=== PATIENT | male | born 1965 | race Caucasian/White ===

== ENCOUNTER 2023-04-16 23:35 | Inpatient (IN) | payer OTHER, SELFPAY ==
[2023-04-16 20:19] VITALS: BP 166/107; BMI 20.9
[2023-04-16 20:24] LABS: Glucose - Point of Care > 600 mg/dl (70-99)
[2023-04-16 20:40] LABS: % Basophils 1.1 % (0-2); % Immature Granulocytes 1.9 % (0-0.5); % Lymphocytes 15.2 % (20.5-51.1); % Monocytes 8.9 % (1.7-9.3); % Neutrophils 70.9 % (42.2-75.2); Absolute Basophils 0.1 10^3/uL (0-0.2); Absolute Eosinophils 0.2 10^3/uL (0-0.7); Absolute Immature Granulocytes 0.2 10^3/uL (0-0.05); Absolute Lymphocytes 1.2 10^3/uL (1.2-3.4); Absolute Monocytes 0.7 10^3/uL (0.1-0.6); Absolute Neutrophils 5.7 10^3/uL (1.4-6.5); Hematocrit 33.3 % (39.0-52.0); Hemoglobin 11.6 g/dL (13.0-18.0); Mean Corp Hgb Conc. 34.8 g/dL (33.0-37.0); Mean Corpuscular Hgb 29.7 pg (27.0-31.0); Mean Corpuscular Volume 85.4 fL (80.0-94.0); Mean Platelet Volume 9.7 fL (7.4-10.4); Nucleated Red Blood Cells % 0 % (-); Platelet Count 336 10^3/uL (130-400); Red Cell Dist. Width 13.6 % (11.5-14.5); White Blood Cell Count 8.1 10^3/uL (4.8-10.8)
[2023-04-16 21:01] LABS: Lactic Acid 3.8 mmol/L (0.7-2.0)
[2023-04-16 21:11] LABS: Carbon Dioxide 21 mmol/L (22-30)
[2023-04-16 21:23] LABS: Venous Blood Gas B.E. -4.7 mmol/L (-4 to +4); Venous Blood Gas HCO3 22.1 mmol/L (22-27); Venous Blood Gas O2 Sat % 72.8 %; Venous Blood Gas pCO2 47 mmHg (35-48); Venous Blood Gas pH 7.28 (7.32-7.43); Venous Blood Gas pO2 42 mmHg (30-50)
[2023-04-16 21:24] VITALS: BP 186/105
[2023-04-16] MEDS: NSS 2000 IV (21:30)
[2023-04-16 21:35] LABS: ALT (SGPT) 42 U/L (0-50); AST (SGOT) 26 U/L (17-59); Albumin 4.1 g/dl (3.5-5.0); Alkaline Phosphatase 181 U/L (38-126); Blood Urea Nitrogen 36 mg/dl (9-20); Calcium 8.9 mg/dl (8.4-10.2); Chloride 80 mmol/L (98-107); Estimated Creatinine Clearance 55 ml/min; Sodium 114 mmol/L (135-145); Total Bilirubin 0.7 mg/dl (0.2-1.3); Total Protein 6.9 g/dl (6.3-8.2); eGFR 53.96
[2023-04-16 21:42] VITALS: BP 179/110
--- NOTE | 2023-04-16 21:44 | PHANOTE ---
med rec note- patient having trouble with words and remembering. patient sentence are not making sense. patient has no ecw and only pharmacy records, no record in pharmacy fills for metformin.
[2023-04-16 22:00] VITALS: BP 200/179
[2023-04-16 22:07] LABS: Glucose 1105 mg/dl (70-99)
[2023-04-16 22:10] VITALS: BP 158/111
--- NOTE | 2023-04-16 22:22 | ED.GENMED ---
History of Present Illness
General
Chief Complaint: Blood Sugar Problem
Time Seen by Provider: 04/16/23 21:19
Travel History
Have you had any contact with someone who has COVID-19?: No
Do you have any symptoms of coronavirus? Fever > 100 degrees, chills, cough, shortness of breath, sore throat, loss of taste or smell, muscle aches, or headache?: No
History of Present Illness
History of Present Illness:
57-year-old male with history of insulin-dependent diabetes presents to the emergency department for evaluation of headache. States that he is having difficulty saying what he is thinking. He appears to be aphasic and becomes quite frustrated
easily when attempting to hold conversations. He does admit that he has not been using his insulin for quite some time. He states that he had a fall 2 weeks ago and the symptoms began then. I did also contact his roommate who states that after a
fall 2 weeks ago he became progressively more altered however the individual cannot provide any further information.
Past History
Past History
ED Past Medical History: None
Review of Systems
Review of Systems
Allergies reviewed?: Yes
All Other Systems: ROS reviewed and negative except as documented in HPI and ROS
Phy Exam
Physical Exam
Physical Exam:
GEN: Slightly disheveled but no immediate distress
Eyes: PERRLA, EOMs intact, no scleral icterus
HENT: NCAT, oral mucosa dry
Lungs: CTAB, no wheezes, rales, rhonchi, normal chest wall excursion
Cardiac: RRR, no M/R/G, no peripheral edema. Radial pulses 2+ bilat
Abdomen: S, NT, ND, NABS, no masses or hepatosplenomegaly
Neuro: Alert, display significant expressive aphasia is easily agitated. Bilateral upper and lower extremity strength is intact in all golden. Cranial nerves II through XII grossly intact
MSK: No gross deformity or ecchymosis. No edema. No digital clubbing
Skin: No rashes, petechiae. Normal color, no pallor or jaundice.
Psych: Agitates easily, progressively more aggressive throughout conversation
Course
Orders/Labs/Results
Orders:
Orders
04/16/23 20:25
Electrocardiogram (*1) Urgent
Reason for Study: Chest Pain
IV Insert/Care/Rem.- Treatment PRN
04/16/23 20:29
B-Hydroxybutyrate Urgent
Complete Blood Count/With Diff Urgent
Comprehensive Metabolic Panel Urgent
Lactic Acid Urgent
Serum Osmolality Urgent
Comment: ADD ON
04/16/23 20:45
0.9% Sodium Chloride 1000 ml [Nss] 1,000 ml IV 1,000 mls/hr
04/16/23 21:17
Venous Blood Gas Urgent
04/16/23 21:32
CT Head W/o Iv Contrast Urgent
Comment:
Reason For Exam: AMS
04/16/23 21:53
Diphenhydramine [Benadryl] 50 mg IV NOW STA
Haloperidol Lactate [Haldol] 5 mg IV NOW STA
Lorazepam [Ativan] 2 mg IV NOW STA
04/16/23 22:10
Bedside Glucose- Treatment Q1H
IV Insert/Care/Rem.- Treatment PRN
04/16/23 22:13
Add On- LAB Urgent
Tests Added?: serum osmolality
Urinalysis Reflex To Culture Urgent
Urine Sodium Urgent
04/16/23 22:23
Reg Insulin 100 Units/100 ml [Novolin R Insulin Infusion] 100 units in 100 ml IV NOW
04/16/23 22:41
0.9% Sodium Chloride 1000 ml [Nss] 2,000 ml IV BOLUS
04/16/23 22:53
Admit/Transfer Patient As Directed
Co-Sign Provider:
Level of Care: Inpatient admission
Assign to:: ICU
Physician / Group: eriberto
Diagnosis: hyperosmolar hyperglycemic state
Reason for Hospitalization: hyperosmolar hyperglycemic state
Expected length of stay greater than two midnights?: Yes
ELOS- Estimated Length of Stay in days: 2
I certify the patient meets the requirements for IP care: Yes
04/16/23 22:54
Code Status As Directed
Resuscitation Status: Full Code
04/16/23 23:00
Flush (0.9% Sodium Chloride) [Flush (Nss)] See Dose Instructions IV PER PROTOCOL
04/16/23 23:02
Urinalysis Reflex To Culture Urgent
04/16/23 23:03
CR Chest Portable - 1 View Urgent
Comment:
Reason For Exam: pna
Reason Study Needs to be Portable: Unable to Transport
04/16/23 23:15
Blood Culture Q30M
JAVIER Source: Blood/Venous
Specimen Description:
04/16/23 23:17
Vancomycin [Vancocin] 1,750 mg 0.9% Sodium Chloride 500 ml [Nss] 500 ml IV NOW
04/16/23 23:28
Reg Insulin 100 Units/100 ml [Novolin R Insulin Infusion] 100 units in 100 ml IV PER PROTOCOL
Initial dose in units/hr, then titrate:: 5
04/16/23 23:29
MRI Brain [MR Brain W/o & With Contrast] Routine
Comment:
Reason For Exam: temporal lesion
Recent pill cam endoscopy?: No
04/16/23 23:45
Blood Culture Q30M
JAVIER Source: Blood/Venous
Specimen Description:
Cefepime HCl [Maxipime] 2,000 mg IV Q12H
VANCOMYCIN Pharmacy to Dose [VANCOCIN Pharmacy to Dose] 1 each Pharmacy To Prepare [Call Pharmacy To Prepare] 0 ml IV PER PROTOCOL
04/17/23 00:00
Acyclovir [Zovirax Injection] 700 mg 0.9% Sodium Chloride 100 ml [Nss] 100 ml IV Q8H
MetroNIDAZOLE 500 MG/100 ML [Flagyl 500 mg] 100 ml IV Q8H
04/17/23 00:48
KCl 20 Meq/0.9%Sodchl 1000 ml [NSS with KCL 20 MEQ] 20 meq in 1,000 ml IV 200 mls/hr
04/17/23 00:48
Glycohemoglobin (HgbA1c) Routine
Activity As Directed
Activity Level: As Tolerated
Bedside Glucose Monitoring As Directed
Frequency: Q1H
Intake/ Output As Directed
Frequency: q12h
Notify MD As Directed
Notify physician if: Nurse to contact provider when glucose reaches 250 to obtain orders for D5 0.45 NaCl
Vital Signs As Directed
Frequency: Per unit guidelines
DX Deep Vein Thrombosis Video Routine
04/17/23 01:05
Basic Metabolic Panel Q2H
04/17/23 02:18
Basic Metabolic Panel Q2
04/17/23 02:30
Basic Metabolic Panel Q2H
04/17/23 04:00
Basic Metabolic Panel Q2
04/17/23 04:30
Basic Metabolic Panel Q2H
04/17/23 06:00
Basic Metabolic Panel Q2
Complete Blood Count/With Diff IN AM
04/17/23 08:00
Basic Metabolic Panel Q2
Heparin 5,000 units SC Q12
04/17/23 10:00
Basic Metabolic Panel Q2
04/17/23 12:00
Basic Metabolic Panel Q2
04/17/23 14:00
Basic Metabolic Panel Q2
04/17/23 Dinner
NPO
Allow oral meds: No
Allow clear liquids: No
04/17/23 16:00
Basic Metabolic Panel Q2
04/17/23 18:00
Basic Metabolic Panel Q2
04/17/23 20:00
Basic Metabolic Panel Q2
04/17/23 22:00
Basic Metabolic Panel Q2
04/18/23 00:00
Basic Metabolic Panel Q2
Abnormal Lab Results
04/16/23 04/16/23 04/16/23
20:23 20:29 21:17
RBC 3.90 L 10^6/uL
(4.70-6.10)
Hgb 11.6 L g/dL
(13.0-18.0)
Hct 33.3 L %
(39.0-52.0)
Abs Immat Gran (auto) 0.2 H 10^3/uL
(0-0.05)
Absolute Monos (auto) 0.7 H 10^3/uL
(0.1-0.6)
Immature Gran % 1.9 H %
(0-0.5)
Lymphocytes % 15.2 L %
(20.5-51.1)
VBG pH 7.28 L
(7.32-7.43)
Sodium 114 L* mmol/L
(135-145)
Chloride 80 L mmol/L
(98-107)
Carbon Dioxide 21 L mmol/L
(22-30)
BUN 36 H mg/dl
(9-20)
Creatinine 1.5 H mg/dL
(0.7-1.3)
Glucose 1105 H* mg/dl
(70-99)
Serum Osmolality 317 H mOsm/kg
(275-300)
Lactic Acid 3.8 H mmol/L
(0.7-2.0)
Alkaline Phosphatase 181 H U/L
(38-126)
POC Glucose > 600 H* mg/dl
(70-99)
04/16/23 20:29
04/16/23 22:15
Vital Signs
Initial and Last Documented VS:
Initial Vital Signs
Temp Pulse Resp BP Pulse Ox
98.2 F 88 16 166/107 99
04/16/23 20:19 04/16/23 20:19 04/16/23 20:19 04/16/23 20:19 04/16/23 20:19
Last Documented Vital Signs
Temp Pulse Resp BP Pulse Ox
98.5 F 88 20 166/107 95
04/17/23 01:08 04/16/23 20:19 04/17/23 00:59 04/16/23 20:19 04/17/23 00:59
MDM/Problems Addressed
MDM/Problems Addressed:
57-year-old male presenting with acute encephalopathy likely multifactorial in the setting of profound hyperglycemia. Also cannot discount the possibility of a closed head injury from 2 weeks ago leading to some of these cognitive changes. Head CT
interestingly shows a left temporal abnormality which could indicate the sequela of prior trauma versus neoplastic or infectious etiology. Patient was started promptly on IV fluid resuscitation and insulin drip due to hyperglycemic hyperosmolar
syndrome. Sodium corrects to 130 thus hypertonic saline was not considered. Patient is admitted to the hospitalist service to the ICU for further management
*Critical Care Note
Total Time (30-74mins, 75-104mins- exclusive of procedures): 45 minutes
comment:
Critical care time: 45 minutes
Critical care time was exclusive of: Separately billable procedures, treating other patients, and teaching time
Critical care was necessary to treat or prevent imminent or life-threatening deterioration of the following conditions: Diabetic emergency, metabolic encephalopathy
Critical care time spent personally by me on the following activities:
[x] Review of old charts
[x] Obtaining history from patient or surrogate
[x] Ordering and review of the laboratory studies
[x] Ordering and review of radiographic studies
[x] Ordering and performing treatments and interventions
[x] Patient patient's response to treatment
[x] Development of treatment plan with patient or surrogate
ED Attending Note
-
Portions of this chart may have been created with voice recognition software.� Occasional wrong word or��sound alike� substitutions may have occurred due to the inherent limitations of voice recognition software.
Discharge Plan
Departure
Patient Disposition: Admit
Date of Disposition: 04/16/23
Time of Disposition: 22:22
Admit to: ICU
Presentation/result/management discussed w/ accepting MD/DO: Hospitalist
Discharge Problem:
Type 2 diabetes mellitus with hyperosmolar hyperglycemic state (HHS), Acute metabolic encephalopathy, Pseudohyponatremia
Interventions
Interventions:
*Risk Screen - Suicide Last Done: 04/16/23 20:19
*General Assessment Last Done: 04/17/23 00:57
*Neglect/Abuse Screening Last Done: 04/16/23 20:19
ED- Fall Risk Assessment Last Done: 04/16/23 20:19
*ED COVID-19 Vaccine History Last Done: 04/16/23 20:19
*Nursing Disposition Last Done: 04/17/23 00:59
ED- Neurological Assessment Last Done: 04/17/23 00:56
Discharge Date and Time
Discharge Date/Time: 04/17/23 00:50
[2023-04-16] MEDS: NOVOLIN R INSULIN INFUSION 100 IV (22:31)
[2023-04-16 22:34] LABS: Osmolality Serum 317 mOsm/kg (275-300)
[2023-04-16] MEDS: ATIVAN 2 MG IV (22:35)
[2023-04-16] MEDS: HALDOL 5 MG IV (22:36)
[2023-04-16 23:00] VITALS: BP 132/104
--- NOTE | 2023-04-16 23:24 | HPS.HSE ---
Family Physician
-
Family Physician: Amadou Escobedo
Chief Complaint
-
altered mental status
History of Present Illness
57-year-old male past medical history of type 2 diabetes, hypothyroidism presenting with altered mental status. No history can be obtained. I attempted to call patient's friend who could not be reached.
Medical History
Past Medical History
Past Medical History: Reports Other (type 2 diabetes, hypothyroidism)
Past Surgical History: Reports None
Social History
Unable to obtain full social history at this time due to: Acuity
Family History
Family History: Not pertinent
Allergies / Home Medications
Allergies reflects when Allergies were last updated in [facility].
Home Medications with original date entered in [facility]
Allergy/Medication List:
Allergies
Allergy/AdvReac Type Severity Reaction Status Date / Time
No Known Allergies Allergy Verified 04/26/18 21:17
Home Medications
insulin detemir U-100 100 unit/mL (3 mL) subcutaneous pen (Levemir FlexPen) 0 unit SC AC 04/16/23
levothyroxine 112 mcg tablet (Synthroid) 112 mcg PO DAILY 04/16/23
sildenafil 100 mg tablet 100 mg PO DAILY PRN ed 04/16/23
Review of Systems
-
History Source: Patient
A 12 point ROS was completed and negative except as noted: Yes
Constitutional: Reports No Symptoms
EENT: Reports No Symptoms
Respiratory: Reports No Symptoms
Cardiac: Reports No Symptoms
Abdomen/GI: Reports No Symptoms
: Reports No Symptoms
Musculoskeletal: Reports No Symptoms
Skin: Reports No Symptoms
Neurological: Reports No Symptoms
Endocrine: Reports No Symptoms
Hematologic/Lymphatic: Reports No Symptoms
Psych: Reports No Symptoms
Physical Exam
Vital Signs
Vital Signs
Temp Pulse Resp BP Pulse Ox
98.2 F 88 16 166/107 99
04/16/23 20:19 04/16/23 20:19 04/16/23 20:19 04/16/23 20:19 04/16/23 20:19
Physical Exam
General: Well Developed, Well Nourished, No Apparent Distress and Other (arouses and briefly follows command to sternal rub )
HEENT: NormoCephalic, Moist mucous membranes and Atraumatic
Respiratory: Clear
Cardiac: S1/S2 and Regular Rhythm; No Murmur or Rub
GI: Soft, Non Tender, Non Distended and Normal Bowel Sounds; No Organomegaly
Rectal: Deferred by Provider
Musculoskeletal: No Clubbing, No Cyanosis and No Edema
Skin: No Rash
Neuro: Nonfocal/grossly intact
Laboratory Results
-
04/16/23 20:29
Laboratory Results
Lactic Acid 3.8 mmol/L (0.7-2.0) H 04/16/23 20:29
Total Bilirubin 0.7 mg/dl (0.2-1.3) 04/16/23 20:29
AST 26 U/L (17-59) 04/16/23 20:29
ALT 42 U/L (0-50) 04/16/23 20:29
Alkaline Phosphatase 181 U/L (38-126) H 04/16/23 20:29
Data Reviewed
-
Lab Data: Labs Reviewed by me
Old Records: Reviewed
Impression/Plan
-
IMPRESSION:
PLAN:
# Hyperosmolar hyperglycemic state
# History of type 2 diabetes
# Metabolic encephalopathy
-Patient opens eyes and barely following a command to sternal rub
-Blood sugar of 1100
-Beta hydroxybutyrate of 0.1
-VBG shows pH of 7.28, pCO2 47, bicarb 22
-No significant acidosis
-IV fluids with normal saline with 20 of potassium at 200 cc/h
-N.p.o.
-Insulin drip
-BMP every 2 hours, Accu-Chek every hour
-No obvious signs of infection but check urinalysis, chest x-ray
-Check blood cultures
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
-No family at bedside, attempted to call friend in chart but no response
# Hyponatremia secondary to hyperglycemia
-Corrected sodium of 130
-Monitor with normal saline with potassium
# Acute kidney injury
-IV fluids
# Mild asymmetric increased attenuation in the medial left temporal lobe possibly infectious/infiltrative neoplastic process
-As per CT head
-Blood cultures
-Empiric vancomycin/cefepime/Flagyl, Acyclovir to cover brain abscess/herpes encephalitis
-Check MRI brain with and without IV contrast to determine if LP needed and to de-escalate antibiotics
Hypothyroidism
-Resume levothyroxine when able
Full code
DVT prophylaxis�heparin
N.p.o.
[2023-04-16 23:52] LABS: Glucose - Point of Care > 600 mg/dl (70-99)
[2023-04-17] VITALS (25 sets, daily range): BP systolic 91–161; BP diastolic 47–87; BMI 20.5
[2023-04-17] MEDS: VANCOCIN 535 MG IV (00:26)
[2023-04-17 00:35] LABS: Glucose 606 mg/dl (70-99)
[2023-04-17 00:43] LABS: Lactic Acid 2.6 mmol/L (0.7-2.0)
--- NOTE | 2023-04-17 01:00 | PTCARENOTE ---
Patient arrived to floor from ED via stretcher accompanied by ED RN. Nursing assessment as documented, patient lethargic, arouses to tactile stimulation, able to follow simple commands but unable to answer orientation questions at this time. Patient
on RA with shallow respirations, saturations 98%. ST/SR on monitor, TR edema to BLLE, weak PP. Patient NPO with round and firm abdomen, inc of urine in brief. Wound to left lateral foot, cleansed and foam placed. Patient on insulin gtt per protocol,
see worklist for documentation. Labs drawn and sent, remains Q1hr accucheck, Q2hr BMP. VSS, call marrero in place, safe environment maintained, care ongoing.
[2023-04-17 01:11] LABS: Glucose - Point of Care 584 mg/dl (70-99)
[2023-04-17] MEDS: NSS with KCL 20 MEQ 1000 IV (01:24)
[2023-04-17 01:45] LABS: Blood Urea Nitrogen 24 mg/dl (9-20); Calcium 6.1 mg/dl (8.4-10.2); Carbon Dioxide 16 mmol/L (22-30); Chloride 106 mmol/L (98-107); Estimated Creatinine Clearance 90 ml/min; Glucose 335 mg/dl (70-99); Potassium 2.8 mmol/L (3.5-5.1); Sodium 131 mmol/L (135-145); eGFR > 60.00
[2023-04-17] MEDS: STERILE WATER FOR INJECTION 10 ML IV ×3 (01:52→23:17)
[2023-04-17] MEDS: MAXIPIME 2000 MG IV ×3 (01:52→23:17)
[2023-04-17] MEDS: FLAGYL 500 MG 100 IV ×4 (01:53→23:17)
[2023-04-17] MEDS: ZOVIRAX INJECTION 114 MG IV ×4 (02:09→23:51)
[2023-04-17 02:13] LABS: Glucose - Point of Care 382 mg/dl (70-99)
[2023-04-17] MEDS: CALCIUM GLUCONATE 290 MG IV (02:41)
[2023-04-17] MEDS: KCL 270 MEQ IV (02:41)
[2023-04-17 03:18] LABS: Glucose - Point of Care 230 mg/dl (70-99)
[2023-04-17 03:34] LABS: Blood Urea Nitrogen 34 mg/dl (9-20); Carbon Dioxide 21 mmol/L (22-30); Chloride 96 mmol/L (98-107); Estimated Creatinine Clearance 58 ml/min; Glucose 287 mg/dl (70-99); Potassium 3.7 mmol/L (3.5-5.1); Sodium 131 mmol/L (135-145); eGFR 58.62
[2023-04-17 04:14] LABS: Glucose - Point of Care 192 mg/dl (70-99)
[2023-04-17 04:22] LABS: % Eosinophils 2.5 % (0-6); % Immature Granulocytes 1.3 % (0-0.5); % Lymphocytes 21.6 % (20.5-51.1); % Monocytes 10.4 % (1.7-9.3); % Neutrophils 63.2 % (42.2-75.2); Absolute Basophils 0.1 10^3/uL (0-0.2); Absolute Eosinophils 0.2 10^3/uL (0-0.7); Absolute Immature Granulocytes 0.1 10^3/uL (0-0.05); Absolute Lymphocytes 2.1 10^3/uL (1.2-3.4); Absolute Neutrophils 6.1 10^3/uL (1.4-6.5); Hematocrit 27.4 % (39.0-52.0); Hemoglobin 9.9 g/dL (13.0-18.0); Mean Corp Hgb Conc. 36.1 g/dL (33.0-37.0); Mean Corpuscular Hgb 29.9 pg (27.0-31.0); Mean Corpuscular Volume 82.8 fL (80.0-94.0); Mean Platelet Volume 9.6 fL (7.4-10.4); Nucleated Red Blood Cells % 0 % (-); Platelet Count 311 10^3/uL (130-400); Red Blood Cell Count 3.31 10^6/uL (4.70-6.10); Red Cell Dist. Width 13.1 % (11.5-14.5); White Blood Cell Count 9.7 10^3/uL (4.8-10.8)
[2023-04-17] MEDS: D5/0.45%NSS with KCL 20 MEQ 1000 IV ×2 (04:31→10:30)
[2023-04-17 04:32] LABS: INR 1.05; PT 13.8 Sec (11.4-14.6)
[2023-04-17 04:33] LABS: APTT 28.2 Sec (23.4-35.0)
[2023-04-17 04:46] LABS: Blood Urea Nitrogen 31 mg/dl (9-20); Calcium 9.9 mg/dl (8.4-10.2); Carbon Dioxide 23 mmol/L (22-30); Chloride 101 mmol/L (98-107); Estimated Creatinine Clearance 54 ml/min; Glucose 141 mg/dl (70-99); Potassium 4.2 mmol/L (3.5-5.1); Sodium 130 mmol/L (135-145); eGFR 53.96
--- NOTE | 2023-04-17 05:00 | PTCARENOTE ---
Patient resting in bed, remains arousable to tactile stimuli and able to follow simple commands. Patient intermittently with periods of alertness but falls right back asleep. Remains on insulin gtt, titrating per protocol see worklist. Labs drawn
and sent. Bladder scanned and straight cath'd for 2300 of clear yellow urine, specimen sent. VSS, bed alarmed, safe environment maintained, care ongoing.
[2023-04-17 05:24] LABS: Glucose - Point of Care 162 mg/dl (70-99)
[2023-04-17 06:20] LABS: Urine Albumin Negative (Neg - Trace); Urine Bilirubin Negative (Negative); Urine Character Clear (Clear); Urine Color Straw; Urine Glucose 3+ (Negative); Urine Ketone Negative (Negative); Urine Leukocyte Negative (Negative); Urine Nitrite Negative (Negative); Urine Occult Blood Negative (Negative); Urine Specific Gravity 1.005 (<1.030); Urine Urobilinogen Negative (Neg - 1+)
[2023-04-17 06:20] LABS: Glucose - Point of Care 118 mg/dl (70-99)
[2023-04-17 06:32] LABS: Lactic Acid 1.8 mmol/L (0.7-2.0)
[2023-04-17 06:33] LABS: Blood Urea Nitrogen 32 mg/dl (9-20); Calcium 9.8 mg/dl (8.4-10.2); Carbon Dioxide 24 mmol/L (22-30); Chloride 99 mmol/L (98-107); Estimated Creatinine Clearance 58 ml/min; Glucose 114 mg/dl (70-99); Magnesium 1.7 mg/dl (1.6-2.3); Potassium 4.1 mmol/L (3.5-5.1); Sodium 132 mmol/L (135-145); eGFR 58.62
[2023-04-17 06:38] LABS: Urine Sodium 27 mmol/L (30-90)
[2023-04-17 07:16] LABS: Glucose - Point of Care 123 mg/dl (70-99)
--- NOTE | 2023-04-17 07:18 | CON.INTV ---
Consultation
Consultation Request
Date/Time Consultation Requested: 04-17-23
Date/Time Consultation Performed: 04-17-23
Requesting Provider: Hospitalist
Performing Provider: Dr Moses
Reason for Consultation: WILLIS
Medical History
-
Chief Complaint: WILLIS
History of Present Illness:
Mr Logan Godinez is a 57/M adm 04-16 with c/o WILLIS, presented c/o difficulty expressing his thoughts, reported h/o DM but was not using insulin for quite some time, fell 2 wks [employer], roommate contacted confirm h/o fall but could not provide more
details.
At ER, afebrile, hypertensive, no hypoxemia, G 1105, hyponatremia 114, Cr 1.5, serum osm 317, LA 3.8, head CT with L temporal abnormality (MRI brain pending).
Started on IVFs, insulin gtt, empiric atbs (vanco, cefepime, flagyl, acyclovir)
Seen at ICU, sleepy, poor historian, gets annoyed by interview but able to articulate full sentences. Denies dyspnea, cough, CP, n/v/d. Denies WILLIS at time of visit
Past Medical History
Past Medical History: Other (see A&P for PMH/PSH)
Social History
Tobacco: Other (limited historian, cannot obtain Soc H)
Family History
Family History: Unable to Obtain (limited historian)
Allergies / Home Medications
Allergies
Allergy/AdvReac Type Severity Reaction Status Date / Time
No Known Allergies Allergy Verified 04/26/18 21:17
Home Medications
Medication Instructions Recorded Confirmed Last Taken Type
insulin detemir U-100 100 unit/mL 0 unit SC AC 04/16/23 Unknown History
(3 mL) subcutaneous pen (Levemir
FlexPen)
levothyroxine 112 mcg tablet 112 mcg PO DAILY 04/16/23 Unknown History
(Synthroid)
sildenafil 100 mg tablet 100 mg PO DAILY PRN ed 04/16/23 Unknown History
Review of Systems
-
Unable to Obtain full review of systems at this time due to: Other (limited historian)
Vitals / Labs / Diagnostic Testing
Vital Signs
Temp Pulse Resp BP Pulse Ox
98.2 F 75 11 112/62 99
04/17/23 04:00 04/17/23 06:00 04/17/23 06:00 04/17/23 06:00 04/17/23 06:00
Lab Data
04/17/23 04:10
Laboratory Results
04/17/23
04:10
PT 13.8
INR 1.05
APTT 28.2
Diagnostic Testing:
Physical Exam
-
HEENT: Normocephalic and Moist Mucous Membranes
Cardiovascular: Regular Rhythm, Murmur (n) and Peripheral Edema (trace BRANDON edema)
Respiratory: Clear and Non-Labored Respirations
GI: Soft, Non Distended and Non Tender
Neurology: No Motor Deficits and Other (sleepy, arousable, limited historian)
Skin: Dry
General: Respiratory Distress (n)
Assessment
-
Assessment:
Mr Logan Godinez is a 57/M adm 04-16 with c/o WILLIS, presented c/o difficulty expressing his thoughts, reported h/o DM but was not using insulin for quite some time, fell 2 wks [employer], roommate contacted confirm h/o fall but could not provide more
details. At ER, afebrile, hypertensive, no hypoxemia, G 1105, hyponatremia 114, Cr 1.5, serum osm 317, LA 3.8, head CT with L temporal abnormality (MRI brain pending). Started on IVFs, insulin gtt, empiric atbs (vanco, cefepime, flagyl, acyclovir)
Impression:
Hyperosmolar hyperglycemic state
Moderate anemia
Improving hyponatremia
Normalized LA
CR: prerenal and postrenal
Prostatomegaly
Mild R and moderate L HN without an obstructing cause on US
Mild BRANDON edema
Small L foot ulcer with no cellulitis
Smoker
Conditions:
DM
Hypothyroidism
Plan:
Adm to icu for hyperosmolar hyperglycemic state
Hgb A1C >18.5% on adm
IDDM, reportedly not compliant to insulin regimen for an indeterminate period of time
Asp precs
No resp distress
On RA, POx 98%
Started and continued on insulin gtt since adm
AG closed
Transitioning to sc insulin: lantus and high corrective insulin q6
Head CT with mild asymmetric increased attenuation in the medial left temporal lobe parenchyma: uncertain etiology
Unknown baseline MS
No meningeal signs, intermittently able to speak in some brief conversation
No hypotension, tachycardia, leukocytosis to indicate active infectious process
On empiric atbs: vanco/cefepime/flagyl/acyclovir. Low threshold to d/c or narrow pending MRI brain and cx results
Blood cx pending
MRI brain pending (AXR screen negative)
ID and Neurology consultation depending on above
Urinary retention identified at ICU
US bladder and kidneys with prostatomegaly with bladder distension (in spite of straight cath of 400 mL earlier today), mild R and mod L HN (no obstructing cause on US)
UA not suspicious for infection
Reported h/o hypothyroidism on L-thyroxine
Check TSH and reflexive fT4
Resume TRT, for now IV dosing
UDS
DVT proph: sc hep
D/w MDT
Critical care time: 35 min
Diagnostic tests:
CXR 04-16-23: portable, no comparison films. No infiltrates
Head CT s/cc 04-16-23:
IMPRESSION:
Mild asymmetric increased attenuation in the medial left temporal lobe parenchyma, of uncertain etiology. Does not appear to represent blood products. Possible underlying infectious or infiltrative neoplastic process. A brain MRI without and with
intravenous contrast could be performed for further evaluation.
--- NOTE | 2023-04-17 07:45 | PTCARENOTE ---
Assumed care of patient. Pt rec'd lethargic...arouses to verbal/tactile stimuli. Moans at times. RUDOLPH's but weak. S1 S2 reg w/ NSR on monitor. Weak PP. Trace pedal edema. On R/A....sats 99%. Lungs diminished. Abdomen round and soft...+BS.
No void since straight cath....will bladder scan. Skin pale in color...sacrum intact...silicone foam on left lateral foot. IVF's and insulin gtt infusing...see interventions. VS documented. Safe environment confirmed. Will continue to monitor.
[2023-04-17] MEDS: HEPARIN 5000 UNITS SC (07:49)
[2023-04-17 08:14] LABS: Glucose - Point of Care 139 mg/dl (70-99)
--- NOTE | 2023-04-17 08:16 | PHA.VAN.IN ---
Assessment
- Assessment
Renal Function: Unknown baseline (SCR elevated compared to values in Apr 2018 - SCR 1.4 vs 0.6-0.9)
Concomitant Antimicrobials: Cefepime, Metronidazole, Acyclovir
Plan
- Plan
Initial / Loading Dose: 1750mg - 04/17 00:26
Maintenance Regimen: dosing by level - give additional 500mg x1 today at 1800 to maintain levels
Monitoring: random 04/18 06
Pharmacokinetics Vancomycin I
- -
Patient Age: 57
Patient Sex: Male
Vancomycin Day #: 1
Indication: Panelbeater Infection
Requesting Provider: Dr. Reyes
Pertinent Antimicrobial Allergies:
NKDA
Height / Weight:
Height 6 ft 1 in
Actual Weight 70.3 kg
Pertinent Past Medical History: DM 2
- Vital Signs / Lab Results
Temp Pulse Resp BP Pulse Ox
97.5 F 72 14 91/47 99
04/17/23 07:30 04/17/23 08:00 04/17/23 08:00 04/17/23 08:00 04/17/23 08:00
Lab Results - Hematology
04/16/23 04/17/23
20:29 04:10
WBC 8.1 9.7
Lab Results - Chemistry
04/16/23 04/16/23 04/17/23
20:29 22:15 01:05
BUN 36 H Cancelled 24 H
Creatinine 1.5 H Cancelled 0.9
Estimated Creat Clear 55 Cancelled 90
Albumin 4.1
04/17/23 04/17/23 04/17/23
02:18 02:30 04:10
BUN 34 H Cancelled 31 H
Creatinine 1.4 H Cancelled 1.5 H
Estimated Creat Clear 58 Cancelled 54
Albumin
04/17/23 04/17/23 04/17/23
04:30 06:07 08:00
BUN Cancelled 32 H Cancelled
Creatinine Cancelled 1.4 H Cancelled
Estimated Creat Clear Cancelled 58 Cancelled
Albumin
04/17/23 04/17/23 04/17/23
10:00 12:00 14:00
BUN Cancelled Cancelled Cancelled
Creatinine Cancelled Cancelled Cancelled
Estimated Creat Clear Cancelled Cancelled Cancelled
Albumin
04/17/23 04/17/23 04/17/23
16:00 18:00 20:00
BUN Cancelled Cancelled Cancelled
Creatinine Cancelled Cancelled Cancelled
Estimated Creat Clear Cancelled Cancelled Cancelled
Albumin
04/17/23
22:00
BUN Cancelled
Creatinine Cancelled
Estimated Creat Clear Cancelled
Albumin
04/16/23 04/17/23 04/17/23
20:29 00:24 06:07
Lactic Acid 3.8 H 2.6 H 1.8
Lab Results - Urine
04/17/23
05:42
Urine Nitrite (Reflex) Negative
Leukocyte Esterase Rfl Negative
[2023-04-17 08:51] LABS: Glycohemoglobin (HgbA1c) > 18.5 % (4.0-5.6)
[2023-04-17 09:13] LABS: Glucose - Point of Care 156 mg/dl (70-99)
--- NOTE | 2023-04-17 09:15 | PTCARENOTE ---
Attempted to straight cath patient after bladder scan resulted 1638mls in bladder. Clear yellow urine...approximately 400mls...pt agitated w/ straight cath...cursing and threatening to hit things. Bladder scan done while catheter inserted...810mls
resulted....no urine output via cath noted after initial 400mls. Will update MD.
--- NOTE | 2023-04-17 09:45 | PTCARENOTE ---
Bedside rounds done w/ . Abdominal xray ordered and done....for possible MRI this am. IVF's decreased to 100ml/hr. family living educator consulted and ronan texted.
--- NOTE | 2023-04-17 10:00 | PTCARENOTE ---
fully updated at bedside.
[2023-04-17 10:13] LABS: Glucose - Point of Care 129 mg/dl (70-99)
--- NOTE | 2023-04-17 10:19 | W.PN.HOSP.TC ---
Today's Communication/Plan
-
Continue with IV fluid
Continue insulin drip
MRI brain pending
Continuing broad-spectrum antibiotics/antiviral for now
Assessment / Plan
Assessment / Plan
# Hyperosmolar hyperglycemic state likely secondary noncompliance with insulin
# History of type 2 diabetes
# Toxic Metabolic encephalopathy
-Blood sugar of 1100 on admission
-Beta hydroxybutyrate of 0.1
-VBG shows pH of 7.28, pCO2 47, bicarb 22
-No significant acidosis
-IV fluids
-N.p.o.
-A1c greater than 18.5
-Insulin drip and transition to subcu once patient awake able to tolerate diet.
# Lactic acidosis secondary to dehydration
-Resolved with IV fluid
# Hyponatremia secondary to hyperglycemia
-Monitor with normal saline with potassium
-Monitor sodium with correction of glucose. Sodium started to stabilize.
# Acute kidney injury likely prerenal in the setting of severe hyperglycemia versus postrenal versus renal
# Urinary retention overnight required straight catheterization.
-IV fluids
-Renal bladder ultrasound.
-If persistently retaining urine may require Lock catheter
# Mild asymmetric increased attenuation in the medial left temporal lobe possibly infectious/infiltrative neoplastic process
-As per CT head
-Blood cultures
-Empiric vancomycin/cefepime/Flagyl, Acyclovir to cover brain abscess/herpes encephalitis
-Check MRI brain with and without IV contrast to determine if LP needed and to de-escalate antibiotics
-Check blood cultures in lab
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
-Based on MRI results may require ID and neurology evaluation
Hypothyroidism
-Resume levothyroxine when able
Hypocalcemia/hypokalemia
-Replete/ monitor
Full code
DVT prophylaxis�heparin
N.p.o.
Anticipated Discharge: > 48 hours
Subjective/Interval History
-
Date of Service: April 17, 2023
Patient resides and speaks few words and then fall back to sleep
Patient received Haldol and Ativan overnight
Patient remains on insulin drip
Glucose has improved
Remains afebrile
White count within normal limits
Blood pressure stable
Objective Data
-
Labs:
Laboratory Results
04/16/23 04/17/23 04/17/23
22:15 00:00 01:05
WBC
Hgb
Hct
Plt Count
PT
INR
APTT
Sodium Cancelled 131 L D
Potassium Cancelled 2.8 L D
Chloride Cancelled 106
Carbon Dioxide Cancelled 16 L
BUN Cancelled 24 H
Creatinine Cancelled 0.9
Glucose Cancelled 606 H* 335 H
Calcium Cancelled 6.1 L* D
04/17/23 04/17/23 04/17/23
02:18 02:30 04:10
WBC 9.7
Hgb 9.9 L
Hct 27.4 L
Plt Count 311
PT 13.8
INR 1.05
APTT 28.2
Sodium 131 L Cancelled 130 L
Potassium 3.7 D Cancelled 4.2
Chloride 96 L Cancelled 101
Carbon Dioxide 21 L Cancelled 23
BUN 34 H Cancelled 31 H
Creatinine 1.4 H Cancelled 1.5 H
Glucose 287 H Cancelled 141 H
Calcium 9.0 D Cancelled 9.9
04/17/23 04/17/23 04/17/23
04:30 06:07 08:00
WBC
Hgb
Hct
Plt Count
PT
INR
APTT
Sodium Cancelled 132 L Cancelled
Potassium Cancelled 4.1 Cancelled
Chloride Cancelled 99 Cancelled
Carbon Dioxide Cancelled 24 Cancelled
BUN Cancelled 32 H Cancelled
Creatinine Cancelled 1.4 H Cancelled
Glucose Cancelled 114 H Cancelled
Calcium Cancelled 9.8 Cancelled
04/17/23 04/17/23 04/17/23
10:00 12:00 14:00
WBC
Hgb
Hct
Plt Count
PT
INR
APTT
Sodium Cancelled Cancelled Cancelled
Potassium Cancelled Cancelled Cancelled
Chloride Cancelled Cancelled Cancelled
Carbon Dioxide Cancelled Cancelled Cancelled
BUN Cancelled Cancelled Cancelled
Creatinine Cancelled Cancelled Cancelled
Glucose Cancelled Cancelled Cancelled
Calcium Cancelled Cancelled Cancelled
04/17/23 04/17/23 04/17/23
16:00 18:00 20:00
WBC
Hgb
Hct
Plt Count
PT
INR
APTT
Sodium Cancelled Cancelled Cancelled
Potassium Cancelled Cancelled Cancelled
Chloride Cancelled Cancelled Cancelled
Carbon Dioxide Cancelled Cancelled Cancelled
BUN Cancelled Cancelled Cancelled
Creatinine Cancelled Cancelled Cancelled
Glucose Cancelled Cancelled Cancelled
Calcium Cancelled Cancelled Cancelled
04/17/23
22:00
WBC
Hgb
Hct
Plt Count
PT
INR
APTT
Sodium Cancelled
Potassium Cancelled
Chloride Cancelled
Carbon Dioxide Cancelled
BUN Cancelled
Creatinine Cancelled
Glucose Cancelled
Calcium Cancelled
Vital Signs:
Vital Signs
Temp Pulse Resp BP Pulse Ox
97.5 F 81 18 106/60 98
04/17/23 07:30 04/17/23 09:00 04/17/23 09:00 04/17/23 09:00 04/17/23 09:00
I&O
04/16/23 04/17/23 04/18/23
06:59 06:59 06:59
Intake Total 1924 755 / 755
Output Total 2300 / 2300 400 / 400
Balance -375 / -224 355 / 355
Physical Exam
-
General: Well Developed and No Apparent Distress
HEENT: Normocephalic, Atraumatic and Moist Mucous Membranes
Respiratory: Clear to Auscultation
Cardiac: Regular Rhythm and S1/S2; Negative Murmur, Rub or Gallop
GI: Soft, Nontender, Nondistended and Normal Bowel Sounds; Negative Organomegaly
Rectal: Deferred by Provider
Musculoskeletal: No Clubbing, No Cyanosis and No Edema
Skin: Negative Rash
Neuro: Awake (Intermittently- open eyes and speaks without any slurring of words. Moving all 4 extremities.) and Nonfocal/Grossly Intact
Data Reviewed
-
Total Time Spent with Patient (in minutes): 55
--- NOTE | 2023-04-17 10:48 | PN.DE.MGMTRT ---
Insulin Management
- -
04/17/2023 Diabetes Management Consult
Patient admitted 04/16 for change in mental status, hyperglycemia, glucose 1100. PMH type 2 diabetes, hypothyroid. A1C on admission > 18.5%, cr 1.4, egfr 58.62. Prior to admission chart reflects patient was taking levemir, dose unknown. Patient
is not interviewable at this time.
Patient is currently receiving insulin infusion, GAP has closed, will transition to subcutaneous insulin. Will give 12 units Lantus now, insulin infusion to stop 2 hours later. Patient is NPO will order high correction insulin Q 6 hours to start
at 6pm. Will follow for further needed adjustments which would be required due to 18.5% A1C.
Diabetes History
- -
Type of Diabetes: 2 requiring insulin
Pre-Admission Diabetes Regimen
04/16/23 04/16/23 04/17/23
20:29 22:15 01:05
Creatinine 1.5 H Cancelled 0.9
04/17/23 04/17/23 04/17/23
02:18 02:30 04:10
Creatinine 1.4 H Cancelled 1.5 H
04/17/23 04/17/23 04/17/23
04:30 06:07 08:00
Creatinine Cancelled 1.4 H Cancelled
04/17/23 04/17/23 04/17/23
10:00 12:00 14:00
Creatinine Cancelled Cancelled Cancelled
04/17/23 04/17/23 04/17/23
16:00 18:00 20:00
Creatinine Cancelled Cancelled Cancelled
04/17/23
22:00
Creatinine Cancelled
Lab Results
Hemoglobin A1c > 18.5 % (4.0-5.6) H 04/17/23 04:10
Insulin Pump Settings
IP Diabetes Regimen
04/16/23 04/16/23 04/16/23
20:23 20:29 22:15
Glucose 1105 H* Cancelled
POC Glucose > 600 H*
04/16/23 04/17/23 04/17/23
23:50 00:00 00:59
Glucose 606 H*
POC Glucose > 600 H* 584 H*
04/17/23 04/17/23 04/17/23
01:05 02:01 02:18
Glucose 335 H 287 H
POC Glucose 382 H
04/17/23 04/17/23 04/17/23
02:30 03:05 04:03
Glucose Cancelled
POC Glucose 230 H 192 H
04/17/23 04/17/23 04/17/23
04:10 04:30 05:13
Glucose 141 H Cancelled
POC Glucose 162 H
04/17/23 04/17/23 04/17/23
06:07 06:09 07:05
Glucose 114 H
POC Glucose 118 H 123 H
04/17/23 04/17/23 04/17/23
08:00 08:03 09:02
Glucose Cancelled
POC Glucose 139 H 156 H
04/17/23 04/17/23 04/17/23
10:00 10:01 12:00
Glucose Cancelled Cancelled
POC Glucose 129 H
04/17/23 04/17/23 04/17/23
14:00 16:00 18:00
Glucose Cancelled Cancelled Cancelled
POC Glucose
04/17/23 04/17/23
20:00 22:00
Glucose Cancelled Cancelled
POC Glucose
Patient Education
[2023-04-17 11:08] LABS: Glucose - Point of Care 156 mg/dl (70-99)
[2023-04-17] MEDS: LANTUS 0.119999999999999996 UNITS SC (11:09)
[2023-04-17] MEDS: D5/0.45%NSS with KCL 20 MEQ IV (11:18)
--- NOTE | 2023-04-17 12:15 | PTCARENOTE ---
Ultrasound at bedside to perform renal U/S. Ultrasound confirmed that 1400mls in bladder. aware. Lock placed per acute retention. Renal ultrasound done post insertion. Lock inserted w/o issue....draining yellow urine. No other
major changes in physical assessment. VS documented. Will continue to monitor closely.
[2023-04-17 12:29] LABS: Glucose - Point of Care 135 mg/dl (70-99)
--- NOTE | 2023-04-17 13:15 | PTCARENOTE ---
IVF's and insulin gtt stopped per para educator.
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
--- NOTE | 2023-04-17 15:45 | PTCARENOTE ---
Taken for MRI brain @ approximately 1500. Study completed w/o issue.
--- NOTE | 2023-04-17 16:00 | PTCARENOTE ---
No major changes in physical assessment. Pt remains lethargic but arousable. Follows simple commands. Annoyed w/ repositioning. VS documented. Will continue to monitor.
[2023-04-17 16:58] LABS: Amphetamines Positive (Negative); Barbiturates Negative (Negative); Benzodiazepines Negative (Negative); Buprenorphine Negative (Negative); Cocaine Positive (Negative)
[2023-04-17 16:59] LABS: Marijuana Negative (Negative); Methadone Negative (Negative); Methamphetamines Positive (Negative); Opiates Negative (Negative); Phencyclidine Negative (Negative); Tricyclic Antidepressants Negative (Negative)
--- NOTE | 2023-04-17 17:04 | W.PN.UPDATE ---
Update Note
Progress Note Update
Brain MRI results noted, still raise concern for acute L temporal encephalopathy
Poor MS, cannot obtain consent from patient
Two friends from [place] did not answered calls from RN earlier or myself now
D/w Dr Cohen (IRad): will proceed with LP under emergent consent as there is medical need to proceed
D/w ACCOUNTING RECRUITERBAYRON Yap
[2023-04-17 17:18] LABS: Fentanyl, Urine Negative (Negative)
--- NOTE | 2023-04-17 17:30 | PTCARENOTE ---
Taken to IR for LP.
[2023-04-17] MEDS: VANCOCIN HCL 500 MG 100 IV (18:06)
[2023-04-17] MEDS: LOVENOX 40 MG SC (18:06)
[2023-04-17 18:28] LABS: Glucose - Point of Care 189 mg/dl (70-99)
[2023-04-17 18:45] LABS: Spinal Fluid Glucose 124 mg/dl (40-70); Spinal Fluid Protein 215 mg/dl (12-60)
[2023-04-17] MEDS: NOVOLOG FLEXPEN-HIGH RESISTANCE 2 UNITS SC (18:47)
[2023-04-17 18:49] LABS: CSF Color Colorless; CSF Tube # 4; CSF Tube # Clarity Clear
[2023-04-17 18:50] LABS: Red Cell Count/CSF 0 mm^3; White Blood Cell Count/CSF 1 mm^3 (0-5)
[2023-04-17 18:51] LABS: CSF Clarity Clear; CSF Color Colorless; CSF Tube # 1; Red Cell Count/CSF 1 mm^3; White Cell Count/CSF 1 mm^3 (0-5)
--- NOTE | 2023-04-17 20:40 | PTCARENOTE ---
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 call marrero with patient.
--- NOTE | 2023-04-17 22:13 | W.PN.UPDATE ---
Addendum entered and electronically signed by Prema Marin DO 04/18/23 07:08:
cEEG unchanged through 7am.
Original Note:
Update Note
Progress Note Update
Continuous EEG Update Note
Read cEEG through 10:15pm, no clear epileptiform abnormalities captured thus far. Will c/t follow.
[2023-04-17] MEDS: LANTUS 0.149999999999999994 UNITS SC (23:16)
--- NOTE | 2023-04-17 23:50 | PTCARENOTE ---
pt resting with eyes closed, arousable, no changes in assessment.
[2023-04-17] MEDS: NOVOLOG FLEXPEN-HIGH RESISTANCE 4 UNITS SC (23:51)
[2023-04-17 23:55] LABS: Glucose - Point of Care 232 mg/dl (70-99)
[2023-04-18] VITALS (21 sets, daily range): BP systolic 88–138; BP diastolic 59–89; PULSE 110; BMI 19.6
[2023-04-18 00:20] LABS: Free T4 1.55 ng/dl (0.78-2.19)
--- NOTE | 2023-04-18 04:30 | PTCARENOTE ---
pt sleeping in between care, easily arousable/appropriate conversation. 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 no further changes.
[2023-04-18 04:53] LABS: Hemoglobin 11.4 g/dL (13.0-18.0); Mean Corp Hgb Conc. 35.6 g/dL (33.0-37.0); Mean Corpuscular Hgb 29.7 pg (27.0-31.0); Mean Corpuscular Volume 83.3 fL (80.0-94.0); Mean Platelet Volume 9.6 fL (7.4-10.4); Platelet Count 334 10^3/uL (130-400); Red Blood Cell Count 3.84 10^6/uL (4.70-6.10); Red Cell Dist. Width 13.4 % (11.5-14.5)
[2023-04-18 05:21] LABS: Vancomycin Random 13.1 ug/ml
[2023-04-18 05:24] LABS: Blood Urea Nitrogen 18 mg/dl (9-20); Calcium 9.4 mg/dl (8.4-10.2); Carbon Dioxide 24 mmol/L (22-30); Chloride 100 mmol/L (98-107); Estimated Creatinine Clearance 78 ml/min; Glucose 137 mg/dl (70-99); Magnesium 1.5 mg/dl (1.6-2.3); Potassium 4.4 mmol/L (3.5-5.1); Sodium 133 mmol/L (135-145); eGFR > 60.00
[2023-04-18 06:23] LABS: Glucose - Point of Care 144 mg/dl (70-99)
[2023-04-18] MEDS: NOVOLOG FLEXPEN-HIGH RESISTANCE 1 UNITS SC (06:26)
[2023-04-18] MEDS: MAGNESIUM SULFATE 50 IV (06:27)
--- NOTE | 2023-04-18 07:32 | PN.DE.MGMTRT ---
Insulin Management
- -
04/17/2023 Diabetes Management Consult
Patient admitted 04/16 for change in mental status, hyperglycemia, glucose 1100. PMH type 2 diabetes, hypothyroid. A1C on admission > 18.5%, cr 1.4, egfr 58.62. Prior to admission chart reflects patient was taking Levemir, dose unknown. Patient
is not interviewable at this time.
Patient is currently receiving insulin infusion, GAP has closed, will transition to subcutaneous insulin. Will give 12 units Lantus now, insulin infusion to stop 2 hours later. Patient is NPO will order high correction insulin Q 6 hours to start
at 6pm. Will follow for further needed adjustments which would be required due to 18.5% A1C.
04/18/2023: Diabetes Management F/U:
Pt awake, A/O x3, resting in bed, offers no complaints.
He has been NPO, plan to start diet this morning. FBG 137, Q 6 hr Accuchek 150-226, requiring 1-4 units of corrective insulin
Will start AC NovoLog 6 units. Cont current dose of Lantus 15 units @ HS. Change to moderate corrective insulin with meals
Will follow for further needed adjustments due to A1C of >18.5%
Pt states he had monitor at home but is not sure where it is at home.
New glucose monitor and supplies have been transmitted to his pharmacy.
Diabetes History
- -
Type of Diabetes: 2 requiring insulin
Pre-Admission Diabetes Regimen
04/18/23
04:30
Creatinine 1.0
Lab Results
Hemoglobin A1c > 18.5 % (4.0-5.6) H 04/17/23 04:10
Insulin Pump Settings
IP Diabetes Regimen
04/17/23 04/17/23 04/17/23
08:03 09:02 10:01
Glucose
POC Glucose 139 H 156 H 129 H
02/01/24 02/01/24 02/01/24
10:57 12:18 18:17
Glucose
POC Glucose 156 H 135 H 189 H
04/17/23 04/18/23 04/18/23
23:44 04:30 06:12
Glucose 137 H
POC Glucose 232 H 144 H
Patient Education
--- NOTE | 2023-04-18 07:48 | CON.NEURO4 ---
Addendum entered and electronically signed by David Jo MD 04/18/23 11:02:
The elevated protein in CSF is presumed due to the severe hyperglycemia, diabetes is known to produce elevated CSF protein and very high A1c in 18 range.
Original Note:
Consultation - Neurology 4
-
CONSULTING PHYSICIAN: Manuel Jo
REFERRING PHYSICIAN: Hospitalist
DICTATED BY: Manuel Jo
DATE/TIME OF REQUEST: 04/18/23
DATE/TIME OF CONSULTATION: 04/18/23
Reason for Consultation: Encephalopathy, abnormal brain imaging
History of Present Illness:
Patient is a 57 year old man with history of hypothyroidism, type II diabetes presenting to hospital with encephalopathy and severe hyperglycemia to [address] head demonstrated abnormality in left temporal lobe parenchyma of unclear etiology,
was started on broad spectrum antibiotics for possible [employer]ING infection. Lumbar puncture demonstrated glucose 125 protein 215, 0 RBC, 1 1 WBC with negative meningitis/encephalitis panel.
Patient awake and alert this morning, denies any recent illnesses. Denies headache and no history of seizure. Denies any tobacco, alcohol, or substance use. Reports no chronic medications.
Past Medical History: Diabetes type 2, hypothyroidism
Surgical History: None
Family History: Non-contributory, no family history of seizures
Social History: Lives with a friend, denies alcohol or tobacco and recreational drugs (UDS positive for amphetamines and cocaine)
Allergies: No known drug allergies
Review of Symptoms:
Patient denies any fever, headache, chest pain, shortness of breath, GI or symptoms.
Physical Exam:
Middle aged man no distress, no head trauma, EEG leads on, no tongue laceration, oropharnyx clear, neck no masses, heart rate regular, breathing unlabored, abdomen soft non tender, no lower extremity or rash seen
Neurologic Examination:
The patient is awake, alert and oriented fully. Fluent spontaneous speech majority of the time but has some occasional word finding difficulties demonstrating mild expressive aphasia, comprehension is intact. On cranial nerve assessment, pupils
are 3 mm bilateral, round and reactive to light and accommodation. Visual golden are full. Extraocular movements are intact. Facial sensations are intact and bilaterally symmetrical, there is no facial asymmetry. Hearing is intact bilaterally to
normal conversation volume. Tongue palate and uvula are midline. Sternocleidomastoid strengths are full bilaterally. Motor strengths are 5/5 bilateral upper and lower extremities on medical research Hartly scale. There is no drift or involuntary
movement noted. Deep tendon reflexes are 2+ bilateral upper and lower extremities and Babinski is absent bilaterally. Sensations of pain, touch, temperature and vibration are intact and bilaterally symmetrical. There was no extinction noted on
double simultaneous stimulation. Coordination is intact by finger to nose bilaterally.
Neuro Imaging: MRI brain and CT head reviewed, left temporal lobe small amount contrast enhancement, and left temporal lobe subtle asymmetry on the FLARE sequence, no DWI diffusion, no findings suggestive of infarct, encephalitis, or hemorrhage.
Impressions
1. Encephalopathy and abnormal brain MRI findings are very likely due to metabolic abnromalities associated with severe hyperglycemia. Post ictal phenomenon is a possibility given seizures can occur with such hyperglycemia. Low grade neoplasm
if felt unlikely but would warranted repeated MRI imaging in a few weeks to assess for resolution.
2. EEG not supportive of significant seizure risk
3. Likely amphetamine/cocaine use based on UDS
4.
Patient has the following risk factors for their symptoms: Hyperglycemia
Recommendations:
1. Recommend repeated MRI in outpatient setting with and without contrast in 4 weeks
2. Monitor blood glucose, will need diabetic education and insulin education and assistance for starting insulin
3. Okay to come off continuous EEG
4. Not recommending any anti seizure medications
5. Basic neurologic checks, NIH scales not necessary
6. Does not appear to need antimicrobial therapy based on CSF results negative for infection, ID following
7. Not recommending antiplatelet medication
Will follow
Discussed patient care with: Patient, hospitalist team
[2023-04-18] MEDS: ZOVIRAX INJECTION 114 MG IV (07:50)
--- NOTE | 2023-04-18 08:42 | W.PN.INTV ---
Today's Communication / Plan
Recommendations
Sc insulin
Diet
Off atbs
TRT
Reconsult prn
Assessment
-
Assessment:
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
details. At ER, afebrile, hypertensive, no hypoxemia, G 1105, hyponatremia 114, Cr 1.5, serum osm 317, LA 3.8, head CT with L temporal abnormality (MRI brain pending). Started on IVFs, insulin gtt, empiric atbs (vanco, cefepime, flagyl, acyclovir)
Impression:
Hyperosmolar hyperglycemic state
Moderate anemia
Improving hyponatremia
Normalized LA
CR: prerenal and postrenal
Prostatomegaly
Mild R and moderate L HN without an obstructing cause on US
Mild BRANDON edema
Small L foot ulcer with no cellulitis
Smoker
Conditions:
DM
Hypothyroidism
Plan:
Adm to icu for hyperosmolar hyperglycemic state
Hgb A1C >18.5% on adm
IDDM, reportedly not compliant to insulin regimen for an indeterminate period of time
Asp precs
No resp distress
On RA, POx 98%
Started and continued on insulin gtt since adm
AG closed
Transitioning to sc insulin 04-17: lantus and high corrective insulin q6
Oral diet
Head CT with mild asymmetric increased attenuation in the medial left temporal lobe parenchyma: uncertain etiology
Unknown baseline MS
No meningeal signs, intermittently able to speak in some brief conversation
No hypotension, tachycardia, leukocytosis to indicate active infectious process
Blood cx so far negative
MRI brain 04-17: mild asymmetric postcontrast signal abnormality in the anteromedial left temporal lobe cortex suggesting an ACUTE LEFT TEMPORAL ENCEPHALOPATHY (probably infectious or inflammatory in etiology)
LP 04-17: clear CSF, 12 mL, wbc 1, rbc zero, G 124, prot 215 (deemed secondary to hyperglycemia), G stain negative, PCR meningitis panel negative
Empiric atbs now d/c (vanco/cefepime/flagyl/acyclovir)
Neurology following, EEG with no evidence of sz
Urinary retention identified at ICU
US bladder and kidneys with prostatomegaly with bladder distension (in spite of straight cath of 400 mL earlier today), mild R and mod L HN (no obstructing cause on US)
UA not suspicious for infection
Reported h/o hypothyroidism on L-thyroxine
Checked TSH and reflexive fT4
Resumed TRT
UDS: positive for amphetamines and cocaine
DVT proph: sc hep
D/w MDT
Can transfer to telemetry
Reconsult as needed
Diagnostic tests:
CXR 04-16-23: portable, no comparison films. No infiltrates
Head CT s/cc 04-16-23:
IMPRESSION:
Mild asymmetric increased attenuation in the medial left temporal lobe parenchyma, of uncertain etiology. Does not appear to represent blood products. Possible underlying infectious or infiltrative neoplastic process. A brain MRI without and with
intravenous contrast could be performed for further evaluation.
Subjective Dataa
Subjective Data
Date of Service:
Date of Service: April 18, 2023
Chief Complaint: Pourer Metal Follow Up
Subjective:
Received LP yesterday by IR
No evidence of seizure activity on EEG
More awake and cooperative today
Hungry
Review of Systems
General: Fever (n), Sweats (n), Chills and Satisfactory Appetite
HEENT: Epistaxis (n) and Dysphagia (n)
Cardiopulmonary: Dyspnea (n), Cough (n) and Chest Pain (n)
GI: Abdominal Pain (n), Nausea and Vomiting (n)
Neuro: Weakness
Objective Data
Data Reviewed
Vital Signs / I&O / Oxygen:
Vital Signs
Temp Pulse Resp BP Pulse Ox
97.7 F 93 11 98/70 97
04/18/23 08:00 04/18/23 08:00 04/18/23 08:00 04/18/23 08:00 04/18/23 08:00
Intake and Output
04/17/23 04/18/23 04/19/23
06:59 06:59 06:59
Intake Total 5 / 6 1608 / 1608 25
Output Total 2300 / 2300 5800 / 5800 120 / 120
Balance -375 / -224 -4192 / -4192 -95 / -95
SaO2 97
Physical Exam
General: Comfortable
HEENT: Normocephalic and Moist Mucous Membranes
Cardiovascular: Regular Rhythm, Murmur (n), Peripheral Edema (trace pedal) and Calf Tenderness (n)
Respiratory: Clear (n), Rhonchi and Stridor
GI: Soft, Non Distended and Non Tender
Neurology: Awake, Oriented and No Motor Deficits
Skin: Dry
Labs/Micro/Reports
Lab Data
04/18/23 04:30
04/18/23 04:30
Microbiology
04/17/23 00:24 Blood/Venous Blood Culture - Preliminary
No Growth in 24 hours- Final report to follow
04/17/23 17:58 Csf Meningitis/Encephalitis Panel (PCR) - Final
04/17/23 17:58 Csf Gram Stain - Preliminary
04/17/23 17:58 Csf Fungal Culture - Preliminary
Culture in progress.
Positive cultures are reported as soon as detected.
Final report to follow in four to five weeks.
--- NOTE | 2023-04-18 08:57 | CON.ID ---
Consultation
-
Date/Time Consultation Requested: April 17, 2023 1652
Date/Time Consultation Performed: April 18, 2023 0900
Requesting Provider: Dr. Gm Moses
Performing Provider: Dr. Mandi Em
Reason for Consultation: Mental status change
Chief Complaint / Past History
Chief Complaint
Change in mental status
History of Present Illness
57-year-old male with diabetes mellitus type 2 who presented to the ED on April 16 with acute change in mental status. Serum glucose was over 1000. He was in severe hyper osmolar hyperglycemic state. He was started on empiric cefepime,
metronidazole, vancomycin, acyclovir for possible meningoencephalitis. MRI of the brain showed mild asymmetric abnormality in the left temporal lobe cortex. Yesterday he underwent lumbar puncture. Today patient is more awake and oriented. He
reports he has been noncompliant with his diabetes medicine. He denies recent headache, neck stiffness, fever or chills. Has been feeling weak for the past few days. No cough. No diarrhea. No ill contacts.
Past History
Additional Past Medical History:
DM2
Hypothyroidism
BPH
Allergy History:
No Known Allergies Allergy (Verified 04/26/18 21:17)
Medications Reviewed: Yes
Current Antibiotics:
Vancomycin
Cefepime
Acyclovir
Metronidazole
Social History
Tobacco: Smoker
Alcohol: None
Drug: None
Living: With Roomate
Family History
Family History: Not Pertinent
Review of Systems
Review of Systems
General: Change in Appetite; Negative Fever or Chills
HEENT: Negative Stiff Neck, Sinus Problems, Headache or Pharyngitis
Cardiovascular: Negative Chest Pain
Respiratory: Negative Dyspnea or Cough
Genital / Urological: Negative Dysuria or Flank Pain
Endocrine: Weakness and Fatigue
Skin / Hair / Nails: Negative Rash
Neurological: Negative Headache or Dizziness
All systems: All other systems were reviewed and were negative
Vital Signs
Temp Pulse Resp BP Pulse Ox
97.7 F 93 11 98/70 97
04/18/23 08:00 04/18/23 08:00 04/18/23 08:00 04/18/23 08:00 04/18/23 08:00
Physical Exam
Physical Exam
Constitutional: Comfortable and Cachetic
Head: Other (No frontal or maxillary sinus tendereness)
Eyes: No Conjunctival Hemorrhage and Sclera Anicteric
Cardiovascular: Regular Rate and S1/S2
Pulmonary: Clear
Gastrointestinal: Soft, Non Tender, Non Distended and Normal Bowel Sounds
Genito-Urinary: Negative CVA Tenderness
Extremities: Negative Edema
Neurological: Awake, Oriented (x3) and Other (Drowsy); Negative Meningeal Signs (neck supple, no photophobia)
Lab / Diagnostic Study Results
04/18/23 04:30
04/18/23 04:30
Abs Immat Gran (auto) 0.1 10^3/uL (0-0.05) H 04/17/23 04:10
Absolute Neuts (auto) 6.1 10^3/uL (1.4-6.5) 04/17/23 04:10
Absolute Lymphs (auto) 2.1 10^3/uL (1.2-3.4) 04/17/23 04:10
Absolute Monos (auto) 1.0 10^3/uL (0.1-0.6) H 04/17/23 04:10
Absolute Basos (auto) 0.1 10^3/uL (0-0.2) 04/17/23 04:10
Immature Gran % 1.3 % (0-0.5) H 04/17/23 04:10
Neutrophils % 63.2 % (42.2-75.2) 04/17/23 04:10
Lymphocytes % 21.6 % (20.5-51.1) 04/17/23 04:10
Monocytes % 10.4 % (1.7-9.3) H 04/17/23 04:10
Eosinophils % 2.5 % (0-6) 04/17/23 04:10
Basophils % 1.0 % (0-2) 04/17/23 04:10
PT 13.8 Sec (11.4-14.6) 04/17/23 04:10
INR 1.05 04/17/23 04:10
Lactic Acid 1.8 mmol/L (0.7-2.0) 04/17/23 06:07
Microbiology Results
Micro:
04/17/23 00:24 Blood Culture - Preliminary
Blood/Venous No Growth in 24 hours- Final report to follow
04/17/23 17:58 Meningitis/Encephalitis Panel (PCR) - Final
Csf
04/17/23 17:58 CSF Culture - Pending
Csf Gram Stain - Preliminary
04/17/23 17:58 Fungal Culture - Preliminary
Csf Culture in progress.
Positive cultures are reported as soon as detected.
Final report to follow in four to five weeks.
04/17/23 17:58 Acid Fast Bacilli Smear - Pending
Csf Acid Fast Bacilli Culture - Pending
04/17/23 04:10 MRSA Screen - Pending
Nose
04/17/23 MRI brain wo and w contrast: Mild asymmetric postcontrast signal abnormality in the anteromedial left temporal lobe cortex suggesting an ACUTE LEFT TEMPORAL ENCEPHALOPATHY (probably infectious or inflammatory in etiology). A low-grade primary
brain tumor is a less likely diagnostic possibility. No MRI evidence for acute infarct or intracranial hemorrhage. Mild diffuse cerebral and cerebellar volume loss.
04/17/23 Renal US: Mild right and moderate left-sided hydronephrosis without an obstructing cause identified sonographically. Prostatomegaly with urinary bladder distention.
Assessment / Plan
# Uncontrolled DM with hyperosmolar hyperglycemic state
# Encephalopathy due to above. Mental status improving.
- CSF fluid bland with only 1 wbc,, 0RBC, meningoencephalitis panel PCR negative
No evidence of infectious meningoencephalitis. Elevated CSF protein due to brain insult from hyperosmolar hyperglycemic state.
DC Vanco/cefepime/metronidazole/acyclovir.
-Control DM
[2023-04-18] MEDS: FLAGYL 500 MG IV (09:19)
[2023-04-18] MEDS: NOVOLOG FLEXPEN-HIGH RESISTANCE 2 UNITS SC (09:58)
[2023-04-18 10:07] LABS: Glucose - Point of Care 150 mg/dl (70-99)
--- NOTE | 2023-04-18 10:33 | CM ---
CM following re: discharge planning.
Discussed in Rounds, reviewed pt's chart, met with pt.
Pt presents lying in the bed, AAOx3 with independent decision making capacity. Pt reports he lives with friend David in his house, does not remember the address. 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
the parking lot.
Pt reports he mostly lives in [place], went to [place] for 2 years, returned back last year and now staying with his friend David. Pt reports he has 4 sons and he does not know where they are. Pt stated his youngest son name Arron. Pt stated his phone number
is: [phone].
D/C plan: home with anticipated no needs. Pt stated he will drive to his friend David house at discharge.
CM will follow with discharge plan updates as hospitalization progresses
--- NOTE | 2023-04-18 12:13 | W.PN.HOSP.TC ---
Today's Communication/Plan
-
Tx to [place]
Diabetic education
insulin adjustment
start flomax
urology eval
DC abx/antiviral
Assessment / Plan
Assessment / Plan
# Hyperosmolar hyperglycemic state likely secondary noncompliance with insulin
# History of type 2 diabetes
# Toxic Metabolic encephalopathy
-Blood sugar of 1100 on admission
-Beta hydroxybutyrate of 0.1
-VBG shows pH of 7.28, pCO2 47, bicarb 22
-No significant acidosis
-Started on diet
-A1c greater than 18.5
-Off insulin drip and started on basal Lantus 15 units. Monitor bolus and then can start standing. Continue with insulin sliding scale
# Lactic acidosis secondary to dehydration
-Resolved with IV fluid
# Hyponatremia secondary to hyperglycemia
-Monitor with normal saline with potassium
-Monitor sodium with correction of glucose. Sodium started to stabilize.
# Acute kidney injury likely prerenal in the setting of severe hyperglycemia versus postrenal
# Urinary retention overnight required straight catheterization.
-dc IV fluids.
-Renal bladder ultrasound with Mild right and moderate left-sided hydronephrosis without an obstructing cause identified sonographically. Prostatomegaly with urinary bladder distention.
-required pete catheter placement on 04/17.
-started on flomax.
-consult urology
-Cr stabilized to 1. Tolerating diet.
# Mild asymmetric increased attenuation in the medial left temporal lobe possibly 2/ HHNK
-MRI brain Mild asymmetric postcontrast signal abnormality in the anteromedial left temporal lobe cortex suggesting an ACUTE LEFT TEMPORAL ENCEPHALOPATHY (probably infectious or inflammatory in etiology). A low-grade primary brain tumor is a less
likely diagnostic possibility.
-s/p LP by IRAD on 04/17 with WBC 1. Elevated glucose and elevated protein (per neurology elevated protein due to hyperglycemia)
-Broad-spectrum antibiotics and antivirals discontinued
-Status post continuous EEG overnight found to be negative. EEG discontinued
-Discussed case with neurology recommending outpatient MRI upon discharge. Findings likely related to HHNK.
-Patient mentation back to baseline. PT and OT ordered.
Subclinical Hypothyroidism
-Resume levothyroxine and increase dose to 125mcg.
-repeat TFTs in 4 -6 weeks upon dc
Hypocalcemia/hypokalemia
-Replete/ monitor
Full code
DVT prophylaxis�heparin
PT/OT
Anticipated Discharge: > 48 hours
Subjective/Interval History
-
Date of Service: April 18, 2023
awake alert and oriented
eating breakfast in rapid speed
on room air
remembers coming to hospital
denies using inusulin at home
Objective Data
-
Labs:
Laboratory Results
04/18/23
04:30
WBC 10.0
Hgb 11.4 L
Hct 32.0 L
Plt Count 334
Sodium 133 L
Potassium 4.4
Chloride 100
Carbon Dioxide 24
BUN 18
Creatinine 1.0
Glucose 137 H
Calcium 9.4
Vital Signs:
Vital Signs
Temp Pulse Resp BP Pulse Ox
97.7 F 102 15 134/89 97
04/18/23 08:00 04/18/23 11:29 04/18/23 11:29 04/18/23 11:29 04/18/23 08:00
I&O
04/17/23 04/18/23 04/19/23
06:59 06:59 06:59
Intake Total 1924 / 2075 1608 / 1608 750 / 750
Output Total 2300 / 2300 5800 / 5800 370 / 370
Balance -375 / -224 -4192 / -4192 380 / 380
Physical Exam
-
General: Well Developed, No Apparent Distress, Appears Chronically Ill and Other (disshelved)
HEENT: Normocephalic, Atraumatic and Moist Mucous Membranes
Respiratory: Clear to Auscultation
Cardiac: Regular Rhythm and S1/S2; Negative Murmur, Rub or Gallop
GI: Soft, Nontender, Nondistended and Normal Bowel Sounds; Negative Organomegaly
Rectal: Deferred by Provider
Musculoskeletal: No Clubbing, No Cyanosis and No Edema
Skin: Negative Rash
Neuro: Awake, Alert, Oriented, AO x 3, No Motor Deficits and Nonfocal/Grossly Intact
Psych: Calm
Data Reviewed
-
Total Time Spent with Patient (in minutes): 54
[2023-04-18 12:54] LABS: Glucose - Point of Care 226 mg/dl (70-99)
[2023-04-18] MEDS: FLOMAX 0.400000000000000022 MG PO (13:28)
[2023-04-18] MEDS: NOVOLOG FLEXPEN 6 UNITS SC ×2 (13:28→18:47)
[2023-04-18] MEDS: NOVOLOG FLEXPEN-HIGH RESISTANCE 4 UNITS SC (14:12)
--- NOTE | 2023-04-18 15:21 | PTCARENOTE ---
Patient received in AM with assessment as noted. Continues mostly sleeping, easily awakens to voice and oriented when awake. Affect flat and grudgingly cooperative. OOB and ambulated in the torres with PT this morning. He also stood at the sink to
wash up and brush his teeth after he finished his walk. NSR on monitor. Afebrile. B/P's stable. Lungs slightly decreased in bases bilaterally otherwise CTA. Sao2 96% on room air. 1800 ADA diet started with breakfast and he ate 100% of both breakfast
and lunch. High dose SSI ongoing. No bowel movement today. Lock draining dark ramiro urine until it was d/c'd at 1500. Flomax 0.4 PO started at 1300. Family into visit and updated to patient condition. For transfer to [facility] when the bed is
available.
--- NOTE | 2023-04-18 17:03 | EEGC.RPT ---
Continuous EEG Report
Recording
Start Date of Data Reviewed: 04/17/23
Start Time of Data Reviewed: 18:50
End Date of Data Reviewed: 04/18/23
End Time of Data Reviewed: 09:34
Type of EEG: Continuous
Done with Video Recording: Yes
Study Sequence: Continuation of ongoing Study
Report
METHODS
A 21 channel digitized electroencephalogram was performed at [facility]. The 10/20 international system of electrode placement was used. In addition to EEG, the patient was monitored for EKG. The duration of the recording was 14 hour and 43
minutes.
BACKGROUND
During the awake state, with the eyes closed, the background consisted of a normal amplitude, 11 Hertz posterior reactive rhythm that attenuated appropriately with eye opening. Beta activity was distributed diffusely with an anterior predominance.
There was a normal anterior-posterior voltage gradient. With eye opening the background activity changed to a low voltage mixture of alpha, beta, and occasional theta range frequencies. There were no significant asymmetries of background activity
noted.
SLEEP
Stage II sleep was obtained and consisted of symmetrical sleep spindles and vertex sharp waves.
PHOTIC STIMULATION
Photic stimulation using a step-dickey increase in photic frequency varying from 1-31 Hertz resulted in no driving responses but no appearance of abnormal activity.
ABNORMAL EEG ACTIVITY
None
CLINICAL EVENTS
None
INTERPRETATION AND CLINICAL CORRELATION
This EEG is normal during the awake and sleep states as well as during the activation procedure of photic stimulation. No seizures were noted during the recording. A normal EEG, in itself, does not rule out a diagnosis of epilepsy. If clinical
suspicion for seizure persists, a sleep-deprived and/or prolonged recording may be warranted.
[2023-04-18 17:17] LABS: Glucose - Point of Care 278 mg/dl (70-99)
--- NOTE | 2023-04-18 17:27 | CONS.URO ---
Consultation
-
Date/Time Consultation Performed: 04/19/23 1015
Performing Provider: Jim
Reason for Consultation: Obstructive Uropathy
Medical History
History of Present Illness
57-year-old male with diabetes mellitus type 2 who presented to the ED on April 16 with acute change in mental status due to diabetic crisis.
Renal-Bladder U/S revealed > 1400 ml retained urine and enlarged prostate
'Before i came in, sometimes I could go all day without peeing.'
Lock was removed yesterday: 'I've gone 3 times since, normal-like,'
Past Medical History
Past Medical History: Other (Diabetes -- untreated)
Social History
Tobacco: Smoker
Allergies/Home Medications
Allergies
Allergy/AdvReac Type Severity Reaction Status Date / Time
No Known Allergies Allergy Verified 04/26/18 21:17
Home Medications
Medication Instructions Recorded Confirmed Type
insulin detemir U-100 100 unit/mL 0 unit SC DAILY Diabetes 04/16/23 History
(3 mL) subcutaneous pen (Levemir
FlexPen)
levothyroxine 112 mcg tablet 112 mcg PO DAILY Thyroid 04/16/23 History
(Synthroid)
sildenafil 100 mg tablet 100 mg PO DAILY PRN ed 04/16/23 History
blood sugar diagnostic (Contour #200 ea 04/18/23 Rx
Next Test Strips)
blood-glucose meter (Contour Next #1 ea 04/18/23 Rx
One Meter)
insulin glargine 100 unit/mL (3 15 unit (0.15 mL) SC HS Diabetes 04/18/23 Rx
mL) subcutaneous pen (Basaglar #5 ea
KwikPen U-100 Insulin)
lancets (Microlet Lancet) #150 ea 04/18/23 Rx
metformin 1,000 mg tablet 1,000 mg PO BID@0800,1700 #60 tabs 04/18/23 Rx
pen needle, diabetic 32 gauge x #200 ea 04/18/23 Rx
' (BD Ultra-Fine Zoie Pen
Needle)
Physical Exam
Vital Signs
Vital Signs
Temp Pulse Resp BP Pulse Ox
98.5 F 81 14 124/72 95
04/18/23 16:00 04/18/23 15:00 04/18/23 15:00 04/18/23 15:00 04/18/23 16:00
Lab / Testing Results
Laboratory Results
04/18/23 04:30
04/18/23 04:30
Physical Exam
adult male who appears older than age
General: No Apparent Distress
GI: Soft, Non Tender and Non Distended
Neuro: Awake and Alert
Psych: Calm
Assessment / Plan
-
Prostate Enlargement with severe urinary retention plus bilateral hydroureteronephrosis indicating an element of Obstructive Nephropathy
Bladder scan to determine if patient is voiding volitionally satisfactorily.
Data Reviewed
-
Ultrasound: Image personally visualized and interpreted (Enlarged prostate with severe Bladder Distension and bilateral Ureterectasis, L > R)
Lab Data: Labs Reviewed
Old Records: Reviewed
--- NOTE | 2023-04-18 18:17 | PTCARENOTE ---
Patient for transfer to [facility] and report called to [facility] on . Patient transferred via W/C with chart and belongings. All assessment data as previously noted.
[2023-04-18] MEDS: NOVOLOG FLEXPEN-HIGH RESISTANCE 7 UNITS SC (18:46)
[2023-04-18] MEDS: LOVENOX 40 MG SC (18:48)
[2023-04-18 22:16] LABS: Glucose - Point of Care 299 mg/dl (70-99)
[2023-04-18] MEDS: LANTUS 0.149999999999999994 UNITS SC (22:42)
[2023-04-19] MEDS: SYNTHROID 125 MCG PO (06:00)
[2023-04-19 07:02] LABS: % Eosinophils 2.7 % (0-6); % Immature Granulocytes 0.6 % (0-0.5); % Lymphocytes 22.8 % (20.5-51.1); % Monocytes 8.2 % (1.7-9.3); % Neutrophils 64.7 % (42.2-75.2); Absolute Basophils 0.1 10^3/uL (0-0.2); Absolute Eosinophils 0.2 10^3/uL (0-0.7); Absolute Lymphocytes 1.6 10^3/uL (1.2-3.4); Absolute Monocytes 0.6 10^3/uL (0.1-0.6); Absolute Neutrophils 4.6 10^3/uL (1.4-6.5); Hematocrit 30.3 % (39.0-52.0); Hemoglobin 10.8 g/dL (13.0-18.0); Mean Corp Hgb Conc. 35.6 g/dL (33.0-37.0); Mean Corpuscular Hgb 30.4 pg (27.0-31.0); Mean Corpuscular Volume 85.4 fL (80.0-94.0); Mean Platelet Volume 9.8 fL (7.4-10.4); Nucleated Red Blood Cells % 0 % (-); Platelet Count 293 10^3/uL (130-400); Red Blood Cell Count 3.55 10^6/uL (4.70-6.10); Red Cell Dist. Width 13.1 % (11.5-14.5); White Blood Cell Count 7.1 10^3/uL (4.8-10.8)
[2023-04-19 07:30] VITALS: BP 107/63
[2023-04-19 07:36] LABS: Blood Urea Nitrogen 23 mg/dl (9-20); Calcium 8.9 mg/dl (8.4-10.2); Carbon Dioxide 26 mmol/L (22-30); Chloride 94 mmol/L (98-107); Estimated Creatinine Clearance 65 ml/min; Glucose 282 mg/dl (70-99); Potassium 4.4 mmol/L (3.5-5.1); Sodium 128 mmol/L (135-145); eGFR > 60.00
[2023-04-19 07:51] LABS: Magnesium 1.8 mg/dl (1.6-2.3); Phosphorus 3.4 mg/dl (2.5-4.5)
[2023-04-19 08:38] LABS: Glucose - Point of Care 290 mg/dl (70-99)
[2023-04-19] MEDS: NOVOLOG FLEXPEN SC (10:19)
[2023-04-19 10:20] LABS: Glucose - Point of Care 376 mg/dl (70-99)
[2023-04-19] MEDS: NOVOLOG FLEXPEN-HIGH RESISTANCE 12 UNITS SC (10:20)
--- NOTE | 2023-04-19 11:25 | W.PN.HOSP.TC ---
Today's Communication/Plan
-
Monitor PVR
Trend poc
counseled on compliance
Assessment / Plan
Assessment / Plan
# Hyperosmolar hyperglycemic state likely secondary noncompliance with insulin
# History of type 2 diabetes
# Toxic Metabolic encephalopathy
-Blood sugar of 1100 on admission
-Beta hydroxybutyrate of 0.1
-VBG shows pH of 7.28, pCO2 47, bicarb 22
-No significant acidosis
-Started on diet
-A1c greater than 18.5
-Off insulin drip and started on basal Lantus 15 units. started on novolog 6u TID AC. Continue with insulin sliding scale
# Lactic acidosis secondary to dehydration
-Resolved with IV fluid
#Polysubstance abuse
-UDS positive for multiple agents
# Hyponatremia secondary to hyperglycemia
-Monitor sodium with correction of glucose. Corrected sodium wnl.
# Acute kidney injury likely prerenal in the setting of severe hyperglycemia and postrenal due to prostrate enlargement.
# Urinary retention s/p pete placement and removal.
-dc IV fluids.
-Renal bladder ultrasound with Mild right and moderate left-sided hydronephrosis without an obstructing cause identified sonographically. Prostatomegaly with urinary bladder distention.
-required pete catheter placement on 04/17 and pete removed. Monitor PVR.
-started on flomax and finasteride
-consult urology
-Cr stabilized to 1. Tolerating diet.
# Mild asymmetric increased attenuation in the medial left temporal lobe possibly / HHNK
-MRI brain Mild asymmetric postcontrast signal abnormality in the anteromedial left temporal lobe cortex suggesting an ACUTE LEFT TEMPORAL ENCEPHALOPATHY (probably infectious or inflammatory in etiology). A low-grade primary brain tumor is a less
likely diagnostic possibility.
-s/p LP by IRAD on 04/17 with WBC 1. Elevated glucose and elevated protein (per neurology elevated protein due to hyperglycemia)
-Broad-spectrum antibiotics and antivirals discontinued
-Status post continuous EEG overnight found to be negative. EEG discontinued
-Discussed case with neurology recommending outpatient MRI upon discharge. Findings likely related to HHNK.
-Patient mentation back to baseline. PT and OT ordered.
Subclinical Hypothyroidism
-Resume levothyroxine and increase dose to 125mcg.
-repeat TFTs in 4 -6 weeks upon dc
Hypocalcemia/hypokalemia
-Replete/ monitor
Full code
DVT prophylaxis�heparin
PT/OT -home when ready
Anticipated Discharge: Today
Subjective/Interval History
-
Date of Service: April 19, 2023
Pete was removed
pt states voiding without difficulty
not taking any meds at home
understand need to be compliant with medication and insulin
Objective Data
-
Labs:
Laboratory Results
04/19/23
06:47
WBC 7.1
Hgb 10.8 L
Hct 30.3 L
Plt Count 293
Sodium 128 L
Potassium 4.4
Chloride 94 L
Carbon Dioxide 26
BUN 23 H
Creatinine 1.2
Glucose 282 H
Calcium 8.9
Vital Signs:
Vital Signs
Temp Pulse Resp BP Pulse Ox
98.3 F 88 14 107/63 97
04/19/23 07:30 04/19/23 07:30 04/19/23 07:30 04/19/23 07:30 04/19/23 07:30
I&O
04/18/23 04/19/23 04/20/23
06:59 06:59 06:59
Intake Total 1608 / 1608 990 / 990
Output Total 5800 / 5800 1045 / 1045
Balance -4192 / -4192 -55 / -55
Physical Exam
-
General: Well Developed, No Apparent Distress, Appears Chronically Ill and Other (disshelved)
HEENT: Normocephalic, Atraumatic and Moist Mucous Membranes
Respiratory: Clear to Auscultation
Cardiac: Regular Rhythm and S1/S2; Negative Murmur, Rub or Gallop
GI: Soft, Nontender, Nondistended and Normal Bowel Sounds; Negative Organomegaly
Rectal: Deferred by Provider
Musculoskeletal: No Clubbing, No Cyanosis and No Edema
Skin: Negative Rash
Neuro: Awake, Alert, Oriented, AO x 3, No Motor Deficits and Nonfocal/Grossly Intact
Psych: Calm
Data Reviewed
-
Total Time Spent with Patient (in minutes): 54
[2023-04-19 12:31] LABS: Glucose - Point of Care 241 mg/dl (70-99)
[2023-04-19] MEDS: NOVOLOG FLEXPEN 6 UNITS SC (12:40)
[2023-04-19] MEDS: NOVOLOG FLEXPEN-HIGH RESISTANCE 4 UNITS SC (12:40)
[2023-04-19] MEDS: FLOMAX 0.400000000000000022 MG PO (12:41)
--- NOTE | 2023-04-19 12:50 | W.DCSUMMARY ---
Addendum entered and electronically signed by Jimbo Keen MD 04/21/23 10:10:
On April 21 microbiology called the on-call cross cover physician which is myself with results of a blood culture drawn on 17 April/growing gram-positive bacilli may be contaminant tried to reach patient by phone unreachable number
could not leave message no other numbers given also consulted with infectious disease who wants to wait for further speciation of culture results prior to any action.
Original Note:
Discharge Summary
Discharge Data
Date of Admission: 04/16/23
Date of Discharge: 04/19/23
-
Pending Results: No
Hospital Course
57-year-old male past medical history of insulin-dependent diabetes, hypothyroidism, BPH is presenting with altered mental status. Upon admission patient underwent CT of the head which was found to be abnormal with Mild asymmetric increased
attenuation in the medial left temporal lobe parenchyma, of uncertain etiology. Does not appear to represent blood products. Possible underlying infectious or infiltrative neoplastic process. A brain MRI without and with intravenous contrast could
be performed for further evaluation. Patient was also found to have blood glucose in 1100. Patient was started on insulin drip. Patient with HHNK on admission. Patient was also started on broad-spectrum antibiotics and antiviral medication.
Patient was also retaining urine and required Pete catheter placement. Patient with low TSH and was restarted on Synthroid and dose was increased. Patient remained confused and underwent MRI of the brain which showed MRI brain Mild asymmetric
postcontrast signal abnormality in the anteromedial left temporal lobe cortex suggesting an ACUTE LEFT TEMPORAL ENCEPHALOPATHY (probably infectious or inflammatory in etiology). A low-grade primary brain tumor is a less likely diagnostic
possibility. status LP by IRAD on 04/17 with WBC 1. Elevated glucose and elevated protein (per neurology elevated protein due to hyperglycemia) CSF studies Negative except for protein elevation which per neurology could be due to hyperglycemia.
Patient underwent renal bladder ultrasound with Mild right and moderate left-sided hydronephrosis without an obstructing cause identified sonographically. Prostatomegaly with urinary bladder distention. Urology was consulted. Patient was Flomax
and finasteride. Patient was not taking Flomax as outpatient. Patient was also not taking insulin as outpatient. Patient noncompliant. A1c was found to be greater than 18.5. Patient UDS was also positive for polysubstances. Patient mentation
improved. Patient was taken off EEG. Patient mentation back to baseline. Patient was started on subcu Lantus and Premeal insulin. Diabetic education was provided. Post Pete catheter removal patient was voiding without difficulty without severe
residual volume. 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
Discharge Plan
-
Patient Disposition: Home (Routine Discharge)
Discharge Diagnosis/Procedures: Hyperosmolar hyperglycemic non ketoacidosis
Toxic metabolic encephalopathy
Lactic acidosis
Polysubstance abuse
Hyponatremia secondary to hyperglycemia
Acute kidney injury likely prerenal in the setting of severe hyperglycemia and postrenal due to prostrate enlargement.
Urinary retention status post pete placement and removal.
Mild asymmetric increased attenuation in the medial left temporal lobe possibly 2/2 Hyperosmolar hyperglycemic non ketoacidosis
Subclinical Hypothyroidism
Hypocalcemia
hypokalemia
Condition: Fair
Diet: Diabetic, Carb Controlled
Activity: With assistance and As tolerated
Driving Restrictions: As prior to admission
Blood Work: Repeat thyroid function testing in 4 to 6 weeks.
Activity Restrictions/Additional Instructions:
Recommend repeat MRI of the brain in 1 month.
Instructions: Type 2 Diabetes (DC)
Referrals:
Candido Fernandez MD [Active] -
Jennifer Nash MD [Consulting Staff] - in one to two weeks (call to make appt)
Prema Marin DO [Active] - in two to three weeks
Amadou Escobedo DO [Family Provider] -
Prescriptions:
New
(DME) blood-glucose meter [Contour Next One Meter] Misc
Qty: 1 0RF
Rx Instructions:
Pt testing 4 times a day
(DME) Contour Next Test Strips Strip
Qty: 200 0RF
Rx Instructions:
Pt testing 4 times a day
metformin 1,000 mg Tablet
1,000 mg PO BID@0800,1700 Qty: 60 0RF
insulin glargine [Basaglar KwikPen U-100 Insulin] 100 unit/mL (3 mL) Insulin Pen
15 unit SC HS Qty: 5 0RF
Rx Instructions:
Please taking every night at bedtime
(DME) pen needle, diabetic [BD Ultra-Fine Zoie Pen Needle] 32 gauge x 5' Needle
Qty: 200 0RF
Rx Instructions:
Pt taking insulin 4 times a day
(DME) lancets [Microlet Lancet] Misc
Qty: 150 0RF
Rx Instructions:
Pt testing 4 times a day
finasteride [Proscar] 5 mg tablet
5 mg PO DAILY Qty: 90 3RF
tamsulosin 0.4 mg capsule
0.4 mg PO DAILY Qty: 90 3RF
insulin lispro [Humalog KwikPen Insulin] 100 unit/mL Insulin Pen
6 unit SC AC 30 Days Qty: 5 0RF
levothyroxine [Synthroid] 125 mcg tablet
125 mcg PO DAILY Qty: 30 0RF
Continued
sildenafil 100 mg Tablet
100 mg PO DAILY PRN (Reason: ed)
Discontinued
levothyroxine [Synthroid] 112 mcg Tablet
112 mcg PO DAILY
Levemir FlexPen 100 unit/mL (3 mL) Insulin Pen
0 unit SC DAILY
Discharge Orders:
Discharge Patient (As Directed); Ordered 04/19/23
Ordered By: Shravan Crabtree
Discharge Date and Time
Discharge Date/Time: 04/19/23 14:46
--- NOTE | 2023-04-19 14:07 | CM ---
Chart reviewed
Pt for d/c today
Reports he has his car here and will drive to his friends home
Plan - home no needs
--- NOTE | 2023-04-19 14:51 | PTCARENOTE ---
RN provided patient education of self administering insulin with pen. Pt was able to provide teach back education and also demonstrate self administration of insulin upon discharge.
[2023-04-20 00:35] LABS: C.neoformans Antigen Negative (Negative)
[2023-04-20 16:33] LABS: Paraneoplastic Ab IgG, CSF None Detected (None Detected)
[2023-04-21 00:55] LABS: CSF VDRL (T. pallidum) Non Reactive (Non Reactive)
== END 2023-04-19 14:46 | disposition home or self-care (01) | DRG 637 ==
LOC: 3 WEST ACU 23:35
PROVIDERS: Emergency Medicine; Nurse Practitioner Family; Nurse Practitioner Primary Care; Physician Assistant; Radiology Vascular & Interventional Radiology; ADMITTING PHYSICIAN Hospitalist; ATTENDING PHYSICIAN Hospitalist; CONSULT PHYSICIAN Specialist; EMERGENCY PHYSICIAN Emergency Medicine; FAMILY PHYSICIAN Internal Medicine; OTHER PHYSICIAN Internal Medicine Infectious Disease; OTHER PHYSICIAN Internal Medicine Pulmonary Disease; OTHER PHYSICIAN Student in an Organized Health Care Education/Training Program
PROC: 0T9B70Z Drainage of Bladder with Drainage Device, Via Natural or Artificial Opening (ICD-10-PCS; 2023-04-17)
PROC: 009U3ZX Drainage of Spinal Canal, Percutaneous Approach, Diagnostic (ICD-10-PCS; 2023-04-17)
PROC: B01B1ZZ Fluoroscopy of Spinal Cord using Low Osmolar Contrast (ICD-10-PCS; 2023-04-17)
DX: E11.00 Type 2 diabetes mellitus with hyperosmolarity without nonketotic hyperglycemic-hyperosmolar coma (NKHHC) (principal); G92.8 Other toxic encephalopathy; N17.9 Acute kidney failure, unspecified; E87.1 Hypo-osmolality and hyponatremia; N13.30 Unspecified hydronephrosis; E87.20 Acidosis, unspecified; R64 Cachexia; Z68.1 Body mass index [BMI] 19.9 or less, adult; R51.9 Headache, unspecified; W19.XXXA Unspecified fall, initial encounter; E03.8 Other specified hypothyroidism; D64.9 Anemia, unspecified; F17.200 Nicotine dependence, unspecified, uncomplicated; L97.529 Non-pressure chronic ulcer of other part of left foot with unspecified severity; E11.621 Type 2 diabetes mellitus with foot ulcer; E83.51 Hypocalcemia; E87.6 Hypokalemia; F19.10 Other psychoactive substance abuse, uncomplicated; N40.0 Benign prostatic hyperplasia without lower urinary tract symptoms; E86.0 Dehydration; N32.89 Other specified disorders of bladder; Z79.890 Hormone replacement therapy; Z79.84 Long term (current) use of oral hypoglycemic drugs; Z79.4 Long term (current) use of insulin; Z91.199 Patient's noncompliance with other medical treatment and regimen due to unspecified reason
CPT/HCPCS: 62328; 70450; 70553; 71045; 74018; 76770; 80048; 80053; 80202; 80306; 80307; 81003; 82010; 82805; 82945; 82947; 82962; 83036; 83605; 83735; 83930; 84100; 84157; 84300; 84439; 84443; 85025; 85027; 85610; 85730; 86255; 86592; 87015; 87040; 87070; 87077; 87102; 87116; 87205; 87327; 87483; 88108; 89051; 93005; 95714; 96365; 96375; 97163; 97165; 99291; A9575

== ENCOUNTER 2023-06-08 02:32 | Inpatient (IN) | payer OTHER, SELFPAY ==
[2023-06-07 23:30] VITALS: BP 184/106
[2023-06-07 23:53] VITALS: BMI 22.7
[2023-06-08] VITALS (16 sets, daily range): BP systolic 113–154; BP diastolic 69–109; BMI 21.7
--- NOTE | 2023-06-08 00:04 | ED.GENMED ---
History of Present Illness
General
Chief Complaint: Skin Problem
Source: patient
Exam Limitations: none
Time Seen by Provider: 06/07/23 23:56
Travel History
Have you had any contact with someone who has COVID-19?: No
Do you have any symptoms of coronavirus? Fever > 100 degrees, chills, cough, shortness of breath, sore throat, loss of taste or smell, muscle aches, or headache?: No
History of Present Illness
History of Present Illness:
See MDM
Past History
Past History
ED Past Medical History: IDDM
ED Past Surgical History: Orthopedic
Social History
Tobacco: Non-smoker
Alcohol: None
Phy Exam
Physical Exam
Physical Exam:
See MDM
Course
Orders/Labs/Results
Orders:
Orders
06/08/23 00:03
Piperacillin/Tazo 4.5 Gram [Zosyn] 4.5 gram in 100 ml IV NOW
Foot, Left 3 View [CR Foot - Left Min 3 Views] Urgent
Comment:
Reason For Exam: diabetic foot ulcers
06/08/23 00:11
Complete Blood Count/With Diff Urgent
Comprehensive Metabolic Panel Urgent
Lactic Acid Q4H
Comment: CANCEL 2nd LACTIC ACID IF 1st LACTIC ACID IS LESS THAN 2
Blood Culture Q30M
JAVIER Source: Blood/Venous
Specimen Description:
06/08/23 00:21
Blood Culture Q30M
JAVIER Source: Blood/Venous
Specimen Description:
06/08/23 00:36
Vancomycin [Vancocin] 1,500 mg 0.9% Sodium Chloride [Nss] 20 ml 0.9% Sodium Chloride 250 ml [Nss] 250 ml IV NOW
06/08/23 01:00
Flush (0.9% Sodium Chloride) [Flush (Nss)] See Dose Instructions IV PER PROTOCOL
06/08/23 01:03
Add On- LAB Urgent
Tests Added?: Serum osmolality
06/08/23 01:08
Insulin Aspart [NOVOLOG vial] 10 units SC NOW STA
06/08/23 04:15
Lactic Acid Q4H
Comment: CANCEL 2nd LACTIC ACID IF 1st LACTIC ACID IS LESS THAN 2
Abnormal Lab Results
06/08/23
00:11
RBC 4.34 L 10^6/uL
(4.70-6.10)
Hgb 12.6 L g/dL
(13.0-18.0)
Hct 35.6 L %
(39.0-52.0)
Abs Immat Gran (auto) 0.1 H 10^3/uL
(0-0.05)
Absolute Neuts (auto) 7.8 H 10^3/uL
(1.4-6.5)
Absolute Lymphs (auto) 1.1 L 10^3/uL
(1.2-3.4)
Absolute Monos (auto) 0.9 H 10^3/uL
(0.1-0.6)
Neutrophils % 76.1 H %
(42.2-75.2)
Lymphocytes % 11.0 L %
(20.5-51.1)
Sodium 124 L mmol/L
(135-145)
Chloride 85 L mmol/L
(98-107)
BUN 42 H mg/dl
(9-20)
Creatinine 1.6 H mg/dL
(0.7-1.3)
Glucose 741 H* mg/dl
(70-99)
Lactic Acid 2.2 H mmol/L
(0.7-2.0)
Alkaline Phosphatase 131 H U/L
(38-126)
06/08/23 00:11
06/08/23 00:11
Vital Signs
Initial and Last Documented VS:
Initial Vital Signs
Temp Pulse Resp BP Pulse Ox
97.6 F 120 24 184/106 96
06/07/23 23:30 06/07/23 23:30 06/07/23 23:30 06/07/23 23:30 06/07/23 23:30
Last Documented Vital Signs
Temp Pulse Resp BP Pulse Ox
97.6 F 112 19 141/106 97
06/08/23 00:36 06/08/23 01:00 06/08/23 01:00 06/08/23 01:00 06/08/23 01:00
MDM/Problems Addressed
Differential Diagnosis Includes:
HPI and MDM Narrative:
57-year-old male presenting with left foot swelling and pain. He noticed ulceration on the top of his left foot. He has been cleaning a chronic ulcer to the left part of his foot as well. Patient is now noticing that the area around left part of
his foot is becoming black.
Patient has 2 large diabetic foot ulcers. He does have evidence of diabetic neuropathy. He has decreased sensation to light touch in both feet. Cap refill around 2 seconds. Will start vancomycin and Zosyn and admit
Physical exam
General: Well appearing and non-toxic
HEENT: protecting airway
Neck: appears supple
CV: No evidence of cyanosis
Resp: No accessory muscle use
Abd: Non-distended
Extremities: Large ulceration to left lateral foot along fifth MTP. Ulceration noted to dorsum of foot as well. Both with surrounding cellulitis
Neuro: alert
Psych: Normal affect
Skin: Intact
Problems Addressed including Acute and Chronic Conditions affecting care:
1. Diabetic foot ulcer
Acuity: acute
Prognosis: unstable
Details: Will obtain x-ray looking for evidence of osteomyelitis. Will empirically start vancomycin and Zosyn and ultimately admit
2. Hyperglycemia
Acuity: acute
Prognosis: stable
Details: Will start insulin. IV fluids continued. Patient admits noncompliance. He has not taken insulin in over a week
Updates
Patient found to have hyperglycemia. Will start insulin. Anion gap 12. Will obtain serum osmolality
Differential Diagnosis (but not limited to): Osteomyelitis, cellulitis, diabetic foot ulcer
Testing considered: MRI but will obtain x-ray first and ultimately admit
Drug therapy (if applicable): OTC meds, please see d/c instruction regarding Rx drugs
Amount and/or Complexity of Data Reviewed
Clinical info obtained from: Patient
External data reviewed: N/A
Labs I independently reviewed (but not limited to): Hyperglycemia
Radiology: X-ray independently reviewed: Foot x-ray negative for osteomyelitis
Pulse Ox: not hypoxic
EKG independently reviewed: N/A
Pipe Coverer: N/A
Critical Care: N/A
Risk of Complication:
Social Determinants of health: Good social support
Discussed with other providers: Hospitalist
Escalation of Care includes Admit/Obs: Given the diabetic ulcers and uncontrolled blood sugar, will admit
Occasional wrong word or 'sound a like' substitutions may have occurred due to the inherent limitations of voice recognition software. Read the chart carefully and recognize, using context, where substitutions have occurred.
*Critical Care Note
Total Time (30-74mins, 75-104mins- exclusive of procedures): Not Applicable
ED Attending Note
-
Portions of this chart may have been created with voice recognition software.� Occasional wrong word or��sound alike� substitutions may have occurred due to the inherent limitations of voice recognition software.
Discharge Plan
Departure
Patient Disposition: Admit
Date of Disposition: 06/08/23
Time of Disposition: 01:17
Admit to: Med/Surg
Presentation/result/management discussed w/ accepting MD/DO: Hospitalist
Discharge Problem:
Diabetic foot ulcers, Acute hyperglycemia
Prescriptions:
No Action
(DME) blood-glucose meter [Contour Next One Meter] Misc
Qty: 1 0RF
Rx Instructions:
Pt testing 4 times a day
(DME) Contour Next Test Strips Strip
Qty: 200 0RF
Rx Instructions:
Pt testing 4 times a day
metformin 1,000 mg Tablet
1,000 mg PO BID@0800,1700 Qty: 60 0RF
insulin glargine [Basaglar KwikPen U-100 Insulin] 100 unit/mL (3 mL) Insulin Pen
15 unit SC HS Qty: 5 0RF
Patient Comments:
pt states he has not taken his insulin in over one week
Rx Instructions:
Please taking every night at bedtime
(DME) pen needle, diabetic [BD Ultra-Fine Zoie Pen Needle] 32 gauge x 5/32' Needle
Qty: 200 0RF
Rx Instructions:
Pt taking insulin 4 times a day
(DME) lancets [Microlet Lancet] Misc
Qty: 150 0RF
Rx Instructions:
Pt testing 4 times a day
insulin lispro [Humalog KwikPen Insulin] 100 unit/mL Insulin Pen
6 unit SC AC 30 Days Qty: 5 0RF
Patient Comments:
pt states he has not taken his insulin in over one week
Referrals:
UNKNOWN - PT DOES,NOT KNOW [Family Provider] -
Interventions
Interventions:
*Risk Screen - Suicide Last Done: 06/07/23 23:51
*General Assessment Last Done: 06/07/23 23:51
*Neglect/Abuse Screening Last Done: 06/07/23 23:51
*ED COVID-19 Vaccine History Last Done: 06/07/23 23:51
[2023-06-08 00:18] LABS: % Basophils 0.9 % (0-2); % Eosinophils 2.3 % (0-6); % Immature Granulocytes 0.5 % (0-0.5); % Monocytes 9.2 % (1.7-9.3); % Neutrophils 76.1 % (42.2-75.2); Absolute Basophils 0.1 10^3/uL (0-0.2); Absolute Eosinophils 0.2 10^3/uL (0-0.7); Absolute Immature Granulocytes 0.1 10^3/uL (0-0.05); Absolute Lymphocytes 1.1 10^3/uL (1.2-3.4); Absolute Monocytes 0.9 10^3/uL (0.1-0.6); Absolute Neutrophils 7.8 10^3/uL (1.4-6.5); Hematocrit 35.6 % (39.0-52.0); Hemoglobin 12.6 g/dL (13.0-18.0); Mean Corp Hgb Conc. 35.4 g/dL (33.0-37.0); Mean Platelet Volume 9.5 fL (7.4-10.4); Nucleated Red Blood Cells % 0 % (-); Platelet Count 372 10^3/uL (130-400); Red Blood Cell Count 4.34 10^6/uL (4.70-6.10); Red Cell Dist. Width 12.7 % (11.5-14.5); White Blood Cell Count 10.2 10^3/uL (4.8-10.8)
[2023-06-08] MEDS: ZOSYN 100 IV (00:38)
[2023-06-08 00:44] LABS: Lactic Acid 2.2 mmol/L (0.7-2.0)
[2023-06-08 00:57] LABS: ALT (SGPT) 16 U/L (0-50); AST (SGOT) 18 U/L (17-59); Albumin 4.4 g/dl (3.5-5.0); Alkaline Phosphatase 131 U/L (38-126); Blood Urea Nitrogen 42 mg/dl (9-20); Calcium 9.9 mg/dl (8.4-10.2); Carbon Dioxide 27 mmol/L (22-30); Chloride 85 mmol/L (98-107); Estimated Creatinine Clearance 53 ml/min; Potassium 4.9 mmol/L (3.5-5.1); Sodium 124 mmol/L (135-145); Total Bilirubin 0.6 mg/dl (0.2-1.3); Total Protein 7.7 g/dl (6.3-8.2); eGFR 49.94
[2023-06-08 01:04] LABS: Glucose 741 mg/dl (70-99)
[2023-06-08] MEDS: VANCOCIN 300 ML IV (01:20)
[2023-06-08] MEDS: NSS 1000 IV ×4 (01:20→17:27)
[2023-06-08] MEDS: VANCOCIN 300 MG IV (01:20)
[2023-06-08] MEDS: NOVOLOG vial 10 UNITS SC (01:35)
--- NOTE | 2023-06-08 01:53 | HPS.HSE ---
Family Physician
-
Family Physician: Amadou Escobedo
Chief Complaint
-
Left Foot Pain / Wounds
History of Present Illness
Patient is a 57y M with PMH significant for DM-II, hypothyroidism and prior admission for encephalopathy who presents to ED complaining of left foot pain, redness and active wounds. Patient states that these wounds have been present for months.
He notes that the foot has been more painful recently. Patient was hospitalized here at 04/16 - 04/19 secondary to encephalopathy and noted to have evidence of substance abuse, marked hyperglycemia and abnormal HELP DESK CONSULTANT imaging. HELP DESK CONSULTANT infection was ruled
out during that stay. Patient's symptoms improved with glycemic control and he was discharged to home.
Patient notes that he has not taken any of the medications he was prescribed at discharge.
In the ED this evening, patient is able to answer all direct questions and to follow commands. When he proceed with open-ended speech; however, he has marked expressive aphasia / 'word-salad'. Patient seems to be aware that he is not making sense
during these periods.
He denies any tobacco, alcohol or drug use to me - though it is noted that his UDS on his prior admission was positive for amphetamine and cocaine use.
Medical History
Past Medical History
Past Medical History: Reports Other
Additional Past Medical History:
DM-II
Hypothyroidism
Substance Abuse
Past Surgical History: Reports None and Other
Social History
Unable to obtain full social history at this time due to: Other (Patient denies all substance use to me - despite evidence to the contrary.)
Family History
Family History: Not pertinent
Allergies / Home Medications
Allergies reflects when Allergies were last updated in [facility].
Home Medications with original date entered in [facility]
Allergy/Medication List:
Patient is currently taking no medications.
NKDA
Review of Systems
-
History Source: Patient
A 12 point ROS was completed and negative except as noted: Yes
Constitutional: Denies Fever or Chills
Respiratory: Denies Cough or Trouble Breathing
Cardiac: Denies Chest Pain or Palpitations
Abdomen/GI: Denies Abdominal Pain, Nausea, Vomiting or Diarrhea
: Denies Dysuria or Flank Pain
Musculoskeletal: Reports Joint Pain, Joint Swelling and Edema
Skin: Reports Other (Foot wound)
Neurological: Denies Dizzy or Headache
Psych: Denies Depression or Anxiety
Physical Exam
Vital Signs
Vital Signs
Temp Pulse Resp BP Pulse Ox
97.6 F 104 17 141/106 98
06/08/23 00:36 06/08/23 01:45 06/08/23 01:30 06/08/23 01:00 06/08/23 01:45
Physical Exam
General: Other (Disheveled 57y M who appears older than his stated age. Not in acute distress.)
HEENT: Other (Dry MM. Poor dentition. Neck supple without JVD.)
Respiratory: Clear; No Wheezes, Rales or Rhonchi
Cardiac: S1/S2 and Regular Rhythm; No Murmur
GI: Soft, Non Tender, Non Distended and Normal Bowel Sounds
Musculoskeletal: No Clubbing, No Cyanosis and No Edema
Skin: Other (Left Foot Wounds: dorsum of foot 2x2 cm superficial ulceration with surrounding erythema / tenderness. Lateral foot / base of 5th MT - 3x5 cm wound with overlying eschar. No bleeding / discharge. Pulses are intact /symmetric.)
Neuro: Awake, Alert and Other (Expressive aphasia with open ended speech - seems intermittent.)
Psych: Anxious; No Agitated or Depressed
Laboratory Results
-
06/08/23 00:11
06/08/23 00:11
Laboratory Results
Lactic Acid 2.2 mmol/L (0.7-2.0) H 06/08/23 00:11
Total Bilirubin 0.6 mg/dl (0.2-1.3) 06/08/23 00:11
AST 18 U/L (17-59) 06/08/23 00:11
ALT 16 U/L (0-50) 06/08/23 00:11
Alkaline Phosphatase 131 U/L (38-126) H 06/08/23 00:11
Impression/Plan
-
A/P: Patient is a 57y M with PMH significant for DM-II, hypothyroidism and poor compliance who presents to ED for evaluation of L foot wounds.
Diabetic Left Foot Wounds
- Admit for further evaluation and treatment.
- L lateral foot wound was noted on prior admission.
- Dorsal wound appears new and was not previously mentioned.
- Podiatry evaluation. Check MRI for evidence of osteo.
- Pulses are excellent on exam.
- Continue IV abx with Vanco / Zosyn for now and adjust based on any culture data.
- Local care per Podiatry direction.
- Follow for clinical improvement.
- Glycemic control as noted below.
HHNK
Uncontrolled DM-II
Pseudohyponatremia secondary to the above
- Glucose > 700 on this admission (> 1000 last admission).
- Patient admittedly not compliant with insulin regimen.
- Restart basal : bolus insulin.
- No anion gap elevation to suggest DKA.
- Aggressive IVF resuscitation.
- Follow for improvement in hyperglycemia (and encephalopathy).
- CM evaluation. Patient very high risk for readmission with combination of health issues / noncompliance.
Acute / Chronic Metabolic Encephalopathy
- Suspect this is secondary to marked hyperglycemia.
- Severe hyperglycemia may be associated with abnormal HELP DESK CONSULTANT imaging seen previously as well - which correlates anatomically with his apparent aphasia.
- As noted, prior evaluation revealed no evidence of HELP DESK CONSULTANT infection.
- Check CT head now for completeness. Follow for neurologic changes.
- Monitor for clinical improvement coincident with glycemic control.
- Would forego further imaging, repeat detailed evaluation, etc if symptoms improve with glucose lowering.
CR
- SCr = 1.6 compared to baseline of 1.0.
- Likely secondary to volume contraction / hyperglycemia.
- IVFs as noted above and follow for improvement.
Prior Bacteremia
- During his previous hospital stay, patient had blood cultures done (04/17) which were noted to be positive after his discharge.
- That culture was positive for Propionibacterium acnes. Unfortunately, only a single culture was done at that time.
- A second culture done 04/18 (36 hours later) has remained negative.
- Patient is currently afebrile despite his DM wounds.
- ID evaluation for abx recommendations and review of culture data.
- Repeat blood cultures x 2 sets have been obtained.
Hypothyroidism
- TSH was elevated during recent admission (12.5).
- Patient was started on / increased dose of T4 supplementation - however, he has continued to take nothing.
- Will begin T4 supplementation at 125mcg / day.
- Encourage compliance.
- Repeat TFTs in 4-6 weeks.
BPH
Urinary Retention
- Patient also noted to have urinary retention during his prior stay.
- Restart tamsulosin.
- Bladder scan protocol and straight cath / Lock if needed.
DVT Prophylaxis: Lovenox
Code Status: Full
[2023-06-08 02:24] LABS: Glucose - Point of Care > 600 mg/dl (70-99)
--- NOTE | 2023-06-08 02:25 | EDRN ---
this SUCTION PLATE ROLLER HAND checked this pts capillary blood glucose after 1L NSS infusion and approx 1 hour after pt was given Novolog 10 units SubQ. The pts capillary blood glucose result: HI. the admitting hospitalist Dr Carver was notified of above. Per Dr Carver
verbal order to this SUCTION PLATE ROLLER HAND, do NOT draw serum blood glucose and give ordered Novolin R 7 units IV and Lantus 10 units SubQ at this time then recheck capillary blood glucose in one hour.
the pt is waiting to be assigned a clean inpatient IMU room.
[2023-06-08] MEDS: NOVOLIN R 7 UNITS IV (02:44)
[2023-06-08] MEDS: LANTUS 0.100000000000000006 UNITS SC (02:50)
--- NOTE | 2023-06-08 03:03 | EDRN ---
verbal report given to IMU RN Selena via telephone at this time due to this pt being assigned Clean inpatient IMU room 2338
[2023-06-08 03:09] LABS: Osmolality Serum 312 mOsm/kg (275-300)
[2023-06-08 04:05] LABS: Urine Albumin Negative (Neg - Trace); Urine Bilirubin Negative (Negative); Urine Character Clear (Clear); Urine Color Straw; Urine Glucose 3+ (Negative); Urine Ketone Negative (Negative); Urine Leukocyte Negative (Negative); Urine Nitrite Negative (Negative); Urine Occult Blood Negative (Negative); Urine Specific Gravity 1.005 (<1.030); Urine Urobilinogen Negative (Neg - 1+)
[2023-06-08 04:11] LABS: Glucose - Point of Care 431 mg/dl (70-99)
[2023-06-08 04:21] LABS: Amphetamines Positive (Negative); Methamphetamines Positive (Negative)
[2023-06-08 04:22] LABS: Barbiturates Negative (Negative); Benzodiazepines Negative (Negative); Buprenorphine Negative (Negative); Cocaine Negative (Negative); Marijuana Negative (Negative); Methadone Negative (Negative); Opiates Negative (Negative); Phencyclidine Negative (Negative); Tricyclic Antidepressants Negative (Negative)
[2023-06-08 04:30] LABS: Hematocrit 30.8 % (39.0-52.0); Mean Corp Hgb Conc. 35.7 g/dL (33.0-37.0); Mean Corpuscular Hgb 29.3 pg (27.0-31.0); Mean Corpuscular Volume 82.1 fL (80.0-94.0); Mean Platelet Volume 9.3 fL (7.4-10.4); Platelet Count 341 10^3/uL (130-400); Red Blood Cell Count 3.75 10^6/uL (4.70-6.10); Red Cell Dist. Width 12.7 % (11.5-14.5); White Blood Cell Count 8.1 10^3/uL (4.8-10.8)
[2023-06-08 04:38] LABS: Fentanyl, Urine Negative (Negative)
[2023-06-08 05:04] LABS: Blood Urea Nitrogen 41 mg/dl (9-20); Calcium 9.8 mg/dl (8.4-10.2); Carbon Dioxide 30 mmol/L (22-30); Chloride 94 mmol/L (98-107); Estimated Creatinine Clearance 58 ml/min; Glucose 192 mg/dl (70-99); Potassium 4.6 mmol/L (3.5-5.1); Sodium 133 mmol/L (135-145); eGFR 58.62
[2023-06-08 05:07] LABS: Lactic Acid 2.4 mmol/L (0.7-2.0)
[2023-06-08 05:31] LABS: TSH Reflex To Free T4 5.61 uIU/ml (0.47-4.68)
[2023-06-08] MEDS: ZOSYN 50 IV ×2 (05:57→12:05)
[2023-06-08] MEDS: SYNTHROID 125 MCG PO (05:58)
[2023-06-08 06:00] LABS: Free T4 1.82 ng/dl (0.78-2.19)
[2023-06-08 06:06] LABS: Glucose - Point of Care 136 mg/dl (70-99)
--- NOTE | 2023-06-08 06:30 | PTCARENOTE ---
Rec'd pt from ED RN. Pt agreeable, but exhibits expressive aphasia/word salad which makes extended conversation difficult. Some admission questions difficult to verify. Pt incontinent of urine upon arrival to this unit, but when prompted to void in
the urinal, pt voided 1300mL of dilute, yellow urine. pt denies complaints at this time, but does say that the pain in his L leg ranges from 3-10 depending on factors including weight bearing. Pt ordered NPO with sips and meds. Small cup of water
provided per pt request with instructions to take small sips. BG resulted 136 at most recent examination. Call marrero within reach.
--- NOTE | 2023-06-08 07:29 | W.PN.HOSP.TC ---
Today's Communication/Plan
-
see A/P
Assessment / Plan
Assessment / Plan
57y M with PMH significant for DM-II, hypothyroidism and prior admission for encephalopathy who presented to ED complaining of left foot pain, redness and active wounds.�
Patient states that these wounds have been present for months but with increase in more pain more recently.� Patient was hospitalized here at 04/16 - 04/19 secondary to encephalopathy and noted to have evidence of substance abuse, marked
hyperglycemia and abnormal ART DISPLAY MAKER imaging.�ART DISPLAY MAKER infection was ruled out during that stay.� Patient's symptoms improved with glycemic control and he was discharged to home.
Patient admits that he has not taken any of the medications he was prescribed at discharge.
In the ED, patient was able to answer all direct questions and follow commands. When he proceed with open-ended speech; however, he has marked expressive aphasia / 'word-salad'.� Patient seems to be aware that he is not making sense during these
periods.
He denies any tobacco, alcohol or drug use - though it is noted that his UDS on his prior admission was positive for amphetamine and cocaine use.
A/P:
# Diabetic Left Foot Wounds
L lateral foot wound was noted on prior admission.
Dorsal wound appears new and was not previously mentioned.
Pulses are excellent on exam.
Check MRI for osteo.
Continue IV abx with Vanco / Zosyn for now and adjust based on any culture data.
Glycemic control as noted below.
Wound care CS
Podiatry evaluation.�
# Hyperglycemia, No anion gap elevation to suggest DKA.
# Uncontrolled DM-II
# Pseudohyponatremia secondary to the above, improved
Glucose improved after insulin SQ
Patient admittedly not compliant with insulin regimen.
Cont basal : bolus insulin with ISS
Cont IVF resuscitation.
MS/encephalopathy improved with correction of BG
CM evaluation.� Patient very high risk for readmission with combination of health issues / noncompliance.
Consider Diabetes PUBLIC INTERVIEWER CS
# Acute / Chronic Metabolic Encephalopathy, suspect secondary to marked hyperglycemia with drug abuse
MS/encephalopathy improved with correction of BG
Follow up CT head report from admission
UDS again positive for amphetamine/methamphetamine this admission. Consider [facility] CS
Recent MRI brain noted mild asymmetric postcontrast signal abnormality in the left temporal lobe cortex, this was felt to be metabolic abnormalities associated with severe hyperglycemia per Neuro at that time.
ART DISPLAY MAKER infection was ruled out at that time.
Pt was recommended to obtain repeated MRI with and without contrast in 4 weeks- will order here
# CR, improving
secondary to volume contraction / hyperglycemia.
SCr 1.6 on admission, today at 1.4; baseline at 1.0.
Cont IVFs
# Prior Bacteremia
During his previous hospital stay, patient had blood cultures done (04/17) which were noted to be positive after his discharge. That culture was positive for Propionibacterium acnes.�
Unfortunately, only a single culture was done at that time.
A second culture done 04/18 (36 hours later) has remained negative.
Patient is currently afebrile despite his DM wounds.
ID evaluation for abx recommendations and review of culture data.
Repeat blood cultures x 2 sets have been obtained. Follow up
# Hypothyroidism
TSH was elevated during recent admission (12.5), which has improved to 5.61 this admission
Patient was started on / increased dose of T4 supplementation, but he has not been compliant.
Cont Synthroid at 125mcg / day.
Encourage compliance.
Repeat TFTs in 4-6 weeks.
# BPH
# Urinary Retention
Patient also noted to have urinary retention during his prior stay.
Restart tamsulosin.
Bladder scan protocol and straight cath / Lock if needed.
DVT Prophylaxis:� Lovenox SQ
Code Status:� Full
DW RN
Total time spent 51 min
Anticipated Discharge: > 48 hours
Subjective/Interval History
-
Date of Service: June 08, 2023
Objective Data
-
Labs:
Laboratory Results
06/08/23 06/08/23 06/08/23
00:11 04:21 04:21
WBC 10.2 8.1
Hgb 12.6 L 11.0 L
Hct 35.6 L 30.8 L
Plt Count 372 341
Sodium 124 L Cancelled 133 L D
Potassium 4.9 Cancelled
Chloride 85 L
Carbon Dioxide 27
BUN 42 H
Creatinine 1.6 H
Glucose 741 H*
Calcium 9.9
Total Bilirubin 0.6
AST 18
ALT 16
Alkaline Phosphatase 131 H
06/08/23 06/08/23 06/08/23
04:21 04:21 04:21
WBC
Hgb
Hct
Plt Count
Sodium
Potassium 4.6
Chloride Cancelled 94 L
Carbon Dioxide Cancelled 30
BUN Cancelled
Creatinine
Glucose
Calcium
Total Bilirubin
AST
ALT
Alkaline Phosphatase
06/08/23 06/08/23 06/08/23
04:21 04:21 04:21
WBC
Hgb
Hct
Plt Count
Sodium
Potassium
Chloride
Carbon Dioxide
BUN 41 H
Creatinine Cancelled 1.4 H
Glucose Cancelled 192 H
Calcium Cancelled
Total Bilirubin
AST
ALT
Alkaline Phosphatase
06/08/23
04:21
WBC
Hgb
Hct
Plt Count
Sodium
Potassium
Chloride
Carbon Dioxide
BUN
Creatinine
Glucose
Calcium 9.8
Total Bilirubin
AST
ALT
Alkaline Phosphatase
Vital Signs:
Vital Signs
Temp Pulse Resp BP Pulse Ox
36.6 C 100 15 113/74 97
06/08/23 03:28 06/08/23 04:00 06/08/23 04:00 06/08/23 04:00 06/08/23 04:38
I&O
06/07/23 06/08/23 06/09/23
06:59 06:59 06:59
Intake Total 240 / 240
Output Total 1300 / 1300
Balance -1060 / -1060
Review of Systems
-
All other systems: Reviewed and negative
Physical Exam
-
General: Well Developed, No Apparent Distress, Comfortable and Conversant
HEENT: Normocephalic, Atraumatic and Moist Mucous Membranes
Respiratory: Clear to Auscultation and Non Labored Respirations; Negative Accessory Resp Muscle Use
Cardiac: Regular Rhythm and S1/S2; Negative Murmur, Rub or Gallop
GI: Soft, Nontender, Nondistended and Normal Bowel Sounds; Negative Organomegaly
Rectal: Deferred by Provider
Musculoskeletal: No Clubbing, No Cyanosis and No Edema
Skin: Other (L foot wound); Negative Rash
Neuro: Awake, Alert, Oriented and Nonfocal/Grossly Intact
Psych: Calm and Intact Judgement/Insight
Data Reviewed
-
Labs: Labs Reviewed by me
Old Records: Reviewed
[2023-06-08 07:57] LABS: Glucose - Point of Care 160 mg/dl (70-99)
[2023-06-08] MEDS: NOVOLOG FLEXPEN-MODERATE RESISTANCE SC (08:06)
[2023-06-08] MEDS: FLOMAX 0.400000000000000022 MG PO (08:13)
--- NOTE | 2023-06-08 09:46 | PHA.VAN.IN ---
Assessment
- Assessment
Renal Function: Appears elevated from baseline
Concomitant Antimicrobials: zosyn
Plan
- Plan
Initial / Loading Dose: 1500mg
Maintenance Regimen: prn by level
Monitoring: random 06/08 in am
Pharmacokinetics Vancomycin I
- -
Patient Age: 57
Patient Sex: Male
Vancomycin Day #: 1
Indication: Diabetic Foot
Requesting Provider: Mehul
Pertinent Antimicrobial Allergies:
nkda
Height / Weight:
Height 5 ft 11 in
Actual Weight 70.562 kg
IBW in k.3
- Vital Signs / Lab Results
Temp Pulse Resp BP Pulse Ox
97.6 F 100 15 113/74 97
06/08/23 07:20 06/08/23 04:00 06/08/23 04:00 06/08/23 04:00 06/08/23 04:38
Lab Results - Hematology
06/08/23 06/08/23
00:11 04:21
WBC 10.2 8.1
Lab Results - Chemistry
06/08/23 06/08/23 06/08/23
00:11 04:21 04:21
BUN 42 H Cancelled 41 H
Creatinine 1.6 H Cancelled
Estimated Creat Clear 53
Albumin 4.4
06/08/23 06/08/23
04:21 04:21
BUN
Creatinine 1.4 H
Estimated Creat Clear Cancelled 58
Albumin
06/08/23 06/08/23
00:11 04:21
Lactic Acid 2.2 H 2.4 H
Lab Results - Urine
06/08/23
03:32
Urine Nitrite (Reflex) Negative
Leukocyte Esterase Rfl Negative
[2023-06-08 11:56] LABS: Glucose - Point of Care 248 mg/dl (70-99)
[2023-06-08] MEDS: NOVOLOG FLEXPEN 5 UNITS SC ×2 (11:59→17:19)
[2023-06-08] MEDS: NOVOLOG FLEXPEN-MODERATE RESISTANCE 3 UNITS SC (12:00)
--- NOTE | 2023-06-08 12:25 | CON.ID ---
Consultation
-
Date/Time Consultation Requested: 06/08/23 3:18
Date/Time Consultation Performed: 06/08/23 12:26
Requesting Provider: Dr Carver
Performing Provider: Dr Pickett
Reason for Consultation: diabetic foot infection
Chief Complaint / Past History
Chief Complaint
Left Foot Pain / Wounds
History of Present Illness
Mr Godinez is a 57 year old male with uncontrolled DM2, active drug use by UDS (which he denies, denies IVDU), medication noncompliance who presented here last night for a several month history of left foot pain with a nonhealing wound with some
surrounding redness. On arrival he had expressive aphasia which has now resolved. He reports no fevers of chills.
Since arrival here he has been afebrile, bp stable, without leukocytosis wbc 8.1, hgb 11.0, plt 341, L shift was present on arrival, eos were present on arrival, cr baseline is 1.0 on arrival 1.6 now 1.4, glucose on arrival 741, this am 192, lactic
acid 2.4, t bili 0.6, ast 18, alt 16, alk [id number], a1c 2 months ago >18.5, ua negative, CT head this am: no acute process, a foot xray has been done - read pending: I do not appreciate evidence of osteomyelitis on my exam, blood cultures no growth
to date. Patient currently on vancomycin and zosyn. ID is consulted for assistance with management.
Past History
Additional Past Medical History:
DM-II
Hypothyroidism
Substance Abuse
Past Surgical History: None
Allergy History:
No Known Allergies Allergy (Verified 06/07/23 23:51)
Medications Reviewed: Yes
Social History
Tobacco: Non-Smoker
Alcohol: None
Drug: None (denies however recent UDSs + cocaine, methamphetamines, oxycodone)
Family History
Family History: Not Pertinent
Review of Systems
Review of Systems
General: Negative Fever or Chills
All systems: All other systems were reviewed and were negative
Vital Signs
Temp Pulse Resp BP Pulse Ox
97.6 F 100 15 113/74 97
06/08/23 11:05 06/08/23 04:00 06/08/23 04:00 06/08/23 04:00 06/08/23 04:38
Physical Exam
Physical Exam
Constitutional: No Acute Distress and Chronically Ill
Cardiovascular: Regular Rate and S1/S2; Negative Murmur or Rub
Pulmonary: Clear and Symmetric; Negative Wheezes, Rales or Rhonchi
Gastrointestinal: Soft, Non Tender, Non Distended and Normal Bowel Sounds
Extremities: Other (L foot with wound overlying the lateral MTP, no probe to bone, necrotic tissue noted, no surrounding erythema, mild serous drainge; dorsal foot also with superficial abrasion)
Skin: Warm and Dry; Negative Rash or Jaundice
Lab / Diagnostic Study Results
06/08/23 04:21
06/08/23 04:21
Abs Immat Gran (auto) 0.1 10^3/uL (0-0.05) H 06/08/23 00:11
Absolute Neuts (auto) 7.8 10^3/uL (1.4-6.5) H 06/08/23 00:11
Absolute Lymphs (auto) 1.1 10^3/uL (1.2-3.4) L 06/08/23 00:11
Absolute Monos (auto) 0.9 10^3/uL (0.1-0.6) H 06/08/23 00:11
Absolute Basos (auto) 0.1 10^3/uL (0-0.2) 06/08/23 00:11
Immature Gran % 0.5 % (0-0.5) 06/08/23 00:11
Neutrophils % 76.1 % (42.2-75.2) H 06/08/23 00:11
Lymphocytes % 11.0 % (20.5-51.1) L 06/08/23 00:11
Monocytes % 9.2 % (1.7-9.3) 06/08/23 00:11
Eosinophils % 2.3 % (0-6) 06/08/23 00:11
Basophils % 0.9 % (0-2) 06/08/23 00:11
Lactic Acid 2.4 mmol/L (0.7-2.0) H 06/08/23 04:21
Microbiology Results
Micro:
06/08/23 00:21 Blood Culture - Pending
Blood/Venous
06/08/23 00:11 Blood Culture - Pending
Blood/Venous
Assessment / Plan
Diabetic Foot Infection
Dm2 uncontrolled
Noncompliance
- blood cultures x2 in progress
- MRSA screen
- xray read pending; I do not appreciate evidence of osteomyelitis on xray and no probe to bone on my exam, will follow up radiology read
- continue vancomycin, start unasyn - stop zosyn
- MRI pending
- DARIUS
- podiatry pending
- needs long term acute care registered nurse diabetic control to prevent progression of infections, relapse, progression of diabetic foot wounds - discussed with patient at length
--- NOTE | 2023-06-08 12:41 | PTCARENOTE ---
Rec'd pt this AM. he is AAO x3. speech is WNL, no futher aphasia noted. Tolerated his diet. IVF remain, IV ABX started. Pt voided 1300ml at 0430 this AM. RN encouraged pt to try to void as it has been 8 hours since last void. Pt insists he has no
urge to void. RN educated pt on bladder scan, straight cath procedure and risks of not emptying bladder appropriately. Pt refuses to allow bladder scan or cath but does agree to try to void in the next few hours.
--- NOTE | 2023-06-08 14:38 | PTCARENOTE ---
Pt responded to encouragement to void and voided 400ml. Resting comfortably.
--- NOTE | 2023-06-08 15:36 | CHAP ---
Mr. Godinez was gracious - he spoke quietly. I asked if he was cold, and he said he was, so I offered a prayer blanket, which he very much appreciated. We prayed together, and I assured him we are here for him.
[2023-06-08 16:23] LABS: Glucose - Point of Care 266 mg/dl (70-99)
--- NOTE | 2023-06-08 16:29 | W.PN.POD ---
Today's Communication
- Today's Communication
podiatry consult for diabetic foot wounds
Assessment / Plan
- -
2 Diabetic foot wounds left foot
cellulitis dorsum and lateral aspect left foot
necrotic ulcer lateral aspect very tender
unable to debride ulcer necrotic tissue at bedside
due to lack of patient cooperation
area very tender per patient
waiting for MRI results
if osteo surgical consult
order: consult wound care team for local wound care
applied saline solution adaptic and dry sterile gauze dressing to wounds
Subjective/Objective
- Subjective
57 y/o male presents with left foot swelling and pain
noticed ulceration top of left foot recently, was a blister that broke
wound side of left foot for months
hospital stay early apr. noticed wound side of foot now black
evidence of neuropathy
abx started vanco and zosyn
patient IDDM uncontrolled
x-ray left foot negative for osteo
- Objective
Temp Pulse Resp BP Pulse Ox
97.6 F 84 12 117/72 97
06/08/23 15:05 06/08/23 12:00 06/08/23 12:00 06/08/23 12:00 06/08/23 04:38
06/08/23 04:21
06/08/23 04:21
Vital Signs and Lab results were reviewed.
2 diabetic foot wounds
dorsum wound superficial, 2 x 2 cm.
from abrasion or blood blister
with surrounding erythema, swelling, significant cellulitis
very tender on palpation, mild drainage
large ulcer lateral plantar aspect 5th MPJ
size approx. 3 x 5 cm., irregular shape.
large area of blacken necrotic tissue
portion of wound distal plantar with tunnelling
surrounding inflammation significant
proximal to wound erythematous, swollen
mild bloody serous drainage
very tender on palpation
[2023-06-08] MEDS: NOVOLOG FLEXPEN-MODERATE RESISTANCE 5 UNITS SC (17:18)
[2023-06-08] MEDS: UNASYN IV (17:27)
[2023-06-08] MEDS: LOVENOX 40 MG SC (17:27)
--- NOTE | 2023-06-08 19:45 | PTCARENOTE ---
report received from selena. aaox3 w/ flat affect. nsr. vss. nss @ 120ml/hr. pt updated on plan of care. Will monitor.
[2023-06-08 21:43] LABS: Glucose - Point of Care 360 mg/dl (70-99)
[2023-06-08] MEDS: LANTUS 0.149999999999999994 UNITS SC (21:48)
[2023-06-09] VITALS (14 sets, daily range): BP systolic 134–188; BP diastolic 74–136; BMI 22.1
[2023-06-09] MEDS: UNASYN IV ×5 (00:31→23:08)
[2023-06-09] MEDS: NSS 1000 IV (02:32)
[2023-06-09 04:57] LABS: Lactic Acid 0.8 mmol/L (0.7-2.0)
[2023-06-09 04:59] LABS: % Basophils 0.8 % (0-2); % Eosinophils 4.4 % (0-6); % Immature Granulocytes 0.8 % (0-0.5); % Lymphocytes 11.8 % (20.5-51.1); % Monocytes 7.3 % (1.7-9.3); % Neutrophils 74.9 % (42.2-75.2); Absolute Basophils 0.1 10^3/uL (0-0.2); Absolute Eosinophils 0.3 10^3/uL (0-0.7); Absolute Immature Granulocytes 0.1 10^3/uL (0-0.05); Absolute Lymphocytes 0.8 10^3/uL (1.2-3.4); Absolute Monocytes 0.5 10^3/uL (0.1-0.6); Hematocrit 29.7 % (39.0-52.0); Hemoglobin 10.1 g/dL (13.0-18.0); Mean Corpuscular Hgb 28.6 pg (27.0-31.0); Mean Corpuscular Volume 84.1 fL (80.0-94.0); Mean Platelet Volume 9.6 fL (7.4-10.4); Nucleated Red Blood Cells % 0 % (-); Platelet Count 325 10^3/uL (130-400); Red Blood Cell Count 3.53 10^6/uL (4.70-6.10); White Blood Cell Count 6.6 10^3/uL (4.8-10.8)
[2023-06-09 05:32] LABS: Blood Urea Nitrogen 26 mg/dl (9-20); Calcium 8.9 mg/dl (8.4-10.2); Carbon Dioxide 26 mmol/L (22-30); Chloride 100 mmol/L (98-107); Estimated Creatinine Clearance 83 ml/min; Glucose 265 mg/dl (70-99); Magnesium 1.6 mg/dl (1.6-2.3); Potassium 4.5 mmol/L (3.5-5.1); Sodium 132 mmol/L (135-145); eGFR > 60.00
[2023-06-09 05:35] LABS: Vancomycin Random 7.7 ug/ml
[2023-06-09] MEDS: SYNTHROID 125 MCG PO (07:01)
[2023-06-09 07:36] LABS: Glucose - Point of Care 215 mg/dl (70-99)
[2023-06-09] MEDS: FLOMAX 0.400000000000000022 MG PO (08:40)
--- NOTE | 2023-06-09 09:19 | WOUNDNOTE ---
L FOOT (LATERAL)(with photo flash)
--- NOTE | 2023-06-09 09:21 | WOUNDNOTE ---
[facility] RN note: Patient admitted with diabetic foot wounds, cellulitis, metabolic encephalopathy. +Urine drug screen.
See H&P for complete history.
PMH: IDDM, DM foot wounds, DH hospital stay for encephalopathy secondary to substance abuse, medical non compliance, L index finger I+D, skin graft.
Wound Location and type/assessment: Patient admitted with: full thickness black necrotic L lateral/plantar foot diabetic ulcer. L dorsal foot landry/brown necrotic diabetic ulcer which started as a blister as per patient. L pedal pulse heard via
portable Doppler. Arterial Doppler and MRI on order.
Appetite: currently NPO.
Pressure redistribution devices in place: Centrella Max air bed. He ambulates L heel weight bear only.
Plan: dressing changed L foot. Await arterial Doppler and MRI results. Non surgical podiatry following; suspect he will need surgical podiatry consult. Will update Dr. Neri.
Will confirm orders and discussed with BAYRON Miranda.
Care plan to be updated and will follow as needed.
--- NOTE | 2023-06-09 09:31 | PTCARENOTE ---
Per Dr. Hwang, Pt ok to be off monitor for MRI
[2023-06-09 10:10] LABS: Glycohemoglobin (HgbA1c) 14.6 % (4.0-5.6)
--- NOTE | 2023-06-09 10:29 | PHA.VAN.FU ---
Vancomycin Assessment / Plan
- Assessment
Renal Function: SCR Decreasing
WBC's are: WNL
In the past 24 hrs, patient has been: Afebrile
Concomitant Antimicrobials: ampicillin/sulbactam
- Assessment - Therapeutic Drug Monitoring
Random Level: 7.7 - drawn ~27H after initial dose of 1500mg
Specimen not protected from light and may have some degradation
- Dosing Plan
Adjust Regimen to: Vanc 1000mg Q12H - first dose now then 1800
New Regimen Predicts: AUC (561), Peak (33.9), Trough (15.1)
Dosing Comments: anticipate further improvement in SCR
- Monitoring Plan
No level(s) ordered at this time: consider levels in next few days
- Follow Up
Pharmacy will continue to follow.
Vancomycin Follow UP
- -
Patient Age: 57
Patient Sex: Male
Vancomycin Day #: 2
Indication: Diabetic Foot
Requesting Provider: Mehul
Pertinent Antimicrobial Allergies:
NKDA
Height / Weight:
Height 5 ft 11 in
Actual Weight 71.9 kg
IBW in k.3
Pertinent Past Medical History: DM2
- Vital Signs / Lab Results
Temp Pulse Resp BP Pulse Ox
97.9 F 81 19 137/74 97
06/09/23 07:30 06/09/23 06:00 06/09/23 06:00 06/09/23 06:00 06/08/23 04:38
Lab Results - Hematology
06/08/23 06/08/23 06/09/23
00:11 04:21 04:37
WBC 10.2 8.1 6.6
Lab Results - Chemistry
06/08/23 06/08/23 06/08/23
00:11 04:21 04:21
BUN 42 H Cancelled 41 H
Creatinine 1.6 H Cancelled
Estimated Creat Clear 53
Albumin 4.4
06/08/23 06/08/23 06/09/23
04:21 04:21 04:37
BUN 26 H
Creatinine 1.4 H 1.0
Estimated Creat Clear Cancelled 58 83
Albumin
06/08/23 06/08/23 06/09/23
00:11 04:21 04:37
Lactic Acid 2.2 H 2.4 H 0.8
Microbiology Results
06/08/23 00:21 Blood Culture - Preliminary
Blood/Venous No Growth in 24 hours- Final report to follow
06/08/23 00:11 Blood Culture - Preliminary
Blood/Venous No Growth in 24 hours- Final report to follow
Therapeutic Drug Monitoring
Random Vancomycin 7.7 ug/ml 06/09/23 04:37
[2023-06-09] MEDS: NOVOLOG FLEXPEN SC (10:58)
[2023-06-09] MEDS: NOVOLOG FLEXPEN-MODERATE RESISTANCE SC (10:58)
--- NOTE | 2023-06-09 11:00 | PTCARENOTE ---
Pt awoke this AM, upset, stating he wants to leave AMA. RN encouraged pt to cooperate and have his foot and brain MRI completed so that he can have a plan for his care. Pt reluctantly cooperated and was transported for testing.
--- NOTE | 2023-06-09 11:22 | W.PN.ID1 ---
Date of Service
Date of Service: June 09, 2023
Today's Communication
- continue vancomycin, unasyn
Assessment / Plan
Diabetic Foot Infection
Dm2 uncontrolled
Noncompliance
- blood cultures x2 in progress
- MRSA screen
- MRI suggestive of osteomyelitis of the 5th metatarsal
- continue vancomycin, unasyn
- DARIUS pending - pending this result may consult vascular surgery
- surgical podiatry consult pending
- needs buttermaker continuous churn diabetic control to prevent progression of infections, relapse, progression of diabetic foot wounds - discussed with patient at length during initial consultation
Chief Complaint
-: Other (diabetic foot infection)
Subjective / Review of Systems
afebrile
bp stable
without leukocytosis or L shift
cr further improved
k normal
MRI consistent with osteo
Vital Signs / Physical Exam
Vital Signs
Vital Signs
Temp Pulse Resp BP Pulse Ox
97.9 F 81 19 137/74 97
06/09/23 07:30 06/09/23 06:00 06/09/23 06:00 06/09/23 06:00 06/08/23 04:38
Physical Exam
Constitutional: No Acute Distress and Chronically Ill
Cardiovascular: Regular Rate
Pulmonary: Symmetric and Non Labored
Gastrointestinal: Non Distended
Skin: Warm and Dry; Negative Rash or Jaundice
Neurological: Negative Awake
Objective Data
Lab Data
Lab Results
06/09/23 04:37
06/09/23 04:37
Estimated Creat Clear 83 ml/min 06/09/23 04:37
Lactic Acid 0.8 mmol/L (0.7-2.0) 06/09/23 04:37
Total Bilirubin 0.6 mg/dl (0.2-1.3) 06/08/23 00:11
AST 18 U/L (17-59) 06/08/23 00:11
ALT 16 U/L (0-50) 06/08/23 00:11
Alkaline Phosphatase 131 U/L (38-126) H 06/08/23 00:11
Most recent labs reviewed.
Micro Results:
06/08/23 00:21 Blood Culture - Preliminary
Blood/Venous No Growth in 24 hours- Final report to follow
06/08/23 00:11 Blood Culture - Preliminary
Blood/Venous No Growth in 24 hours- Final report to follow
06/08/23 16:10 MRSA Screen - Pending
Nose
Care Review
Plan reviewed with: Physician (Dr Hwang - podiatry consult)
[2023-06-09] MEDS: NSS IV (11:29)
[2023-06-09 12:26] LABS: Glucose - Point of Care 244 mg/dl (70-99)
[2023-06-09] MEDS: NOVOLOG FLEXPEN-MODERATE RESISTANCE 5 UNITS SC (12:56)
[2023-06-09] MEDS: NOVOLOG FLEXPEN 5 UNITS SC (12:56)
--- NOTE | 2023-06-09 13:10 | WOUNDNOTE ---
[facility] RN note: [place] texted Dr. Neri, Dr. Hwang and Dr. Pickett this am re: L foot ulcers are necrotic especially L lateral ulcer. Suspect PAD (arterial Doppler on order). Suspect he will need surgical podiatry consult and probably vascular.
Asked Dr. Neri for order re: L heel weight bear only. Dr. Neri responded 'yes' to L heel weight bear only. Dr. Pickett responded MRI consistent with osteo. Dr. Hwang to order surgical podiatry consult. Care plan updated. Will follow
peripherally as needed.
--- NOTE | 2023-06-09 13:12 | W.PN.HOSP.TC ---
Addendum entered and electronically signed by Jimbo Hwang MD 06/09/23 18:05:
Will lower insulin dose for tonight since n.p.o. past midnight for possible OR by podiatry tomorrow. Awaiting ultrasound lower extremity, if abnormal then will need vascular evaluation prior to OR by podiatry.
Original Note:
Today's Communication/Plan
-
Monitor vitals
see plan
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
Continue with insulin
Surgical podiatry consult
Continue with antibiotics
Ultrasound pending to evaluate PAD
Assessment / Plan
Assessment / Plan
57y M with PMH significant for DM-II, hypothyroidism and prior admission for encephalopathy who presented to ED complaining of left foot pain, redness and active wounds.�
Patient states that these wounds have been present for months but with increase in more pain more recently.� Patient was hospitalized here at 04/16 - 04/19 secondary to encephalopathy and noted to have evidence of substance abuse, marked
hyperglycemia and abnormal INSPECTOR TIMERS imaging.�INSPECTOR TIMERS infection was ruled out during that stay.� Patient's symptoms improved with glycemic control and he was discharged to home.
Patient admits that he has not taken any of the medications he was prescribed at discharge.
In the ED, patient was able to answer all direct questions and follow commands. When he proceed with open-ended speech; however, he has marked expressive aphasia / 'word-salad'.� Patient seems to be aware that he is not making sense during these
periods.
He denies any tobacco, alcohol or drug use - though it is noted that his UDS on his prior admission was positive for amphetamine and cocaine use.
A/P:
# Diabetic Left Foot Wounds
L lateral foot wound was noted on prior admission.
Dorsal wound appears new and was not previously mentioned.
MRI consistent with fifth toe osteo, surgical podiatry consult
cw abx per ID
Glycemic control as noted below.
Wound care following
US pending to evaluate PAD
# Hyperglycemia, No anion gap elevation to suggest DKA.
# Uncontrolled DM-II
# Pseudohyponatremia secondary to the above, improved
Patient admittedly not compliant with insulin regimen.
Cont basal : bolus insulin with ISS
MS/encephalopathy improved with correction of BG
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
# Acute / Chronic Metabolic Encephalopathy, suspect secondary to marked hyperglycemia with drug abuse
MS/encephalopathy improved with correction of BG
Follow up CT head report from admission
UDS again positive for amphetamine/methamphetamine this admission.
Recent MRI brain noted mild asymmetric postcontrast signal abnormality in the left temporal lobe cortex, this was felt to be metabolic abnormalities associated with severe hyperglycemia per Neuro at that time.
INSPECTOR TIMERS infection was ruled out at that time.
MRI brain noted; rec repeat MRI with and without contrast in 4 to 6 months. Neurology follow-up outpatient
Anemia, suspect anemia of chronic disease
Monitor
# CR, improving
secondary to volume contraction / hyperglycemia.
resolved
# Prior Bacteremia
During his previous hospital stay, patient had blood cultures done (04/17) which were noted to be positive after his discharge. That culture was positive for Propionibacterium acnes.�
Unfortunately, only a single culture was done at that time.
A second culture done 04/18 (36 hours later) has remained negative.
Patient is currently afebrile despite his DM wounds.
ID following; blood cx NGTD
# Hypothyroidism
TSH was elevated during recent admission (12.5), which has improved to 5.61 this admission
Patient was started on / increased dose of T4 supplementation, but he has not been compliant.
Cont Synthroid at 125mcg / day.
Encourage compliance.
Repeat TFTs in 4-6 weeks.
# BPH
# Urinary Retention
Patient also noted to have urinary retention during his prior stay.
Restarted tamsulosin.
Bladder scan protocol and straight cath / Lock if needed.
DVT Prophylaxis:� Lovenox SQ
Code Status:� Full
General: Well Developed, No Apparent Distress
HEENT: Normocephalic, Atraumatic and Moist Mucous Membranes
Respiratory: Clear to Auscultation and Non Labored Respirations
Cardiac: Regular Rhythm and S1/S2; Negative Murmur, Rub or Gallop
GI: Soft, Nontender, Nondistended and Normal Bowel Sounds
Rectal: Deferred by Provider
Musculoskeletal: No Edema
Skin: Other (L foot wound)
Neuro: Awake, Alert, Oriented and Nonfocal/Grossly Intact
Psych: Calm
I spent a total of 53 minutes with the patient or on the floor. More than 50% of this time involved counseling and coordination of care.
Anticipated Discharge: > 48 hours
Subjective/Interval History
-
Date of Service: June 09, 2023
has some pain
Objective Data
-
Labs:
Laboratory Results
06/09/23
04:37
WBC 6.6
Hgb 10.1 L
Hct 29.7 L
Plt Count 325
Sodium 132 L
Potassium 4.5
Chloride 100
Carbon Dioxide 26
BUN 26 H
Creatinine 1.0
Glucose 265 H
Calcium 8.9
Vital Signs:
Vital Signs
Temp Pulse Resp BP Pulse Ox
97.7 F 78 19 146/91 97
06/09/23 11:25 06/09/23 12:18 06/09/23 12:18 06/09/23 12:18 06/08/23 04:38
I&O
06/08/23 06/09/23 06/10/23
06:59 06:59 06:59
Intake Total 240 / 240 4590 / 4590
Output Total 1300 / 1300 400 / 400
Balance -1060 / -1060 4190 / 4190
[2023-06-09] MEDS: VANCOCIN 300 MG IV (13:34)
[2023-06-09] MEDS: VANCOCIN 300 ML IV (13:34)
--- NOTE | 2023-06-09 15:17 | PN.CDI ---
CDI
- -
CDI:
Physician Documentation Request
Admit Date: 06/08/23 02:32
Dear Doctor Jaiden,
Please review the following and provide your response in the progress notes.
Clinical Indicators:
Pt admitted with Diabetic foot infection /Cellulitis left foot/Metabolic encephalopathy
Documented per H&P,'HHNK...Uncontrolled DM-II....- Glucose > 700 on this admission (> 1000 last admission).... Patient admittedly not compliant with insulin regimen....Aggressive IVF resuscitation....'
Please update the status of HHNK documented in the H&P:
HHNK -resolved
HHNK -still being monitored/treated
HHNK -ruled out
Other
Use of terms such as suspected, likely, concern for, or probable (associated with a specific diagnosis that is being evaluated, monitored, or treated as if it exists) are acceptable and can be coded in the inpatient setting, when documented at the
time of discharge.
Thank you,
Diana Walters RN
CDI Specialist
[place] [facility]
Please use your independent medical judgment in providing your response.
--- NOTE | 2023-06-09 15:28 | PN.DE.MGMTRT ---
Insulin Management
- -
06/09/2023 Diabetes Management Consult
57 year old male who appears older than his stated age, well know to diabetes service from previous hospitalizations, admitted with left Diabetic Foot infection concerning for Osteomyelitis. PMH includes: HTN, Hypothyroid, T2DM. A1C 14.6% on
admission, was > 18.5% in 04/2023. Cr 1.6--> 1.4-->1.0, >60
Prior to admission chart reflects patient was taking Basaglar 15 units @HS, Humalog 6 units AC and Metformin 1000mg BID.
Per chart review, pt is nonadherent to diabetes medications. Glucose on admission was 741. He is an active drug use by UDS (which he denies, denies IVDU)
Pt awake, appears disheveled, A/O x3, sitting in bed, not in acute distress and offers no complaints.
Glucose remains elevated, trended up to 360 @ HS, FBG 265, premeal range 215 to 266, requiring 3-5 units of corrective insulin
Will increase AC NovoLog to 8 units and Lantus to 18 units @ HS. Change to moderate corrective insulin with meals
Pt states he never picked up New glucose monitor and supplies that were prescribed and sent to pharmacy at discharge from last hospitalization.
Diabetes History
- -
Type of Diabetes: 2 requiring insulin
Pre-Admission Diabetes Regimen
06/09/23
04:37
Creatinine 1.0
Lab Results
Hemoglobin A1c 14.6 % (4.0-5.6) H 06/09/23 04:37
Insulin Pump Settings
IP Diabetes Regimen
06/08/23 06/08/23 06/09/23
16:12 21:32 04:37
Glucose 265 H
POC Glucose 266 H 360 H
06/09/23 06/09/23
07:24 12:13
Glucose
POC Glucose 215 H 244 H
Meal type: Dinner
Amount consumed: 100%
Patient Education
--- NOTE | 2023-06-09 15:44 | PTCARENOTE ---
RN escorted pt into bathroom. Pt voided in toilet. Post void residual showed over 600ml in bladder. Pt refused straight cath, or any type of catheter. RN educated pt on the risks of refusing cathetization. Pt states he understands and does not care
because catheters are too painful. He had one last admission and does not want it. RN notifed Dr. Hwang via TT.
--- NOTE | 2023-06-09 15:46 | CM ---
Patient with Dx Diabetic Left Foot Wounds, Hyperglycemia, Acute / Chronic Metabolic Encephalopathy. UDS positive for amphetamine/methamphetamine. Receiving IV Unasyn, IV Vanco. Seen by wound care nurse. PT & OT Evals pending.
Met with patient who resides with a friend Mike in his one story house with no ADA.
The patient has been staying with Mike for less than one year and pays him some money as rent when he can.
The friend is David Gutierrez, [address], [place] [address] - [phone].
The address on the chart is a [address] in [place].
The patient does not want his address updated to the friend's address as he is unsure if he will be able to return there.
He says his friend Mike is currently a patient here at .
He states he has no address or PO Box in [place] where he gets his mail.
The patient declines to provide any other local contacts.
The patient has been independent in ADLs and ambulation without using an assistance device.
The patient has no DME or prior VN.
PCP - Amadou Escobedo
Pharmacy - [address], [place]
Patient states that if he is unable to return to [facility], he will try to find someone else to stay with, or he may stay in his car.
Offered patient housing resources and patient declined.
Plan follow patient's wound care needs.
Plan follow up after PT/OT Evals.
[2023-06-09 17:22] LABS: Glucose - Point of Care 207 mg/dl (70-99)
[2023-06-09] MEDS: LOVENOX 40 MG SC (17:36)
[2023-06-09] MEDS: NOVOLOG FLEXPEN 8 UNITS SC (17:36)
[2023-06-09] MEDS: NOVOLOG FLEXPEN-MODERATE RESISTANCE 3 UNITS SC (17:36)
--- NOTE | 2023-06-09 18:24 | W.PN.UPDATE ---
Update Note
Progress Note Update
pt seen
Full consult dictated
rec vasc consult
will need mult sx to slavage foot.
Will keep npo, consented for sx for tomorrow possibly.
Awaiting vasc test results, vasc input
will plan to debride ulcer, 5th met resection and prox phal debridement
d/w dr arriaga, consent signed
If vasc needs to futher eval, may postpone sx
--- NOTE | 2023-06-09 20:00 | PTCARENOTE ---
Resumed care of pt laying in bed sleeping. Pt easily arousable to voice. Pt AAOx3. Pt not wanting to be bothered at this time. Pt refusing all hygiene offered. HR in the 70's in NSR on the monitor. POX 94% on RA> lungs clear. + bowel, round abd. Pt
denies need to urinate at this time. Reports bowel are WNL. Left foot dressing in place, weak pedal pulse noted. +1 Edema LLE, red, warm. + right pedal. Left forarm int capped at this time. NO issues to report. Will continue to monitor.
[2023-06-09] MEDS: LANTUS 0.140000000000000013 UNITS SC (22:02)
[2023-06-09 22:12] LABS: Glucose - Point of Care 217 mg/dl (70-99)
[2023-06-09 23:12] LABS: Glucose - Point of Care 306 mg/dl (70-99)
[2023-06-10] VITALS (23 sets, daily range): BP systolic 118–177; BP diastolic 76–103; BMI 21.6
[2023-06-10] MEDS: UNASYN IV ×4 (05:12→23:26)
[2023-06-10] MEDS: VANCOCIN 200 IV (05:12)
[2023-06-10] MEDS: SYNTHROID 125 MCG PO (05:12)
[2023-06-10 06:24] LABS: % Basophils 0.6 % (0-2); % Eosinophils 4.4 % (0-6); % Immature Granulocytes 0.3 % (0-0.5); % Lymphocytes 18.5 % (20.5-51.1); % Neutrophils 66.2 % (42.2-75.2); Absolute Eosinophils 0.3 10^3/uL (0-0.7); Absolute Lymphocytes 1.2 10^3/uL (1.2-3.4); Absolute Monocytes 0.7 10^3/uL (0.1-0.6); Absolute Neutrophils 4.4 10^3/uL (1.4-6.5); Hematocrit 31.3 % (39.0-52.0); Hemoglobin 10.6 g/dL (13.0-18.0); Mean Corp Hgb Conc. 33.9 g/dL (33.0-37.0); Mean Corpuscular Hgb 28.8 pg (27.0-31.0); Mean Corpuscular Volume 85.1 fL (80.0-94.0); Mean Platelet Volume 9.6 fL (7.4-10.4); Nucleated Red Blood Cells % 0 % (-); Platelet Count 348 10^3/uL (130-400); Red Blood Cell Count 3.68 10^6/uL (4.70-6.10); White Blood Cell Count 6.6 10^3/uL (4.8-10.8)
[2023-06-10 06:49] LABS: ALT (SGPT) 13 U/L (0-50); AST (SGOT) 18 U/L (17-59); Albumin 3.1 g/dl (3.5-5.0); Alkaline Phosphatase 106 U/L (38-126); Blood Urea Nitrogen 22 mg/dl (9-20); Calcium 9.4 mg/dl (8.4-10.2); Carbon Dioxide 27 mmol/L (22-30); Chloride 99 mmol/L (98-107); Estimated Creatinine Clearance 90 ml/min; Glucose 146 mg/dl (70-99); Sodium 135 mmol/L (135-145); Total Bilirubin 0.4 mg/dl (0.2-1.3); Total Protein 5.9 g/dl (6.3-8.2); eGFR > 60.00
--- NOTE | 2023-06-10 07:47 | W.PN.POD ---
Today's Communication
Today's Communication
necrotic wound/osteo left foot---plan for OR today, will d/w medicine and vasc, plan for debridement and bone resection, possible amp 5th toe
explained to pt in detail, consent addendum for possible amp toe
npo, sx later in afternoon, approx 4
no gaurantees as to outcome given
may need mult surgeries
Assessment / Plan
-
2 Diabetic foot wounds left foot
cellulitis dorsum and lateral aspect left foot
necrotic ulcer lateral aspect very tender
unable to debride ulcer necrotic tissue at bedside
due to lack of patient cooperation
area very tender per patient
waiting for MRI results
if osteo surgical consult
order: consult wound care team for local wound care
applied saline solution adaptic and dry sterile gauze dressing to wounds
Subjective
Chief Complaint
pt seen for fu for wound /osteo left foot
foot is painful
vasc tests with multiphasic d/p pt, elevated julio and toe pressures wnl
Subjective
vasc dopplers read, will d/w with vasc
derm necrotic wound lateral 5th mpj, probes close to bone, + osteo mri localized cellulitis
Objective
Temp Pulse Resp BP Pulse Ox
98.0 F 85 16 156/82 97
06/10/23 03:35 06/10/23 06:00 06/10/23 06:00 06/10/23 06:00 06/10/23 04:00
06/10/23 05:10
06/10/23 05:10
Vital Signs and Lab results were reviewed.
[2023-06-10] MEDS: NOVOLOG FLEXPEN SC ×2 (07:54→12:25)
[2023-06-10] MEDS: NOVOLOG FLEXPEN-MODERATE RESISTANCE SC (07:54)
[2023-06-10] MEDS: FLOMAX 0.400000000000000022 MG PO (08:22)
--- NOTE | 2023-06-10 08:56 | CM ---
Patient with Dx Diabetic Left Foot Wounds, Hyperglycemia, Acute / Chronic Metabolic Encephalopathy. UDS positive for amphetamine/methamphetamine. Plan OR today for necrotic wound/osteo left foot. Room air. Receiving IV Unasyn, IV Vanco. Seen by
wound care nurse. PT & OT Evals pending.
As per prior CM notes, patient unsure he is able to return to the house he was staying at with a friend.
Plan follow patient's wound care needs.
Plan follow up after PT/OT Evals.
--- NOTE | 2023-06-10 09:52 | PHA.VAN.FU ---
Vancomycin Assessment / Plan
- Assessment
Renal Function: SCR Decreasing
WBC's are: WNL
In the past 24 hrs, patient has been: Afebrile
Concomitant Antimicrobials: ampicillin/sulbactam
- Dosing Plan
Continue: Vanc 1000mg Q12H
Since patient was off floor yesterday, yesterday's dosing was adjusted to single dose of 1500mg with 1000mg Q12H starting this morning
- Monitoring Plan
No level(s) ordered at this time: consider levels in next few days
- Follow Up
Pharmacy will continue to follow.
Vancomycin Follow UP
- -
Patient Age: 57
Patient Sex: Male
Vancomycin Day #: 3
Indication: Diabetic Foot
Requesting Provider: Mehul
Pertinent Antimicrobial Allergies:
NKDA
Height / Weight:
Height 5 ft 11 in
Actual Weight 70.3 kg
IBW in k.3
Pertinent Past Medical History: DM2
- Vital Signs / Lab Results
Temp Pulse Resp BP Pulse Ox
98.4 F 84 18 148/91 95
06/10/23 07:10 06/10/23 08:00 06/10/23 08:00 06/10/23 08:00 06/10/23 08:36
Lab Results - Hematology
06/08/23 06/08/23 06/09/23
00:11 04:21 04:37
WBC 10.2 8.1 6.6
06/10/23
05:10
WBC 6.6
Lab Results - Chemistry
06/08/23 06/08/23 06/08/23
00:11 04:21 04:21
BUN 42 H Cancelled 41 H
Creatinine 1.6 H Cancelled
Estimated Creat Clear 53
Albumin 4.4
06/08/23 06/08/23 06/09/23
04:21 04:21 04:37
BUN 26 H
Creatinine 1.4 H 1.0
Estimated Creat Clear Cancelled 58 83
Albumin
06/10/23
05:10
BUN 22 H
Creatinine 0.9
Estimated Creat Clear 90
Albumin 3.1 L
06/08/23 06/08/23 06/09/23
00:11 04:21 04:37
Lactic Acid 2.2 H 2.4 H 0.8
Microbiology Results
06/08/23 16:10 MRSA Screen - Final
Nose No Methicillin Resistant Staphylococcus aureus isolated.
06/08/23 00:21 Blood Culture - Preliminary
Blood/Venous No Growth in 48 hours- Final report to follow
06/08/23 00:11 Blood Culture - Preliminary
Blood/Venous No Growth in 48 hours- Final report to follow
Therapeutic Drug Monitoring
Random Vancomycin 7.7 ug/ml 06/09/23 04:37
--- NOTE | 2023-06-10 10:21 | W.PN.ID1 ---
Date of Service
Date of Service: June 10, 2023
Today's Communication
continue vancomycin, unasyn for present, will follow up cultures/pathology from the OR
Assessment / Plan
Diabetic Foot Infection
Dm2 uncontrolled
Noncompliance
- blood cultures x2 in progress no growth to date
- MRSA screen - negative
- MRI suggestive of osteomyelitis of the 5th metatarsal
- continue vancomycin, unasyn for present, will follow up cultures/pathology from the OR
- DARIUS not suggestive of a focal lesion; vascular consulted
- appreciate podiatry
- needs senior living diabetic control to prevent progression of infections, relapse, progression of diabetic foot wounds
Chief Complaint
-: Other (diabetic foot infection)
Subjective / Review of Systems
evaluated by podiatry and for debridement today
DARIUS no focal lesions suggested
tolerating current antibiotics
no complaints
without leukocytosis
cr stable
blood cultures no growth to date
Vital Signs / Physical Exam
Vital Signs
Vital Signs
Temp Pulse Resp BP Pulse Ox
98.4 F 84 18 148/91 95
06/10/23 07:10 06/10/23 08:00 06/10/23 08:00 06/10/23 08:00 06/10/23 08:36
Physical Exam
Constitutional: No Acute Distress
Cardiovascular: Regular Rate and S1/S2; Negative Murmur or Rub
Pulmonary: Clear and Symmetric; Negative Wheezes or Rales
Gastrointestinal: Soft, Non Tender, Non Distended and Normal Bowel Sounds
Skin: Warm and Dry; Negative Rash or Jaundice
Objective Data
Lab Data
Lab Results
06/10/23 05:10
06/10/23 05:10
Estimated Creat Clear 90 ml/min 06/10/23 05:10
Lactic Acid 0.8 mmol/L (0.7-2.0) 06/09/23 04:37
Total Bilirubin 0.4 mg/dl (0.2-1.3) 06/10/23 05:10
AST 18 U/L (17-59) 06/10/23 05:10
ALT 13 U/L (0-50) 06/10/23 05:10
Alkaline Phosphatase 106 U/L (38-126) 06/10/23 05:10
Most recent labs reviewed.
Micro Results:
06/08/23 16:10 MRSA Screen - Final
Nose No Methicillin Resistant Staphylococcus aureus isolated.
06/08/23 00:21 Blood Culture - Preliminary
Blood/Venous No Growth in 48 hours- Final report to follow
06/08/23 00:11 Blood Culture - Preliminary
Blood/Venous No Growth in 48 hours- Final report to follow
--- NOTE | 2023-06-10 10:43 | CON.VAS ---
Addendum entered and electronically signed by Eloy Lock III, MD 06/10/23 14:27:
This patient was seen and examined with MARICARMEN Deleon. I agree with the history and physical exam as well as the assessment and plan. I have the following additions:
Left foot wounds as described
Easily palpable DP and PT pulse in the left foot
Lower extremity arterial studies reviewed-normal ABIs/TBIs with no focal velocity elevations to suggest significant stenosis
Based on physical exam and vascular lab arterial studies patient appears to have adequate perfusion for wound healing. Okay to proceed with podiatric surgical intervention.
Signed: Eloy Lock III, MD
[facility]
[phone] (vcis)
Original Note:
Consultation
Consultation Request
Performing Provider: Ashvin
Reason for Consultation: Nonhealing left foot wound
Medical History
-
Chief Complaint: Left Foot Pain / Wounds
History of Present Illness:
57-year-old male with past medical history significant for uncontrolled diabetes, hypothyroidism, probable substance abuse, recent admission for encephalopathy here today for nonhealing left foot wound. Patient reports wounds have been there for
'months? I do not really know.' Patient notes he does not take any medications he has been prescribed. He was here about 2 months ago for hyperglycemia and has since been prescribed insulin.
Vascular consult for PAD evaluation. Patient seen at bedside this a.m. with Dr. Lock. Patient has bounding PT and DP pulses bilaterally. Arterial ultrasound was read by Dr. Lock. Velocities, ABIs and TBI's all within normal limits. Patient
uninterested in answering questioning during exam. Turns head away when questioned on chronology of foot wound. Only interested in when he can have breakfast.
Podiatry following for debridement.
Past Medical History
Past Medical History: Hypothyroidism, IDDM and Other (Subtance abuse)
Past Surgical History: None
Social History
Drug: Other (Denies but tox screen positive last two admissions)
Family History
Family History: Reviewed & Not Pertinent
Allergies / Home Medications
Allergy/AdvReac Type Severity Reaction Status Date / Time
No Known Allergies Allergy Verified 06/07/23 23:51
Medication Instructions Recorded Confirmed Type
blood sugar diagnostic (Contour #200 ea 04/18/23 Rx
Next Test Strips)
blood-glucose meter (Contour Next #1 ea 04/18/23 Rx
One Meter)
insulin glargine 100 unit/mL (3 15 unit (0.15 mL) SC HS Diabetes 04/18/23 Rx
mL) subcutaneous pen (Basaglar #5 ea
KwikPen U-100 Insulin)
lancets (Microlet Lancet) #150 ea 04/18/23 Rx
metformin 1,000 mg tablet 1,000 mg PO BID@0800,1700 #60 tabs 04/18/23 06/08/23 Rx
pen needle, diabetic 32 gauge x #200 ea 04/18/23 Rx
32' (BD Ultra-Fine Zoie Pen
Needle)
insulin lispro 100 unit/mL 6 unit (0.06 mL) SC AC 30 days #5 04/19/23 Rx
subcutaneous pen (Humalog KwikPen ea
(U-100) Insulin)
Review of Systems
-
History Source: Patient
All other systems: Negative unless noted
Constitutional: Reports No Symptoms
EENT: Reports No Symptoms
Respiratory: Reports No Symptoms
Cardiac: Reports No Symptoms
Vascular: Denies Leg Pain / Claudication
Abdomen/GI: Reports No Symptoms
: Reports No Symptoms
Musculoskeletal: Reports Muscle Pain
Skin: Reports Other (Left foot wound)
Neurological: Reports No Symptoms
Endocrine: Reports No Symptoms
Physical Exam
Vital Signs
Temp Pulse Resp BP Pulse Ox
98.4 F 84 18 148/91 95
06/10/23 07:10 06/10/23 08:00 06/10/23 08:00 06/10/23 08:00 06/10/23 08:36
Lab Results
06/10/23 05:10
06/10/23 05:10
Physical Exam
General: No Apparent Distress
HEENT: Normocephalic and Atraumatic
Respiratory: Non Labored Respirations
Cardiac: Negative JVD
GI: Soft
Musculoskeletal: No Clubbing, No Cyanosis and Edema (Scant)
Skin: Other (left foot dorsal and lateral necrotic, dry scabbing)
Neuro: Awake, Alert and Oriented
Psych: Calm
Pulses: Bilateral Dorsalis Pedis: +2 and Bilateral Posterior Tibial: +2
Assessment / Plan
-
57-year-old male with nonhealing left foot dry necrotic wounds
Plan:
-Patient does not appear to have PAD, should have adequate perfusion to heal debridement by podiatry
-Please call with questions
Data Reviewed
-
Ultrasound: Discussed with Physician and Discussed with Patient
--- NOTE | 2023-06-10 11:33 | PN.DE.MGMTRT ---
Insulin Management
- -
06/10/2023 Diabetes Management Follow up
Patient admitted with left Diabetic Foot infection concerning for Osteomyelitis. PMH includes: HTN, Hypothyroid, T2DM, substance abuse. A1C 14.6% on admission, was > 18.5% in 04/2023. Cr 1.6--> 1.4-->1.0, >60. He is well know to diabetes service
from previous hospitalizations,
Prior to admission chart reflects patient was taking Basaglar 15 units @HS, Humalog 6 units AC and Metformin 1000mg BID.
Per chart review, pt is nonadherent to diabetes medications. Glucose on admission was 741.
Pt asleep, for OR today, did not wake him. Per nurse he is very agitated this AM and last evening.
Novolog increased from 5 units to 8 units, first dose with dinner, hs glucose 306. Will increase AC novolog to 10 units s/p OR.
Received Lantus to 14 units @ HS fasting glucose this AM 146. Will continue 14 units lantus @ hs and assess tomorrow for needed increase.
Will follow up with patient regarding glucose monitor (he never picked up RX @ pharmacy after last discharge.
Diabetes History
- -
Type of Diabetes: 2 requiring insulin
Pre-Admission Diabetes Regimen
06/10/23
05:10
Creatinine 0.9
Lab Results
Hemoglobin A1c 14.6 % (4.0-5.6) H 06/09/23 04:37
Insulin Pump Settings
IP Diabetes Regimen
06/09/23 06/09/23 06/09/23
12:13 17:10 22:01
Glucose
POC Glucose 244 H 207 H 217 H
06/09/23 06/10/23
23:00 05:10
Glucose 146 H
POC Glucose 306 H
Patient Education
[2023-06-10 12:00] LABS: Glucose - Point of Care 181 mg/dl (70-99)
--- NOTE | 2023-06-10 12:25 | W.PN.HOSP.TC ---
Addendum entered and electronically signed by Jimbo Hwang MD 06/10/23 16:25:
Correction: HHNK ruled out
Addendum entered and electronically signed by Jimbo Hwang MD 06/10/23 16:24:
HHNK resolved
Original Note:
Today's Communication/Plan
-
Monitor vital signs and see plan
Continue antibiotics
Plan for OR today by podiatry
Continue to monitor blood sugar
Assessment / Plan
Assessment / Plan
57y M with PMH significant for DM-II, hypothyroidism and prior admission for encephalopathy who presented to ED complaining of left foot pain, redness and active wounds.�
Patient states that these wounds have been present for months but with increase in more pain more recently.� Patient was hospitalized here at 04/16 - 04/19 secondary to encephalopathy and noted to have evidence of substance abuse, marked
hyperglycemia and abnormal FIXED INCOME ANALYST imaging.�FIXED INCOME ANALYST infection was ruled out during that stay.� Patient's symptoms improved with glycemic control and he was discharged to home.
Patient admits that he has not taken any of the medications he was prescribed at discharge.
In the ED, patient was able to answer all direct questions and follow commands. When he proceed with open-ended speech; however, he has marked expressive aphasia / 'word-salad'.� Patient seems to be aware that he is not making sense during these
periods.
He denies any tobacco, alcohol or drug use - though it is noted that his UDS on his prior admission was positive for amphetamine and cocaine use.
A/P:
# Diabetic Left Foot Wounds
L lateral foot wound was noted on prior admission.
Dorsal wound appears new and was not previously mentioned.
MRI consistent with fifth toe osteo, surgical podiatry following; plan for OR 06/09
cw abx per ID
Glycemic control as noted below.
Wound care following
US LE without PAD; consulted vascular given request from podiatry. no vascular intervention needed at this time
# Hyperglycemia, No anion gap elevation to suggest DKA.
# Uncontrolled DM-II
# Pseudohyponatremia secondary to the above, improved
Patient admittedly not compliant with insulin regimen.
Cont basal : bolus insulin with ISS
MS/encephalopathy improved with correction of BG
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
# Acute / Chronic Metabolic Encephalopathy, suspect secondary to marked hyperglycemia with drug abuse
MS/encephalopathy improved with correction of BG
Follow up CT head report from admission
UDS again positive for amphetamine/methamphetamine this admission.
Recent MRI brain noted mild asymmetric postcontrast signal abnormality in the left temporal lobe cortex, this was felt to be metabolic abnormalities associated with severe hyperglycemia per Neuro at that time.
FIXED INCOME ANALYST infection was ruled out at that time.
MRI brain noted; rec repeat MRI with and without contrast in 4 to 6 months. Neurology follow-up outpatient
Anemia, suspect anemia of chronic disease
Monitor
# CR, improving
secondary to volume contraction / hyperglycemia.
resolved
# Prior Bacteremia
During his previous hospital stay, patient had blood cultures done (04/17) which were noted to be positive after his discharge. That culture was positive for Propionibacterium acnes.�
Unfortunately, only a single culture was done at that time.
A second culture done 04/18 (36 hours later) has remained negative.
Patient is currently afebrile despite his DM wounds.
ID following; blood cx NGTD
# Hypothyroidism
TSH was elevated during recent admission (12.5), which has improved to 5.61 this admission
Patient was started on / increased dose of T4 supplementation, but he has not been compliant.
Cont Synthroid at 125mcg / day.
Encourage compliance.
Repeat TFTs in 4-6 weeks.
# BPH
# Urinary Retention
Patient also noted to have urinary retention during his prior stay.
Restarted tamsulosin.
Bladder scan protocol and straight cath / Lock if needed.
DVT Prophylaxis:� Lovenox SQ
Code Status:� Full
General: Well Developed, No Apparent Distress
HEENT: Normocephalic, Atraumatic and Moist Mucous Membranes
Respiratory: Clear to Auscultation and Non Labored Respirations
Cardiac: Regular Rhythm and S1/S2; Negative Murmur, Rub or Gallop
GI: Soft, Nontender, Nondistended and Normal Bowel Sounds
Rectal: Deferred by Provider
Musculoskeletal: No Edema
Skin: Other (L foot wound)
Neuro: Awake, Alert, Oriented and Nonfocal/Grossly Intact
Psych: Calm
I spent a total of 52 minutes with the patient or on the floor. More than 50% of this time involved counseling and coordination of care.
Anticipated Discharge: > 48 hours
Subjective/Interval History
-
Date of Service: June 10, 2023
denies nausea
Objective Data
-
Labs:
Laboratory Results
06/10/23
05:10
WBC 6.6
Hgb 10.6 L
Hct 31.3 L
Plt Count 348
Sodium 135
Potassium 4.0
Chloride 99
Carbon Dioxide 27
BUN 22 H
Creatinine 0.9
Glucose 146 H
Calcium 9.4
Total Bilirubin 0.4
AST 18
ALT 13
Alkaline Phosphatase 106
Vital Signs:
Vital Signs
Temp Pulse Resp BP Pulse Ox
98.4 F 89 19 162/95 95
06/10/23 07:10 06/10/23 12:00 06/10/23 12:00 06/10/23 12:00 06/10/23 08:36
I&O
06/09/23 06/10/23 06/11/23
06:59 06:59 06:59
Intake Total 4590 / 4590 920 / 920
Output Total 400 / 400 900 / 900
Balance 4190 / 4190
[2023-06-10] MEDS: NOVOLOG FLEXPEN-MODERATE RESISTANCE 1 UNITS SC ×2 (12:38→18:35)
--- NOTE | 2023-06-10 15:54 | PTCARENOTE ---
Pt for OR. VSS. Report to receiving RN. CHG bath, linen change, and betadine nasal swabs done per protocol. To OR via bed.
[2023-06-10 17:28] LABS: Glucose - Point of Care 166 mg/dl (70-99)
--- NOTE | 2023-06-10 17:49 | W.PN.UPDATE ---
Update Note
Progress Note Update
pt seen in RR
dressing cdi
cft intact to all toes
a/ps/p excisional debridement ulcer/5th met resection, prox phal resection left---stable
bone sent to path, wound packed
will advance tomorrow, will need further sx to close wound
cont abx'
nwb left foot
[2023-06-10] MEDS: VANCOCIN IV (18:01)
[2023-06-10] MEDS: LOVENOX 40 MG SC (18:37)
--- NOTE | 2023-06-10 20:00 | PTCARENOTE ---
Resumed care of pt laying in bed sleeping. Easily arousable to voice. Pt asking for food. Debra HERNADEZ notified, order obtained to advance diet. Pt given box lunch per request. HR in the 90's in NSR on the monitor. POX 95% on RA. Lungs clear. +
bowel. Pt using bathroom with assistance when needed. Left foot dressing intact palpable weak pulses present. Foot elevated on pillow. Pt denies any complaints of pain at this time. B/L forarm int capped. Will continue to monitor.
--- NOTE | 2023-06-10 21:06 | PTCARENOTE ---
Pt to and from Xray without complication. Pt voided in bathroom, unmeasured. Teethe brushed. pt assisted to bed per comfort. Pt denies any complaints of pain at this time. Left foot elevated on pillow. Left foot dressing intact. Will continue to
monitor.
[2023-06-10 21:51] LABS: Glucose - Point of Care 284 mg/dl (70-99)
[2023-06-10] MEDS: LANTUS 0.140000000000000013 UNITS SC (22:00)
[2023-06-10] MEDS: NOVOLOG FLEXPEN 10 UNITS SC (22:00)
[2023-06-11] VITALS (24 sets, daily range): BP systolic 95–154; BP diastolic 60–95; PULSE 90; O2SAT 96; BMI 21.8
--- NOTE | 2023-06-11 03:30 | PTCARENOTE ---
Pt awoke with throbbing, stabbing left foot pain. PRN pain medication administered as ordered. Pt reports relief post pain medication. No other changes in assessment noted at this time. Vital signs remain stable. Will continue to monitor.
--- NOTE | 2023-06-11 03:38 | DOWNTIME ---
There was a [employer] Downtime on 06/11/2023 from 0100 to 06/11/2023 at 0322. Downtime documentation of patient's care, including medication administrations, has been reconciled in the electronic record per guidelines. Refer to the
patient's paper chart under the miscellaneous tab to see printed paper medication records and downtime forms.
[2023-06-11] MEDS: SYNTHROID 125 MCG PO (05:13)
[2023-06-11] MEDS: VANCOCIN 200 IV ×2 (05:13→18:44)
[2023-06-11] MEDS: UNASYN IV ×3 (05:13→18:15)
[2023-06-11 05:46] LABS: % Basophils 0.9 % (0-2); % Eosinophils 2.6 % (0-6); % Immature Granulocytes 0.5 % (0-0.5); % Lymphocytes 15.8 % (20.5-51.1); % Neutrophils 71.2 % (42.2-75.2); Absolute Basophils 0.1 10^3/uL (0-0.2); Absolute Eosinophils 0.2 10^3/uL (0-0.7); Absolute Lymphocytes 1.2 10^3/uL (1.2-3.4); Absolute Monocytes 0.7 10^3/uL (0.1-0.6); Absolute Neutrophils 5.5 10^3/uL (1.4-6.5); Hematocrit 31.1 % (39.0-52.0); Hemoglobin 10.7 g/dL (13.0-18.0); Mean Corp Hgb Conc. 34.4 g/dL (33.0-37.0); Mean Corpuscular Hgb 28.7 pg (27.0-31.0); Mean Corpuscular Volume 83.4 fL (80.0-94.0); Mean Platelet Volume 9.1 fL (7.4-10.4); Nucleated Red Blood Cells % 0 % (-); Platelet Count 361 10^3/uL (130-400); Red Blood Cell Count 3.73 10^6/uL (4.70-6.10); Red Cell Dist. Width 12.8 % (11.5-14.5); White Blood Cell Count 7.7 10^3/uL (4.8-10.8)
[2023-06-11 06:00] LABS: ALT (SGPT) 12 U/L (0-50); AST (SGOT) 17 U/L (17-59); Albumin 3.1 g/dl (3.5-5.0); Alkaline Phosphatase 101 U/L (38-126); Blood Urea Nitrogen 19 mg/dl (9-20); Calcium 9.4 mg/dl (8.4-10.2); Carbon Dioxide 29 mmol/L (22-30); Chloride 99 mmol/L (98-107); Estimated Creatinine Clearance 82 ml/min; Glucose 100 mg/dl (70-99); Potassium 3.8 mmol/L (3.5-5.1); Sodium 135 mmol/L (135-145); Total Bilirubin 0.4 mg/dl (0.2-1.3); eGFR > 60.00
[2023-06-11 08:13] LABS: Glucose - Point of Care 147 mg/dl (70-99)
[2023-06-11] MEDS: NOVOLOG FLEXPEN 10 UNITS SC ×3 (09:35→18:16)
[2023-06-11] MEDS: NOVOLOG FLEXPEN-MODERATE RESISTANCE SC ×2 (09:35→17:15)
[2023-06-11] MEDS: FLOMAX 0.400000000000000022 MG PO (09:36)
--- NOTE | 2023-06-11 10:26 | PHA.VAN.FU ---
Vancomycin Assessment / Plan
- Assessment
Renal Function: Stable
WBC's are: WNL
In the past 24 hrs, patient has been: Afebrile
Concomitant Antimicrobials: ampicillin/sulbactam
- Dosing Plan
Continue: Vanc 1000mg Q12H
- Monitoring Plan
No level(s) ordered at this time: consider levels in next few days
- Follow Up
Pharmacy will continue to follow.
Vancomycin Follow UP
- -
Patient Age: 57
Patient Sex: Male
Vancomycin Day #: 4
Indication: Diabetic Foot
Requesting Provider: Mehul
Pertinent Antimicrobial Allergies:
NKDA
Height / Weight:
Height 5 ft 11 in
Actual Weight 71 kg
IBW in k.3
Pertinent Past Medical History: DM2
- Vital Signs / Lab Results
Temp Pulse Resp BP Pulse Ox
98.5 F 103 15 152/94 94
06/11/23 08:00 06/11/23 10:00 06/11/23 02:00 06/11/23 10:00 06/11/23 10:00
Lab Results - Hematology
06/09/23 06/10/23 06/11/23
04:37 05:10 05:11
WBC 6.6 6.6 7.7
Lab Results - Chemistry
06/09/23 06/10/23 06/11/23
04:37 05:10 05:11
BUN 26 H 22 H 19
Creatinine 1.0 0.9 1.0
Estimated Creat Clear 83 90 82
Albumin 3.1 L 3.1 L
06/09/23
04:37
Lactic Acid 0.8
Microbiology Results
06/08/23 00:21 Blood Culture - Preliminary
Blood/Venous No Growth in 72 hours- Final report to follow
06/08/23 00:11 Blood Culture - Preliminary
Blood/Venous No Growth in 72 hours- Final report to follow
06/10/23 17:15 Gram Stain - Preliminary
Foot - Left
06/10/23 17:00 Gram Stain - Preliminary
Foot - Left
06/10/23 17:15 Gram Stain - Preliminary
Foot - Left
06/08/23 16:10 MRSA Screen - Final
Nose No Methicillin Resistant Staphylococcus aureus isolated.
Therapeutic Drug Monitoring
Random Vancomycin 7.7 ug/ml 06/09/23 04:37
--- NOTE | 2023-06-11 10:42 | PN.DE.MGMTRT ---
Insulin Management
- -
06/11/2023 Diabetes Management Follow up
Patient admitted with left Diabetic Foot infection concerning for Osteomyelitis. PMH includes: HTN, Hypothyroid, T2DM, substance abuse. A1C 14.6% on admission, was > 18.5% in 04/2023. Cr 1.6--> 1.4-->1.0, >60. He is well know to diabetes service
from previous hospitalizations,
Prior to admission chart reflects patient was taking Basaglar 15 units @HS, Humalog 6 units AC and Metformin 1000mg BID.
Per chart review, pt is nonadherent to diabetes medications. Glucose on admission was 741.
Pt asleep, awakened briefly to discuss diabetes regimen at home.
s/p OR POD 1 for excisional debridement L 5th toe.
Novolog increased to 10 units AC, first dose with dinner.Received hs lantus 14 units, fasting glucose 100.
Will make no change to regimen today.
Will follow up with patient regarding glucose monitor (he never picked up RX @ pharmacy after last discharge.
Diabetes History
- -
Type of Diabetes: 2 requiring insulin
Pre-Admission Diabetes Regimen
06/11/23
05:11
Creatinine 1.0
Lab Results
Hemoglobin A1c 14.6 % (4.0-5.6) H 06/09/23 04:37
Insulin Pump Settings
IP Diabetes Regimen
06/10/23 06/10/23 06/10/23
11:48 17:27 21:40
Glucose
POC Glucose 181 H 166 H 284 H
06/11/23 06/11/23
05:11 08:02
Glucose 100 H
POC Glucose 147 H
Meal type: Lunch
Patient Education
[2023-06-11] MEDS: DILAUDID 0.5 MG IV ×2 (11:35→22:12)
[2023-06-11 12:03] LABS: Glucose - Point of Care 361 mg/dl (70-99)
--- NOTE | 2023-06-11 12:13 | W.PN.HOSP.TC ---
Today's Communication/Plan
-
Monitor vital signs
See plan
Continue antibiotics
Nonweightbearing left lower extremity per podiatry
Patient will need another OR session per podiatry
cw insulin
Assessment / Plan
Assessment / Plan
57y M with PMH significant for DM-II, hypothyroidism and prior admission for encephalopathy who presented to ED complaining of left foot pain, redness and active wounds.�
Patient states that these wounds have been present for months but with increase in more pain more recently.� Patient was hospitalized here at 04/16 - 04/19 secondary to encephalopathy and noted to have evidence of substance abuse, marked
hyperglycemia and abnormal ENDOSCOPY RN imaging.�ENDOSCOPY RN infection was ruled out during that stay.� Patient's symptoms improved with glycemic control and he was discharged to home.
Patient admits that he has not taken any of the medications he was prescribed at discharge.
In the ED, patient was able to answer all direct questions and follow commands. When he proceed with open-ended speech; however, he has marked expressive aphasia / 'word-salad'.� Patient seems to be aware that he is not making sense during these
periods.
He denies any tobacco, alcohol or drug use - though it is noted that his UDS on his prior admission was positive for amphetamine and cocaine use.
A/P:
# Diabetic Left Foot Wounds
L lateral foot wound was noted on prior admission.
Dorsal wound appears new and was not previously mentioned.
MRI consistent with fifth toe osteo, surgical podiatry following; s/p OR 06/09 with excisional debridement ulcer/fifth metatarsal resection, proximal phalanx resection left; NWB left foot per podiatry
cw abx per ID
Glycemic control as noted below.
Wound care following
US LE without PAD; consulted vascular given request from podiatry. no vascular intervention needed at this time
# Hyperglycemia, No anion gap elevation to suggest DKA. HHNK ruled out, there was no acidosis
# Uncontrolled DM-II
# Pseudohyponatremia secondary to the above, improved
Patient admittedly not compliant with insulin regimen.
Cont basal : bolus insulin with ISS
MS/encephalopathy improved with correction of BG
Diabetes PHLEBOTOMIST SUPERVISOR/INSTRUCTOR following
# Acute / Chronic Metabolic Encephalopathy, suspect secondary to marked hyperglycemia with drug abuse
MS/encephalopathy improved with correction of BG
Follow up CT head report from admission
UDS again positive for amphetamine/methamphetamine this admission.
Recent MRI brain noted mild asymmetric postcontrast signal abnormality in the left temporal lobe cortex, this was felt to be metabolic abnormalities associated with severe hyperglycemia per Neuro at that time.
ENDOSCOPY RN infection was ruled out at that time.
MRI brain noted; rec repeat MRI with and without contrast in 4 to 6 months. Neurology follow-up outpatient
Anemia, suspect anemia of chronic disease
Monitor
# CR
secondary to volume contraction / hyperglycemia.
resolved
# Prior Bacteremia
During his previous hospital stay, patient had blood cultures done (04/17) which were noted to be positive after his discharge. That culture was positive for Propionibacterium acnes.�
Unfortunately, only a single culture was done at that time.
A second culture done 04/18 (36 hours later) has remained negative.
Patient is currently afebrile despite his DM wounds.
ID following; blood cx NGTD
# Hypothyroidism
TSH was elevated during recent admission (12.5), which has improved to 5.61 this admission
Patient was started on / increased dose of T4 supplementation, but he has not been compliant.
Cont Synthroid at 125mcg / day.
Encourage compliance.
Repeat TFTs in 4-6 weeks.
# BPH
# Urinary Retention
Patient also noted to have urinary retention during his prior stay.
Restarted tamsulosin.
Bladder scan protocol and straight cath / Lock if needed.
DVT Prophylaxis:� Lovenox SQ
Code Status:� Full
General: Well Developed, No Apparent Distress
HEENT: Normocephalic, Atraumatic and Moist Mucous Membranes
Respiratory: Clear to Auscultation and Non Labored Respirations
Cardiac: Regular Rhythm and S1/S2; Negative Murmur, Rub or Gallop
GI: Soft, Nontender, Nondistended and Normal Bowel Sounds
Rectal: Deferred by Provider
Musculoskeletal: No Edema
Skin: Other (L foot wound bandaged)
Neuro: Awake, Alert, Oriented and Nonfocal/Grossly Intact
Psych: Calm
I spent a total of 53 minutes with the patient or on the floor. More than 50% of this time involved counseling and coordination of care.
Anticipated Discharge: > 48 hours
Subjective/Interval History
-
Date of Service: June 11, 2023
has some pain
Objective Data
-
Labs:
Laboratory Results
06/11/23
05:11
WBC 7.7
Hgb 10.7 L
Hct 31.1 L
Plt Count 361
Sodium 135
Potassium 3.8
Chloride 99
Carbon Dioxide 29
BUN 19
Creatinine 1.0
Glucose 100 H
Calcium 9.4
Total Bilirubin 0.4
AST 17
ALT 12
Alkaline Phosphatase 101
Vital Signs:
Vital Signs
Temp Pulse Resp BP Pulse Ox
98.5 F 103 15 152/94 94
06/11/23 08:00 06/11/23 10:00 06/11/23 02:00 06/11/23 10:00 06/11/23 10:00
I&O
06/10/23 06/11/23 06/12/23
06:59 06:59 06:59
Intake Total 920 / 920 1450 / 1450
Output Total 900 / 900
Balance 1450 / 1450
--- NOTE | 2023-06-11 12:19 | W.PN.POD ---
Today's Communication
Today's Communication
s.p debridement st and bone left foot---stable
resolving infection, nwb, wound bandages changes
will plan for OR friday to close and may need 5th toe amp
cont abx
monitor cx
Assessment / Plan
-
2 Diabetic foot wounds left foot
cellulitis dorsum and lateral aspect left foot
necrotic ulcer lateral aspect very tender
unable to debride ulcer necrotic tissue at bedside
due to lack of patient cooperation
area very tender per patient
waiting for MRI results
if osteo surgical consult
order: consult wound care team for local wound care
applied saline solution adaptic and dry sterile gauze dressing to wounds
Subjective
Chief Complaint
pt seen at bedside
no pain
no f.food service sales representatives
dressing cdi
s.p mpj resection and debridement
Subjective
vacs unchanged, foot warm, 5th toe stable for now, warm, mild discoloration, questionable viability
derm wound clean, no odor, decreased cellulitis, good bleeding,
Objective
Temp Pulse Resp BP Pulse Ox
98.2 F 103 15 152/94 94
06/11/23 11:45 06/11/23 10:00 06/11/23 02:00 06/11/23 10:00 06/11/23 10:00
06/11/23 05:11
06/11/23 05:11
Vital Signs and Lab results were reviewed.
[2023-06-11] MEDS: NOVOLOG FLEXPEN-MODERATE RESISTANCE 9 UNITS SC (12:25)
--- NOTE | 2023-06-11 13:58 | PTCARENOTE ---
Pt presents as assessed. Aox3, flat. NSR on tele monitor. Medications administered as ordered. Sleeping throughout the day. Dressing changed by podiatry. Able to make needs known, call marrero within reach.
--- NOTE | 2023-06-11 15:52 | WOUNDNOTE ---
WOC RN note: Confirmed with Dr. Enrique he will change patient's L foot dressings tomorrow and confirmed he is to be NWB L foot. Care plan updated. Dr. Enrique plans to take patient back to the OR on Friday.
--- NOTE | 2023-06-11 16:15 | CM ---
Patient with Dx Diabetic Left Foot Wounds, Hyperglycemia, Acute / Chronic Metabolic Encephalopathy. Room air. Receiving IV Unasyn, IV vanco. NWB L foot. PT recommends SNF vs Home PT. OT recommends skilled rehab. Seen by wound care nurse. Per
Podiatry plan OR Monday 06/12.
Spoke with patient; discussed his current finctional status as per PT/OT; patient would like to talk with the friend he is living with to see what he prefers, SNF vs HH.
Plan follow patient's wound care and mobility needs.
Plan follow up after surgery for SNF vs VN.
--- NOTE | 2023-06-11 16:26 | W.PN.ID1 ---
Date of Service
Date of Service: June 11, 2023
Today's Communication
continue vancomycin/unasyn for present
Assessment / Plan
Diabetic Foot Infection
Dm2 uncontrolled
Noncompliance
- blood cultures x2 in progress no growth to date
- MRSA screen - negative
- MRI suggestive of osteomyelitis of the 5th metatarsal
- continue vancomycin, unasyn for present, will follow up cultures/pathology from the OR
- DARIUS not suggestive of a focal lesion; vascular consulted
- appreciate podiatry
- needs long-term diabetic control to prevent progression of infections, relapse, progression of diabetic foot wounds
Chief Complaint
-: Other (diabetic foot infection)
Subjective / Review of Systems
afebrile
bp stable
without leukocytosis, cr stable
or cultures s aureus
no complaints
Vital Signs / Physical Exam
Vital Signs
Vital Signs
Temp Pulse Resp BP Pulse Ox
98.2 F 84 15 104/63 96
06/11/23 11:45 06/11/23 16:00 06/11/23 02:00 06/11/23 16:00 06/11/23 16:00
Physical Exam
Constitutional: No Acute Distress and Chronically Ill
Cardiovascular: Regular Rate and S1/S2; Negative Murmur or Rub
Pulmonary: Clear and Symmetric; Negative Wheezes or Rales
Gastrointestinal: Soft, Non Tender, Non Distended and Normal Bowel Sounds
Skin: Warm and Dry; Negative Rash or Jaundice
Objective Data
Lab Data
Lab Results
06/11/23 05:11
06/11/23 05:11
Estimated Creat Clear 82 ml/min 06/11/23 05:11
Lactic Acid 0.8 mmol/L (0.7-2.0) 06/09/23 04:37
Total Bilirubin 0.4 mg/dl (0.2-1.3) 06/11/23 05:11
AST 17 U/L (17-59) 06/11/23 05:11
ALT 12 U/L (0-50) 06/11/23 05:11
Alkaline Phosphatase 101 U/L (38-126) 06/11/23 05:11
Most recent labs reviewed.
Micro Results:
06/10/23 17:00 Anaerobic Culture - Preliminary
Foot - Left Culture pending. Anaerobic cultures are examined after 3
days incubation. Additional information to follow.
06/10/23 17:00 Wound Culture - Preliminary
Foot - Left Staphylococcus aureus
Gram Stain - Preliminary
06/10/23 17:15 Tissue Culture - Preliminary
Foot - Left Staphylococcus aureus
Gram Stain - Preliminary
06/10/23 17:15 Tissue Culture - Preliminary
Foot - Left Staphylococcus aureus
Gram Stain - Preliminary
06/08/23 00:21 Blood Culture - Preliminary
Blood/Venous No Growth in 72 hours- Final report to follow
06/08/23 00:11 Blood Culture - Preliminary
Blood/Venous No Growth in 72 hours- Final report to follow
06/08/23 16:10 MRSA Screen - Final
Nose No Methicillin Resistant Staphylococcus aureus isolated.
[2023-06-11 16:34] LABS: Glucose - Point of Care 80 mg/dl (70-99)
[2023-06-11] MEDS: LOVENOX 40 MG SC (18:16)
--- NOTE | 2023-06-11 18:34 | PTCARENOTE ---
Pt's dinner time accucheck result 80. Ordered 10U Standing of Novolog. D/w MARICARMEN Toro, advised to administer dose if pt has dinner. 100% of dinner eaten and insulin given- see MAY.
[2023-06-11] MEDS: LANTUS 0.140000000000000013 UNITS SC (21:59)
[2023-06-12] VITALS (13 sets, daily range): BP systolic 102–159; BP diastolic 57–95; PULSE 85; O2SAT 99; BMI 22.0
[2023-06-12] MEDS: UNASYN IV ×5 (00:18→23:32)
--- NOTE | 2023-06-12 01:13 | PTCARENOTE ---
Assumed care of Pt from day RN, Pt AAOX3. Q4 neuro continued, pt had good equal strength. Pt able to ambulate (hop) to bathroom with rolling walker, NWB on left foot. Assessment care and vitals as charted.
[2023-06-12 04:57] LABS: % Basophils 0.9 % (0-2); % Eosinophils 3.3 % (0-6); % Immature Granulocytes 0.3 % (0-0.5); % Lymphocytes 19.2 % (20.5-51.1); % Monocytes 10.6 % (1.7-9.3); % Neutrophils 65.7 % (42.2-75.2); Absolute Basophils 0.1 10^3/uL (0-0.2); Absolute Eosinophils 0.2 10^3/uL (0-0.7); Absolute Lymphocytes 1.2 10^3/uL (1.2-3.4); Absolute Monocytes 0.7 10^3/uL (0.1-0.6); Absolute Neutrophils 4.2 10^3/uL (1.4-6.5); Hematocrit 30.4 % (39.0-52.0); Hemoglobin 10.6 g/dL (13.0-18.0); Mean Corp Hgb Conc. 34.9 g/dL (33.0-37.0); Mean Corpuscular Hgb 29.3 pg (27.0-31.0); Mean Platelet Volume 8.8 fL (7.4-10.4); Nucleated Red Blood Cells % 0 % (-); Platelet Count 307 10^3/uL (130-400); Red Blood Cell Count 3.62 10^6/uL (4.70-6.10); Red Cell Dist. Width 12.8 % (11.5-14.5); White Blood Cell Count 6.4 10^3/uL (4.8-10.8)
[2023-06-12] MEDS: DILAUDID 0.5 MG IV ×4 (05:03→20:32)
[2023-06-12] MEDS: SYNTHROID 125 MCG PO (05:04)
[2023-06-12 05:27] LABS: ALT (SGPT) 13 U/L (0-50); AST (SGOT) 20 U/L (17-59); Albumin 2.9 g/dl (3.5-5.0); Alkaline Phosphatase 112 U/L (38-126); Blood Urea Nitrogen 17 mg/dl (9-20); Calcium 9.1 mg/dl (8.4-10.2); Carbon Dioxide 28 mmol/L (22-30); Chloride 97 mmol/L (98-107); Estimated Creatinine Clearance 82 ml/min; Glucose 175 mg/dl (70-99); Potassium 3.9 mmol/L (3.5-5.1); Sodium 136 mmol/L (135-145); Total Bilirubin 0.3 mg/dl (0.2-1.3); Total Protein 5.8 g/dl (6.3-8.2); eGFR > 60.00
[2023-06-12] MEDS: VANCOCIN 200 IV (06:16)
--- NOTE | 2023-06-12 08:10 | W.PN.POD ---
Today's Communication
Today's Communication
s.p debridement left foot/5th met resection left---stable
npo after midnight, will debride/possible amp and closure the best it can be
cont abx
consent signed
no guarantees given
Assessment / Plan
-
2 Diabetic foot wounds left foot
cellulitis dorsum and lateral aspect left foot
necrotic ulcer lateral aspect very tender
unable to debride ulcer necrotic tissue at bedside
due to lack of patient cooperation
area very tender per patient
waiting for MRI results
if osteo surgical consult
order: consult wound care team for local wound care
applied saline solution adaptic and dry sterile gauze dressing to wounds
Subjective
Chief Complaint
pt seen at bedside for fu sx
tender
no f.manager privacy
dressing cdi
Subjective
vasc unchanged, cft intact, 5th toe still questionable
derm wound clean, no edema and resolving cellulitis, mild firbosis
no pus
no odor
Objective
Temp Pulse Resp BP Pulse Ox
98.1 F 86 14 159/95 97
06/12/23 07:25 06/12/23 06:00 06/12/23 06:00 06/12/23 06:00 06/12/23 06:00
06/12/23 04:43
06/12/23 04:43
Vital Signs and Lab results were reviewed.
[2023-06-12 08:12] LABS: Glucose - Point of Care 209 mg/dl (70-99)
[2023-06-12 08:12] LABS: Glucose - Point of Care 242 mg/dl (70-99)
[2023-06-12] MEDS: FLOMAX 0.400000000000000022 MG PO (09:23)
[2023-06-12] MEDS: NOVOLOG FLEXPEN-MODERATE RESISTANCE 3 UNITS SC (09:23)
--- NOTE | 2023-06-12 09:33 | PHA.VAN.FU ---
Vancomycin Assessment / Plan
- Assessment
Renal Function: Stable
WBC's are: WNL
In the past 24 hrs, patient has been: Afebrile
Concomitant Antimicrobials: ampicillin/sulbactam
- Dosing Plan
Continue: Vanc 1000mg Q12H
- Monitoring Plan
Peak Level: 06/11 20:30
Trough Level: 06/12 05:30
Monitoring Comments: levels to be drawn after 6th maintenance dose
- Follow Up
Pharmacy will continue to follow.
Vancomycin Follow UP
- -
Patient Age: 57
Patient Sex: Male
Vancomycin Day #: 5
Indication: Diabetic Foot
Requesting Provider: Mehul
Pertinent Antimicrobial Allergies:
NKDA
Height / Weight:
Height 5 ft 11 in
Actual Weight 71.5 kg
IBW in k.3
Pertinent Past Medical History: DM2
- Vital Signs / Lab Results
Temp Pulse Resp BP Pulse Ox
98.1 F 86 14 159/95 97
06/12/23 07:25 06/12/23 06:00 06/12/23 06:00 06/12/23 06:00 06/12/23 06:00
Lab Results - Hematology
06/10/23 06/11/23 06/12/23
05:10 05:11 04:43
WBC 6.6 7.7 6.4
Lab Results - Chemistry
06/10/23 06/11/23 06/12/23
05:10 05:11 04:43
BUN 22 H 19 17
Creatinine 0.9 1.0 1.0
Estimated Creat Clear 90 82 82
Albumin 3.1 L 3.1 L 2.9 L
Microbiology Results
06/10/23 17:00 Wound Culture - Preliminary
Foot - Left S aureus-Methicillin Sensitive
Coagulase neg. staphylococcus
Gram Stain - Preliminary
06/10/23 17:15 Tissue Culture - Preliminary
Foot - Left S aureus-Methicillin Sensitive
Coagulase neg. staphylococcus
Gram Stain - Preliminary
06/10/23 17:15 Tissue Culture - Preliminary
Foot - Left S aureus-Methicillin Sensitive
Coagulase neg. staphylococcus
Gram Stain - Preliminary
06/08/23 00:21 Blood Culture - Preliminary
Blood/Venous No Growth in 4 days- Final report to follow
06/08/23 00:11 Blood Culture - Preliminary
Blood/Venous No Growth in 4 days- Final report to follow
06/10/23 17:00 Anaerobic Culture - Preliminary
Foot - Left Culture pending. Anaerobic cultures are examined after 3
days incubation. Additional information to follow.
06/08/23 16:10 MRSA Screen - Final
Nose No Methicillin Resistant Staphylococcus aureus isolated.
Therapeutic Drug Monitoring
Random Vancomycin 7.7 ug/ml 06/09/23 04:37
[2023-06-12] MEDS: NOVOLOG FLEXPEN SC ×2 (09:50→17:28)
[2023-06-12] MEDS: NOVOLOG FLEXPEN 12 UNITS SC ×2 (09:50→12:57)
--- NOTE | 2023-06-12 10:00 | PN.DE.MGMTRT ---
Insulin Management
- -
[facility]
[address]
[place] [address]
Insulin Management
Patient Name: CARLENE RAMEY
Date of : 1965 Patient Status: Inpatient
Attending Provider: Jimbo Hwang
Date: 06/12/23 09:44 Initialization Date: 06/12/23 09:44
Insulin Management
- -
06/12/2023 Diabetes Management Follow up
Patient admitted with left Diabetic Foot infection concerning for Osteomyelitis. PMH includes: HTN, Hypothyroid, T2DM, substance abuse. A1C 14.6% on admission, was > 18.5% in 04/2023. Cr 1.6--> 1.4-->1.0, >60. He is well know to diabetes service
from previous hospitalizations,
Prior to admission chart reflects patient was taking Basaglar 15 units @HS, Humalog 6 units AC and Metformin 1000mg BID.
Per chart review, pt is nonadherent to diabetes medications. Glucose on admission was 741.
Pt awake alert and oriented, able to discuss home diabetes regimen.
s/p OR POD 2 for excisional debridement L 5th toe.
Yesterday glucose 361 pre lunch, received standing dose of 10 units with 9 units corrective insulin, pre dinner glucose 80. Novolog increased to 12 units AC, first dose with breakfast today. Will decrease corrective insulin from moderate to low.
Received hs lantus 14 units, fasting glucose 175.
Patient states he has not seen a doctor in a 'LONG TIME'. States his primary doctor is in [place], patient staying with friend in [facility]. Discussed with patient how important glucose control is to prevent further infections/amputations
and other manager long term care complications of uncontrolled diabetes. He will discuss with CM finding a primary doctor closer to >
Diabetes History
- -
Type of Diabetes: 2 requiring insulin
Pre-Admission Diabetes Regimen
06/12/23
04:43
Creatinine 1.0
Lab Results
Hemoglobin A1c 14.6 % (4.0-5.6) H 06/09/23 04:37
Insulin Pump Settings
IP Diabetes Regimen
06/11/23 06/11/23 06/11/23
11:51 16:23 21:57
Glucose
POC Glucose 361 H 80 242 H
06/12/23 06/12/23
04:43 07:05
Glucose 175 H
POC Glucose 209 H
Meal type: Dinner
Meal type: Lunch
Amount consumed: 100%
Amount consumed: 100%
Patient Education
--- NOTE | 2023-06-12 11:09 | W.PN.ID1 ---
Date of Service
Date of Service: June 12, 2023
Today's Communication
Continue antibiotics. Narrow to Unasyn alone.
Assessment / Plan
Diabetic Foot Infection (left foot)
Dm2; uncontrolled
Noncompliance
- blood cultures x2 in progress no growth to date
- MRSA screen - negative
- MRI suggestive of osteomyelitis of the 5th metatarsal
- Cultures with MSSA. Discontinue further vancomycin; continue with Unasyn
- Will need half-way diabetic control to prevent progression of infections, relapse, progression of diabetic foot wounds
����������������������������������������������������������
Chief Complaint
-: Other (diabetic foot infection)
Subjective / Review of Systems
Review of Systems: No Fever and No Chills
Vital Signs / Physical Exam
Vital Signs
Vital Signs
Temp Pulse Resp BP Pulse Ox
98.1 F 72 16 145/90 94
06/12/23 07:25 06/12/23 10:00 06/12/23 10:00 06/12/23 10:00 06/12/23 08:15
Physical Exam
Constitutional: No Acute Distress, Comfortable and Non-toxic
Cardiovascular: S1/S2; Negative S3/S4 or Murmur
Pulmonary: Non Labored; Negative Wheezes
Gastrointestinal: Soft and Non Tender
Wound: Other (Left foot dressed in Demario wrap. No erythema extending up the leg.)
Neurological: Awake and Alert
Psychological: Calm
Objective Data
Lab Data
Lab Results
06/12/23 04:43
06/12/23 04:43
Estimated Creat Clear 82 ml/min 06/12/23 04:43
Lactic Acid 0.8 mmol/L (0.7-2.0) 06/09/23 04:37
Total Bilirubin 0.3 mg/dl (0.2-1.3) 06/12/23 04:43
AST 20 U/L (17-59) 06/12/23 04:43
ALT 13 U/L (0-50) 06/12/23 04:43
Alkaline Phosphatase 112 U/L (38-126) 06/12/23 04:43
Most recent labs reviewed.
Micro Results:
06/10/23 17:00 Wound Culture - Preliminary
Foot - Left S aureus-Methicillin Sensitive
Coagulase neg. staphylococcus
Gram Stain - Preliminary
06/10/23 17:15 Tissue Culture - Preliminary
Foot - Left S aureus-Methicillin Sensitive
Coagulase neg. staphylococcus
Gram Stain - Preliminary
06/10/23 17:15 Tissue Culture - Preliminary
Foot - Left S aureus-Methicillin Sensitive
Coagulase neg. staphylococcus
Gram Stain - Preliminary
06/08/23 00:21 Blood Culture - Preliminary
Blood/Venous No Growth in 4 days- Final report to follow
06/08/23 00:11 Blood Culture - Preliminary
Blood/Venous No Growth in 4 days- Final report to follow
06/10/23 17:00 Anaerobic Culture - Preliminary
Foot - Left Culture pending. Anaerobic cultures are examined after 3
days incubation. Additional information to follow.
06/08/23 16:10 MRSA Screen - Final
Nose No Methicillin Resistant Staphylococcus aureus isolated.
[2023-06-12 11:44] LABS: Glucose - Point of Care 211 mg/dl (70-99)
--- NOTE | 2023-06-12 12:07 | W.PN.HOSP.TC ---
Today's Communication/Plan
-
Monitor vital signs and see plan
Continue with insulin
N.p.o. past midnight for OR tomorrow
Continue with antibiotics
pt/ot
Assessment / Plan
Assessment / Plan
57y M with PMH significant for DM-II, hypothyroidism and prior admission for encephalopathy who presented to ED complaining of left foot pain, redness and active wounds.�
Patient states that these wounds have been present for months but with increase in more pain more recently.� Patient was hospitalized here at 04/16 - 04/19 secondary to encephalopathy and noted to have evidence of substance abuse, marked
hyperglycemia and abnormal CERAMIC ENGINEERING PROFESSOR imaging.�CERAMIC ENGINEERING PROFESSOR infection was ruled out during that stay.� Patient's symptoms improved with glycemic control and he was discharged to home.
Patient admits that he has not taken any of the medications he was prescribed at discharge.
In the ED, patient was able to answer all direct questions and follow commands. When he proceed with open-ended speech; however, he has marked expressive aphasia / 'word-salad'.� Patient seems to be aware that he is not making sense during these
periods.
He denies any tobacco, alcohol or drug use - though it is noted that his UDS on his prior admission was positive for amphetamine and cocaine use.
A/P:
# Diabetic Left Foot Wounds
L lateral foot wound was noted on prior admission.
Dorsal wound appears new and was not previously mentioned.
MRI consistent with fifth toe osteo, surgical podiatry following; s/p OR 06/09 with excisional debridement ulcer/fifth metatarsal resection, proximal phalanx resection left; NWB left foot per podiatry. Plan for OR again 06/12. N.p.o. past midnight
cw abx per ID; now on unasyn
Glycemic control as noted below.
Wound care following
US LE without PAD; consulted vascular given request from podiatry. no vascular intervention needed at this time
# Hyperglycemia, No anion gap elevation to suggest DKA. HHNK ruled out, there was no acidosis
# Uncontrolled DM-II
# Pseudohyponatremia secondary to the above, improved
Patient admittedly not compliant with insulin regimen.
Cont basal : bolus insulin with ISS
MS/encephalopathy likely secondary to hypoglycemia improved with correction of BG
Diabetes COMMUNITY PRODUCT SPECIALIST following
# Acute / Chronic Metabolic Encephalopathy, suspect secondary to marked hyperglycemia with drug abuse
MS/encephalopathy improved with correction of BG
Follow up CT head report from admission
UDS again positive for amphetamine/methamphetamine this admission.
Recent MRI brain noted mild asymmetric postcontrast signal abnormality in the left temporal lobe cortex, this was felt to be metabolic abnormalities associated with severe hyperglycemia per Neuro at that time.
CERAMIC ENGINEERING PROFESSOR infection was ruled out at that time.
MRI brain noted; rec repeat MRI with and without contrast in 4 to 6 months. Neurology follow-up outpatient
Anemia, suspect anemia of chronic disease
Monitor
# CR
secondary to volume contraction / hyperglycemia.
resolved
# Prior Bacteremia
During his previous hospital stay, patient had blood cultures done (04/17) which were noted to be positive after his discharge. That culture was positive for Propionibacterium acnes.�
Unfortunately, only a single culture was done at that time.
A second culture done 04/18 (36 hours later) has remained negative.
Patient is currently afebrile despite his DM wounds.
ID following; blood cx NGTD
# Hypothyroidism
TSH was elevated during recent admission (12.5), which has improved to 5.61 this admission
Patient was started on / increased dose of T4 supplementation, but he has not been compliant.
Cont Synthroid at 125mcg / day.
Encourage compliance.
Repeat TFTs in 4-6 weeks.
# BPH
# Urinary Retention
Patient also noted to have urinary retention during his prior stay.
Restarted tamsulosin.
Bladder scan protocol and straight cath / Lock if needed.
DVT Prophylaxis:� Lovenox SQ
Code Status:� Full
General: Well Developed, No Apparent Distress
HEENT: Normocephalic, Atraumatic and Moist Mucous Membranes
Respiratory: Clear to Auscultation and Non Labored Respirations
Cardiac: Regular Rhythm and S1/S2; Negative Murmur, Rub or Gallop
GI: Soft, Nontender, Nondistended and Normal Bowel Sounds
Rectal: Deferred by Provider
Musculoskeletal: No Edema
Skin: Other (L foot wound bandaged)
Neuro: Awake, Alert, Oriented and Nonfocal/Grossly Intact
Psych: Calm
Anticipated Discharge: > 48 hours
Subjective/Interval History
-
Date of Service: June 12, 2023
has pain
Objective Data
-
Labs:
Laboratory Results
06/12/23
04:43
WBC 6.4
Hgb 10.6 L
Hct 30.4 L
Plt Count 307
Sodium 136
Potassium 3.9
Chloride 97 L
Carbon Dioxide 28
BUN 17
Creatinine 1.0
Glucose 175 H
Calcium 9.1
Total Bilirubin 0.3
AST 20
ALT 13
Alkaline Phosphatase 112
Vital Signs:
Vital Signs
Temp Pulse Resp BP Pulse Ox
98.3 F 72 16 145/90 94
06/12/23 11:34 06/12/23 10:00 06/12/23 10:00 06/12/23 10:00 06/12/23 08:15
I&O
06/11/23 06/12/23 06/13/23
06:59 06:59 06:59
Intake Total 1450 / 1450 1030 / 1030
Output Total 1999
Balance 1450 / 1450 -970 / -970
[2023-06-12] MEDS: NOVOLOG FLEXPEN-LOW RESISTANCE 2 UNITS SC (12:57)
[2023-06-12 16:35] LABS: Glucose - Point of Care 57 mg/dl (70-99)
[2023-06-12 16:54] LABS: Glucose - Point of Care 93 mg/dl (70-99)
--- NOTE | 2023-06-12 17:05 | CM ---
Patient with Dx Diabetic Left Foot Wounds, Hyperglycemia, Acute / Chronic Metabolic Encephalopathy. Room air. Receiving IV Unasyn. Plan OR tomorrow for debridement/possible amputation.
Messages with Nurse Meade and Alethea Toro with concerns about patient's need for ongoing diabetic education.
Most VNs cannot see the patient if he hasn't seen his PCP in the past year. If he has skilled rehab needs post op we can refer patient for SNF for rehab and he will have some DM follow up that way, otherwise we can ask him to make a PCP appointment
aleisha and then PCP can monitor and order VN.
Per Megan at [facility] V[facility]; they only see patients without PCPs through the [facility] program if patient has Medicare, which he does not.
Spoke with [facility]; they may be able to see him. They have a physician who can follow for 60 days, for patients without a PCP.
Attempted to speak with patient who was unavailable.
Plan follow patient's wound care and mobility needs.
Plan follow up after surgery for SNF vs VN.
[2023-06-12] MEDS: NOVOLOG FLEXPEN-LOW RESISTANCE SC (17:27)
--- NOTE | 2023-06-12 17:29 | PTCARENOTE ---
Initial pre-dinner accu check 57; patient asymptomatic. He did eat 100% of lunch and mealtime insulin for lunch was given after patient ate meal. Repeat accu check 93. Alethea Toro made aware; order given for 9 units novolog with dinner tonight
only and she will reevaluate tomorrow. Patient updated.
[2023-06-12] MEDS: NOVOLOG FLEXPEN 9 UNITS SC (17:42)
[2023-06-12] MEDS: LOVENOX 40 MG SC (17:45)
[2023-06-12 18:53] LABS: Glucose - Point of Care 177 mg/dl (70-99)
[2023-06-12 21:17] LABS: Glucose - Point of Care 212 mg/dl (70-99)
[2023-06-12] MEDS: LANTUS 0.140000000000000013 UNITS SC (21:43)
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
[2023-06-13] VITALS (20 sets, daily range): BP systolic 101–158; BP diastolic 56–109; O2SAT 98; BMI 22.3
[2023-06-13 03:30] LABS: Glucose - Point of Care 254 mg/dl (70-99)
[2023-06-13] MEDS: UNASYN IV ×4 (05:01→23:26)
[2023-06-13] MEDS: SYNTHROID 125 MCG PO (05:11)
[2023-06-13 05:17] LABS: % Eosinophils 3.5 % (0-6); % Immature Granulocytes 0.5 % (0-0.5); % Lymphocytes 25.1 % (20.5-51.1); % Monocytes 8.8 % (1.7-9.3); % Neutrophils 61.1 % (42.2-75.2); Absolute Basophils 0.1 10^3/uL (0-0.2); Absolute Eosinophils 0.2 10^3/uL (0-0.7); Absolute Lymphocytes 1.6 10^3/uL (1.2-3.4); Absolute Monocytes 0.6 10^3/uL (0.1-0.6); Absolute Neutrophils 3.8 10^3/uL (1.4-6.5); Hematocrit 31.1 % (39.0-52.0); Hemoglobin 10.4 g/dL (13.0-18.0); Mean Corp Hgb Conc. 33.4 g/dL (33.0-37.0); Mean Corpuscular Hgb 28.6 pg (27.0-31.0); Mean Corpuscular Volume 85.4 fL (80.0-94.0); Nucleated Red Blood Cells % 0 % (-); Platelet Count 334 10^3/uL (130-400); Red Blood Cell Count 3.64 10^6/uL (4.70-6.10); White Blood Cell Count 6.3 10^3/uL (4.8-10.8)
[2023-06-13 05:36] LABS: ALT (SGPT) 14 U/L (0-50); AST (SGOT) 21 U/L (17-59); Albumin 2.9 g/dl (3.5-5.0); Alkaline Phosphatase 113 U/L (38-126); Blood Urea Nitrogen 18 mg/dl (9-20); Calcium 9.1 mg/dl (8.4-10.2); Carbon Dioxide 29 mmol/L (22-30); Chloride 97 mmol/L (98-107); Estimated Creatinine Clearance 84 ml/min; Glucose 238 mg/dl (70-99); Sodium 133 mmol/L (135-145); Total Bilirubin 0.4 mg/dl (0.2-1.3); Total Protein 5.9 g/dl (6.3-8.2); eGFR > 60.00
[2023-06-13] MEDS: DILAUDID 0.5 MG IV ×3 (06:08→21:57)
[2023-06-13 06:28] LABS: Glucose - Point of Care 279 mg/dl (70-99)
[2023-06-13] MEDS: NOVOLOG FLEXPEN-LOW RESISTANCE 3 UNITS SC (06:55)
--- NOTE | 2023-06-13 10:27 | PN.DE.MGMTRT ---
Insulin Management
- -
06/13/2023 Diabetes Management Follow up
Patient admitted with left Diabetic Foot infection concerning for Osteomyelitis. PMH includes: HTN, Hypothyroid, T2DM, substance abuse. A1C 14.6% on admission, was > 18.5% in 04/2023. Cr 1.6--> 1.4-->1.0, >60. He is well know to diabetes service
from previous hospitalizations,
Prior to admission chart reflects patient was taking Basaglar 15 units @HS, Humalog 6 units AC and Metformin 1000mg BID.
Per chart review, pt is nonadherent to diabetes medications. Glucose on admission was 741.
Pt awakens easily, alert and oriented, able to discuss diabetes regimen. Glucose did trend down pre dinner last evening, dinner dose reduced. Patient states he did eat less at lunch. Will decrease Lunch novolog dose to 10 units and continue 12
units with breakfast and dinner
For OR today for further debridement/revision of L 5th toe.
Discussed with patient how important glucose control is to prevent further infections/amputations and other mcfp complications of uncontrolled diabetes. He will discuss with CM finding a primary doctor closer to [place].
Diabetes History
- -
Type of Diabetes: 2 requiring insulin
Pre-Admission Diabetes Regimen
06/13/23
04:47
Creatinine 1.0
Lab Results
Hemoglobin A1c 14.6 % (4.0-5.6) H 06/09/23 04:37
Insulin Pump Settings
IP Diabetes Regimen
06/12/23 06/12/23 06/12/23
11:32 16:24 16:42
Glucose
POC Glucose 211 H 57 L 93
06/12/23 06/12/23 06/13/23
18:41 21:06 03:17
Glucose
POC Glucose 177 H 212 H 254 H
06/13/23 06/13/23
04:47 06:16
Glucose 238 H
POC Glucose 279 H
Meal type: Dinner
Meal type: Lunch
Amount consumed: 100%
Amount consumed: 100%
Patient Education
[2023-06-13] MEDS: NOVOLOG FLEXPEN-LOW RESISTANCE 2 UNITS SC (11:33)
[2023-06-13] MEDS: NOVOLOG FLEXPEN SC (11:35)
[2023-06-13 11:42] LABS: Glucose - Point of Care 215 mg/dl (70-99)
--- NOTE | 2023-06-13 12:52 | W.PN.HOSP.TC ---
Today's Communication/Plan
-
Monitor vital signs and see plan
OR again today per podiatry
Continue with antibiotics
Monitor blood sugars
PT/OT
Assessment / Plan
Assessment / Plan
57y M with PMH significant for DM-II, hypothyroidism and prior admission for encephalopathy who presented to ED complaining of left foot pain, redness and active wounds.�
Patient states that these wounds have been present for months but with increase in more pain more recently.� Patient was hospitalized here at 04/16 - 04/19 secondary to encephalopathy and noted to have evidence of substance abuse, marked
hyperglycemia and abnormal CLAIMS SORTER imaging.�CLAIMS SORTER infection was ruled out during that stay.� Patient's symptoms improved with glycemic control and he was discharged to home.
Patient admits that he has not taken any of the medications he was prescribed at discharge.
In the ED, patient was able to answer all direct questions and follow commands. When he proceed with open-ended speech; however, he has marked expressive aphasia / 'word-salad'.� Patient seems to be aware that he is not making sense during these
periods.
He denies any tobacco, alcohol or drug use - though it is noted that his UDS on his prior admission was positive for amphetamine and cocaine use.
A/P:
# Diabetic Left Foot Wounds
L lateral foot wound was noted on prior admission.
Dorsal wound appears new and was not previously mentioned.
MRI consistent with fifth toe osteo, surgical podiatry following; s/p OR 06/09 with excisional debridement ulcer/fifth metatarsal resection, proximal phalanx resection left; NWB left foot per podiatry. Plan for OR again 06/12. N.p.o.
cw abx per ID; now on unasyn
Glycemic control as noted below.
Wound care following
US LE without PAD; consulted vascular given request from podiatry. no vascular intervention needed at this time
# Hyperglycemia, No anion gap elevation to suggest DKA. HHNK ruled out, there was no acidosis
# Uncontrolled DM-II
# Pseudohyponatremia secondary to the above, improved
Patient admittedly not compliant with insulin regimen.
Cont basal : bolus insulin with ISS
MS/encephalopathy likely secondary to hypoglycemia improved with correction of BG
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
# Acute / Chronic Metabolic Encephalopathy, suspect secondary to marked hyperglycemia with drug abuse
MS/encephalopathy improved with correction of BG
Follow up CT head report from admission
UDS again positive for amphetamine/methamphetamine this admission.
Recent MRI brain noted mild asymmetric postcontrast signal abnormality in the left temporal lobe cortex, this was felt to be metabolic abnormalities associated with severe hyperglycemia per Neuro at that time.
CLAIMS SORTER infection was ruled out at that time.
MRI brain noted; rec repeat MRI with and without contrast in 4 to 6 months. Neurology follow-up outpatient
Anemia, suspect anemia of chronic disease
Monitor
# CR
secondary to volume contraction / hyperglycemia.
resolved
# Prior Bacteremia
During his previous hospital stay, patient had blood cultures done (04/17) which were noted to be positive after his discharge. That culture was positive for Propionibacterium acnes.�
Unfortunately, only a single culture was done at that time.
A second culture done 04/18 (36 hours later) has remained negative.
Patient is currently afebrile despite his DM wounds.
ID following; blood cx NGTD
# Hypothyroidism
TSH was elevated during recent admission (12.5), which has improved to 5.61 this admission
Patient was started on / increased dose of T4 supplementation, but he has not been compliant.
Cont Synthroid at 125mcg / day.
Encourage compliance.
Repeat TFTs in 4-6 weeks.
# BPH
# Urinary Retention
Patient also noted to have urinary retention during his prior stay.
Restarted tamsulosin.
Bladder scan protocol and straight cath / Lock if needed.
DVT Prophylaxis:� Lovenox SQ
Code Status:� Full
General: Well Developed, No Apparent Distress
HEENT: Normocephalic, Atraumatic and Moist Mucous Membranes
Respiratory: Clear to Auscultation and Non Labored Respirations
Cardiac: Regular Rhythm and S1/S2; Negative Murmur, Rub or Gallop
GI: Soft, Nontender, Nondistended and Normal Bowel Sounds
Rectal: Deferred by Provider
Musculoskeletal: No Edema
Skin: Other (L foot wound bandaged)
Neuro: Awake, Alert, Oriented and Nonfocal/Grossly Intact
Psych: Calm
Anticipated Discharge: 24 - 48 hours
Subjective/Interval History
-
Date of Service: June 13, 2023
Does have some pain
Objective Data
-
Labs:
Laboratory Results
06/13/23
04:47
WBC 6.3
Hgb 10.4 L
Hct 31.1 L
Plt Count 334
Sodium 133 L
Potassium 4.0
Chloride 97 L
Carbon Dioxide 29
BUN 18
Creatinine 1.0
Glucose 238 H
Calcium 9.1
Total Bilirubin 0.4
AST 21
ALT 14
Alkaline Phosphatase 113
Vital Signs:
Vital Signs
Temp Pulse Resp BP Pulse Ox
97.7 F 76 12 134/89 95
06/13/23 11:13 06/13/23 10:00 06/13/23 10:00 06/13/23 10:00 06/13/23 11:49
I&O
06/12/23 06/13/23 06/14/23
06:59 06:59 06:59
Intake Total 1030 / 1030 840 / 840
Output Total 1999
Balance -970 / -970 840 / 840
--- NOTE | 2023-06-13 13:12 | W.PN.UPDATE ---
Update Note
Progress Note Update
pt seen in RR
dressing cdi
cft to toes wnl
a/p s/p excisional debridement left foot/5th toe amp/and closure---stable
wound mostly closed, packing in place, prox bone sent to path to see if clean margin
will pull packing tomorrow, will need wound care as outpt, would benefit from snif
anticipate dc once SW CM done
[2023-06-13 13:21] LABS: Glucose - Point of Care 209 mg/dl (70-99)
[2023-06-13] MEDS: NOVOLOG vial 2 UNITS SC (13:47)
--- NOTE | 2023-06-13 14:18 | PTCARENOTE ---
Patient arrived to the unit postop stating that he wanted to 'walk out of the hospital', he is going to 'have someone pick him up'. Patient educated about plan of care, safety concerns regarding him getting out of bed/ leaving the hospital/ postop
anesthesia. Patient is awake, alert and oriented to person, place and time however he is not understanding safety issues. Dr. Hwang notified immediately. Patient calmed down after therapeutic communication provided, safety issues and plan of care
discussion. Patient has gladis wrap intact on left lower extremity, no bleeding observed on dressing. Patient is denying pain when asked. Sitting up in bed at this time with bed alarm on.
[2023-06-13] MEDS: FLOMAX 0.400000000000000022 MG PO (14:35)
[2023-06-13 15:52] LABS: Glucose - Point of Care 163 mg/dl (70-99)
--- NOTE | 2023-06-13 15:56 | CM ---
Patient with Dx Diabetic Left Foot Wounds, Hyperglycemia, Acute / Chronic Metabolic Encephalopathy. OR today - s/p excisional debridement left foot/5th toe amp/and closure. Per Podiatry Note; will need wound care as outpatient, would benefit from
SNF.
PT 06/12 pre-op recommends SNF vs Home PT. OT 06/12 pre-op recommends skilled rehab.
Met with patient post op; he did not want to discuss SNF or home with VN. Patient repeatedly saying he wants to leave AMA today. Patient states he needs to leave so he can help his sons- no further details provided. CM provided reasons patient
should consider staying including continued treatment to prevent infection in his left foot, wound care and the need for rehab. Patient has not yet contacted his friend David that he lives with to see if he can return there. Patient states he drove
himself to the hospital- his car is here at .
Nurse aware patient may wish to leave AMA and Dr Hwang aware and at bedside.
Referral to [facility] VN - CM will need to see if they accept patient without PCP (per Horace, they have a physician who can follow for 60 days, for patients without a PCP).
[facility] plan would be SNF for wound care and rehab.
Plan probable home with [facility] if patient agrees and VN accepts.
[2023-06-13] MEDS: NOVOLOG FLEXPEN 12 UNITS SC (16:02)
[2023-06-13] MEDS: NOVOLOG FLEXPEN-LOW RESISTANCE 1 UNITS SC (16:02)
[2023-06-13] MEDS: LOVENOX 40 MG SC (16:06)
[2023-06-13] MEDS: NOVOLOG FLEXPEN-LOW RESISTANCE SC (16:12)
--- NOTE | 2023-06-13 16:36 | PTCARENOTE ---
Patient is now calm, in bed watching TV, eating dinner. Severe pain on left foot treated with Dilaudid IV as per doctors orders. No further discussion of leaving AMA. No attempts to get out of bed. Compliant with plan of care. Blood sugar monitored
and insulin administered.
--- NOTE | 2023-06-13 20:00 | PTCARENOTE ---
Pt received resting comfortably in bed. AAOx3. C/o 09/23 pain declining pain medication at this time. SR on the monitor. Lungs clear on RA. Using urinal. Educated pt on NWB status to Left foot. Dressing to left foot CDI elevated on pillow. LFA IV
accidentally partially pulled out and bleeding - removed.
[2023-06-13] MEDS: LANTUS 0.140000000000000013 UNITS SC (21:57)
[2023-06-13 22:15] LABS: Glucose - Point of Care 165 mg/dl (70-99)
[2023-06-14] VITALS (14 sets, daily range): BP systolic 114–156; BP diastolic 66–99; PULSE 91; O2SAT 96; BMI 23.1
[2023-06-14] MEDS: DILAUDID 0.5 MG IV ×3 (02:30→17:56)
[2023-06-14] MEDS: UNASYN IV ×4 (05:43→23:09)
[2023-06-14] MEDS: SYNTHROID 125 MCG PO (05:50)
[2023-06-14 06:12] LABS: % Eosinophils 3.3 % (0-6); % Immature Granulocytes 0.6 % (0-0.5); % Lymphocytes 21.6 % (20.5-51.1); % Monocytes 8.8 % (1.7-9.3); % Neutrophils 64.7 % (42.2-75.2); Absolute Basophils 0.1 10^3/uL (0-0.2); Absolute Eosinophils 0.2 10^3/uL (0-0.7); Absolute Lymphocytes 1.6 10^3/uL (1.2-3.4); Absolute Monocytes 0.6 10^3/uL (0.1-0.6); Absolute Neutrophils 4.7 10^3/uL (1.4-6.5); Hematocrit 29.1 % (39.0-52.0); Hemoglobin 9.8 g/dL (13.0-18.0); Mean Corp Hgb Conc. 33.7 g/dL (33.0-37.0); Mean Corpuscular Hgb 28.7 pg (27.0-31.0); Mean Corpuscular Volume 85.1 fL (80.0-94.0); Nucleated Red Blood Cells % 0 % (-); Platelet Count 348 10^3/uL (130-400); Red Blood Cell Count 3.42 10^6/uL (4.70-6.10); Red Cell Dist. Width 13.2 % (11.5-14.5); White Blood Cell Count 7.3 10^3/uL (4.8-10.8)
[2023-06-14 06:27] LABS: ALT (SGPT) 17 U/L (0-50); AST (SGOT) 25 U/L (17-59); Albumin 3.1 g/dl (3.5-5.0); Alkaline Phosphatase 108 U/L (38-126); Blood Urea Nitrogen 20 mg/dl (9-20); Carbon Dioxide 27 mmol/L (22-30); Chloride 101 mmol/L (98-107); Estimated Creatinine Clearance 72 ml/min; Glucose 198 mg/dl (70-99); Potassium 4.2 mmol/L (3.5-5.1); Sodium 133 mmol/L (135-145); Total Bilirubin 0.5 mg/dl (0.2-1.3); eGFR > 60.00
[2023-06-14] MEDS: NOVOLOG FLEXPEN 12 UNITS SC ×2 (07:49→17:52)
[2023-06-14] MEDS: FLOMAX 0.400000000000000022 MG PO (07:49)
[2023-06-14] MEDS: NOVOLOG FLEXPEN-LOW RESISTANCE 1 UNITS SC ×2 (07:50→17:52)
--- NOTE | 2023-06-14 08:04 | W.PN.ID1 ---
Date of Service
Date of Service: June 14, 2023
Today's Communication
Continue antibiotics
Assessment / Plan
Diabetic Foot Infection (left foot)
- s/p partial (L) 5th met resection / debridement (06/13/2023)
Dm2; uncontrolled
Noncompliance
- blood cultures x2 in progress no growth to date
- MRSA screen - negative
- MRI suggestive of osteomyelitis of the 5th metatarsal (d#7)
- Cultures with MSSA.
- Continue with Unasyn (
- Will need nursing home diabetic control to prevent progression of infections, relapse, progression of diabetic foot wounds
����������������������������������������������������������
Chief Complaint
-: Other (diabetic foot infection)
Subjective / Review of Systems
Review of Systems: No Fever and No Chills
Vital Signs / Physical Exam
Vital Signs
Vital Signs
Temp Pulse Resp BP Pulse Ox
98.2 F 89 14 123/76 94
06/14/23 03:22 06/14/23 06:00 06/14/23 06:00 06/14/23 06:00 06/14/23 06:00
Physical Exam
Constitutional: Comfortable and Non-toxic
Eyes: Sclera Anicteric
Pulmonary: Non Labored
Gastrointestinal: Non Distended
Extremities: Other (Left foot dressed in Demario wrap. Mild edema of the leg.)
Neurological: Awake and Alert
Psychological: Calm
Objective Data
Lab Data
Lab Results
06/14/23 05:42
06/14/23 05:42
Estimated Creat Clear 72 ml/min 06/14/23 05:42
Lactic Acid 0.8 mmol/L (0.7-2.0) 06/09/23 04:37
Total Bilirubin 0.5 mg/dl (0.2-1.3) 06/14/23 05:42
AST 25 U/L (17-59) 06/14/23 05:42
ALT 17 U/L (0-50) 06/14/23 05:42
Alkaline Phosphatase 108 U/L (38-126) 06/14/23 05:42
Most recent labs reviewed.
Micro Results:
06/10/23 17:00 Anaerobic Culture - Preliminary
Foot - Left Culture pending. Anaerobic cultures are examined after 3
days incubation. Additional information to follow.
06/10/23 17:15 Tissue Culture - Final
Foot - Left S aureus-Methicillin Sensitive
Staphylococcus epidermidis
Gram Stain - Final
06/10/23 17:15 Tissue Culture - Final
Foot - Left S aureus-Methicillin Sensitive
Staphylococcus epidermidis
Gram Stain - Final
06/10/23 17:00 Wound Culture - Preliminary
Foot - Left S aureus-Methicillin Sensitive
Staphylococcus epidermidis
Gram Stain - Preliminary
06/08/23 00:21 Blood Culture - Final
Blood/Venous No Growth - Final Report
06/08/23 00:11 Blood Culture - Final
Blood/Venous No Growth - Final Report
06/08/23 16:10 MRSA Screen - Final
Nose No Methicillin Resistant Staphylococcus aureus isolated.
--- NOTE | 2023-06-14 08:45 | PTCARENOTE ---
pt aaox3. states no pain or sob. room air. breath sounds clear. voiding clear yellow. left foot dressing c/d/i. left toe with <2 sec cap refill. no swelling noted.
--- NOTE | 2023-06-14 09:33 | W.PN.POD ---
Today's Communication
Today's Communication
s/p 5th toe amp/closureleft foot---stable
for dc. rec snif
pt will need wound care left foot, small amount bactroban on open wound ( not sutures)... loosely packed with 1/4inch plain packing dailt, then betadine adaptic, 4x4 katharina gladis
stable for dc tomorrow per podiatry
PT for nwb left foot crutches/walker
Assessment / Plan
-
2 Diabetic foot wounds left foot
cellulitis dorsum and lateral aspect left foot
necrotic ulcer lateral aspect very tender
unable to debride ulcer necrotic tissue at bedside
due to lack of patient cooperation
area very tender per patient
waiting for MRI results
if osteo surgical consult
order: consult wound care team for local wound care
applied saline solution adaptic and dry sterile gauze dressing to wounds
Subjective
Chief Complaint
s/p 5th toe amp/closure left foot
Proximal bone sent to path for r/o osteo
no pain
Subjective
vacs unchanged, cft intact
derm mild edema
no cellulitis, no pus
no odor
no SOI, small opening packing pulled and re packed
Objective
Temp Pulse Resp BP Pulse Ox
98.3 F 82 17 129/79 94
06/14/23 07:35 06/14/23 08:00 06/14/23 08:00 06/14/23 08:00 06/14/23 08:00
06/14/23 05:42
06/14/23 05:42
Vital Signs and Lab results were reviewed.
[2023-06-14] MEDS: NOVOLOG FLEXPEN 10 UNITS SC (12:08)
[2023-06-14] MEDS: NOVOLOG FLEXPEN-LOW RESISTANCE 3 UNITS SC (12:08)
[2023-06-14 12:09] LABS: Glucose - Point of Care 265 mg/dl (70-99)
[2023-06-14] MEDS: MIRALAX 17 GRAMS PO (12:36)
[2023-06-14] MEDS: COLACE 100 MG PO (12:36)
--- NOTE | 2023-06-14 12:41 | PTCARENOTE ---
pt oob in chair with pt/ot. pt called to go to bathroom. pt states having difficulty going and digitally self disimpacted. Md notified and stool softener ordered.
--- NOTE | 2023-06-14 13:22 | W.PN.HOSP.TC ---
Today's Communication/Plan
-
Monitor vital signs see plan
PT/OT
Continue with antibiotics
Continue with insulin
Laxatives
Assessment / Plan
Assessment / Plan
57y M with PMH significant for DM-II, hypothyroidism and prior admission for encephalopathy who presented to ED complaining of left foot pain, redness and active wounds.�
Patient states that these wounds have been present for months but with increase in more pain more recently.� Patient was hospitalized here at 04/16 - 04/19 secondary to encephalopathy and noted to have evidence of substance abuse, marked
hyperglycemia and abnormal TOOL WORKER imaging.�TOOL WORKER infection was ruled out during that stay.� Patient's symptoms improved with glycemic control and he was discharged to home.
Patient admits that he has not taken any of the medications he was prescribed at discharge.
In the ED, patient was able to answer all direct questions and follow commands. When he proceed with open-ended speech; however, he has marked expressive aphasia / 'word-salad'.� Patient seems to be aware that he is not making sense during these
periods.
He denies any tobacco, alcohol or drug use - though it is noted that his UDS on his prior admission was positive for amphetamine and cocaine use.
A/P:
# Diabetic Left Foot Wounds
L lateral foot wound was noted on prior admission.
Dorsal wound appears new and was not previously mentioned.
MRI consistent with fifth toe osteo, surgical podiatry following; s/p OR 06/09 with excisional debridement ulcer/fifth metatarsal resection, proximal phalanx resection left; NWB left foot per podiatry. s/p OR again 06/12 5th toe amp/closure left foot
cw abx per ID; now on unasyn
Glycemic control as noted below.
Wound care following
US LE without PAD; consulted vascular given request from podiatry. no vascular intervention needed at this time
PT/OT. Nonweightbearing left foot per podiatry. Crutches/walker
# Hyperglycemia, No anion gap elevation to suggest DKA. HHNK ruled out, there was no acidosis
# Uncontrolled DM-II
# Pseudohyponatremia secondary to the above, improved
Patient admittedly not compliant with insulin regimen.
Cont basal : bolus insulin with ISS
MS/encephalopathy likely secondary to hypoglycemia improved with correction of BG
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
# Acute / Chronic Metabolic Encephalopathy, suspect secondary to marked hyperglycemia with drug abuse
MS/encephalopathy improved with correction of BG
Follow up CT head report from admission
UDS again positive for amphetamine/methamphetamine this admission.
Recent MRI brain noted mild asymmetric postcontrast signal abnormality in the left temporal lobe cortex, this was felt to be metabolic abnormalities associated with severe hyperglycemia per Neuro at that time.
TOOL WORKER infection was ruled out at that time.
MRI brain noted; rec repeat MRI with and without contrast in 4 to 6 months. Neurology follow-up outpatient
Anemia, suspect anemia of chronic disease
Monitor
# CR
secondary to volume contraction / hyperglycemia.
resolved
# Prior Bacteremia
During his previous hospital stay, patient had blood cultures done (04/17) which were noted to be positive after his discharge. That culture was positive for Propionibacterium acnes.�
Unfortunately, only a single culture was done at that time.
A second culture done 04/18 (36 hours later) has remained negative.
Patient is currently afebrile despite his DM wounds.
ID following; blood cx NGTD
# Hypothyroidism
TSH was elevated during recent admission (12.5), which has improved to 5.61 this admission
Patient was started on / increased dose of T4 supplementation, but he has not been compliant.
Cont Synthroid at 125mcg / day.
Encourage compliance.
Repeat TFTs in 4-6 weeks.
# BPH
# Urinary Retention
Patient also noted to have urinary retention during his prior stay.
Restarted tamsulosin.
Bladder scan protocol and straight cath / Lock if needed.
DVT Prophylaxis:� Lovenox SQ
Code Status:� Full
General: Well Developed, No Apparent Distress
HEENT: Normocephalic, Atraumatic and Moist Mucous Membranes
Respiratory: Clear to Auscultation and Non Labored Respirations
Cardiac: Regular Rhythm and S1/S2; Negative Murmur, Rub or Gallop
GI: Soft, Nontender, Nondistended and Normal Bowel Sounds
Rectal: Deferred by Provider
Musculoskeletal: No Edema
Skin: Other (L foot wound bandaged)
Neuro: Awake, Alert, Oriented and Nonfocal/Grossly Intact
Psych: Calm
Anticipated Discharge: 24 - 48 hours
Subjective/Interval History
-
Date of Service: June 14, 2023
denies pain
Objective Data
-
Labs:
Laboratory Results
06/14/23
05:42
WBC 7.3
Hgb 9.8 L
Hct 29.1 L
Plt Count 348
Sodium 133 L
Potassium 4.2
Chloride 101
Carbon Dioxide 27
BUN 20
Creatinine 1.2
Glucose 198 H
Calcium 9.0
Total Bilirubin 0.5
AST 25
ALT 17
Alkaline Phosphatase 108
Vital Signs:
Vital Signs
Temp Pulse Resp BP Pulse Ox
98.9 F 84 11 114/73 96
06/14/23 11:36 06/14/23 12:00 06/14/23 12:00 06/14/23 12:00 06/14/23 12:00
I&O
06/13/23 06/14/23 06/15/23
06:59 06:59 06:59
Intake Total 840 / 840 1140 / 1140
Output Total 1450 / 1450 1450 / 1450
Balance 840 / 840 -310 / -310 -1450 / -1450
[2023-06-14 17:35] LABS: Glucose - Point of Care 194 mg/dl (70-99)
[2023-06-14] MEDS: LOVENOX 40 MG SC (17:52)
[2023-06-14] MEDS: COLACE PO (19:49)
[2023-06-14] MEDS: LANTUS 0.140000000000000013 UNITS SC (22:16)
[2023-06-14 22:30] LABS: Glucose - Point of Care 216 mg/dl (70-99)
[2023-06-14] MEDS: ROXICODONE 5 MG PO (23:24)
[2023-06-14 23:30] LABS: Glucose - Point of Care 318 mg/dl (70-99)
[2023-06-15] VITALS (7 sets, daily range): BP systolic 131–159; BP diastolic 74–101; BMI 23.0
[2023-06-15 04:42] LABS: % Basophils 1.3 % (0-2); % Immature Granulocytes 0.7 % (0-0.5); % Lymphocytes 22.4 % (20.5-51.1); % Monocytes 7.7 % (1.7-9.3); % Neutrophils 63.9 % (42.2-75.2); Absolute Basophils 0.1 10^3/uL (0-0.2); Absolute Eosinophils 0.3 10^3/uL (0-0.7); Absolute Immature Granulocytes 0.1 10^3/uL (0-0.05); Absolute Lymphocytes 1.6 10^3/uL (1.2-3.4); Absolute Monocytes 0.5 10^3/uL (0.1-0.6); Absolute Neutrophils 4.5 10^3/uL (1.4-6.5); Hematocrit 29.3 % (39.0-52.0); Hemoglobin 9.9 g/dL (13.0-18.0); Mean Corp Hgb Conc. 33.8 g/dL (33.0-37.0); Mean Corpuscular Hgb 28.7 pg (27.0-31.0); Mean Corpuscular Volume 84.9 fL (80.0-94.0); Mean Platelet Volume 9.2 fL (7.4-10.4); Nucleated Red Blood Cells % 0 % (-); Platelet Count 363 10^3/uL (130-400); Red Blood Cell Count 3.45 10^6/uL (4.70-6.10); Red Cell Dist. Width 13.3 % (11.5-14.5)
[2023-06-15 05:29] LABS: ALT (SGPT) 17 U/L (0-50); AST (SGOT) 24 U/L (17-59); Albumin 3.1 g/dl (3.5-5.0); Alkaline Phosphatase 109 U/L (38-126); Blood Urea Nitrogen 20 mg/dl (9-20); Calcium 9.2 mg/dl (8.4-10.2); Carbon Dioxide 26 mmol/L (22-30); Chloride 98 mmol/L (98-107); Estimated Creatinine Clearance 79 ml/min; Glucose 206 mg/dl (70-99); Potassium 4.5 mmol/L (3.5-5.1); Sodium 133 mmol/L (135-145); Total Bilirubin 0.4 mg/dl (0.2-1.3); Total Protein 5.9 g/dl (6.3-8.2); eGFR > 60.00
[2023-06-15] MEDS: UNASYN IV ×4 (06:07→17:39)
[2023-06-15] MEDS: SYNTHROID 125 MCG PO (06:07)
[2023-06-15] MEDS: NOVOLOG FLEXPEN 12 UNITS SC ×2 (08:15→17:35)
[2023-06-15] MEDS: COLACE 100 MG PO (08:16)
[2023-06-15] MEDS: FLOMAX 0.400000000000000022 MG PO (08:16)
[2023-06-15] MEDS: NOVOLOG FLEXPEN-LOW RESISTANCE 1 UNITS SC (08:16)
[2023-06-15] MEDS: MIRALAX 17 GRAMS PO (08:16)
[2023-06-15 08:17] LABS: Glucose - Point of Care 189 mg/dl (70-99)
[2023-06-15] MEDS: ROXICODONE 5 MG PO (08:22)
--- NOTE | 2023-06-15 08:33 | PTCARENOTE ---
pt aaox3. states 10/10 pain in left foot. pain med given as ordered. left foot dressing c/d/i. cap refill <2. no edema noted. room air breath sounds clear.
--- NOTE | 2023-06-15 09:35 | W.PN.UPDATE ---
Update Note
Progress Note Update
pt seen s/p 5th ray resection
no pain
no f/supervisor coil winding
dressing cdi
vasc intact
derm no edema or erythema, no cellulitis, small wound, sutures intact
prox bone path--clean, no SOI
a/p s/p 5th ray resection, stable for dc
nwb left foot with crutches
will order wound care for daily changhes
podiatry to sign off
fu 1 week after dc
[phone]
--- NOTE | 2023-06-15 13:13 | W.PN.HOSP.TC ---
Addendum entered and electronically signed by Jimbo Hwang MD 06/16/23 15:13:
Time of discharge 36-minutes
Original Note:
Today's Communication/Plan
-
Monitor vital signs see plan
Pain control
Patient will follow-up with podiatry outpatient
Deciding home versus SNF
Continue antibiotics
Continue insulin
Assessment / Plan
Assessment / Plan
57y M with PMH significant for DM-II, hypothyroidism and prior admission for encephalopathy who presented to ED complaining of left foot pain, redness and active wounds.�
Patient states that these wounds have been present for months but with increase in more pain more recently.� Patient was hospitalized here at 04/16 - 04/19 secondary to encephalopathy and noted to have evidence of substance abuse, marked
hyperglycemia and abnormal PHARMACY SCHEDULER imaging.�PHARMACY SCHEDULER infection was ruled out during that stay.� Patient's symptoms improved with glycemic control and he was discharged to home.
Patient admits that he has not taken any of the medications he was prescribed at discharge.
In the ED, patient was able to answer all direct questions and follow commands. When he proceed with open-ended speech; however, he has marked expressive aphasia / 'word-salad'.� Patient seems to be aware that he is not making sense during these
periods.
He denies any tobacco, alcohol or drug use - though it is noted that his UDS on his prior admission was positive for amphetamine and cocaine use.
A/P:
# Diabetic Left Foot Wounds
L lateral foot wound was noted on prior admission.
Dorsal wound appears new and was not previously mentioned.
MRI consistent with fifth toe osteo, surgical podiatry following; s/p OR 06/09 with excisional debridement ulcer/fifth metatarsal resection, proximal phalanx resection left; NWB left foot per podiatry. s/p OR again 06/12 5th toe amp/closure left foot
cw abx per ID; now on unasyn. Awaiting path
Glycemic control as noted below.
Wound care following
US LE without PAD; consulted vascular given request from podiatry. no vascular intervention needed at this time
PT/OT. Nonweightbearing left foot per podiatry. Crutches/walker. Patient to decide home versus SNF
# Hyperglycemia, No anion gap elevation to suggest DKA. HHNK ruled out, there was no acidosis
# Uncontrolled DM-II
# Pseudohyponatremia secondary to the above, improved
Patient admittedly not compliant with insulin regimen.
Cont basal : bolus insulin with ISS
MS/encephalopathy likely secondary to hypoglycemia improved with correction of BG
Diabetes CLAIMS ACCOUNT MANAGER following
# Acute / Chronic Metabolic Encephalopathy, suspect secondary to marked hyperglycemia with drug abuse
MS/encephalopathy improved with correction of BG
Follow up CT head report from admission
UDS again positive for amphetamine/methamphetamine this admission.
Recent MRI brain noted mild asymmetric postcontrast signal abnormality in the left temporal lobe cortex, this was felt to be metabolic abnormalities associated with severe hyperglycemia per Neuro at that time.
PHARMACY SCHEDULER infection was ruled out at that time.
MRI brain noted; rec repeat MRI with and without contrast in 4 to 6 months. Neurology follow-up outpatient
Anemia, suspect anemia of chronic disease
Monitor
# CR
secondary to volume contraction / hyperglycemia.
resolved
# Prior Bacteremia
During his previous hospital stay, patient had blood cultures done (04/17) which were noted to be positive after his discharge. That culture was positive for Propionibacterium acnes.�
Unfortunately, only a single culture was done at that time.
A second culture done 04/18 (36 hours later) has remained negative.
Patient is currently afebrile despite his DM wounds.
ID following; blood cx NGTD
# Hypothyroidism
TSH was elevated during recent admission (12.5), which has improved to 5.61 this admission
Patient was started on / increased dose of T4 supplementation, but he has not been compliant.
Cont Synthroid at 125mcg / day.
Encourage compliance.
Repeat TFTs in 4-6 weeks.
# BPH
# Urinary Retention
Patient also noted to have urinary retention during his prior stay.
Restarted tamsulosin.
Bladder scan protocol and straight cath / Lock if needed.
DVT Prophylaxis:� Lovenox SQ
Code Status:� Full
General: Well Developed, No Apparent Distress
HEENT: Normocephalic, Atraumatic and Moist Mucous Membranes
Respiratory: Clear to Auscultation and Non Labored Respirations
Cardiac: Regular Rhythm and S1/S2; Negative Murmur, Rub or Gallop
GI: Soft, Nontender, Nondistended and Normal Bowel Sounds
Rectal: Deferred by Provider
Musculoskeletal: No Edema
Skin: Other (L foot wound bandaged)
Neuro: Awake, Alert, Oriented and Nonfocal/Grossly Intact
Psych: Calm
Anticipated Discharge: Within 24 hours
Subjective/Interval History
-
Date of Service: June 15, 2023
Does have some pain
Objective Data
-
Labs:
Laboratory Results
06/15/23
03:57
WBC 7.0
Hgb 9.9 L
Hct 29.3 L
Plt Count 363
Sodium 133 L
Potassium 4.5
Chloride 98
Carbon Dioxide 26
BUN 20
Creatinine 1.1
Glucose 206 H
Calcium 9.2
Total Bilirubin 0.4
AST 24
ALT 17
Alkaline Phosphatase 109
Vital Signs:
Vital Signs
Temp Pulse Resp BP Pulse Ox
98.4 F 78 14 134/76 90
06/15/23 11:42 06/15/23 12:00 06/15/23 12:00 06/15/23 12:00 06/15/23 04:00
I&O
06/14/23 06/15/23 06/16/23
06:59 06:59 06:59
Intake Total 1140 / 1140 1480 / 1480
Output Total 1450 / 1450 1900 / 1900 850 / 850
Balance -310 / -310 -420 / -420 -850 / -850
[2023-06-15] MEDS: NOVOLOG FLEXPEN 10 UNITS SC (13:26)
[2023-06-15] MEDS: NOVOLOG FLEXPEN-LOW RESISTANCE 2 UNITS SC ×2 (13:27→17:35)
[2023-06-15 13:35] LABS: Glucose - Point of Care 214 mg/dl (70-99)
[2023-06-15 16:41] LABS: Glucose - Point of Care 216 mg/dl (70-99)
[2023-06-15] MEDS: LOVENOX SC ×2 (17:34→17:39)
--- NOTE | 2023-06-15 18:08 | W.PN.UPDATE ---
Update Note
Progress Note Update
Called by Dr. Hwang and RN Calderon that patient wants to leave AMA. Explained risk of losing leg (amputation), bloodstream infection (sepsis), or if this is not treated appropriately as he has osteomyelitis.
He understands and signed the AMA paperwork. Keflex 1000mg BID #60 tabs and levothroxine 125 mg #30 tabs sent to his pharmacy of choice. Continued all other home meds.
--- NOTE | 2023-06-15 18:22 | PTCARENOTE ---
pt has left ama. Dr Hwang spoke to pt multiple times today about the importance of staying in the hospital for iv antibiotics and wound care. this nurse also spoke to pt about risk of infection without antibiotics and proper wound care. pt still
insisted he wanted to go home. Dr Wood up to see pt and review complications of leaving [facility] wound infections and sepsis. pt was wheeled out by RN. this rn reviewed signs of infections in foot and sepsis. and to return to hospital if any
arise. attempted to teach how to change his dressing. pt stated he understood.
--- NOTE | 2023-06-16 12:04 | W.DCSUMMARY ---
Discharge Summary
Discharge Data
Date of Admission: 06/08/23
Date of Discharge: 06/15/23
-
Pending Results: Yes
Hospital Course
Discharge diagnosis:
1. Diabetic left foot wounds with fifth toe osteomyelitis status post excisional debridement of fifth metatarsal resection and proximal phalanx of left resection
2. Uncontrolled diabetes mellitus
3. Anemia
4. Acute kidney injury
5. Hypothyroidism
Hospital Course:
57-year male with past medical history of uncontrolled diabetes, hypothyroidism came to the hospital with confusion and left foot pain and redness with active wounds. Patient was seen by podiatry throughout hospitalization. Patient was taken to
the OR for excisional debridement of the ulcer and fifth metatarsal resection. Patient was also seen by infectious disease throughout hospitalization and was on IV antibiotics. His hospital course was complicated with persistent hyperglycemia for
which she was seen by diabetes nurse practitioner. His insulin was titrated throughout hospitalization. He also had metabolic encephalopathy which over time improved as his hyperglycemia was improving. On 06/15/2023 patient decided to leave
AGAINST MEDICAL ADVICE. Risks were discussed with the patient including possible worsening lower extremity infection resulting in amputation, worsening sepsis or . Patient still decided to leave AGAINST MEDICAL ADVICE. Patient was given
prescription for Keflex and levothyroxine on discharge.
Discharge Plan
-
Patient Disposition: Against Medical Advice
Condition: Fair
Diet: Diabetic, Carb Controlled
Activity: As tolerated
Driving Restrictions: No driving
Bathing Restrictions: None
Activity Restrictions/Additional Instructions:
Wound Care Instructions
L dorsal foot-as per fork repairer's instructions.
L lateral foot-as per fork repairer's instructions.
L foot weight bear restrictions as per fork repairer's instructions.
Follow up with fork repairer.
wound care left foot, small amount bactroban on open wound ( not sutures)... loosely packed with 1/4inch plain packing dailt, then betadine adaptic, 4x4 katharina gladis
Referrals:
Amadou Escobedo, DO [Family Provider] - in less than 1 week
Prescriptions:
New
levothyroxine 125 mcg Tablet
125 mcg PO DAILY AT 0700 Qty: 30 0RF
cephalexin 500 mg capsule
1,000 mg PO BID Qty: 60 0RF
Continued
(DME) blood-glucose meter [Contour Next One Meter] Misc
Qty: 1 0RF
Rx Instructions:
Pt testing 4 times a day
(DME) Contour Next Test Strips Strip
Qty: 200 0RF
Rx Instructions:
Pt testing 4 times a day
metformin 1,000 mg Tablet
1,000 mg PO BID@0800,1700 Qty: 60 0RF
insulin glargine [Basaglar KwikPen U-100 Insulin] 100 unit/mL (3 mL) Insulin Pen
15 unit SC HS Qty: 5 0RF
Patient Comments:
pt states he has not taken his insulin in over one week
Rx Instructions:
Please taking every night at bedtime
(DME) pen needle, diabetic [BD Ultra-Fine Zoie Pen Needle] 32 gauge x 5/32' Needle
Qty: 200 0RF
Rx Instructions:
Pt taking insulin 4 times a day
(DME) lancets [Microlet Lancet] Misc
Qty: 150 0RF
Rx Instructions:
Pt testing 4 times a day
insulin lispro [Humalog KwikPen Insulin] 100 unit/mL Insulin Pen
6 unit SC AC 30 Days Qty: 5 0RF
Patient Comments:
pt states he has not taken his insulin in over one week
Discharge Orders:
Discharge Patient (As Directed); Ordered 06/15/23
Ordered By: Ketty Castro
Discharge Date and Time
Discharge Date/Time: 06/15/23 18:14
Print Language: BULGARIAN
== END 2023-06-15 18:14 | disposition left against medical advice (07) | DRG 616 ==
LOC: IMU 02:32
PROVIDERS: Internal Medicine; ADMITTING PHYSICIAN Hospitalist; ATTENDING PHYSICIAN Internal Medicine; CONSULT PHYSICIAN Podiatrist Foot Surgery; CONSULT PHYSICIAN Student in an Organized Health Care Education/Training Program; CONSULT PHYSICIAN Surgery Vascular Surgery; EMERGENCY PHYSICIAN Student in an Organized Health Care Education/Training Program; FAMILY PHYSICIAN Internal Medicine
PROC: 0QBR0ZZ Excision of Left Toe Phalanx, Open Approach (ICD-10-PCS; 2023-06-09)
PROC: 0QBP0ZZ Excision of Left Metatarsal, Open Approach (ICD-10-PCS; 2023-06-09)
PROC: 0Y6Y0Z0 Detachment at Left 5th Toe, Complete, Open Approach (ICD-10-PCS; 2023-06-13)
DX: E11.69 Type 2 diabetes mellitus with other specified complication (principal); G93.41 Metabolic encephalopathy; M86.172 Other acute osteomyelitis, left ankle and foot; L97.528 Non-pressure chronic ulcer of other part of left foot with other specified severity; R47.01 Aphasia; L03.116 Cellulitis of left lower limb; I96 Gangrene, not elsewhere classified; E11.621 Type 2 diabetes mellitus with foot ulcer; B95.7 Other staphylococcus as the cause of diseases classified elsewhere; E11.65 Type 2 diabetes mellitus with hyperglycemia; D64.9 Anemia, unspecified; N17.9 Acute kidney failure, unspecified; E03.9 Hypothyroidism, unspecified; E11.00 Type 2 diabetes mellitus with hyperosmolarity without nonketotic hyperglycemic-hyperosmolar coma (NKHHC); N40.1 Benign prostatic hyperplasia with lower urinary tract symptoms; R33.8 Other retention of urine; E11.628 Type 2 diabetes mellitus with other skin complications; Z79.4 Long term (current) use of insulin; Z91.148 Patient's other noncompliance with medication regimen for other reason; Z53.29 Procedure and treatment not carried out because of patient's decision for other reasons
CPT/HCPCS: 88304; 88305; 88311; 70450; 70551; 73630; 73718; 80048; 80053; 80202; 80306; 80307; 81003; 82962; 83036; 83605; 83735; 83930; 84439; 84443; 85025; 85027; 87040; 87070; 87075; 87147; 87176; 87186; 87205; 93005; 93922; 93925; 96361; 96365; 96372; 96375; 97116; 97163; 97164; 97166; 97167; 99285; 99406

== ENCOUNTER 2024-03-16 17:54 | Inpatient (IN) | payer OTHER, SELFPAY ==
[2024-03-16] VITALS (30 sets, daily range): BP systolic 78–122; BP diastolic 43–88; BMI 15.7
--- NOTE | 2024-03-16 15:26 | ED.GENMED ---
History of Present Illness
<Yi Campbell PA-C - Last Filed: 03/16/24 20:04>
General
Chief Complaint: Weakness
Source: patient
Exam Limitations: none
Time Seen by Provider: 03/16/24 15:25
Nursing documentation reviewed up to this point in time: agreed with
History of Present Illness
History of Present Illness:
58-year-old male with past medical history of diabetes presents emergency department today with concerns of generalized weakness. He comes from home. He lives with a friend. When asked why he is here, patient says 'I do not know' and when asked
more questions he states 'I am unable to talk.' Apparently according to EMS, patient called his son because he felt weak and when his son found him in the house, he was covered in his own feces and was lying on a couch and was reportedly laying on
the couch for around 4 to 5 days. He is noncompliant with his diabetic medications and his home medications. I did attempt to call number on file for patient's contact, they did not pickling grader the call. I did ask patient his son's phone number,
patient was unsure of the phone number. 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 Patient denies abdominal pain, chest pain. Patient denies any shortness of
breath.
Past History
<Yi Campbell PA-C - Last Filed: 03/16/24 20:04>
Past History
ED Past Medical History: IDDM
ED Past Surgical History: Orthopedic
Social History
Tobacco: Non-smoker
Alcohol: None
Review of Systems
<Yi Campbell PA-C - Last Filed: 03/16/24 20:04>
Review of Systems
All Other Systems: ROS reviewed and negative except as documented in HPI and ROS
Phy Exam
<Yi Campbell PA-C - Last Filed: 03/16/24 20:04>
Physical Exam
Physical Exam:
General: Patient is ill-appearing, pale, cachectic
Skin: Warm and dry, small non-draining sacral wound noted, scattered abrasions noted to bilateral arms and legs in different stages of heeling.
Head: Normocephalic, atraumatic
Eyes: Sclera non-icteric. EOMs intact.
Cardiac: Regular rate and rhythm, no murmurs
Peripheral Vascular: No lower extremity swelling or edema
Pulm: Normal respiratory effort
Abdomen: No abdominal tenderness to palpation
Neuro: CN II-XII intact, no focal neurologic deficits.
Psychiatric: Patient oriented to person and place, states that the year is 2024.
Sepsis
<Yi Campbell PA-C - Last Filed: 03/16/24 20:04>
Sepsis Screening
Sepsis Assessment: Sepsis
Sepsis Screen
Sepsis Screen: Sepsis
Date: 03/16/24
Time: 20:04
Course
<Yi Campbell PA-C - Last Filed: 03/16/24 20:04>
Orders/Labs/Results
Orders:
Orders
03/16/24 15:22
Electrocardiogram (*1) Urgent
Reason for Study: Chest Pain
Cardiac Monitoring- Treatment ONCE
IV Insert/Care/Rem.- Treatment PRN
03/16/24 15:23
EKG- Treatment ONCE
03/16/24 15:34
B-Hydroxybutyrate Urgent
Basic Metabolic Panel Urgent
Complete Blood Count/With Diff Urgent
Creatine Phosphokinase Urgent
Lactic Acid Urgent
Manual Differential Urgent
03/16/24 15:35
Blood Culture Urgent
JAVIER Source: Blood/Venous
Specimen Description:
0.9% Sodium Chloride 1000 ml [Nss] 1,500 ml IV NOW STA
03/16/24 15:38
Cortisol, Random Urgent
Piperacillin/Tazo 4.5 Gram [Zosyn] 4.5 gram in 100 ml IV NOW
03/16/24 15:40
CR Chest Portable - 1 View Urgent
Reason For Exam: hypothermia, cough
03/16/24 15:42
Electrocardiogram (*1) Urgent
Reason for Study: QTc Monitoring
CT Head W/o Iv Contrast Urgent
Comment:
Reason For Exam: altered mental status, hx of herpes encephalitis
EKG- Treatment ONCE
03/16/24 15:45
COVID-19 Antigen Urgent
Source: Nasal Swab
Venous Blood Gas Urgent
%Oxygen/Room Air: 98
Blood Culture Urgent
JAVIER Source: Blood/Venous
Specimen Description:
Influenza A+B Rapid Molecular Urgent
JAVIER Source: Nasal Swab
Specimen Description:
03/16/24 16:21
Add On- LAB Urgent
Tests Added?: random cortisol.
03/16/24 16:32
CR Chest Portable - 1 View Urgent
Comment:
Reason For Exam: hypothermia, cough
Reason Study Needs to be Portable: Patient Unstable
03/16/24 16:42
Comprehensive Metabolic Panel Urgent
Cortisol, Random Urgent
03/16/24 16:45
Urinalysis Reflex To Culture Urgent
Date Specimen was Collected: 03/16/24
Time Specimen was Collected: 16:35
Urine Microscopic Reflex Cult Urgent
C DIFF [C difficile Antigen & Toxins] Urgent
JAVIER Source: Feces/Stool
Specimen Description:
Date Specimen was Collected: 03/16/24
Time Specimen was Collected: 16:43
Stool Culture Urgent
JAVIER Source: Feces/Stool
Specimen Description:
Date Specimen was Collected: 03/16/24
Time Specimen was Collected: 16:43
Urine Culture Urgent
JAVIER Source: U
Specimen Description:
Date Specimen was Collected: 03/16/24
Time Specimen was Collected: 16:35
03/16/24 16:54
Vancomycin [Vancocin] 1,500 mg 0.9% Sodium Chloride 500 ml [Nss] 500 ml IV NOW
03/16/24 17:00
Abdomen/Pelvis wo Contrast CT [CT Abd/pelvis Wo Iv Cont] Urgent
Comment:
Reason For Exam: sepsis arff
03/16/24 17:13
ABG [Arterial Blood Gas] Urgent
%Oxygen/Room Air: oxy
03/16/24 17:14
0.9% Sodium Chloride 1000 ml [Nss] 1,000 ml IV BOLUS
03/16/24 17:44
Admit/Transfer Patient As Directed
Co-Sign Provider:
Level of Care: Inpatient admission
Assign to:: ICU
Physician / Group: eriberto
Diagnosis: dka, tono
Reason for Hospitalization: dka, tono
Expected length of stay greater than two midnights?: Yes
ELOS- Estimated Length of Stay in days: 2
I certify the patient meets the requirements for IP care: Yes
PRN Pain Medication Management As Directed
May give lesser potent ordered pain med per pt: Yes
preference::
Protocol:: Medication orders for pain may be administered in a
manner that supports deferring to patient preference
when the pt is:
- Requesting an ordered lesser potent pain medication.
Least to most potent pain medications are defined
as: acetaminophen < NSAID < tramadol < opioids
(morphine, oxycodone, hydromorphone).
- Requesting a lesser dose of the same medication IF
ORDERED.
- Requesting a less intrusive route of administration
if both routes are prescribed by the provider (PO <
IV).
03/16/24 17:45
Code Status As Directed
Resuscitation Status: Full Code
03/16/24 17:50
WOUND/OSTOMY CONSULT Routine
Reason for Consult: leg wounds, back wounds
Reg Insulin 100 Units/100 ml [Novolin R Insulin Infusion] 100 units in 100 ml IV NOW
03/16/24 19:26
Urine Drug Abuse Screen Urgent
Date Specimen was Collected: 03/16/24
Time Specimen was Collected: 19:21
Abnormal Lab Results
03/16/24 03/16/24 03/16/24
15:30 15:34 15:45
WBC 17.3 H 10^3/uL
(4.8-10.8)
RBC 4.43 L 10^6/uL
(4.70-6.10)
Hgb 12.1 L g/dL
(13.0-18.0)
Hct 35.8 L %
(39.0-52.0)
RDW 18.5 H %
(11.5-14.5)
Plt Count 401 H 10^3/uL
(130-400)
MPV 11.1 H fL
(7.4-10.4)
Abs Neuts (Manual) 15.0 H 10^3/uL
(1.4-6.5)
Segmented Neutrophils 87 H %
(42-75)
Lymphocytes (Manual) 9 L %
(20-51)
pH
pCO2
pO2
HCO3
ABG O2 Sat (Measured)
VBG pH 7.21 L
(7.32-7.43)
VBG HCO3 17.2 L mmol/L
(22-27)
Sodium 123 L mmol/L
(135-145)
Potassium
Chloride 88 L mmol/L
(98-107)
Carbon Dioxide 14 L* mmol/L
(22-30)
BUN 171 H* mg/dl
(9-20)
Creatinine 4.9 H* mg/dL
(0.7-1.3)
Glucose 287 H mg/dl
(70-99)
Calcium
AST
Creatine Kinase 42 L U/L
(55-170)
Total Protein
Albumin
Ur Occult Blood Reflex
Leukocyte Esterase Rfl
Urine RBC
Urine WBC (Reflex)
Urine Bacteria (Reflex)
Urine Albumin (Reflex)
B-Hydroxybutyrate 0.91 H mmol/L
(0.02-0.27)
POC Glucose 270 H mg/dl
(70-99)
03/16/24 03/16/24 03/16/24
16:42 16:45 17:13
WBC
RBC
Hgb
Hct
RDW
Plt Count
MPV
Abs Neuts (Manual)
Segmented Neutrophils
Lymphocytes (Manual)
pH 7.30 L
(7.35-7.45)
pCO2 30 L mmHg
(35-48)
pO2 117 H mmHg
(83-108)
HCO3 14.8 L* mmol/L
(21-28)
ABG O2 Sat (Measured) 99.8 H %
(94-98)
VBG pH
VBG HCO3
Sodium 124 L mmol/L
(135-145)
Potassium 6.6 H* mmol/L
(3.5-5.1)
Chloride 93 L mmol/L
(98-107)
Carbon Dioxide 14 L* mmol/L
(22-30)
BUN 160 H* mg/dl
(9-20)
Creatinine 4.7 H* mg/dL
(0.7-1.3)
Glucose 239 H mg/dl
(70-99)
Calcium 8.1 L mg/dl
(8.4-10.2)
AST 16 L U/L
(17-59)
Creatine Kinase
Total Protein 6.2 L g/dl
(6.3-8.2)
Albumin 3.0 L g/dl
(3.5-5.0)
Ur Occult Blood Reflex 4+ A
(Negative)
Leukocyte Esterase Rfl 2+ A
(Negative)
Urine RBC 26-30 A /HPF
(0-2)
Urine WBC (Reflex) >100 A /HPF
(0-5)
Urine Bacteria (Reflex) Few A
(Negative)
Urine Albumin (Reflex) 2+ A
(Neg - Trace)
B-Hydroxybutyrate
POC Glucose
03/16/24 15:34
03/16/24 16:42
Vital Signs
Initial and Last Documented VS:
Initial Vital Signs
Pulse Resp BP Pulse Ox
89 18 86/69 98
03/16/24 15:12 03/16/24 15:12 03/16/24 15:12 03/16/24 15:12
Last Documented Vital Signs
Temp Pulse Resp BP Pulse Ox
95.7 F L 86 17 79/55 98
03/16/24 18:20 03/16/24 19:15 03/16/24 19:15 03/16/24 19:15 03/16/24 19:15
<Giancarlo Gale, DO - Last Filed: 03/16/24 17:48>
Orders/Labs/Results
Orders:
Orders
03/16/24 15:22
Electrocardiogram (*1) Urgent
Reason for Study: Chest Pain
Cardiac Monitoring- Treatment ONCE
IV Insert/Care/Rem.- Treatment PRN
03/16/24 15:23
EKG- Treatment ONCE
03/16/24 15:34
B-Hydroxybutyrate Urgent
Basic Metabolic Panel Urgent
Complete Blood Count/With Diff Urgent
Creatine Phosphokinase Urgent
Lactic Acid Urgent
Manual Differential Urgent
03/16/24 15:35
Blood Culture Urgent
JAVIER Source: Blood/Venous
Specimen Description:
0.9% Sodium Chloride 1000 ml [Nss] 1,500 ml IV NOW STA
03/16/24 15:38
Cortisol, Random Urgent
Piperacillin/Tazo 4.5 Gram [Zosyn] 4.5 gram in 100 ml IV NOW
03/16/24 15:40
CR Chest Portable - 1 View Urgent
Reason For Exam: hypothermia, cough
03/16/24 15:42
Electrocardiogram (*1) Urgent
Reason for Study: QTc Monitoring
CT Head W/o Iv Contrast Urgent
Comment:
Reason For Exam: altered mental status, hx of herpes encephalitis
EKG- Treatment ONCE
03/16/24 15:45
COVID-19 Antigen Urgent
Source: Nasal Swab
Venous Blood Gas Urgent
%Oxygen/Room Air: 98
Blood Culture Urgent
JAVIER Source: Blood/Venous
Specimen Description:
Influenza A+B Rapid Molecular Urgent
JAVIER Source: Nasal Swab
Specimen Description:
03/16/24 16:21
Add On- LAB Urgent
Tests Added?: random cortisol.
03/16/24 16:32
CR Chest Portable - 1 View Urgent
Comment:
Reason For Exam: hypothermia, cough
Reason Study Needs to be Portable: Patient Unstable
03/16/24 16:42
Comprehensive Metabolic Panel Urgent
Cortisol, Random Urgent
03/16/24 16:45
Urinalysis Reflex To Culture Urgent
Date Specimen was Collected: 03/16/24
Time Specimen was Collected: 16:35
Urine Microscopic Reflex Cult Urgent
C DIFF [C difficile Antigen & Toxins] Urgent
JAVIER Source: Feces/Stool
Specimen Description:
Date Specimen was Collected: 03/16/24
Time Specimen was Collected: 16:43
Stool Culture Urgent
JAVIER Source: Feces/Stool
Specimen Description:
Date Specimen was Collected: 03/16/24
Time Specimen was Collected: 16:43
Urine Culture Urgent
JAVIER Source: U
Specimen Description:
Date Specimen was Collected: 03/16/24
Time Specimen was Collected: 16:35
03/16/24 16:54
Vancomycin [Vancocin] 1,500 mg 0.9% Sodium Chloride 500 ml [Nss] 500 ml IV NOW
03/16/24 17:00
Abdomen/Pelvis wo Contrast CT [CT Abd/pelvis Wo Iv Cont] Urgent
Comment:
Reason For Exam: sepsis arff
03/16/24 17:13
ABG [Arterial Blood Gas] Urgent
%Oxygen/Room Air: oxy
03/16/24 17:14
0.9% Sodium Chloride 1000 ml [Nss] 1,000 ml IV BOLUS
03/16/24 17:44
Admit/Transfer Patient As Directed
Co-Sign Provider:
Level of Care: Inpatient admission
Assign to:: ICU
Physician / Group: eriberto
Diagnosis: dka, tono
Reason for Hospitalization: dka, tono
Expected length of stay greater than two midnights?: Yes
ELOS- Estimated Length of Stay in days: 2
I certify the patient meets the requirements for IP care: Yes
PRN Pain Medication Management As Directed
May give lesser potent ordered pain med per pt: Yes
preference::
Protocol:: Medication orders for pain may be administered in a
manner that supports deferring to patient preference
when the pt is:
- Requesting an ordered lesser potent pain medication.
Least to most potent pain medications are defined
as: acetaminophen < NSAID < tramadol < opioids
(morphine, oxycodone, hydromorphone).
- Requesting a lesser dose of the same medication IF
ORDERED.
- Requesting a less intrusive route of administration
if both routes are prescribed by the provider (PO <
IV).
03/16/24 17:45
Code Status As Directed
Resuscitation Status: Full Code
03/16/24 17:50
WOUND/OSTOMY CONSULT Routine
Reason for Consult: leg wounds, back wounds
Reg Insulin 100 Units/100 ml [Novolin R Insulin Infusion] 100 units in 100 ml IV NOW
03/16/24 19:26
Urine Drug Abuse Screen Urgent
Date Specimen was Collected: 03/16/24
Time Specimen was Collected: 19:21
Abnormal Lab Results
03/16/24 03/16/24 03/16/24
15:30 15:34 15:45
WBC 17.3 H 10^3/uL
(4.8-10.8)
RBC 4.43 L 10^6/uL
(4.70-6.10)
Hgb 12.1 L g/dL
(13.0-18.0)
Hct 35.8 L %
(39.0-52.0)
RDW 18.5 H %
(11.5-14.5)
Plt Count 401 H 10^3/uL
(130-400)
MPV 11.1 H fL
(7.4-10.4)
Abs Neuts (Manual) 15.0 H 10^3/uL
(1.4-6.5)
Segmented Neutrophils 87 H %
(42-75)
Lymphocytes (Manual) 9 L %
(20-51)
pH
pCO2
pO2
HCO3
ABG O2 Sat (Measured)
VBG pH 7.21 L
(7.32-7.43)
VBG HCO3 17.2 L mmol/L
(22-27)
Sodium 123 L mmol/L
(135-145)
Potassium
Chloride 88 L mmol/L
(98-107)
Carbon Dioxide 14 L* mmol/L
(22-30)
BUN 171 H* mg/dl
(9-20)
Creatinine 4.9 H* mg/dL
(0.7-1.3)
Glucose 287 H mg/dl
(70-99)
Calcium
AST
Creatine Kinase 42 L U/L
(55-170)
Total Protein
Albumin
Ur Occult Blood Reflex
Leukocyte Esterase Rfl
Urine RBC
Urine WBC (Reflex)
Urine Bacteria (Reflex)
Urine Albumin (Reflex)
B-Hydroxybutyrate 0.91 H mmol/L
(0.02-0.27)
POC Glucose 270 H mg/dl
(70-99)
03/16/24 03/16/24 03/16/24
16:42 16:45 17:13
WBC
RBC
Hgb
Hct
RDW
Plt Count
MPV
Abs Neuts (Manual)
Segmented Neutrophils
Lymphocytes (Manual)
pH 7.30 L
(7.35-7.45)
pCO2 30 L mmHg
(35-48)
pO2 117 H mmHg
(83-108)
HCO3 14.8 L* mmol/L
(21-28)
ABG O2 Sat (Measured) 99.8 H %
(94-98)
VBG pH
VBG HCO3
Sodium 124 L mmol/L
(135-145)
Potassium 6.6 H* mmol/L
(3.5-5.1)
Chloride 93 L mmol/L
(98-107)
Carbon Dioxide 14 L* mmol/L
(22-30)
BUN 160 H* mg/dl
(9-20)
Creatinine 4.7 H* mg/dL
(0.7-1.3)
Glucose 239 H mg/dl
(70-99)
Calcium 8.1 L mg/dl
(8.4-10.2)
AST 16 L U/L
(17-59)
Creatine Kinase
Total Protein 6.2 L g/dl
(6.3-8.2)
Albumin 3.0 L g/dl
(3.5-5.0)
Ur Occult Blood Reflex 4+ A
(Negative)
Leukocyte Esterase Rfl 2+ A
(Negative)
Urine RBC 26-30 A /HPF
(0-2)
Urine WBC (Reflex) >100 A /HPF
(0-5)
Urine Bacteria (Reflex) Few A
(Negative)
Urine Albumin (Reflex) 2+ A
(Neg - Trace)
B-Hydroxybutyrate
POC Glucose
03/16/24 15:34
03/16/24 16:42
Vital Signs
Initial and Last Documented VS:
Initial Vital Signs
Pulse Resp BP Pulse Ox
89 18 86/69 98
03/16/24 15:12 03/16/24 15:12 03/16/24 15:12 03/16/24 15:12
Last Documented Vital Signs
Temp Pulse Resp BP Pulse Ox
95.7 F L 86 17 79/55 98
03/16/24 18:20 03/16/24 19:15 03/16/24 19:15 03/16/24 19:15 03/16/24 19:15
Иринаlt;Yi Campbell PA-C - Last Filed: 03/16/24 20:04>
MDM/Problems Addressed
Differential Diagnosis Includes:
see below
MDM/Problems Addressed:
NUMBER AND COMPLEXITY OF PROBLEMS ADDRESSED AT THE ENCOUNTER
� Chronic conditions affecting care: Diabetes, sleep apnea, COPD
� Acute Exacerbation and/or Progression of Chronic Illness: Diabetes
� Differential Diagnosis includes: Diabetic ketoacidosis, sepsis, bacteremia, rhabdomyolysis
AMOUNT AND/OR COMPLEXITY OF DATA TO BE REVIEWED AND ANALYZED
� I performed an independent evaluation of and my interpretation is:
EKG: Normal sinus rhythm with rate of 88, artifact from shivering, no peaked T waves
X-rays: No infiltrate
Laboratory Studies: Leukocytosis of 17,000 noted, did note anion gap metabolic acidosis, considering elevated glucose and patient's diabetic status, will start insulin, will start empiric antibiotics for sepsis
Other:
� Review of other/old records: Reviewed previous discharge summary from 06/16/2023, patient seen for hypoglycemia, patient initially seen for confusion and active foot wounds, patient did decide to leave AGAINST MEDICAL ADVICE
� Clinical information was obtained by an independent historian: N/A
� Prescriptions/Medications Considered but not given: N/A
� Further testing considered but not performed: N/A
RISK OF COMPLICATIONS AND/OR MORBIDITY OR MORTALITY OF PATIENT MANAGEMENT
� Social determinants of health affecting care: Poor outpatient follow-up
� Discussion with other providers: ER attending, hospitalist
� Escalation of care including admission/observation vs risk of discharge considered:
58-year-old male presents emergency department today with concerns of altered mental status. He was found on a couch in his own feces. He arrives to the emergency department hypotensive and hypothermic. Fluid sepsis bolus was initiated, patient
was started on empiric antibiotics. Of note, patient's urine is thick and purulent, suspect potential urosepsis. Patient will be sent for chest x-ray to rule out pneumonia and CAT scan rule out acute intra-abdominal pathology. Will send for CAT
scan of the head considering mental status change. Hospitalist made aware, patient referred for ICU admission.
<Giancarlo Gale DO - Last Filed: 03/16/24 17:48>
*Radiology
Radiology exam reviewed: radiology read reviewed
*Pulse Oximetry
Patient hypoxic: yes
*Critical Care Note
Total Time (30-74mins, 75-104mins- exclusive of procedures): 76
ED Attending Note
<Yi Campbell PA-C - Last Filed: 03/16/24 20:04>
-
Portions of this chart may have been created with voice recognition software.� Occasional wrong word or��sound alike� substitutions may have occurred due to the inherent limitations of voice recognition software.
<Giancarlo Gale DO - Last Filed: 03/16/24 17:48>
ED Attending Note
Patient seen and examined by attending physician: Yes
I performed the substantive portion of visit, reviewed & personally made and approve the management plan that is documented in note by myself or JOHN.: Yes
ED Attending Note:
Seen with MUSTAPHA examined independently 58-year-old male apparently diabetic presents with confusion wounds on his body hypotensive hypothermic here he is acidotic apparently acute kidney injury, lethargic but does follow simple commands
Discharge Plan
Departure
Patient Disposition: Admit
Date of Disposition: 03/16/24
Time of Disposition: 17:15
Admit to: ICU
Presentation/result/management discussed w/ accepting MD/DO: Hospitalist
Patient with high blood pressure during this ER visit?: No
Condition: Critical
Discharge Problem:
Sepsis, Diabetic ketoacidosis
Interventions
Interventions:
*Risk Screen - Suicide Last Done: 03/16/24 15:56
*General Assessment Last Done: 03/16/24 15:56
*Neglect/Abuse Screening Last Done: 03/16/24 15:56
ED- Fall Risk Assessment Last Done: 03/16/24 15:56
*ED COVID-19 Vaccine History Last Done: 03/16/24 15:56
*Nursing Disposition Last Done: 03/16/24 19:33
ED- Cardiac Assessment Last Done: 03/16/24 16:01
ED- Neurological Assessment Last Done: 03/16/24 16:01
ED- Pulmonary Assessment Last Done: 03/16/24 16:01
Discharge Date and Time
Discharge Date/Time: 03/16/24 19:33
[2024-03-16 15:31] LABS: Glucose - Point of Care 270 mg/dl (70-99)
--- NOTE | 2024-03-16 15:40 | EDRN ---
Spenser Velásquez on medium placed on pt at 15:40
[2024-03-16] MEDS: NSS 1500 ML IV (15:41)
[2024-03-16 15:58] LABS: Venous Blood Gas B.E. -10.3 mmol/L (-4 to +4); Venous Blood Gas HCO3 17.2 mmol/L (22-27); Venous Blood Gas O2 Sat % 65.9 %; Venous Blood Gas pCO2 43 mmHg (35-48); Venous Blood Gas pH 7.21 (7.32-7.43); Venous Blood Gas pO2 42 mmHg (30-50)
--- NOTE | 2024-03-16 15:58 | PHANOTE ---
med rec tech(03/16/24)- Patient noncompliant with medications, per [facility] has not filled any medications for this month. Per patient he has not taken any of his medications recently, including his insulin.
[2024-03-16 16:03] LABS: Hematocrit 35.8 % (39.0-52.0); Hemoglobin 12.1 g/dL (13.0-18.0); Lactic Acid 1.5 mmol/L (0.7-2.0); Mean Corp Hgb Conc. 33.8 g/dL (33.0-37.0); Mean Corpuscular Hgb 27.3 pg (27.0-31.0); Mean Corpuscular Volume 80.8 fL (80.0-94.0); Mean Platelet Volume 11.1 fL (7.4-10.4); Platelet Count 401 10^3/uL (130-400); Red Blood Cell Count 4.43 10^6/uL (4.70-6.10); Red Cell Dist. Width 18.5 % (11.5-14.5); White Blood Cell Count 17.3 10^3/uL (4.8-10.8)
[2024-03-16 16:13] LABS: Calcium 9.3 mg/dl (8.4-10.2); Carbon Dioxide 14 mmol/L (22-30); Chloride 88 mmol/L (98-107); Creatine Phosphokinase 42 U/L (55-170); Glucose 287 mg/dl (70-99); Sodium 123 mmol/L (135-145)
[2024-03-16 16:15] LABS: B-Hydroxybutyrate 0.91 mmol/L (0.02-0.27)
[2024-03-16 16:22] LABS: COVID-19 Antigen Negative (Negative)
--- NOTE | 2024-03-16 16:30 | EDRN ---
Thermistor pete placed at this time as temp is low and accurate output needed.
[2024-03-16 16:31] LABS: Blood Urea Nitrogen 171 mg/dl (9-20)
--- NOTE | 2024-03-16 16:31 | EDRN ---
75 mL drained from pete catheter at this time of thick cloudy white yellow urine.
--- NOTE | 2024-03-16 16:50 | EDRN ---
Pharmacy called for vancocin.
[2024-03-16] MEDS: ZOSYN 100 IV (16:55)
[2024-03-16 17:01] LABS: Band Neutrophils 0 % (0-3); Eosinophils 2 % (0-6); Lymphocytes 9 % (20-51); Monocytes 2 % (2-9); Normal RBC Morphology Yes; Platelets Checked Yes; Segmented Neutrophils 87 % (42-75); Total Cells Counted 100
[2024-03-16] MEDS: VANCOCIN 530 MG IV (17:04)
[2024-03-16 17:07] LABS: Estimated Creatinine Clearance 12 ml/min; eGFR 12.96
[2024-03-16 17:09] LABS: ALT (SGPT) 11 U/L (0-50); AST (SGOT) 16 U/L (17-59); Alkaline Phosphatase 114 U/L (38-126); Calcium 8.1 mg/dl (8.4-10.2); Carbon Dioxide 14 mmol/L (22-30); Chloride 93 mmol/L (98-107); Glucose 239 mg/dl (70-99); Potassium 6.6 mmol/L (3.5-5.1); Sodium 124 mmol/L (135-145); Total Bilirubin 0.4 mg/dl (0.2-1.3); Total Protein 6.2 g/dl (6.3-8.2)
[2024-03-16] MEDS: NSS 1000 IV (17:15)
[2024-03-16 17:21] LABS: B.E. -10.5 mmol/L; O2 Saturation % 99.8 % (94-98); PCO2 30 mmHg (35-48); PO2 117 mmHg (83-108)
[2024-03-16 17:21] LABS: Blood Urea Nitrogen 160 mg/dl (9-20)
[2024-03-16 17:22] LABS: HCO3 14.8 mmol/L (21-28)
[2024-03-16 17:23] LABS: Urine Albumin 2+ (Neg - Trace); Urine Bilirubin Negative (Negative); Urine Character Very Cloudy (Clear); Urine Color Yellow; Urine Glucose Negative (Negative); Urine Ketone Negative (Negative); Urine Leukocyte 2+ (Negative); Urine Nitrite Negative (Negative); Urine Occult Blood 4+ (Negative); Urine Specific Gravity 1.015 (<1.030); Urine Urobilinogen Negative (Neg - 1+)
--- NOTE | 2024-03-16 17:29 | EDRN ---
Dr. Schofield in room w/ pt at this time. Portable CXR done at this time.
[2024-03-16 17:45] LABS: Urine Bacteria Few (Negative); Urine Red Blood Cell 26-30 /HPF (0-2); Urine Squamous Cell None seen /LPF (Few); Urine White Cell >100 /HPF (0-5)
[2024-03-16 17:45] LABS: Estimated Creatinine Clearance 12 ml/min; eGFR 13.62
--- NOTE | 2024-03-16 17:52 | HPS.HSE ---
Addendum entered and electronically signed by Maria R Reyes MD 03/16/24 23:04:
CT head shows large acute to subacute transcortical ischemic infarct in the left insular cortex and left external capsule cytotoxic edema. Acute encephalitis much less likely. Will start aspirin and Plavix. Neurology consulted.
CT abdomen pelvis shows severe diffuse urinary bladder wall thickening Lock catheter in place, moderate bilateral hydroureteronephrosis. Secondary to urinary bladder infection/bilateral vesicoureteral reflux. Mild pneumonia in the lingula of the
left lower lobe.
Patient was also noted to become hypoglycemic down to blood sugar 40s. Insulin drip to be turned off. D5 bicarb drip to be started. Patient does not have DKA but rather more likely starvation ketosis/sepsis to explain metabolic acidosis.
Original Note:
Family Physician
-
Family Physician: NO INTERVIEW UNKNOWN
Chief Complaint
-
weakness
History of Present Illness
58-year-old male past medical history of type 2 diabetes, hypothyroidism, BPH, urinary retention, HSV encephalitis presenting with generalized weakness and inability to walk for day and no food for a day. Patient too tired and not answering any
questions at this time but he is alert and can answer yes or no questions.
Reportedly he lives with a friend and was found covered in his stool with stool in his hands. He has not been taking care of himself. He states he is supposed to take medications but has not been taking anything.
He denies denies abdominal pain or nausea or vomiting or diarrhea.
He denies any drug use.
Records from [facility] are incoming.
Medical History
Past Medical History
Past Medical History: Reports Other ( type 2 diabetes, hypothyroidism, BPH, urinary retention, HSV encephalitis)
Past Surgical History: Reports None
Social History
Tobacco: Non-smoker
Alcohol: None
Drug: None
Family History
Family History: Not pertinent
Allergies / Home Medications
Allergies reflects when Allergies were last updated in [facility].
Home Medications with original date entered in [facility]
Allergy/Medication List:
Allergies
Allergy/AdvReac Type Severity Reaction Status Date / Time
No Known Allergies Allergy Verified 06/07/23 23:51
Home Medications
No Meds [No Current Medications] 03/16/24
Review of Systems
-
History Source: Patient
A 12 point ROS was completed and negative except as noted: Yes
Constitutional: Reports No Symptoms
EENT: Reports No Symptoms
Respiratory: Reports No Symptoms
Cardiac: Reports No Symptoms
Abdomen/GI: Reports No Symptoms
: Reports No Symptoms
Musculoskeletal: Reports No Symptoms
Skin: Reports No Symptoms
Neurological: Reports No Symptoms
Endocrine: Reports No Symptoms
Hematologic/Lymphatic: Reports No Symptoms
Psych: Reports No Symptoms
Physical Exam
Vital Signs
Vital Signs
Temp Pulse Resp BP Pulse Ox
93.6 F L 86 13 102/65 100
03/16/24 15:19 03/16/24 17:45 03/16/24 17:45 03/16/24 17:45 03/16/24 17:30
Physical Exam
General: Well Developed, Well Nourished and No Apparent Distress
HEENT: NormoCephalic, Moist mucous membranes and Atraumatic
Respiratory: Clear
Cardiac: S1/S2 and Regular Rhythm; No Murmur or Rub
GI: Soft, Non Tender, Non Distended and Normal Bowel Sounds; No Organomegaly
Rectal: Deferred by Provider
Musculoskeletal: No Clubbing, No Cyanosis and No Edema
Skin: Other (lower extremity excoriations ); No Rash
Neuro: Nonfocal/grossly intact
Laboratory Results
-
03/16/24 15:34
03/16/24 16:42
Laboratory Results
pH 7.30 (7.35-7.45) L 03/16/24 17:13
pCO2 30 mmHg (35-48) L 03/16/24 17:13
pO2 117 mmHg (83-108) H 03/16/24 17:13
HCO3 14.8 mmol/L (21-28) L* 03/16/24 17:13
Lactic Acid 1.5 mmol/L (0.7-2.0) 03/16/24 15:34
Total Bilirubin 0.4 mg/dl (0.2-1.3) 03/16/24 16:42
AST 16 U/L (17-59) L 03/16/24 16:42
ALT 11 U/L (0-50) 03/16/24 16:42
Alkaline Phosphatase 114 U/L (38-126) 03/16/24 16:42
Data Reviewed
-
Lab Data: Labs Reviewed by me
Old Records: Reviewed
Impression/Plan
-
IMPRESSION:
PLAN:
# Sepsis (hypothermia, leukocytosis, hypotension) secondary to UTI/lower extremity wounds, intra-abdominal infection/gastroenteritis versus less likely HSV encephalitis
-He was found with watery stool all over him, and when Lock catheter was placed there is solid yellow white material coming out of the catheter this is likely the primary source
-Patient mentally alert so doubt HSV encephalitis
-On Jose Alberto hugger
-COVID and flu negative
-IV fluids
-Stool studies pending
-Check blood cultures
-UA pending but appears infected
-Chest x-ray, CT abdomen pelvis pending
-CT head pending
-Vancomycin/Zosyn
-Wound care consulted
# Anion gap metabolic acidosis secondary to DKA versus sepsis
# History of type 2 diabetes
-ABG shows pH of 7.3
-Lactic of 1.5
-Peak blood sugar of 287
-Check UDS
-N.p.o.
-IV fluids with isotonic bicarb drip without potassium
-Insulin drip
-Accu-Cheks every hour
-BMP every 4 hours
# Severe CR secondary to sepsis/urinary retention
# Severe hyperkalemia
# Hyponatremia secondary to volume losses
-Creatinine of 4.9
-CT abdomen pelvis pending
-IV fluids with isotonic bicarb drip
-Insulin dextrose
History of HSV encephalitis
Hypothyroidism
BPH/urinary retention
History of positive UDS for amphetamines
Full code
DVT prophylaxis�heparin
N.p.o.
[2024-03-16 17:56] LABS: Cortisol, Random 44.7 ug/dl
[2024-03-16] MEDS: NOVOLIN R INSULIN INFUSION 100 IV (18:21)
--- NOTE | 2024-03-16 18:21 | EDRN ---
Dr. Gale said to keep pt on bare hugger until rectal temp 96.
--- NOTE | 2024-03-16 18:40 | EDRN ---
Attempted to call report to ICU at this time for not ready bed [id number].
--- NOTE | 2024-03-16 18:55 | EDRN ---
Melissa VERMA in ICU who will care for pt when room 3368 is ready called this RN for report and received report at this time.
[2024-03-16 19:55] LABS: Amphetamines Negative (Negative); Barbiturates Negative (Negative); Benzodiazepines Negative (Negative); Buprenorphine Negative (Negative); Cocaine Negative (Negative); Marijuana Negative (Negative); Methadone Negative (Negative); Methamphetamines Negative (Negative); Opiates Negative (Negative); Phencyclidine Negative (Negative); Tricyclic Antidepressants Negative (Negative)
--- NOTE | 2024-03-16 20:00 | PTCARENOTE ---
Received pt via stretcher from the ED. Pt drowsy but arousable to voice. Pt able to answer questions appropriately, slightly forgetful to time. Pt with dried stool t/o body, caked on fingers, ect. Complete bed bath provided, scrubbed with soap and
water. HR in the 80's in NSR on the monitor. POX 985 on RA. Lungs dec/ shallow. Occasional dry cough. + bowel. Pt inc of small amount of loose brown stool. Pretty care provided. Stage 2 pressure ulcer noted on sacrum foam dressing applied. temp
sensing Lock cath in place draining thick, milky, cloudy, urine with sediment. Despite numerous b/l le abrasions, pt denies any complaints of pain. See wound care documentation. Weak pedal pulses present. Right wrist int infusing IVF as ordered.
Left AC now capped, Insulin gtt stopped, pt hypoglycemic, 1/2 amp D50 given per protocol. Plan of care discussed with Barbara HERNADEZ. Pt positioned per comfort. Will continue to monitor.
[2024-03-16 20:14] LABS: Fentanyl, Urine Negative (Negative)
[2024-03-16 20:23] LABS: Glucose - Point of Care 68 mg/dl (70-99)
[2024-03-16] MEDS: DEXTROSE 50% SYRINGE 12.5 GRAMS IV (20:47)
[2024-03-16 20:59] LABS: INR 1.72; PT 20.6 Sec (11.4-14.6)
[2024-03-16 21:00] LABS: APTT 48.1 Sec (23.4-35.0)
[2024-03-16 21:09] LABS: Calcium 7.5 mg/dl (8.4-10.2); Carbon Dioxide 13 mmol/L (22-30); Chloride 101 mmol/L (98-107); Glucose 41 mg/dl (70-99); Phosphorus 6.1 mg/dl (2.5-4.5); Sodium 129 mmol/L (135-145)
[2024-03-16 21:14] LABS: Glucose - Point of Care 113 mg/dl (70-99)
[2024-03-16] MEDS: SODIUM BICARBONATE 1150 MEQ IV (21:14)
[2024-03-16] MEDS: HEPARIN 5000 UNITS SC (21:16)
[2024-03-16 21:18] LABS: Blood Urea Nitrogen 141 mg/dl (9-20); Estimated Creatinine Clearance 15 ml/min; eGFR 17.58
--- NOTE | 2024-03-16 21:51 | PHA.VAN.IN ---
Assessment
- Assessment
Renal Function: Appears elevated from baseline (06/15/23 BASELINE SCR: 1.1)
Concomitant Antimicrobials: ZOSYN
- Previous Dosing Experience
Previous Regimen: 1GM IV Q12H
Date of Regimen: 06/10/23
Provided Trough of: UNKNOWN
Provided AUC of: UNKNOWN
Patient's SCR is: Elevated compared to previous dosing experience (06/10/23 SCR = 1.0)
Patient's weight is: Decreased compared to previous dosing experience (06/10/23 WT = 70.3 KG)
Plan
- Plan
Initial / Loading Dose: 1500MG
Maintenance Regimen: DOSING BY RANDOM LEVEL
Monitoring: RANDOM VANCOMYCIN LEVEL 03/17/24
Pharmacokinetics Vancomycin I
- -
Patient Age: 58
Patient Sex: Male
Vancomycin Day #: 1
Indication: Bacteremia
Requesting Provider: JEFF
Height / Weight:
Height 5 ft 11 in
Actual Weight 51.1 kg
Pertinent Past Medical History: DM
- Vital Signs / Lab Results
Temp Pulse Resp BP Pulse Ox
96.9 F L 88 20 94/68 98
03/16/24 20:50 03/16/24 20:45 03/16/24 20:45 03/16/24 20:45 03/16/24 20:45
Lab Results - Hematology
03/16/24
15:34
WBC 17.3 H
Band Neutrophils 0
Lab Results - Chemistry
03/16/24 03/16/24 03/16/24
15:34 16:42 20:41
BUN 171 H* 160 H* 141 H*
Creatinine 4.9 H* 4.7 H* 3.8 H
Estimated Creat Clear 02 25 15
Albumin Cancelled 3.0 L
03/16/24
15:34
Lactic Acid 1.5
Lab Results - Urine
03/16/24 03/16/24
15:38 16:45
Urine Nitrite (Reflex) Cancelled Negative
Leukocyte Esterase Rfl Cancelled 2+ A
Urine WBC (Reflex) >100 A
Ur Squamous Epith Cells None seen
Urine Bacteria (Reflex) Few A
Microbiology Results
03/16/24 16:45 C. difficile GDH Antigen & Toxins - Final
Feces/Stool Negative for toxigenic C.difficile
03/16/24 15:45 Influenza Types A & B (FREDY) - Final
Nasal Swab Negative for Influenza A & B, NAAT
Negative results must be combined with clinical observations
and patient history.
Nucleic Acid Amplification test (NAAT)performed on the
[employer] platform.
--- NOTE | 2024-03-16 21:56 | W.PN.SEPSIS ---
Sepsis
Vital Signs
Temp Pulse Resp BP Pulse Ox
96.9 F L 88 20 94/68 98
03/16/24 20:50 03/16/24 20:45 03/16/24 20:45 03/16/24 20:45 03/16/24 20:45
Physical Exam
Physical Exam:
A focused exam was performed after fluid resuscitation.
Capillary Refill
Bilateral Upper Extremity:
Ana Time: Less than 3 sec
Bilateral Lower Extremity:
Ana Time: Less than 3 sec
Pulse Evaluation
Bilateral Radial:
Pulse Evaluation: Present
Bilateral Dorsalis Pedis:
Pulse Evaluation: Present
[2024-03-16 22:16] LABS: Glucose - Point of Care 108 mg/dl (70-99)
[2024-03-16] MEDS: ASPIRIN 325 MG PO (23:36)
[2024-03-16] MEDS: ZOSYN 50 IV (23:36)
[2024-03-16] MEDS: PLAVIX 300 MG PO (23:36)
[2024-03-17] VITALS (18 sets, daily range): BP systolic 82–111; BP diastolic 56–77; BMI 15.6
--- NOTE | 2024-03-17 | PTCARENOTE ---
Plan of care discussed with Barbara HERNADEZ regarding CT report. Q4 neuro checks, neuro consulted. NIH performed at bedside per protocol. No neurological deficits noted at this time. Serial lab work continued. IVF infusing as ordered. No other changes
in assessment noted at this time. Will continue to monitor.
[2024-03-17 00:30] LABS: Glucose - Point of Care 214 mg/dl (70-99)
[2024-03-17 01:02] LABS: Blood Urea Nitrogen 140 mg/dl (9-20); Calcium 7.5 mg/dl (8.4-10.2); Carbon Dioxide 14 mmol/L (22-30); Chloride 99 mmol/L (98-107); Estimated Creatinine Clearance 16 ml/min; Glucose 177 mg/dl (70-99); Sodium 128 mmol/L (135-145); eGFR 18.15
[2024-03-17 02:21] LABS: Glucose - Point of Care 210 mg/dl (70-99)
[2024-03-17] MEDS: SODIUM BICARBONATE 1150 MEQ IV ×2 (02:50→10:27)
--- NOTE | 2024-03-17 04:00 | PTCARENOTE ---
Pt resting comfortably. NO issues to report at this time. Vital signs stable. Will continue to monitor.
[2024-03-17 04:41] LABS: Venous Blood Gas B.E. -6.4 mmol/L (-4 to +4); Venous Blood Gas HCO3 19.1 mmol/L (22-27); Venous Blood Gas O2 Sat % 98.1 %; Venous Blood Gas pCO2 37 mmHg (35-48); Venous Blood Gas pH 7.32 (7.32-7.43); Venous Blood Gas pO2 76 mmHg (30-50)
[2024-03-17 04:43] LABS: Venous Blood Gas O2 Therapy NC
[2024-03-17 04:43] LABS: Glucose - Point of Care 211 mg/dl (70-99)
[2024-03-17 04:51] LABS: % Basophils 0.2 % (0-2); % Eosinophils 0.7 % (0-6); % Immature Granulocytes 0.5 % (0-0.5); % Lymphocytes 8.8 % (20.5-51.1); % Monocytes 5.5 % (1.7-9.3); % Neutrophils 84.3 % (42.2-75.2); Absolute Eosinophils 0.1 10^3/uL (0-0.7); Absolute Immature Granulocytes 0.1 10^3/uL (0-0.05); Absolute Monocytes 0.6 10^3/uL (0.1-0.6); Absolute Neutrophils 9.7 10^3/uL (1.4-6.5); Hematocrit 18.1 % (39.0-52.0); Hemoglobin 6.1 g/dL (13.0-18.0); Mean Corp Hgb Conc. 33.7 g/dL (33.0-37.0); Mean Corpuscular Hgb 27.5 pg (27.0-31.0); Mean Corpuscular Volume 81.5 fL (80.0-94.0); Mean Platelet Volume 10.4 fL (7.4-10.4); Nucleated Red Blood Cells % 0 % (-); Platelet Count 284 10^3/uL (130-400); Red Blood Cell Count 2.22 10^6/uL (4.70-6.10); Red Cell Dist. Width 18.6 % (11.5-14.5); White Blood Cell Count 11.5 10^3/uL (4.8-10.8)
[2024-03-17 05:04] LABS: Magnesium 1.9 mg/dl (1.6-2.3); Phosphorus 5.2 mg/dl (2.5-4.5)
[2024-03-17 05:14] LABS: Calcium 7.3 mg/dl (8.4-10.2); Carbon Dioxide 18 mmol/L (22-30); Chloride 98 mmol/L (98-107); Glucose 182 mg/dl (70-99); Potassium 4.6 mmol/L (3.5-5.1); Sodium 129 mmol/L (135-145)
[2024-03-17 05:27] LABS: Blood Urea Nitrogen 128 mg/dl (9-20); Estimated Creatinine Clearance 17 ml/min
[2024-03-17 05:51] LABS: Hematocrit 25.6 % (39.0-52.0); Hemoglobin 8.6 g/dL (13.0-18.0); Mean Corp Hgb Conc. 33.6 g/dL (33.0-37.0); Mean Corpuscular Hgb 27.2 pg (27.0-31.0); Mean Platelet Volume 10.7 fL (7.4-10.4); Platelet Count 280 10^3/uL (130-400); Red Blood Cell Count 3.16 10^6/uL (4.70-6.10); Red Cell Dist. Width 18.6 % (11.5-14.5); White Blood Cell Count 11.9 10^3/uL (4.8-10.8)
[2024-03-17 06:02] LABS: Calcium 7.7 mg/dl (8.4-10.2); Carbon Dioxide 19 mmol/L (22-30); Chloride 95 mmol/L (98-107); Glucose 167 mg/dl (70-99); Potassium 4.6 mmol/L (3.5-5.1); Sodium 129 mmol/L (135-145)
[2024-03-17 06:07] LABS: Blood Urea Nitrogen 128 mg/dl (9-20); Estimated Creatinine Clearance 15 ml/min; eGFR 17.58
[2024-03-17 06:13] LABS: Glucose - Point of Care 163 mg/dl (70-99)
--- NOTE | 2024-03-17 07:25 | W.PN.HOSP.TC ---
Today's Communication/Plan
-
Please see below
Assessment / Plan
Assessment / Plan
Physical Exam
General: Not in acute distress
HEENT: Normocephalic, Moist mucous membranes
Respiratory: Clear to Auscultation Bilaterally
Cardiac: S1/S2 and Regular Rhythm
GI: Soft, Non Tender, Non Distended and Normal Bowel Sounds
Musculoskeletal: No Cyanosis and No Edema
Skin: Other (lower extremity excoriations )
Neuro: Nonfocal/grossly intact
Assessment/Plan
#Concern for Severe Sepsis (hypothermia, leukocytosis, hypotension) secondary to UTI/obstructive uropathy/aspiration pneumonia, intra-abdominal infection/gastroenteritis
#Presented after being found home covered in feces, change in mental status, apparently not taking his medications.
#Pneumonia in Lingula and Left Lower Lobe
#Diarrhea
-He was found with watery stool all over him, and when Lock catheter was placed there is solid yellow white material coming out of the catheter this is likely the primary source
-Stool studies pending
-Blood cultures with no growth to date
-Urine culture with no growth
-Vancomycin/Zosyn
-Wound care consulted
# Anion gap metabolic acidosis - IMPROVING - secondary to DKA vs. acute kidney injury vs. sepsis
# History of type 2 diabetes
-ABG shows pH of 7.3
-Lactic of 1.5
-Peak blood sugar of 287
-UDS positive for Oxycodone
-IV fluids with isotonic bicarb drip without potassium followed by now normal saline
# Severe CR - IMPROVING - secondary to sepsis/urinary retention
# Moderate Bilateral Hydroureteronephrosis and Severe Diffuse Urinary Bladder Wall Thickening
# Severe hyperkalemia
# Hyponatremia secondary to volume losses
-Maintain Lock Catheter
-Creatinine of 4.9, improving
-CT abdomen pelvis noted
-IV fluids with isotonic bicarb drip
-Insulin dextrose
#Toxic metabolic encephalopathy and acute CVA
-Continue DAPT and Lipitor
-CT Head with hypointensity L insular cortex, L external capsule, per report most likely stroke with cytotoxic edema --> but no neuro deficits on exam
-MRI Brain, Head and Neck
#History of HSV encephalitis
#Hypothyroidism
#BPH/urinary retention
#History of positive UDS for amphetamines
#Cachectic and Malnourished
Full code
DVT prophylaxis�heparin
N.p.o
Patient is underinsured, unable to afford medications or food. Given cachexia, poor social situation, affordability issues, lack of medical insurance and multiple comorbidities his prognosis is very poor at this point.
Anticipated Discharge: > 48 hours
Subjective/Interval History
-
Date of Service: March 17, 2024
Patient was seen and examined. He denied any symptoms or complaints.
Objective Data
-
Labs:
Laboratory Results
03/16/24 03/17/24 03/17/24
20:41 00:19 04:22
WBC 11.5 H
Hgb 6.1 L* D
Hct 18.1 L*
Plt Count 284 D
PT 20.6 H
INR 1.72
APTT 48.1 H
Sodium 129 L 128 L 129 L
Potassium 5.0 5.0 4.6
Chloride 101 99 98
Carbon Dioxide 13 L* 14 L* 18 L
BUN 141 H* 140 H* 128 H*
Creatinine 3.8 H 3.7 H 3.5 H
Glucose 41 L* 177 H 182 H
Calcium 7.5 L 7.5 L 7.3 L
03/17/24 03/17/24 03/17/24
05:16 08:00 12:00
WBC 11.9 H
Hgb 8.6 L D
Hct 25.6 L
Plt Count 280
PT
INR
APTT
Sodium 129 L Pending Pending
Potassium 4.6 Pending Pending
Chloride 95 L Pending Pending
Carbon Dioxide 19 L Pending Pending
BUN 128 H* Pending Pending
Creatinine 3.8 H Pending Pending
Glucose 167 H Pending Pending
Calcium 7.7 L Pending Pending
03/17/24 03/17/24
16:00 20:00
WBC
Hgb
Hct
Plt Count
PT
INR
APTT
Sodium Pending Pending
Potassium Pending Pending
Chloride Pending Pending
Carbon Dioxide Pending Pending
BUN Pending Pending
Creatinine Pending Pending
Glucose Pending Pending
Calcium Pending Pending
Vital Signs:
Vital Signs
Temp Pulse Resp BP Pulse Ox
97.7 F 77 18 94/63 97
03/17/24 03:00 03/17/24 07:00 03/17/24 07:00 03/17/24 07:00 03/17/24 07:00
I&O
03/16/24 03/17/24 03/18/24
06:59 06:59 06:59
Intake Total 1250 / 1250
Output Total 1045 / 1045
Balance 205 / 205
[2024-03-17] MEDS: HEPARIN 5000 UNITS SC ×2 (07:57→19:39)
[2024-03-17] MEDS: NOVOLOG FLEXPEN-MODERATE RESISTANCE SC ×2 (07:57→11:50)
[2024-03-17] MEDS: LOW STRENGTH ASPIRIN 81 MG PO (07:58)
[2024-03-17] MEDS: PLAVIX 75 MG PO (07:58)
[2024-03-17] MEDS: ZOSYN 50 IV ×3 (07:58→23:41)
[2024-03-17 08:02] LABS: Glucose - Point of Care 143 mg/dl (70-99)
--- NOTE | 2024-03-17 08:18 | PHA.VAN.FU ---
Vancomycin Assessment / Plan
- Assessment
Renal Function: SCR Increasing (3.7->3.5->3.8)
In the past 24 hrs, patient has been: Hypothermic
Concomitant Antimicrobials: piperacillin/tazo
- Assessment - Therapeutic Drug Monitoring
Random Level: 19.0 approx 11 hours post 1500 mg dose
- Dosing Plan
Continue: dose by random level
Dosing by Level: Hold off on dosing today
- Monitoring Plan
Random Level: repeat random level AM 03/18
- Follow Up
Pharmacy will continue to follow.
Vancomycin Follow UP
- -
Patient Age: 58
Patient Sex: Male
Vancomycin Day #: 2
Indication: Bacteremia
Requesting Provider: JEFF
Height / Weight:
Height 5 ft 11 in
Actual Weight 50.8 kg
Pertinent Past Medical History: DM; hx HSV encephalitis
- Vital Signs / Lab Results
Temp Pulse Resp BP Pulse Ox
97.0 F 77 18 94/63 97
03/17/24 07:00 03/17/24 07:00 03/17/24 07:00 03/17/24 07:00 03/17/24 07:00
Lab Results - Hematology
03/16/24 03/17/24 03/17/24
15:34 04:22 05:16
WBC 17.3 H 11.5 H 11.9 H
Band Neutrophils 0
Lab Results - Chemistry
03/16/24 03/16/24 03/16/24
15:34 16:42 20:41
BUN 171 H* 160 H* 141 H*
Creatinine 4.9 H* 4.7 H* 3.8 H
Estimated Creat Clear 12 02 28
Albumin Cancelled 3.0 L
03/17/24 03/17/24 03/17/24
00:19 04:22 05:16
BUN 140 H* 128 H* 128 H*
Creatinine 3.7 H 3.5 H 3.8 H
Estimated Creat Clear 16 17 15
Albumin
03/16/24
15:34
Lactic Acid 1.5
Lab Results - Urine
03/16/24 03/16/24
15:38 16:45
Urine Nitrite (Reflex) Cancelled Negative
Leukocyte Esterase Rfl Cancelled 2+ A
Ur Squamous Epith Cells None seen
Microbiology Results
03/16/24 16:45 C. difficile GDH Antigen & Toxins - Final
Feces/Stool Negative for toxigenic C.difficile
03/16/24 15:45 Influenza Types A & B (FREDY) - Final
Nasal Swab Negative for Influenza A & B, NAAT
Negative results must be combined with clinical observations
and patient history.
Nucleic Acid Amplification test (NAAT)performed on the
[employer] platform.
Therapeutic Drug Monitoring
Random Vancomycin 19.0 ug/ml 03/17/24 04:22
[2024-03-17 08:27] LABS: Calcium 7.4 mg/dl (8.4-10.2); Carbon Dioxide 21 mmol/L (22-30); Chloride 95 mmol/L (98-107); Glucose 132 mg/dl (70-99); Potassium 4.1 mmol/L (3.5-5.1); Sodium 129 mmol/L (135-145)
[2024-03-17 08:41] LABS: Blood Urea Nitrogen 127 mg/dl (9-20); Estimated Creatinine Clearance 18 ml/min; eGFR 20.82
[2024-03-17 08:54] LABS: Glycohemoglobin (HgbA1c) 8.6 % (4.0-5.6)
--- NOTE | 2024-03-17 11:45 | PTOTSP ---
Speech Language Pathology
Pt seen for cognitive-linguistic evaluation. Pt with mild-mod cognitive deficits. Pt believes he is at baseline. Flat affect noted, but pt was cooperative.
Pt also seen for clinical bedside swallow evaluation. P.O. trials of puree, regular solids, and thin liquids provided. Adequate mastication, bolus formation, and A-P transit noted with no oral residue. No overt signs of aspiration.
Recommend:
(1) Regular solids/thin liquids
(2) General aspiration precautions
(3) Meds as tolerated
(4) Further dysphagia services not indicated. Will follow for cognitive-linguistic tx if infarct confirmed
[2024-03-17 12:00] LABS: Glucose - Point of Care 128 mg/dl (70-99)
--- NOTE | 2024-03-17 12:02 | PTCARENOTE ---
speech therapy in with pt
--- NOTE | 2024-03-17 12:43 | CON.INTV ---
Consultation
Consultation Request
Date/Time Consultation Requested: 03/17/2024
Date/Time Consultation Performed: 03/17/2024
Requesting Provider: Dr. Reyes
Performing Provider: Dr. Dylan Hamilton
Reason for Consultation: Diabetes ketoacidosis/change in mental status
Medical History
-
History of Present Illness:
58-year-old man with past medical history significant for type 2 diabetes, hypothyroidism, BPH, urinary retention, prior HSV encephalitis who presented with generalized weakness, inability to walk for more than a day, not able to eat. Unable to
provide history. Only able to answer yes and no questions.
Reportedly his friend found him covered with stools and urine. Patient is not taking care of himself, not taking medications.
Patient in the emergency room found to be hypothermic, with leukocytosis and suspicion for sepsis. Sosa catheter with thick yellow material suggestive of infection. Reportedly there was some diarrhea as well.
Patient found to have anion gap metabolic acidosis with suspicious for DKA. Severe acute kidney injury with BUN greater than 100.
CT of the head from the emergency room with acute CVA.
Past Medical History
Past Medical History: Other (See assessment and plan)
Social History
Tobacco: Non-smoker
Family History
Family History: Unable to Obtain
Allergies / Home Medications
Allergies
Allergy/AdvReac Type Severity Reaction Status Date / Time
No Known Allergies Allergy Verified 06/07/23 23:51
Home Medications
�Medication �Instructions �Recorded �Confirmed �Last Taken �Type
No Meds [No Current Medications] 03/16/24 03/16/24 Unknown History
Review of Systems
-
Unable to Obtain full review of systems at this time due to: Acuity
Vitals / Labs / Diagnostic Testing
Vital Signs
Temp Pulse Resp BP Pulse Ox
96.8 F L 77 12 111/76 98
03/17/24 11:00 03/17/24 11:00 03/17/24 11:00 03/17/24 11:00 03/17/24 11:00
Lab Data
03/17/24 05:16
03/17/24 20:00
Laboratory Results
03/16/24 03/16/24
17:13 20:41
PT 20.6 H
INR 1.72
APTT 48.1 H
pH 7.30 L
pCO2 30 L
pO2 117 H
HCO3 14.8 L*
O2 Delivery Level
Microbiology
03/16/24 16:45 Feces/Stool Salmonella/Shigella Culture - Preliminary
Culture in Progress
03/16/24 16:45 Feces/Stool Campylobacter Culture - Preliminary
Culture in Progress
03/16/24 16:45 Urine Urine Culture - Final
NO GROWTH
03/16/24 16:45 Feces/Stool C. difficile GDH Antigen & Toxins - Final
Negative for toxigenic C.difficile
03/16/24 15:45 Nasal Swab Influenza Types A & B (FREDY) - Final
Negative for Influenza A & B, NAAT
Negative results must be combined with clinical observations
and patient history.
Nucleic Acid Amplification test (NAAT)performed on the
[employer] ID NOW platform.
Diagnostic Testing:
Physical Exam
-
HEENT: Normocephalic and Other (Dry mucous membranes)
Cardiovascular: S1/S2
Respiratory: Non-Labored Respirations
GI: Soft and Non Distended
Neurology: Awake and Alert
Skin: Warm
General: Other (Cachectic)
Assessment
-
58-year-old man with multiple comorbidities. Found home covered in feces, change in mental status, apparently not taking his medications. Upon arrival to the emergency room patient is cachectic, in profound metabolic acidosis, acute kidney injury,
found to have abnormal UA with hydronephrosis, acute CVA. Transferred to the critical care unit for insulin drip.
Severe sepsis
UTI/obstructive uropathy/aspiration pneumonia
Possible gastroenteritis-benign abdominal exam
Metabolic acidosis either from DKA versus sepsis as well as acute kidney injury.
Severe acute kidney injury-possibly volume depletion
Toxic metabolic encephalopathy and acute CVA
Conditions present previous admission:
History of HSV encephalitis
Hypothyroidism
BPH with history of urinary retention
History of positive UDS with amphetamines
Assessment and plan:
Critically ill, with change in mental status, profound metabolic acidosis, acute kidney injury, possible DKA.
Patient not taking his medications. Found covered in feces by friend.
-
Hyperglycemic crisis: Anion gap possible metabolic acidosis from multiple factors including DKA
Insulin drip has been discontinued due to hypoglycemia.
Insulin sliding scale
Unclear what medications this patient is taking
Will need to obtain records
Patient is underinsured, unable to afford medications or food.
-
Metabolic acidosis improving after IV fluid resuscitation
Lactic acid has cleared
Creatinine improving
Continue IV fluid resuscitation for now-currently on bicarbonate drip
Repeat BMP later, will adjust IV fluids to normal saline if metabolic acidosis continues to improve
Monitor electrolytes
-
Suspect acute kidney injury from volume depletion-hydronephrosis NOTED ON CAT SCAN.
SOSA IN PLACE-Sosa urinary output and creatinine.
Continue to monitor closely
No clear indication for dialysis at this point
Hyperkalemia resolved.
Currently on bicarbonate drip, last BMP at 8 AM carbon dioxide was 21.
Repeat BMP now, if acidosis improved then we will adjust IV fluids
-
Possible UTI: Agree with antibiotic-vancomycin/Zosyn adjusted for renal function.
Follow cultures
-
? Diarrhea-cannot rule out gastroenteritis. Benign abdominal
Follow-up bowel movements
-
Chest x-ray: No acute infiltrates
CT abdomen pelvis: Shows severe diffuse urinary bladder wall thickness possible cystitis, chronic urinary bladder outlet obstruction. Moderate bilateral hydroureteronephrosis, moderate gallbladder distention. Moderate abdominal distention.
Mild infiltrate in the lingula and left lower lobe possibly aspiration.
Antibiotics as above
Currently not on oxygen
Lung exam relatively clear
-
Change in mental status: Toxic metabolic encephalopathy-acute/subacute CVA. Currently improved, following commands-no significant motor deficit.
Significantly cachectic
CT head 03/16/2024: Large acute/subacute transcortical ischemic infarct on the left insular cortex and left external capsule containing cytotoxic edema. Mild diffuse cerebellar and cerebral volume loss.
Neurology will be consulted-MRI has been ordered.
obtain echocardiogram
Further evaluation will be deferred to neurology.
Unclear if this patient will be candidate for any other interventions given his critical illness, unknown time of change in mental status and multiple other confounding factors
-
Speech evaluated patient: Cleared for diet.
Will advance
Will need nutritional support as the patient is cachectic and malnourished
Physical therapy/Occupational Therapy
Antiplatelets
-
Heparin subcu DVT prophylaxis
-
Given cachexia, poor social situation, affordability issues, lack of medical insurance and multiple comorbidities his prognosis is very poor at this point. drywall worker has been consulted
-
Critical care statement: A total of 55 minutes of critical care time was provided for this patient today. This includes management of unstable vital signs, evaluation of the patient at bedside, reviewing the patient's pertinent medical records
including ventilator settings, arterial blood gases, radiographs, microbiology, laboratory evaluations and discussion with primary team, critical care nursing, and respiratory therapy.
-
If BMP improved and patient remains hemodynamically stable will transfer to telemetry. If transferred to telemetry critical care team will sign off. Please call pulmonary if any respiratory issues arise.
--- NOTE | 2024-03-17 13:10 | PTCARENOTE ---
pt only c/o being cold. systems otherwise unchanged. extremely weak but able to turn in bed/lift limbs to assist with wound change.
[2024-03-17 14:03] LABS: Blood Urea Nitrogen 114 mg/dl (9-20); Calcium 7.4 mg/dl (8.4-10.2); Carbon Dioxide 25 mmol/L (22-30); Chloride 91 mmol/L (98-107); Glucose 125 mg/dl (70-99); Magnesium 1.8 mg/dl (1.6-2.3); Phosphorus 4.2 mg/dl (2.5-4.5); Potassium 3.4 mmol/L (3.5-5.1); Sodium 128 mmol/L (135-145)
[2024-03-17 14:08] LABS: Estimated Creatinine Clearance 20 ml/min; eGFR 24.31
--- NOTE | 2024-03-17 15:33 | CON.NEURO ---
Neuro Assessment/Plan
Assessment
Brain MRI 05/2023 images reviewed, Left temporal lobe decreased FLAIR/ADC signal consistent with sequela of prior HSV encephalitis
Head CT: hypointensity L insular cortex, L external capsule, per report most likely stroke with cytotoxic edema
Patient admitted with sepsis, numerous metabolic derangements.
Neuro exam without focal deficits
If this were acute stroke on head CT, with this size and location I would expect to see some deficits. therefore, I would obtain brain mri and MRA head/neck to further evaluate.
Continue ASA 81 Plavix 75 for now
start Lipitor 40
Plan
MRI brain, MRA Head/neck
Consultation
Order
Date of Consultation: 03/17/24
Requesting Provider: Amy VALDEZ,Fabiolaaysonia
Reason for Consult: Stroke
Subjective/Objective
Subjective Data
Date of Service: March 17, 2024
58-year-old male past medical history of type 2 diabetes, hypothyroidism, BPH, urinary retention, HSV encephalitis presenting with generalized weakness and inability to walk for day and no food for a day. Patient too tired and not answering any
questions at this time but he is alert and can answer yes or no questions.
Reportedly he lives with a friend and was found covered in his stool with stool in his hands. He has not been taking care of himself. He states he is supposed to take medications but has not been taking anything.
He was admitted for sepsis, UTI, lower ext wounds, severe CR
Head CT showing stroke left insular cortex, external capsule
patient denies history of stroke
Objective Data
Vital Signs
Temp Pulse Resp BP Pulse Ox
36.0 C L 85 13 82/58 97
03/17/24 11:00 03/17/24 14:00 03/17/24 14:00 03/17/24 14:00 03/17/24 12:00
Lab Results
03/17/24 05:16
03/17/24 20:00
PT 20.6 Sec (11.4-14.6) H 03/16/24 20:41
INR 1.72 03/16/24 20:41
APTT 48.1 Sec (23.4-35.0) H 03/16/24 20:41
Sodium Cancelled 03/17/24 20:00
Potassium Cancelled 03/17/24 20:00
BUN Cancelled 03/17/24 20:00
Glucose Cancelled 03/17/24 20:00
Calcium Cancelled 03/17/24 20:00
Phosphorus 4.2 mg/dl (2.5-4.5) 03/17/24 13:26
Ur Buprenorphine Negative (Negative) 03/16/24 19:26
Patient Allergies
No Known Allergies Allergy (Verified 06/07/23 23:51)
Physical Exam
-
AAO x date, place but not age, speech clear, language intact
VFF, EOMI, face symmetric, facial sensation intact
full strength b/l UE/LE,
sensation intact touch/pin
DTR normal
Medications
-
Active Medications
Generic Name Dose Route Start Last Admin
Trade Name Freq PRN Reason Stop Dose Admin
Aspirin 81 mg 03/17/24 08:00 03/17/24 07:58
Aspirin 81 Mg Chewable Tablet PO 04/14/24 07:59 81 mg
DAILY NGOZI Administration
Clopidogrel Bisulfate 75 mg 03/17/24 08:00 03/17/24 07:58
Clopidogrel 75 Mg Tablet PO 04/14/24 07:59 75 mg
DAILY NGOZI Administration
Dextrose 12.5 grams 03/16/24 20:28 03/16/24 20:47
Dextrose 50% (0.5 Grams/Ml) 50 Ml Syringe IV 04/13/24 20:27 12.5 grams
[id number] PRN Administration
hypoglycemia
Protocol
Glucagon 1 mg 03/16/24 20:28
Glucagon 1 Mg Vial IM 04/13/24 20:27
PRN PRN
hypoglycemia
Protocol
Heparin Sodium 5,000 units 03/16/24 20:24 03/17/24 07:57
Heparin 5,000 Units/Ml 1 Ml Vial SC 04/13/24 20:23 5,000 units
Q12 NGOZI Administration
Norepinephrine Bitartrate 4 mg in 250 mls @ 0 mls/hr 03/16/24 21:00
Levophed IV
PER PROTOCOL NGOZI
Protocol
Per Protocol
Piperacillin Sod/Tazobactam Sod 2.25 grams in 50 mls @ 100 mls/hr 03/17/24 00:00 03/17/24 07:58
Zosyn IV 50 mls
Q8H NGOZI Administration
Vancomycin HCl 1 each/ Device 0 mls @ 0 mls/hr 03/16/24 22:00
IV
PER PROTOCOL NGOZI
Protocol
As Directed
Sodium Bicarbonate 150 meq/ 1,150 mls @ 150 mls/hr 03/17/24 02:15 03/17/24 10:27
Sterile Water IV 03/18/24 02:14 1,150 mls
.[id number] NGOZI Administration
Insulin Aspart 0 units 03/17/24 07:00 03/17/24 11:50
Insulin Aspart Moderate Resistance 300 Units/3 Ml Pen.Injctr SC 04/14/24 06:59 Not Given
Q6H NGOZI
Protocol
Sodium Chloride 0 flush 03/16/24 21:00
Sodium Chloride 0.9% (Flush) Syringe IV 04/13/24 20:59
PER PROTOCOL NGOZI
Home Medications
�Medication �Instructions �Recorded
No Meds [No Current Medications] 03/16/24
--- NOTE | 2024-03-17 15:50 | W.PN.UPDATE ---
Update Note
Progress Note Update
Advance diet
Laboratories show potassium 3.4, acidosis improved
Discontinue bicarbonate drip
Start normal saline 100 cc an hour.
From my perspective okay to transfer to telemetry.
Patient on room air
Critical care team will sign off.
Call pulmonary if any respiratory issues arise.
[2024-03-17] MEDS: NSS 1000 IV ×2 (16:21→23:40)
[2024-03-17 17:34] LABS: Glucose - Point of Care 226 mg/dl (70-99)
[2024-03-17] MEDS: LIPITOR 40 MG PO (17:43)
[2024-03-17] MEDS: NOVOLOG FLEXPEN-MODERATE RESISTANCE 3 UNITS SC (17:43)
--- NOTE | 2024-03-17 21:32 | PTCARENOTE ---
Report received from prior shift RN [id number]. Pt in bed, sleeping when undisturbed, wakens easily to verbal stimuli. Pt is AAO3, flat affect/withdrawn, slow speech and generalized weakness noted. NIH performed, NIHSS 0. Pt denies pain. Denies SOB, oc
dry nonproductive cough noted, lung sounds clear and decreased in b/l base, pox 98% on room air. Telemetry rhythm reveals SR, HR 80-90's, no edema, palpable peripheral pulses present. +BS, abdomen nontender, pt denies nausea/abdominal pain, reports
poor appetite No bm. Thermistor Lock catheter in place draining cloudy yellow urine. Skin as documented, all dressings intact. L AC int flushed and patent, capped. R FA int with IVF per order. Call marrero within reach, safe environment maintained. Pt
with telemetry transfer orders, to be transferred to room [facility] shortly. Will monitor closely.
[2024-03-17 21:38] LABS: Glucose - Point of Care > 600 mg/dl (70-99)
--- NOTE | 2024-03-17 21:48 | PTCARENOTE ---
HS accucheck performed by PCT. RRHI result. This RN requested PCT perform repeat test and result 204.
Report called to Kandy, receiving unit RN. Pt aware of pending transfer. All belongings and chart to be sent w pt to rm 332.
[2024-03-18] VITALS (8 sets, daily range): BP systolic 71–141; BP diastolic 43–75; PULSE 83; O2SAT 99; BMI 16.8
--- NOTE | 2024-03-18 03:12 | PTCARENOTE ---
Pt admitted to 3W from ICU. Pt aaox3. Denied pain. Lock catheter in place, IVF restarted. Pt continues on atc zosyn. Call marrero within reach and be alarm in place.
[2024-03-18 07:43] LABS: % Basophils 0.3 % (0-2); % Eosinophils 1.4 % (0-6); % Immature Granulocytes 0.8 % (0-0.5); % Lymphocytes 9.5 % (20.5-51.1); % Monocytes 8.1 % (1.7-9.3); % Neutrophils 79.9 % (42.2-75.2); Absolute Eosinophils 0.1 10^3/uL (0-0.7); Absolute Immature Granulocytes 0.1 10^3/uL (0-0.05); Absolute Lymphocytes 0.6 10^3/uL (1.2-3.4); Absolute Monocytes 0.5 10^3/uL (0.1-0.6); Absolute Neutrophils 5.2 10^3/uL (1.4-6.5); Hematocrit 24.2 % (39.0-52.0); Mean Corp Hgb Conc. 33.1 g/dL (33.0-37.0); Mean Corpuscular Hgb 26.8 pg (27.0-31.0); Mean Corpuscular Volume 80.9 fL (80.0-94.0); Mean Platelet Volume 11.2 fL (7.4-10.4); Nucleated Red Blood Cells % 0 % (-); Platelet Count 235 10^3/uL (130-400); Red Blood Cell Count 2.99 10^6/uL (4.70-6.10); Red Cell Dist. Width 18.6 % (11.5-14.5); White Blood Cell Count 6.4 10^3/uL (4.8-10.8)
[2024-03-18 07:46] LABS: Vancomycin Random 14.7 ug/ml
[2024-03-18 07:59] LABS: Blood Urea Nitrogen 81 mg/dl (9-20); Calcium 7.3 mg/dl (8.4-10.2); Carbon Dioxide 29 mmol/L (22-30); Chloride 94 mmol/L (98-107); Estimated Creatinine Clearance 28 ml/min; Glucose 131 mg/dl (70-99); Magnesium 1.7 mg/dl (1.6-2.3); Phosphorus 3.9 mg/dl (2.5-4.5); Potassium 3.1 mmol/L (3.5-5.1); Sodium 130 mmol/L (135-145); eGFR 33.87
[2024-03-18] MEDS: PLAVIX 75 MG PO (08:16)
[2024-03-18] MEDS: ZOSYN 50 IV ×3 (08:16→18:25)
[2024-03-18] MEDS: HEPARIN 5000 UNITS SC ×2 (08:16→20:15)
[2024-03-18] MEDS: LOW STRENGTH ASPIRIN 81 MG PO (08:16)
[2024-03-18 08:24] LABS: Glucose - Point of Care 204 mg/dl (70-99)
--- NOTE | 2024-03-18 09:02 | PHA.VAN.FU ---
Vancomycin Assessment / Plan
- Assessment
Renal Function: SCR Decreasing
WBC's are: WNL
Concomitant Antimicrobials: piperacillin/tazobactam
- Assessment - Therapeutic Drug Monitoring
Random Level: 14.7 - drawn ~26.5H after previous level of 19
Calculated ke: 0.0097
Calculated half life (H): 71.6
- Dosing Plan
Dosing by Level: Re-dose today (Vanc 500mg)
Patient may maintain level > 10 for next 24H but with improving UOP and decreasing SCR, will re-dose today with ~10mg/kg actual body weight
- Monitoring Plan
Random Level: 03/19 0600
- Follow Up
Pharmacy will continue to follow.
Vancomycin Follow UP
- -
Patient Age: 58
Patient Sex: Male
Vancomycin Day #: 3
Indication: Bacteremia
Requesting Provider: Leandra Jimenez
Pertinent Antimicrobial Allergies:
NKDA
Height / Weight:
Height 5 ft 11 in
Actual Weight 54.6 kg
IBW in k.3
Pertinent Past Medical History: BMI ~16.8, DM 2
- Vital Signs / Lab Results
Temp Pulse Resp BP Pulse Ox
98.0 F 79 17 114/58 99
03/18/24 07:10 03/18/24 07:10 03/18/24 07:10 03/18/24 07:10 03/18/24 07:10
Lab Results - Hematology
03/16/24 03/17/24 03/17/24
15:34 04:22 05:16
WBC 17.3 H 11.5 H 11.9 H
Band Neutrophils 0
03/18/24
06:52
WBC 6.4
Band Neutrophils
Lab Results - Chemistry
03/16/24 03/16/24 03/16/24
15:34 16:42 20:41
BUN 171 H* 160 H* 141 H*
Creatinine 4.9 H* 4.7 H* 3.8 H
Estimated Creat Clear 12 12 15
Albumin Cancelled 3.0 L
03/17/24 03/17/24 03/17/24
00:19 04:22 05:16
BUN 140 H* 128 H* 128 H*
Creatinine 3.7 H 3.5 H 3.8 H
Estimated Creat Clear 16 17 15
Albumin
03/17/24 03/17/24 03/17/24
07:53 12:00 13:26
BUN 127 H* Cancelled 114 H*
Creatinine 3.3 H Cancelled 2.9 H
Estimated Creat Clear 18 Cancelled 20
Albumin
03/17/24 03/17/24 03/18/24
16:00 20:00 06:52
BUN Cancelled Cancelled 81 H
Creatinine Cancelled Cancelled 2.2 H
Estimated Creat Clear Cancelled Cancelled 28
Albumin
03/16/24
15:34
Lactic Acid 1.5
Microbiology Results
03/16/24 22:55 MRSA Screen - Preliminary
Nose
03/16/24 15:45 Blood Culture - Preliminary
Blood/Venous No Growth in 24 hours- Final report to follow
03/16/24 15:35 Blood Culture - Preliminary
Blood/Venous No Growth in 24 hours- Final report to follow
03/16/24 16:45 Salmonella/Shigella Culture - Preliminary
Feces/Stool Culture in Progress
Campylobacter Culture - Preliminary
Culture in Progress
03/16/24 16:45 Urine Culture - Final
Urine NO GROWTH
03/16/24 16:45 C. difficile GDH Antigen & Toxins - Final
Feces/Stool Negative for toxigenic C.difficile
03/16/24 15:45 Influenza Types A & B (FREDY) - Final
Nasal Swab Negative for Influenza A & B, NAAT
Negative results must be combined with clinical observations
and patient history.
Nucleic Acid Amplification test (NAAT)performed on the
[employer] platform.
Therapeutic Drug Monitoring
Random Vancomycin 14.7 ug/ml 03/18/24 06:52
--- NOTE | 2024-03-18 09:10 | WOUNDNOTE ---
KAVITHA (L LATERAL; R MEDIAL)
--- NOTE | 2024-03-18 09:11 | WOUNDNOTE ---
L CALF/ANKLE (LATERAL)
--- NOTE | 2024-03-18 09:14 | WOUNDNOTE ---
WO RN note: Patient admitted with DKA, CR, poor po intake. Patient lives with a friend. Patient has no insurance and he does not currently work.
See H&P for complete history.
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
Wound Location and type/assessment: Patient admitted with: Multiple deep dermal leg abrasions, pink and scabbed. Sacral deep dermal stage 2 pressure injury vs unstageable, pink with yellow fibrin. Coccyx stage 1 pressure injury. Upper back dry skin
with pinpoint scabs. Pedal pulses heard via portable Doppler.
Appetite: poor.
Pressure redistribution devices in place: Waffle air overlay on a Centrella Pro Accumax bed.
Plan: Air chair cushion given by OT Selena. PT working with patient. LE dressings changed. PT/OT to elevate patient's heels off bed with pillow at end of their visit. Sacral shaped silicone border foam maintained.
Will confirm orders with Dr. Harris and updated RN Marguerite.
Care plan to be updated and will follow as needed.
Note to case management requested for discharge: VN if an option.
Recommend follow up [facility] or at wound care center upon discharge.
[2024-03-18] MEDS: KCL 40 MEQ PO (09:23)
[2024-03-18] MEDS: ZOFRAN 4 MG IV (09:23)
[2024-03-18 09:41] LABS: Glucose - Point of Care 134 mg/dl (70-99)
[2024-03-18] MEDS: NOVOLOG FLEXPEN-MODERATE RESISTANCE SC (09:46)
[2024-03-18 09:55] LABS: Albumin 2.5 g/dl (3.5-5.0)
--- NOTE | 2024-03-18 09:55 | PTCARENOTE ---
PT saw pt and let this RN know that when pt stood at bedside to get into chair BP dropped to 71/43 and complained of dizziness and nausea. PT returned pt to bed and BP normalized. Dose of zofran given, nausea improved and pt able to eat breakfast.
VSS.
--- NOTE | 2024-03-18 10:13 | W.PN.HOSP.TC ---
Today's Communication/Plan
-
Please see below
Assessment / Plan
Assessment / Plan
Physical Exam
General: Not in acute distress
HEENT: Normocephalic, Moist mucous membranes
Respiratory: Clear to Auscultation Bilaterally
Cardiac: S1/S2 and Regular Rhythm
GI: Soft, Non Tender, Non Distended and Normal Bowel Sounds
Musculoskeletal: No Cyanosis and No Edema
Skin: Other (lower extremity excoriations)
Neuro: Nonfocal/grossly intact
Assessment/Plan
#Concern for Severe Sepsis (hypothermia, leukocytosis, hypotension) secondary to UTI/obstructive uropathy/aspiration pneumonia, intra-abdominal infection/gastroenteritis
#Presented after being found home covered in feces, change in mental status, apparently not taking his medications.
#Pneumonia in Lingula and Left Lower Lobe
#Diarrhea
-He was found with watery stool all over him, and when Lock catheter was placed there is solid yellow white material coming out of the catheter this is likely the primary source
-Stool studies pending
-Blood cultures with no growth to date
-Urine culture with no growth
-Vancomycin/Zosyn
-Wound care consulted
#Orthostatic Hypotension
-Suspected from diarrhea, hypovolemia, recent poor PO intake
-No symptoms at rest
#Anion gap metabolic acidosis - RESOLVED - secondary to DKA vs. acute kidney injury vs. sepsis
#History of type 2 diabetes mellitus
-Initially, was given IV fluids with isotonic bicarb drip without potassium
-Currently on Normal Saline
#Severe CR - IMPROVING - secondary to sepsis/urinary retention
#Moderate Bilateral Hydroureteronephrosis and Severe Diffuse Urinary Bladder Wall Thickening
#Severe hyperkalemia
#Hyponatremia secondary to volume losses
-Maintain Lock Catheter
-Initial creatinine of 4.9, now improving
-CT abdomen pelvis noted
-IV fluids with isotonic bicarb drip given initially
-Insulin dextrose
#Toxic metabolic encephalopathy and acute CVA
-Continue DAPT and Lipitor
-CT Head with hypointensity L insular cortex, L external capsule, per report most likely stroke with cytotoxic edema --> but no neuro deficits on exam
-MRI Brain with subacute infarctions, MRA Head and Neck unremarkable
#History of HSV encephalitis
#Hypothyroidism
#BPH/urinary retention
#History of positive UDS for amphetamines
#Cachectic and Malnourished
Code Status: Full code
DVT Prophylaxis: Heparin
Patient is underinsured, unable to afford medications or food. Given cachexia, poor social situation, affordability issues, lack of medical insurance and multiple comorbidities his prognosis is very poor at this point.
Anticipated Discharge: > 48 hours
Subjective/Interval History
-
Date of Service: March 18, 2024
Patient was seen and examined. He denied any new symptoms or complaints.
Objective Data
-
Labs:
Laboratory Results
03/18/24
06:52
WBC 6.4
Hgb 8.0 L
Hct 24.2 L
Plt Count 235
Sodium 130 L
Potassium 3.1 L
Chloride 94 L
Carbon Dioxide 29
BUN 81 H
Creatinine 2.2 H
Glucose 131 H
Calcium 7.3 L
Vital Signs:
Vital Signs
Temp Pulse Resp BP Pulse Ox
98.0 F 79 17 114/58 99
03/18/24 07:10 03/18/24 07:10 03/18/24 07:10 03/18/24 07:10 03/18/24 07:10
I&O
03/17/24 03/18/24 03/19/24
06:59 06:59 06:59
Intake Total 1250 / 1400 3160 / 3160
Output Total 1045 / 1145 3595 / 3595
Balance 205 / 255 -435 / -435
--- NOTE | 2024-03-18 11:18 | CM ---
CM spoke w/ pt via phone as pt may be positive for norovirus. Initial assessment completed.
Pt admitted for generalized weakness. Pt reports that he recently moved from [place] about 2 years ago. Pt states he lives w/ his friend, David, in [place] in a multi-level home- 8 steps to enter the home.
Pt stated he prev used a walker at home independently. Pt reports that he has not been able to physically move around lately.
Pt reports he was at a SNF last month in [place] for about 2 weeks but does not remember the name of the facility. Pt stated he is a bit confused at this time. Pt stated that he has had VN/PT in the past, does not remember the provider.
Pt confirmed that he is diabetic and does use insulin at home. Pt stated due to his inability to physically 'get up' he has not been taking his medications, pt could not name medications or frequency he should be taking them.
CM inquired about pt's ability to care for himself at this time given the condition he was found in. Per pt, he has little concerns right now about caring for himself as he is usually independent. Pt stated he could not make it to the bathroom due
to his challenges in moving which is why he was found in feces. Pt stated his friend was not home at the time to help him. Pt stated this might have happened due to him not feeling well and not being able to move.
Pt denies food insecurities at this time
Address confirmed- [address] [place]
PCP- Amadou Escobedo in [place]
Pharmacy: [facility]
May need PT/OT evaluation
Plan: CM will cont to follow hospital course for d/c planning
[2024-03-18 13:12] LABS: Glucose - Point of Care 155 mg/dl (70-99)
[2024-03-18] MEDS: VANCOCIN HCL 500 MG 100 IV (13:50)
[2024-03-18] MEDS: NOVOLOG FLEXPEN-MODERATE RESISTANCE 1 UNITS SC ×2 (14:24→17:17)
[2024-03-18] MEDS: NSS 1000 IV (15:32)
[2024-03-18 16:57] LABS: Glucose - Point of Care 152 mg/dl (70-99)
[2024-03-18] MEDS: LIPITOR 40 MG PO (18:24)
[2024-03-18 21:24] LABS: Glucose - Point of Care 132 mg/dl (70-99)
[2024-03-19] VITALS (7 sets, daily range): BP systolic 113–157; BP diastolic 64–80; PULSE 80; O2SAT 98; BMI 17.7
[2024-03-19] MEDS: ZOSYN 50 IV ×4 (00:16→18:27)
[2024-03-19] MEDS: NSS 1000 IV ×2 (02:08→14:24)
[2024-03-19] MEDS: LOW STRENGTH ASPIRIN 81 MG PO (09:15)
[2024-03-19] MEDS: PLAVIX 75 MG PO (09:15)
[2024-03-19] MEDS: HEPARIN 5000 UNITS SC ×2 (09:16→21:05)
--- NOTE | 2024-03-19 09:32 | W.PN.HOSP.TC ---
Today's Communication/Plan
-
SNF placement pending
Antibiotics switched to oral
Renal Function Improving
Potassium and magnesium replacements ordered
Assessment / Plan
Assessment / Plan
Physical Exam
General: Not in acute distress
HEENT: Normocephalic, Moist mucous membranes
Respiratory: Clear to Auscultation Bilaterally
Cardiac: S1/S2 and Regular Rhythm
GI: Soft, Non Tender, Non Distended and Normal Bowel Sounds
Musculoskeletal: No Cyanosis and No Edema
Skin: Other (lower extremity excoriations)
Neuro: Nonfocal/grossly intact
Assessment/Plan
#Concern for Severe Sepsis (hypothermia, leukocytosis, hypotension) secondary to UTI/obstructive uropathy/aspiration pneumonia, intra-abdominal infection/gastroenteritis
#Presented after being found home covered in feces, change in mental status, apparently not taking his medications.
#Pneumonia in Lingula and Left Lower Lobe
#MRSA positive
#Diarrhea
-He was found with watery stool all over him, and when Lock catheter was placed there is solid yellow white material coming out of the catheter this is likely the primary source
-Stool studies with no C. diff and also otherwise negative
-Blood cultures with no growth to date
-Urine culture with no growth
-Stop Vanc and Zosyn
-Start Augmentin and Doxycycline
-Wound care consulted
#Orthostatic Hypotension
-Suspected from diarrhea, hypovolemia, recent poor PO intake
-No symptoms at rest
#Anion gap metabolic acidosis - RESOLVED - secondary to DKA vs. acute kidney injury vs. sepsis
#History of type 2 diabetes mellitus
-Initially, was given IV fluids with isotonic bicarb drip without potassium
-Status post Normal Saline
-Now on Lactated Ringers IV fluids
#Severe CR - IMPROVING - secondary to sepsis/urinary retention
#Moderate Bilateral Hydroureteronephrosis and Severe Diffuse Urinary Bladder Wall Thickening
#Severe hyperkalemia
#Hyponatremia secondary to volume losses
-Maintain Lock Catheter -- will need close outpatient urology follow-up
-Initial creatinine of 4.9, now improved significantly --> 1.5 today
-CT abdomen pelvis noted
-IV fluids with isotonic bicarb drip given initially
-Insulin dextrose given
#Toxic metabolic encephalopathy and acute CVA
-Continue DAPT and Lipitor
-CT Head with hypointensity L insular cortex, L external capsule, per report most likely stroke with cytotoxic edema --> but no neuro deficits on exam
-MRI Brain with subacute infarctions, MRA Head and Neck unremarkable
#History of HSV encephalitis
#Hypothyroidism
#BPH/urinary retention
#History of positive UDS for amphetamines
#Cachectic and Malnourished
#Severe protein Calorie Malnutrition
#Sacral deep dermal stage 2 pressure injury
-Continue wound care
Code Status: Full code
DVT Prophylaxis: Heparin
Patient is underinsured, unable to afford medications or food. Given cachexia, poor social situation, affordability issues, lack of medical insurance and multiple comorbidities his prognosis is very poor at this point.
Anticipated Discharge: > 48 hours
Subjective/Interval History
-
Date of Service: March 19, 2024
Patient was seen and examined. He reported some vomiting from eating and drinking too fast, but otherwise denied any other symptoms or complaints.
Objective Data
-
Labs:
Laboratory Results
03/19/24
06:00
WBC Pending
Hgb Pending
Hct Pending
Plt Count Pending
Sodium Pending
Potassium Pending
Chloride Pending
Carbon Dioxide Pending
BUN Pending
Creatinine Pending
Glucose Pending
Calcium Pending
Vital Signs:
Vital Signs
Temp Pulse Resp BP Pulse Ox
98.1 F 74 17 137/72 98
03/19/24 07:10 03/19/24 07:10 03/19/24 07:10 03/19/24 07:10 03/19/24 07:10
I&O
03/18/24 03/19/24 03/20/24
06:59 06:59 06:59
Intake Total 3160 / 3160 1620 / 1620
Output Total 3595 / 3595 4124 / 4124
Balance -435 / -435 -2504 / -2504
[2024-03-19 09:40] LABS: Glucose - Point of Care 194 mg/dl (70-99)
[2024-03-19] MEDS: NOVOLOG FLEXPEN-MODERATE RESISTANCE 1 UNITS SC ×2 (09:40→18:27)
--- NOTE | 2024-03-19 10:49 | PN.CDI ---
CDI
- -
CDI:
Physician Documentation Request
Admit Date: 03/16/24 17:54
Dear Doctor Steven,
Please review the following and provide your response in the progress notes.
Clinical Indicators:
Pt admitted with Severe sepsis 2/2 UTI/Aspiration Pneumonia / CR /DKA /Severe cachexia
Documented per WOCCN note 03/18 09, ' Patient admitted with: Multiple deep dermal leg abrasions, pink and scabbed. Sacral deep dermal stage 2 pressure injury vs unstageable, pink with yellow fibrin. Coccyx stage 1 pressure injury.... Sacral shaped
silicone border foam maintained. '
Physician documentation of the type and location of wounds is required for compliant documentation. Based on the above clinical findings and your assessment, please provide the following in your progress note:
1. Location of the ulcer/wound, including laterality.
2. Type (etiology) of ulcer/wound:
- Pressure (decubitus) ulcer
- Non-pressure ulcer
- Other ( please specify)
Use of terms such as suspected, likely, concern for, or probable (associated with a specific diagnosis that is being evaluated, monitored, or treated as if it exists) are acceptable and can be coded in the inpatient setting, when documented at the
time of discharge.
Thank you,
Diana Walters RN
CDI Specialist
[place] Text
Please use your independent medical judgment in providing your response.
*Source: National Pressure Ulcer Advisory Panel (NPUAP)
--- NOTE | 2024-03-19 10:53 | PN.CDI ---
CDI
- -
CDI:
Physician Documentation Request
Admit Date: 03/16/24 17:54
Dear Doctor Steven,
Please review the following and provide your response in the progress notes.
Clinical Indicators:
Pt admitted with Severe sepsis 2/2 UTI/Aspiration Pneumonia / CR /DKA /Severe cachexia - BMI 15.7
Progress notes 03/17-03/18, ' Cachectic and Malnourished...'
Nutrition note 03/18, ' CBW (03/18) 120lb 5.958oz BMI 16.8 underwt/ht. (03/17) 111lb, (03/16) 112lbWeight hx per records- (06/15/23) 164lb, (06/07/23) 162lb, (04/18/23) 148lb, (04/16/23) 158lbSignificant 38lb, 31.7% wt loss x 1 year. Pt meets ASPEN riteria
for severe protein calorie malnutrition of chronic illness >20% weight loss x 1 yr, severe loss subcutaneous fat, muscle loss per nutrition focused physical assessment. Weight loss timeline history unclear. Nutrition to follow intake and assess need
for po supplements.....Assessment Loss of Over tricep Severity Severe ... Muscle loss over Temporal Severe ... Quads Severity Severe ...'
Based on the above information and your assessment, which of the following most accurately represents the patient's nutritional status?
Severe protein Calorie Malnutrition
Other (please specify)
[place] Criteria (ACP Hospitalist 2017)
2 or more criteria must be present for either
non severe or severe malnutrition
Note that the criteria differs related to the
presence of an acute or chronic illness
Acute Illness Chronic Illness
Energy Intake Non Severe: <75% for >7 days Non Severe: <75% for >1 month
Severe: <50% for >5 days Severe: <75% for >1 month
Weight Loss Non Severe: 1-2% over 1 week Non Severe: 5% over 1 month
5% over 1 month 7.5% over 3 months
7.5% over 3 months 10% over 6 months
1 year N/A 20% over 1 year
Severe: >2% over 1 week Severe: >5% over 1 month
>5% over 1 month >7.5% over 3 months
>7.5% over 3 months >10% over 6 months
1 year N/A >20% over 1 year
Body Fat Non Severe: Mild Decrease Non Severe: Mild Loss
Severe: Moderate Decrease Severe: Severe Loss
Muscle Mass Non Severe: Mild Decrease Non Severe: Mild Loss
Severe: Moderate Decrease Severe: Severe Loss
Fluid Accumulation Non Severe: Mild Accumulation Non Severe: Mild Accumulation
Severe: Moderate to severe Severe: Moderate to severe
accumulation accumulation
Reduced Case Management Associate Strength Non Severe: N/A Non Severe: N/A
Severe: Measurably reduced Severe: Measurably reduced
Use of terms such as suspected, likely, concern for, or probable (associated with a specific diagnosis that is being evaluated, monitored, or treated as if it exists) are acceptable and can be coded in the inpatient setting, when documented at the
time of discharge.
Thank you,
Diana Walters RN
CDI Specialist
[place] Text
Please use your independent medical judgment in providing your response.
--- NOTE | 2024-03-19 11:17 | CM ---
Addendum entered by Daniela Castle 03/19/24 16:13:
Referrals sent to [facility], [facility], and [facility] via [facility]
Addendum entered by Daniela Castle 03/19/24 16:08:
Patient's SNF preferences are [facility], [facility], and [facility]
Addendum entered by Daniela Castle 03/19/24 13:15:
Patient was provided a list of SNF options; he may reconsider
Per Nursing, patient's friend, David can be reached @ #[phone]
Original Note:
Met with patient; explained that PT recommended SNF; patient is not agreeable to SNF
Home Health services offered; options identified; agreeable to [facility]; referral sent to Liaison via [place] [facility]
Plan: Discharge to Home w/ Home Health when medically stable
[2024-03-19 11:54] LABS: Glucose - Point of Care 209 mg/dl (70-99)
--- NOTE | 2024-03-19 12:10 | WOUNDNOTE ---
[facility] RN note: ronan texted JOHN Castle re: patient has a stage 2 sacral pressure injury besides leg wounds. Not sure if this is an option but he would benefit from a hospital bed with an air overlay or gel overlay mattress if he accepts.
Patient can take the air overlay he has here if he has a hospital bed at home. 'Evaluate for air mattress� is in his discharge instructions.
--- NOTE | 2024-03-19 12:11 | VNURNOTE ---
Home Health Liaison met with patient at bedside to discuss [facility] nurse/therapy, visits, schedule and homebound status. Patient stated he lives with his friend David. Patient could not spell friend's last name, he did not have friend's contact #.
Reviewed with patient that [facility] would need a contact # in order to reach patient for home visits. Patient provided this author with [phone]. He stated it was his cell phone #. Patient stated cell phone was left at friend's house in
[place]. Patient understands that visits at home will be 2-3 x per week to assess and teach medical management. [facility] brochure provided with contact information.
At end of meeting, patient was not sure if he wanted to go back home or go to SNF. Offered Caregiver resource list, patient was focused on getting his cell phone and getting more info on unemployment benefits. Updated JOHN Suarez on above.
[facility] referral in Saved status in Care Port. Will follow for final DC dispo.
[2024-03-19 12:35] LABS: % Basophils 0.4 % (0-2); % Eosinophils 1.8 % (0-6); % Immature Granulocytes 0.9 % (0-0.5); % Lymphocytes 9.7 % (20.5-51.1); % Monocytes 8.1 % (1.7-9.3); % Neutrophils 79.1 % (42.2-75.2); Absolute Eosinophils 0.1 10^3/uL (0-0.7); Absolute Immature Granulocytes 0.1 10^3/uL (0-0.05); Absolute Lymphocytes 0.7 10^3/uL (1.2-3.4); Absolute Monocytes 0.6 10^3/uL (0.1-0.6); Hematocrit 24.8 % (39.0-52.0); Hemoglobin 8.3 g/dL (13.0-18.0); Mean Corp Hgb Conc. 33.5 g/dL (33.0-37.0); Mean Corpuscular Hgb 27.7 pg (27.0-31.0); Mean Corpuscular Volume 82.7 fL (80.0-94.0); Mean Platelet Volume 10.4 fL (7.4-10.4); Nucleated Red Blood Cells % 0 % (-); Platelet Count 244 10^3/uL (130-400); Red Cell Dist. Width 18.1 % (11.5-14.5); White Blood Cell Count 7.6 10^3/uL (4.8-10.8)
[2024-03-19 12:51] LABS: Vancomycin Random 13.5 ug/ml
--- NOTE | 2024-03-19 13:13 | PHA.VAN.FU ---
Vancomycin Assessment / Plan
- Assessment
Renal Function: SCR Decreasing
WBC's are: WNL
In the past 24 hrs, patient has been: Afebrile
Concomitant Antimicrobials: PIPERACILLIN/TAZOBACTAM 2.25 Q6
- Assessment - Therapeutic Drug Monitoring
Random Level: 13.5 on 03/19
- Dosing Plan
Dosing by Level: Re-dose today (500mg)
- Monitoring Plan
Random Level: 03/20 599
- Follow Up
Pharmacy will continue to follow.
Vancomycin Follow UP
- -
Patient Age: 58
Patient Sex: Male
Vancomycin Day #: 4
Indication: Bacteremia
Requesting Provider: Leandra Jimenez
Pertinent Antimicrobial Allergies:
NKDA
Height / Weight:
Height 5 ft 11 in
Actual Weight 57.7 kg
IBW in k.3
Pertinent Past Medical History: BMI ~16.8, DM 2
- Vital Signs / Lab Results
Temp Pulse Resp BP Pulse Ox
98.1 F 82 14 129/74 100
03/19/24 07:10 03/19/24 11:39 03/19/24 11:39 03/19/24 11:39 03/19/24 11:39
Lab Results - Hematology
03/16/24 03/17/24 03/17/24
15:34 04:22 05:16
WBC 17.3 H 11.5 H 11.9 H
Band Neutrophils 0
03/18/24 03/19/24
06:52 12:20
WBC 6.4 7.6
Band Neutrophils
Lab Results - Chemistry
03/16/24 03/16/24 03/16/24
15:34 16:42 20:41
BUN 171 H* 160 H* 141 H*
Creatinine 4.9 H* 4.7 H* 3.8 H
Estimated Creat Clear 12 15
Albumin Cancelled 3.0 L
03/17/24 03/17/24 03/17/24
00:19 04:22 05:16
BUN 140 H* 128 H* 128 H*
Creatinine 3.7 H 3.5 H 3.8 H
Estimated Creat Clear 16 17 15
Albumin
03/17/24 03/17/24 03/17/24
07:53 12:00 13:26
BUN 127 H* Cancelled 114 H*
Creatinine 3.3 H Cancelled 2.9 H
Estimated Creat Clear 18 Cancelled 20
Albumin
03/17/24 03/17/24 03/18/24
16:00 20:00 06:52
BUN Cancelled Cancelled 81 H
Creatinine Cancelled Cancelled 2.2 H
Estimated Creat Clear Cancelled Cancelled 28
Albumin 2.5 L
03/16/24
15:34
Lactic Acid 1.5
Microbiology Results
03/16/24 22:55 MRSA Screen - Final
Nose Staph aureus MRSA
03/16/24 15:45 Blood Culture - Preliminary
Blood/Venous No Growth in 48 hours- Final report to follow
03/16/24 15:35 Blood Culture - Preliminary
Blood/Venous No Growth in 48 hours- Final report to follow
03/16/24 16:45 Salmonella/Shigella Culture - Final
Feces/Stool No Salmonella, Shigella, Aeromonas or Plesiomonas species
isolated.
Campylobacter Culture - Final
No Campylobacter species isolated.
Shiga Toxin Test - Final
No E. coli Shiga Toxin 1 or 2 detected.
03/16/24 16:45 Urine Culture - Final
Urine NO GROWTH
Therapeutic Drug Monitoring
Random Vancomycin 13.5 ug/ml 03/19/24 12:20
[2024-03-19] MEDS: NOVOLOG FLEXPEN-MODERATE RESISTANCE 3 UNITS SC (13:36)
[2024-03-19 13:37] LABS: Blood Urea Nitrogen 36 mg/dl (9-20); Calcium 7.4 mg/dl (8.4-10.2); Carbon Dioxide 29 mmol/L (22-30); Chloride 97 mmol/L (98-107); Estimated Creatinine Clearance 44 ml/min; Glucose 139 mg/dl (70-99); Magnesium 1.4 mg/dl (1.6-2.3); Sodium 135 mmol/L (135-145); eGFR 53.63
--- NOTE | 2024-03-19 13:55 | PTCARENOTE ---
Pt scoring 3 on NIH for lower limb ataxia and lethargy. MD updated on pt NIH score as well as his occasional vomiting. This RN also spoke with case management about pt plan for d/c. This RN spoke with pt about his relationship with his sons. Pt
states he has two sons Arron and Jairon. Arron lives in [place] and Jairon lives in [place] according to pt. Pt unable to recall phone numbers and does not have his phone at hospital with him. Pt states he is currently living with his friend David
Matt ([phone]). Case management updated and given contact information. Pt has given permission to contact his sons if phone numbers are able to be obtained.
[2024-03-19] MEDS: MAGNESIUM SULFATE 102 GRAMS IV (14:23)
[2024-03-19] MEDS: KCL 260 MEQ IV (14:23)
[2024-03-19] MEDS: VANCOCIN HCL 500 MG 100 IV (16:47)
[2024-03-19 16:49] LABS: Glucose - Point of Care 185 mg/dl (70-99)
[2024-03-19] MEDS: LIPITOR 40 MG PO (18:26)
[2024-03-19] MEDS: NSS IV (20:11)
[2024-03-19] MEDS: AUGMENTIN 875 MG/125 MG 1 TABLET PO (21:05)
[2024-03-19] MEDS: LR 1000 IV (21:05)
[2024-03-19] MEDS: VITAMIN B1 100 MG PO (21:05)
[2024-03-19] MEDS: VIBRAMYCIN 100 MG PO (21:05)
[2024-03-19 21:27] LABS: Glucose - Point of Care 224 mg/dl (70-99)
[2024-03-20 03:00] VITALS: BP 106/71
[2024-03-20] MEDS: LR 1000 IV (05:52)
[2024-03-20 06:00] VITALS: BMI 17.6
[2024-03-20 07:01] LABS: % Basophils 0.5 % (0-2); % Eosinophils 1.4 % (0-6); % Immature Granulocytes 0.9 % (0-0.5); % Lymphocytes 10.1 % (20.5-51.1); % Neutrophils 77.1 % (42.2-75.2); Absolute Basophils 0.1 10^3/uL (0-0.2); Absolute Eosinophils 0.1 10^3/uL (0-0.7); Absolute Immature Granulocytes 0.1 10^3/uL (0-0.05); Absolute Lymphocytes 0.9 10^3/uL (1.2-3.4); Absolute Monocytes 0.9 10^3/uL (0.1-0.6); Absolute Neutrophils 7.1 10^3/uL (1.4-6.5); Hematocrit 24.9 % (39.0-52.0); Hemoglobin 8.3 g/dL (13.0-18.0); Mean Corp Hgb Conc. 33.3 g/dL (33.0-37.0); Mean Corpuscular Hgb 27.8 pg (27.0-31.0); Mean Corpuscular Volume 83.3 fL (80.0-94.0); Mean Platelet Volume 9.9 fL (7.4-10.4); Nucleated Red Blood Cells % 0 % (-); Platelet Count 259 10^3/uL (130-400); Red Blood Cell Count 2.99 10^6/uL (4.70-6.10); Red Cell Dist. Width 18.1 % (11.5-14.5); White Blood Cell Count 9.2 10^3/uL (4.8-10.8)
[2024-03-20 07:28] LABS: Vancomycin Random 14.1 ug/ml
[2024-03-20 07:34] LABS: Blood Urea Nitrogen 22 mg/dl (9-20); Calcium 7.2 mg/dl (8.4-10.2); Carbon Dioxide 27 mmol/L (22-30); Chloride 95 mmol/L (98-107); Estimated Creatinine Clearance 50 ml/min; Glucose 191 mg/dl (70-99); Magnesium 1.3 mg/dl (1.6-2.3); Potassium 3.1 mmol/L (3.5-5.1); Sodium 128 mmol/L (135-145); eGFR > 60.00
[2024-03-20 07:59] VITALS: BP 132/75
[2024-03-20 08:20] LABS: Albumin 2.5 g/dl (3.5-5.0)
[2024-03-20 08:51] LABS: Glucose - Point of Care 279 mg/dl (70-99)
--- NOTE | 2024-03-20 08:57 | W.PN.HOSP.TC ---
Today's Communication/Plan
-
Continue electrolyte monitoring and replacement -- recheck BMP/potassium this evening
Bowel regimen for constipation which could explain patient's mild abdominal discomfort
Assessment / Plan
Assessment / Plan
Physical Exam
General: Not in acute distress
HEENT: Normocephalic, Moist mucous membranes
Respiratory: Clear to Auscultation Bilaterally
Cardiac: S1/S2 and Regular Rhythm
GI: Soft, Non Tender, Non Distended and Normal Bowel Sounds
Musculoskeletal: No Cyanosis and No Edema
Skin: Other (lower extremity excoriations)
Neuro: Nonfocal/grossly intact
Assessment/Plan
#Concern for Severe Sepsis (hypothermia, leukocytosis, hypotension) secondary to UTI/obstructive uropathy/aspiration pneumonia, intra-abdominal infection/gastroenteritis
#Presented after being found home covered in feces, change in mental status, apparently not taking his medications.
#Pneumonia in Lingula and Left Lower Lobe
#MRSA positive
#Diarrhea
-He was found with watery stool all over him, and when Lock catheter was placed there is solid yellow white material coming out of the catheter this is likely the primary source
-Stool studies with no C. diff and also otherwise negative
-Blood cultures with no growth to date
-Urine culture with no growth
-Stopped Vanc and Zosyn on 03/19/24
-Started Augmentin and Doxycycline on 03/19/24
-Wound care consulted
#Mild Upper Mid Abdominal Pain and Tenderness
-Started around 03/18/24 per patient (first reported by patient on 03/20/24)
-Abdominal x-ray showed progressed moderate fecal material throughout the colon
-Started bowel regimen with Miralax and Senna
-Check EKG, troponins
#Orthostatic Hypotension
-Suspected from diarrhea, hypovolemia, recent poor PO intake
-No symptoms at rest
-Continue IV fluids
-Echo is unremarkable
#Anion gap metabolic acidosis - RESOLVED - secondary to DKA vs. acute kidney injury vs. sepsis
#History of type 2 diabetes mellitus
-Initially, was given IV fluids with isotonic bicarb drip without potassium
-Continue Normal Saline at 100 cc/hr
#Severe CR - IMPROVING - secondary to sepsis/urinary retention
#Moderate Bilateral Hydroureteronephrosis and Severe Diffuse Urinary Bladder Wall Thickening
#Severe hyperkalemia
#Hyponatremia secondary to volume losses
-Maintain Lock Catheter -- will need close outpatient urology follow-up
-Initial creatinine of 4.9, now improved significantly --> 1.5 today
-CT abdomen pelvis noted
-IV fluids with isotonic bicarb drip given initially
-Insulin dextrose given
#Hypokalemia
#Hypomagnesemia
-Suspected at least partly from Refeeding Syndrome
-Replacements ordered
-Recheck BMP and Magnesium
#Toxic metabolic encephalopathy and acute CVA
-Continue DAPT and Lipitor
-CT Head with hypointensity L insular cortex, L external capsule, per report most likely stroke with cytotoxic edema --> but no neuro deficits on exam
-MRI Brain with subacute infarctions, MRA Head and Neck unremarkable
#History of HSV encephalitis
#Hypothyroidism
#BPH/urinary retention
#History of positive UDS for amphetamines
#Cachectic and Malnourished
#Severe protein Calorie Malnutrition
#Sacral deep dermal stage 2 pressure injury
-Continue wound care
Code Status: Full code
DVT Prophylaxis: Heparin
Patient is underinsured, unable to afford medications or food. Given cachexia, poor social situation, affordability issues, lack of medical insurance and multiple comorbidities his prognosis is very poor at this point.
Anticipated Discharge: > 48 hours
Subjective/Interval History
-
Date of Service: March 20, 2024
Patient was seen and examined. He reported mild upper mid abdominal discomfort for the past 2 days or so but said he was doing okay overall.
Objective Data
-
Labs:
Laboratory Results
03/20/24
06:46
WBC 9.2
Hgb 8.3 L
Hct 24.9 L
Plt Count 259
Sodium 128 L
Potassium 3.1 L
Chloride 95 L
Carbon Dioxide 27
BUN 22 H
Creatinine 1.3
Glucose 191 H
Calcium 7.2 L
Vital Signs:
Vital Signs
Temp Pulse Resp BP Pulse Ox
98.6 F 97 16 132/75 99
03/20/24 03:00 03/20/24 07:59 03/20/24 07:59 03/20/24 07:59 03/20/24 07:59
I&O
03/19/24 03/20/24 03/21/24
06:59 06:59 06:59
Intake Total 1620 / 1620 1140 / 1140 1510 / 1510
Output Total 4124 / 4124 1700 / 1700 2700 / 2700
Balance -2504 / -2504 -560 / -560 -1190 / -1190
[2024-03-20] MEDS: VIBRAMYCIN 100 MG PO ×2 (09:45→21:24)
[2024-03-20] MEDS: AUGMENTIN 875 MG/125 MG 1 TABLET PO ×2 (09:46→21:24)
[2024-03-20] MEDS: HEPARIN 5000 UNITS SC ×2 (09:46→21:24)
[2024-03-20] MEDS: VITAMIN B1 100 MG PO ×2 (09:46→21:24)
[2024-03-20] MEDS: PLAVIX 75 MG PO (09:46)
[2024-03-20] MEDS: LOW STRENGTH ASPIRIN 81 MG PO (09:46)
[2024-03-20] MEDS: NOVOLOG FLEXPEN-MODERATE RESISTANCE 5 UNITS SC (09:48)
[2024-03-20] MEDS: NSS 1000 IV (10:44)
[2024-03-20] MEDS: KCL 260 MEQ IV (10:56)
[2024-03-20] MEDS: MAGNESIUM SULFATE 50 IV (10:57)
[2024-03-20 11:37] LABS: Troponin I < 0.012 ng/ml
[2024-03-20 12:09] LABS: Glucose - Point of Care 200 mg/dl (70-99)
[2024-03-20 13:11] VITALS: BP 130/73
[2024-03-20] MEDS: NOVOLOG FLEXPEN-MODERATE RESISTANCE 3 UNITS SC (13:49)
--- NOTE | 2024-03-20 15:40 | PTCARENOTE ---
Pt asked this RN to attempt to get in contact with his son Jairon ([phone]). Jairon answered the phone and was able to tell me his fathers name and . This RN asked Jairon if he wanted to speak to his father and he said yes. This RN helped pt
call Jairon's phone number from his phone and got permission to list Jairon as a contact in pts chart. Pt says his son currently lives in [place], but he has a son names Arron who lives locally. Pt gave his room number and room phone number to son Jairon
to pass along to his son Arron.
[2024-03-20 15:47] VITALS: BP 107/59
[2024-03-20] MEDS: MIRALAX 17 GRAMS PO (15:54)
[2024-03-20 17:08] LABS: Glucose - Point of Care 343 mg/dl (70-99)
[2024-03-20] MEDS: NOVOLOG FLEXPEN-MODERATE RESISTANCE 7 UNITS SC (17:23)
[2024-03-20] MEDS: LIPITOR 40 MG PO (17:58)
[2024-03-20 19:40] VITALS: BP 137/78
[2024-03-20] MEDS: SENNA SYRUP 8.8 MG PO (21:29)
[2024-03-20 22:12] LABS: Glucose - Point of Care 225 mg/dl (70-99)
[2024-03-20 22:54] LABS: Blood Urea Nitrogen 16 mg/dl (9-20); Calcium 7.3 mg/dl (8.4-10.2); Carbon Dioxide 27 mmol/L (22-30); Chloride 96 mmol/L (98-107); Estimated Creatinine Clearance 54 ml/min; Glucose 206 mg/dl (70-99); Potassium 3.6 mmol/L (3.5-5.1); Sodium 129 mmol/L (135-145); eGFR > 60.00
[2024-03-20 23:01] LABS: Troponin I < 0.012 ng/ml
[2024-03-21] VITALS (7 sets, daily range): BP systolic 100–154; BP diastolic 54–86; BMI 17.8
[2024-03-21] MEDS: NSS IV (04:19)
[2024-03-21] MEDS: NSS 1000 IV ×2 (04:19→17:05)
[2024-03-21 06:24] LABS: Troponin I < 0.012 ng/ml
[2024-03-21 06:32] LABS: Blood Urea Nitrogen 14 mg/dl (9-20); Calcium 7.6 mg/dl (8.4-10.2); Carbon Dioxide 24 mmol/L (22-30); Chloride 98 mmol/L (98-107); Estimated Creatinine Clearance 60 ml/min; Glucose 143 mg/dl (70-99); Magnesium 1.4 mg/dl (1.6-2.3); Phosphorus 2.1 mg/dl (2.5-4.5); Potassium 3.5 mmol/L (3.5-5.1); Sodium 130 mmol/L (135-145); eGFR > 60.00
[2024-03-21 08:36] LABS: Glucose - Point of Care 245 mg/dl (70-99)
[2024-03-21] MEDS: VIBRAMYCIN 100 MG PO ×2 (08:41→20:05)
[2024-03-21] MEDS: AUGMENTIN 875 MG/125 MG 1 TABLET PO ×2 (08:41→20:05)
[2024-03-21] MEDS: PLAVIX 75 MG PO (08:42)
[2024-03-21] MEDS: MIRALAX 17 GRAMS PO (08:42)
[2024-03-21] MEDS: HEPARIN 5000 UNITS SC (08:42)
[2024-03-21] MEDS: LOW STRENGTH ASPIRIN 81 MG PO (08:42)
[2024-03-21] MEDS: VITAMIN B1 100 MG PO ×2 (08:42→20:05)
[2024-03-21] MEDS: NOVOLOG FLEXPEN-MODERATE RESISTANCE 3 UNITS SC ×2 (08:44→18:10)
[2024-03-21 13:45] LABS: Glucose - Point of Care 195 mg/dl (70-99)
[2024-03-21] MEDS: NOVOLOG FLEXPEN-MODERATE RESISTANCE 1 UNITS SC (13:53)
[2024-03-21 17:16] LABS: Glucose - Point of Care 201 mg/dl (70-99)
[2024-03-21] MEDS: LIPITOR 40 MG PO (18:10)
--- NOTE | 2024-03-21 19:29 | W.PN.HOSP.TC ---
Today's Communication/Plan
-
Suspected low electrolytes from Refeeding Syndrome
Continue to replace
Bowel regimen
CR resolved
PT/OT, placement
Continue to monitor on telemetry
Assessment / Plan
Assessment / Plan
Physical Exam
General: Not in acute distress
HEENT: Normocephalic, Moist mucous membranes
Respiratory: Clear to Auscultation Bilaterally
Cardiac: S1/S2 and Regular Rhythm
GI: Soft, Non Tender, Non Distended and Normal Bowel Sounds
Musculoskeletal: No Cyanosis and No Edema
Skin: Other (lower extremity excoriations)
Neuro: Nonfocal/grossly intact
Assessment/Plan
#Concern for Severe Sepsis (hypothermia, leukocytosis, hypotension) secondary to UTI/obstructive uropathy/aspiration pneumonia, intra-abdominal infection/gastroenteritis
#Presented after being found home covered in feces, change in mental status, apparently not taking his medications.
#Pneumonia in Lingula and Left Lower Lobe
#MRSA positive
#Diarrhea
-He was found with watery stool all over him, and when Lock catheter was placed there is solid yellow white material coming out of the catheter this is likely the primary source
-Stool studies with no C. diff and also otherwise negative
-Blood cultures with no growth to date
-Urine culture with no growth
-Stopped Vanc and Zosyn on 03/19/24
-Started Augmentin and Doxycycline on 03/19/24
-Wound care consulted
#Mild Upper Mid Abdominal Pain and Tenderness
-Started around 03/18/24 per patient (first reported by patient on 03/20/24)
-Abdominal x-ray showed progressed moderate fecal material throughout the colon
-Started bowel regimen with Miralax and Senna
#Orthostatic Hypotension
-Suspected from diarrhea, hypovolemia, recent poor PO intake
-No symptoms at rest
-Continue IV fluids
-Echo is unremarkable
#Anion gap metabolic acidosis - RESOLVED - secondary to DKA vs. acute kidney injury vs. sepsis
#History of type 2 diabetes mellitus
-Initially, was given IV fluids with isotonic bicarb drip without potassium
-Completed Normal Saline at 100 cc/hr
#Severe CR - IMPROVING - secondary to sepsis/urinary retention
#Moderate Bilateral Hydroureteronephrosis and Severe Diffuse Urinary Bladder Wall Thickening
#Severe hyperkalemia
#Hyponatremia secondary to volume losses
-Maintain Lock Catheter -- will need close outpatient urology follow-up
-Initial creatinine of 4.9, now improved significantly --> 1.1 today
-CT abdomen pelvis noted
-IV fluids with isotonic bicarb drip given initially
-Insulin dextrose given
#Hypokalemia
#Hypomagnesemia
-Suspected at least partly from Refeeding Syndrome
-Replacements ordered
-Recheck BMP and Magnesium
#Hyponatremia
-Improved with normal saline IV fluids
#Toxic metabolic encephalopathy and acute CVA
-Continue DAPT and Lipitor
-CT Head with hypointensity L insular cortex, L external capsule, per report most likely stroke with cytotoxic edema --> but no neuro deficits on exam
-MRI Brain with subacute infarctions, MRA Head and Neck unremarkable
#History of HSV encephalitis
#Hypothyroidism
#BPH/urinary retention
#History of positive UDS for amphetamines
#Cachectic and Malnourished
#Severe protein Calorie Malnutrition
#Sacral deep dermal stage 2 pressure injury
-Continue wound care
Code Status: Full code
DVT Prophylaxis: Heparin
Patient is underinsured, unable to afford medications or food. Given cachexia, poor social situation, affordability issues, lack of medical insurance and multiple comorbidities his prognosis is very poor at this point.
Anticipated Discharge: > 48 hours
Subjective/Interval History
-
Date of Service: March 21, 2024
Patient was seen and examined. He denied any complaints.
Objective Data
-
Labs:
Laboratory Results
03/21/24
04:07
Sodium Cancelled
Potassium Cancelled
Chloride Cancelled
Carbon Dioxide Cancelled
BUN Cancelled
Creatinine Cancelled
Glucose Cancelled
Calcium Cancelled
Vital Signs:
Vital Signs
Temp Pulse Resp BP Pulse Ox
97.7 F 78 16 125/72 99
03/21/24 15:45 03/21/24 15:45 03/21/24 15:45 03/21/24 15:45 03/21/24 15:45
I&O
03/20/24 03/21/24 03/22/24
06:59 06:59 06:59
Intake Total 1140 / 1140 3150 / 3150 1320 / 1320
Output Total 1700 / 1700 5400 / 5400 1600 / 1600
Balance -560 / -560 -2250 / -2250 -280 / -280
[2024-03-21] MEDS: KCL 40 MEQ PO (20:04)
[2024-03-21] MEDS: MAGNESIUM SULFATE 50 IV (20:05)
[2024-03-21] MEDS: HEPARIN SC (20:07)
[2024-03-21 21:27] LABS: Glucose - Point of Care 167 mg/dl (70-99)
[2024-03-21] MEDS: SENNA SYRUP 8.8 MG PO (21:37)
[2024-03-21] MEDS: NEUTRA-PHOS POWDER PACKET 250 MG PO (21:37)
[2024-03-22] VITALS (22 sets, daily range): BP systolic 85–133; BP diastolic 50–79; BMI 17.6
[2024-03-22 07:19] LABS: Blood Urea Nitrogen 12 mg/dl (9-20); Calcium 7.8 mg/dl (8.4-10.2); Carbon Dioxide 24 mmol/L (22-30); Chloride 100 mmol/L (98-107); Estimated Creatinine Clearance 65 ml/min; Glucose 135 mg/dl (70-99); Magnesium 1.8 mg/dl (1.6-2.3); Phosphorus 1.9 mg/dl (2.5-4.5); Potassium 4.4 mmol/L (3.5-5.1); Sodium 131 mmol/L (135-145); eGFR > 60.00
[2024-03-22 07:20] LABS: Hematocrit 27.6 % (39.0-52.0); Hemoglobin 9.2 g/dL (13.0-18.0); Mean Corp Hgb Conc. 33.3 g/dL (33.0-37.0); Mean Corpuscular Hgb 27.6 pg (27.0-31.0); Mean Corpuscular Volume 82.9 fL (80.0-94.0); Mean Platelet Volume 9.4 fL (7.4-10.4); Platelet Count 313 10^3/uL (130-400); Red Blood Cell Count 3.33 10^6/uL (4.70-6.10); Red Cell Dist. Width 18.1 % (11.5-14.5); White Blood Cell Count 11.5 10^3/uL (4.8-10.8)
[2024-03-22 08:20] LABS: Glucose - Point of Care 121 mg/dl (70-99)
--- NOTE | 2024-03-22 09:00 | PTCARENOTE ---
Patient is refusing am emts and hygiene. RN offered education and explanation for medications, plan of care, and assessing patient- pt not interested in learning and still refuses care.
--- NOTE | 2024-03-22 09:00 | PTCARENOTE ---
Pt lethargic, refusing AM assessment from RN. Also refusing am hygiene care, sacral dressing change. Vital signs are stable. Agreeable to complete neuro exam later in morning.
[2024-03-22] MEDS: NOVOLOG FLEXPEN-MODERATE RESISTANCE SC ×3 (09:31→17:48)
[2024-03-22] MEDS: PLAVIX PO (09:33)
[2024-03-22] MEDS: MIRALAX PO (09:33)
[2024-03-22] MEDS: VIBRAMYCIN 100 MG PO (09:33)
[2024-03-22] MEDS: NEUTRA-PHOS POWDER PACKET 250 MG PO ×2 (09:34→20:29)
[2024-03-22] MEDS: VITAMIN B1 100 MG PO ×2 (09:34→20:30)
[2024-03-22] MEDS: AUGMENTIN 875 MG/125 MG 1 TABLET PO (09:34)
[2024-03-22] MEDS: HEPARIN SC (09:35)
[2024-03-22] MEDS: LOW STRENGTH ASPIRIN 81 MG PO (09:35)
[2024-03-22] MEDS: PLAVIX 75 MG PO (09:44)
--- NOTE | 2024-03-22 10:57 | W.PN.HOSP.TC ---
Addendum entered and electronically signed by Francisco Javier Harris MD 03/22/24 16:02:
Lipase came back elevated at 1006. Patient also has been reporting epigastric abdominal pain. Therefore patient meets 2/3 criteria for acute pancreatitis. Start LR IV fluids at 300 cc/hr, monitor closely for volume overload, crackles of lung
auscultation, pulmonary edema, hypoxia, shortness of breath or abdominal pain worsening or distension. Check CT Abdomen Pelvis.
Original Note:
Today's Communication/Plan
-
MEDICAL CENTER REPRESENTATIVE called, I saw and examined the patient during MEDICAL CENTER REPRESENTATIVE
Ordered labs including lactic acid, trops, CMP, CBC, etc
Vanc and Zosyn given pyelonephritis on CT
IV fluids bolus 2 liters wide open
Levophed if needed
Transfer to IMU
Assessment / Plan
Assessment / Plan
Physical Exam
General: Not in acute distress
HEENT: Normocephalic, Moist mucous membranes
Respiratory: Clear to Auscultation Bilaterally
Cardiac: S1/S2 and Regular Rhythm. Tachycardic.
GI: Soft, Non Tender, Non Distended and Normal Bowel Sounds
Musculoskeletal: No Cyanosis and No Edema
Skin: Other (lower extremity excoriations)
Neuro: Lethargic. Nonfocal/grossly intact
Assessment/Plan
#Shock - suspected septic from acute pyelonephritis
#Presented after being found home covered in feces, change in mental status, apparently not taking his medications.
#Pneumonia in Lingula and Left Lower Lobe
#MRSA positive
#Diarrhea
-Initially was doing better after being in the ICU for Insulin Drip and severe sepsis
-Today, MEDICAL CENTER REPRESENTATIVE called after patient found hypotensive and tachycardia, CT Chest was done earlier in the day which showed no PE but did show acute pyelonephritis
-Patient earlier in the hospitalization showed moderate hydronephrosis but his renal function improved/CR resolved, good urine output
-I saw and examined the patient during the MEDICAL CENTER REPRESENTATIVE, IV 2 liters wide open normal saline bolus, start Vancomycin and Zosyn, possibly start Levophed, move to IMU
-Labs ordered including blood cultures x2, lactic acid, CBC, CMP, troponins, etc
-Check renal and bladder ultrasound
-Continue Lock catheter
-Based on ultrasound, may need urology consultation
#Mild Upper Mid Abdominal Pain and Tenderness
-Started around 03/18/24 per patient (first reported by patient on 03/20/24)
-Abdominal x-ray showed progressed moderate fecal material throughout the colon
-Started bowel regimen with Miralax and Senna
#Orthostatic Hypotension
-Suspected from diarrhea, hypovolemia, recent poor PO intake
-No symptoms at rest
-Continue IV fluids
-Echo was unremarkable
#Anion gap metabolic acidosis - RESOLVED - secondary to DKA vs. acute kidney injury vs. sepsis
#History of type 2 diabetes mellitus
#Severe CR - RESOLVED - secondary to sepsis/urinary retention
#Moderate Bilateral Hydroureteronephrosis and Severe Diffuse Urinary Bladder Wall Thickening
#Severe hyperkalemia
#Hyponatremia secondary to volume losses
-Maintain Lock Catheter -- will need close outpatient urology follow-up
-Initial creatinine of 4.9, now improved significantly --> 1.[address] abdomen pelvis noted
-IV fluids with isotonic bicarb drip given initially
-Insulin dextrose given
#Hypokalemia
#Hypomagnesemia
-Suspected at least partly from Refeeding Syndrome
-Replacements ordered
-Recheck BMP and Magnesium
#Hyponatremia
-Improved with normal saline IV fluids
#Toxic metabolic encephalopathy and acute CVA
-Continue DAPT and Lipitor
-CT Head with hypointensity L insular cortex, L external capsule, per report most likely stroke with cytotoxic edema --> but no neuro deficits on exam
-MRI Brain with subacute infarctions, MRA Head and Neck unremarkable
#History of HSV encephalitis
#Hypothyroidism
#BPH/urinary retention
#History of positive UDS for amphetamines
#Cachectic and Malnourished
#Severe protein Calorie Malnutrition
#Sacral deep dermal stage 2 pressure injury
-Continue wound care
Code Status: Full code
DVT Prophylaxis: Heparin
Patient is underinsured, unable to afford medications or food. Given cachexia, poor social situation, affordability issues, lack of medical insurance and multiple comorbidities his prognosis is very poor at this point.
Suspected Septic Shock, and the need to call Rapid Response, and needing transfer to IMU is a high risk encounter.
Anticipated Discharge: > 48 hours
Subjective/Interval History
-
Date of Service: March 22, 2024
Patient was seen and examined. He appeared slightly more lethargic today, later in the afternoon, Rapid Response called and when I saw the patient during the rapid he was not doing well per him.
Objective Data
-
Labs:
Laboratory Results
03/22/24
06:11
WBC 11.5 H
Hgb 9.2 L
Hct 27.6 L
Plt Count 313 D
Sodium 131 L
Potassium 4.4 D
Chloride 100
Carbon Dioxide 24
BUN 12
Creatinine 1.0
Glucose 135 H
Calcium 7.8 L
Vital Signs:
Vital Signs
Temp Pulse Resp BP Pulse Ox
98.9 F 81 16 133/79 99
03/22/24 07:50 03/22/24 07:50 03/22/24 07:50 03/22/24 07:50 03/22/24 07:50
I&O
03/21/24 03/22/24 03/23/24
06:59 06:59 06:59
Intake Total 3150 / 3150 1800 / 1800 480 / 480
Output Total 5400 / 5400 2800 / 2800 700 / 700
Balance -2250 / -2250 -1000 / -1000 -220 / -220
[2024-03-22 11:52] LABS: Troponin I < 0.012 ng/ml
[2024-03-22] MEDS: NEUTRA-PHOS POWDER PACKET PO ×2 (12:10→17:32)
[2024-03-22 13:37] LABS: Glucose - Point of Care 143 mg/dl (70-99)
[2024-03-22 14:33] LABS: Glucose - Point of Care 155 mg/dl (70-99)
[2024-03-22] MEDS: NSS 1000 IV (14:44)
--- NOTE | 2024-03-22 14:49 | CM ---
Patient s/p rapid and for transfer to IMU today. Patient has refused to participate in therapy this weekend due to complaints of pain. CM will continue to follow for discharge planning needs.
Plan; transfer to IMU today; watch for SNF placement when medically appropriate.
--- NOTE | 2024-03-22 14:59 | PHA.VAN.IN ---
Assessment
- Assessment
Renal Function: Other (SCr is decreasing since 03/16 (4.9-> 1.0))
Concomitant Antimicrobials: piperacillin/tazo
positive MRSA screen 03/16
- Previous Dosing Experience
Previous Regimen: dosed by random levels
Date of Regimen: 03/16 - 03/19
Patient's SCR is: Decreased compared to previous dosing experience
Patient's weight is: Similar to previous dosing experience
AUC Dosing Plan
- Empiric Dosing
Initial / Loading Dose: 1500 mg x 1 loading dose - adm pending
Maintenance Regimen: dose by level for now due to recent history of CR
if dosing were scheduled at this time PK predicts 1000 mg q24h _--> AUC 475; P/T 34/10; T 1/2 12.8h
Plan
- Plan
Monitoring: random AM 03/23/24
Pharmacokinetics Vancomycin I
- -
Patient Age: 58
Patient Sex: Male
Vancomycin Day #: 1
Indication: Genito-Urinary Tract
Requesting Provider: Choudary
Pertinent Antimicrobial Allergies:
NKDA
Height / Weight:
Height 5 ft 11 in
Actual Weight 57.153 kg
Pertinent Past Medical History: BMI ~16.8, DM 2
- Vital Signs / Lab Results
Temp Pulse Resp BP Pulse Ox
98.9 F 81 16 133/79 99
03/22/24 07:50 03/22/24 07:50 03/22/24 07:50 03/22/24 07:50 03/22/24 11:51
Lab Results - Hematology
03/20/24 03/22/24
06:46 06:11
WBC 9.2 11.5 H
Lab Results - Chemistry
03/20/24 03/20/24 03/21/24
06:46 22:30 04:07
BUN 22 H 16 Cancelled
Creatinine 1.3 1.2 Cancelled
Estimated Creat Clear 50 54 Cancelled
Albumin 2.5 L
03/21/24 03/22/24
05:45 06:11
BUN 14 12
Creatinine 1.1 1.0
Estimated Creat Clear 60 65
Albumin
Microbiology Results
03/16/24 15:45 Blood Culture - Final
Blood/Venous No Growth - Final Report
03/16/24 15:35 Blood Culture - Final
Blood/Venous No Growth - Final Report
[2024-03-22 15:07] LABS: Hematocrit 24.1 % (39.0-52.0); Hemoglobin 8.1 g/dL (13.0-18.0); Mean Corp Hgb Conc. 33.6 g/dL (33.0-37.0); Mean Corpuscular Hgb 28.1 pg (27.0-31.0); Mean Corpuscular Volume 83.7 fL (80.0-94.0); Mean Platelet Volume 9.8 fL (7.4-10.4); Platelet Count 350 10^3/uL (130-400); Red Blood Cell Count 2.88 10^6/uL (4.70-6.10); Red Cell Dist. Width 18.3 % (11.5-14.5); White Blood Cell Count 36.4 10^3/uL (4.8-10.8)
[2024-03-22 15:09] LABS: INR 1.21; PT 15.6 Sec (11.4-14.6)
[2024-03-22 15:10] LABS: APTT 43.2 Sec (23.4-35.0)
[2024-03-22 15:12] LABS: ALT (SGPT) < 10 U/L (0-50); AST (SGOT) 15 U/L (17-59); Albumin 2.4 g/dl (3.5-5.0); Alkaline Phosphatase 87 U/L (38-126); Blood Urea Nitrogen 12 mg/dl (9-20); Calcium 7.8 mg/dl (8.4-10.2); Carbon Dioxide 23 mmol/L (22-30); Chloride 96 mmol/L (98-107); Estimated Creatinine Clearance 54 ml/min; Glucose 133 mg/dl (70-99); Potassium 4.1 mmol/L (3.5-5.1); Sodium 128 mmol/L (135-145); Total Bilirubin 0.5 mg/dl (0.2-1.3); Total Protein 5.3 g/dl (6.3-8.2); eGFR > 60.00
[2024-03-22 15:15] LABS: Lactic Acid 1.3 mmol/L (0.7-2.0)
--- NOTE | 2024-03-22 15:25 | PTCARENOTE ---
RN found patient with gown and blankets off, pale and more lethargic than earlier in shift. RN asked Pt what was wrong, he responded by saying, 'I feel like I am dying'. RN obtained vital signs and asked patient if he was in pain. Patient said no,
vitals were as follows: 70/40, HR 95, temp 99.5 oral, 100% on RA, RR 24. RN called rapid response. During rapid response, 2 NS bolus orders were initiated and blood cultures/cbc/chemistry/coags were sent to lab. Pt's CT chest from earlier shows
acute pyelonephritis. ICU provided patient transport to IMU. Repeat blood pressure 85/50, MAP 63. Levophed order placed for IMU. Report called to receiving IMU RN.
[2024-03-22 15:27] LABS: Troponin I < 0.012 ng/ml
--- NOTE | 2024-03-22 15:31 | PTCARENOTE ---
recieved pt from third floor. pt settled into room. blood pressure on arrival 127/73. temp 99.5. sinus rythym on monitor. pulse ox 99 on room air. pt is tired bu tawakens easily and has oriented conversation. nss bolus infusing. vancomycin strated.
[2024-03-22] MEDS: VANCOCIN 530 MG IV (15:33)
[2024-03-22 15:38] LABS: Lipase 1006 U/L (23-300)
--- NOTE | 2024-03-22 15:39 | PTCARENOTE ---
levophe dordered to keep map above 65. pts map currently 80. levophed not started at this time.
[2024-03-22 15:43] LABS: % Basophils 0.3 % (0-2); % Eosinophils 0.1 % (0-6); % Immature Granulocytes 1.2 % (0-0.5); % Lymphocytes 1.8 % (20.5-51.1); % Monocytes 6.3 % (1.7-9.3); % Neutrophils 90.3 % (42.2-75.2); Absolute Basophils 0.1 10^3/uL (0-0.2); Absolute Immature Granulocytes 0.4 10^3/uL (0-0.05); Absolute Lymphocytes 0.7 10^3/uL (1.2-3.4); Absolute Monocytes 2.3 10^3/uL (0.1-0.6); Absolute Neutrophils 32.9 10^3/uL (1.4-6.5); Nucleated Red Blood Cells % 0 % (-)
[2024-03-22] MEDS: ZOSYN 50 IV ×2 (17:30→22:30)
[2024-03-22] MEDS: LR 1000 IV ×2 (17:30→23:26)
[2024-03-22] MEDS: LIPITOR PO (17:32)
[2024-03-22 17:48] LABS: Glucose - Point of Care 142 mg/dl (70-99)
[2024-03-22 18:44] LABS: Urine Albumin 1+ (Neg - Trace); Urine Bilirubin Negative (Negative); Urine Character Slightly Cloudy (Clear); Urine Color Yellow; Urine Glucose 1+ (Negative); Urine Ketone Negative (Negative); Urine Leukocyte 2+ (Negative); Urine Nitrite Negative (Negative); Urine Occult Blood 4+ (Negative); Urine Specific Gravity 1.005 (<1.030); Urine Urobilinogen Negative (Neg - 1+); Urine pH 6.5 (5.0-9.0)
[2024-03-22 19:06] LABS: Urine Bacteria Few (Negative); Urine Red Blood Cell 50-60 /HPF (0-2); Urine White Cell >100 /HPF (0-5)
[2024-03-22 20:17] LABS: Venous Blood Gas B.E. -2.1 mmol/L (-4 to +4); Venous Blood Gas HCO3 21.1 mmol/L (22-27); Venous Blood Gas O2 Sat % 99.7 %; Venous Blood Gas pCO2 29 mmHg (35-48); Venous Blood Gas pH 7.47 (7.32-7.43); Venous Blood Gas pO2 128 mmHg (30-50)
[2024-03-22 20:30] LABS: Blood Urea Nitrogen 12 mg/dl (9-20); Calcium 7.4 mg/dl (8.4-10.2); Carbon Dioxide 19 mmol/L (22-30); Chloride 102 mmol/L (98-107); Estimated Creatinine Clearance 59 ml/min; Glucose 137 mg/dl (70-99); Potassium 3.9 mmol/L (3.5-5.1); Sodium 129 mmol/L (135-145); eGFR > 60.00
[2024-03-22] MEDS: SENNA SYRUP 8.8 MG PO (20:30)
[2024-03-22] MEDS: HEPARIN 5000 UNITS SC (20:31)
[2024-03-22 20:42] LABS: Troponin I < 0.012 ng/ml
[2024-03-22] MEDS: ZOFRAN 4 MG IV (20:43)
[2024-03-22 22:47] LABS: Glucose - Point of Care 149 mg/dl (70-99)
[2024-03-22] MEDS: LR IV (23:25)
[2024-03-23] VITALS (25 sets, daily range): BP systolic 95–140; BP diastolic 46–83; BMI 18.0
--- NOTE | 2024-03-23 02:45 | PTCARENOTE ---
Assumed care of patient from previous RN. Pt AAOx3, drowsy/flat/withdrawn. NIHSS 0. NSR on the monitor, weak pedals. Lungs CTA on RA, shallow breaths. Continent of bowel, last bm 03/21. Lock catheter draining cloudy, yellow urine. Pt c/o nausea @
beginning of shift, stated he was unable to drink the contrast for CT scan. CT scan notified, pt cleared to do CT with IV contrast. PRN zofran given. Patient taken to CT scan for abdomen/pelvis CT. LR@300ml/hr going through a L AC. VSS. Call marrero
and belongings within reach. Pt able to make needs known. Care ongoing.
[2024-03-23] MEDS: ZOSYN 50 IV ×4 (03:05→22:49)
[2024-03-23] MEDS: LR 1000 IV ×4 (03:05→16:07)
[2024-03-23 04:59] LABS: Hematocrit 23.9 % (39.0-52.0); Hemoglobin 7.6 g/dL (13.0-18.0); Mean Corp Hgb Conc. 31.8 g/dL (33.0-37.0); Mean Corpuscular Hgb 27.5 pg (27.0-31.0); Mean Corpuscular Volume 86.6 fL (80.0-94.0); Mean Platelet Volume 9.4 fL (7.4-10.4); Platelet Count 287 10^3/uL (130-400); Red Blood Cell Count 2.76 10^6/uL (4.70-6.10); Red Cell Dist. Width 18.5 % (11.5-14.5); White Blood Cell Count 18.8 10^3/uL (4.8-10.8)
[2024-03-23 05:20] LABS: Blood Urea Nitrogen 11 mg/dl (9-20); Calcium 7.1 mg/dl (8.4-10.2); Carbon Dioxide 22 mmol/L (22-30); Chloride 100 mmol/L (98-107); Estimated Creatinine Clearance 56 ml/min; Glucose 107 mg/dl (70-99); Lipase 669 U/L (23-300); Magnesium 1.2 mg/dl (1.6-2.3); Phosphorus 2.7 mg/dl (2.5-4.5); Potassium 3.7 mmol/L (3.5-5.1); Sodium 131 mmol/L (135-145); eGFR > 60.00
[2024-03-23 05:24] LABS: Troponin I < 0.012 ng/ml
[2024-03-23 05:50] LABS: Vancomycin Random 18.1 ug/ml
--- NOTE | 2024-03-23 08:00 | PTCARENOTE ---
Patient received from support staff. No`events noted overnight until shift change. Currently on 2L, will wean to Room Air. No complaints of pain at this time. Currently working on a 24hr urine. Scheduled for US this afternoon, NPO for lunch.
Call marrero in reach.
--- NOTE | 2024-03-23 08:27 | PTCARENOTE ---
Patient received from shift leader. No`events noted overnight until shift change. Currently on Room Air. No complaints of pain at this time. Currently getting IV fluids @ 300mL/hr, continuing for another 24hrs. Lock in place. Continuing ABX.
Scheduled for US this AM, currently NPO. Call marrero in reach.
[2024-03-23 09:02] LABS: Glucose - Point of Care 107 mg/dl (70-99)
[2024-03-23] MEDS: NOVOLOG FLEXPEN-MODERATE RESISTANCE SC ×3 (09:02→18:42)
--- NOTE | 2024-03-23 09:13 | PHA.VAN.FU ---
Vancomycin Assessment / Plan
- Assessment
Renal Function: Stable
WBC's are: Trending Down
Concomitant Antimicrobials: piperacillin/tazobactam
- Assessment - Therapeutic Drug Monitoring
Random Level: 18.1 - drawn ~13H after 1500mg loading dose
- Dosing Plan
Dosing by Level: Hold off on dosing today
- Monitoring Plan
Random Level: 03/24 599
- Follow Up
Pharmacy will continue to follow.
Vancomycin Follow UP
- -
Patient Age: 58
Patient Sex: Male
Vancomycin Day #: 2
Indication: Genito-Urinary Tract
Requesting Provider: Dr. Harris
Pertinent Antimicrobial Allergies:
NKDA
Height / Weight:
Height 5 ft 11 in
Actual Weight 58.6 kg
IBW in k.3
Pertinent Past Medical History: BMI ~16.8, DM 2
- Vital Signs / Lab Results
Temp Pulse Resp BP Pulse Ox
97.8 F 61 15 138/73 98
03/23/24 07:08 03/23/24 06:00 03/23/24 05:00 03/23/24 06:00 03/23/24 06:00
Lab Results - Hematology
03/22/24 03/22/24 03/23/24
06:11 14:49 04:41
WBC 11.5 H 36.4 H 18.8 H
Lab Results - Chemistry
03/20/24 03/21/24 03/21/24
22:30 04:07 05:45
BUN 16 Cancelled 14
Creatinine 1.2 Cancelled 1.1
Estimated Creat Clear 54 Cancelled 60
Albumin
03/22/24 03/22/24 03/22/24
06:11 14:49 20:04
BUN 12 12 12
Creatinine 1.0 1.2 1.1
Estimated Creat Clear 65 54 59
Albumin 2.4 L
03/23/24
04:41
BUN 11
Creatinine 1.2
Estimated Creat Clear 56
Albumin
03/22/24
14:49
Lactic Acid 1.3
Lab Results - Urine
03/22/24
17:58
Urine Nitrite (Reflex) Negative
Leukocyte Esterase Rfl 2+ A
Ur Squamous Epith Cells 6-10
Microbiology Results
03/16/24 15:45 Blood Culture - Final
Blood/Venous No Growth - Final Report
03/16/24 15:35 Blood Culture - Final
Blood/Venous No Growth - Final Report
Therapeutic Drug Monitoring
Random Vancomycin 18.1 ug/ml 03/23/24 04:41
[2024-03-23 09:31] LABS: ALT (SGPT) < 10 U/L (0-50); AST (SGOT) 13 U/L (17-59); Alkaline Phosphatase 81 U/L (38-126); HDL Cholesterol 24 mg/dl; LDL Cholesterol, Calculated 31 mg/dl; Total Bilirubin 0.3 mg/dl (0.2-1.3); Total Cholesterol 81 mg/dl (50-199); Triglyceride 133 mg/dl (10-149); Very Low Density Lipoprotein 26 mg/dl (0-30)
[2024-03-23] MEDS: NEUTRA-PHOS POWDER PACKET PO (11:25)
[2024-03-23] MEDS: PLAVIX 75 MG PO (11:25)
[2024-03-23] MEDS: HEPARIN 5000 UNITS SC ×2 (11:25→20:15)
[2024-03-23] MEDS: VITAMIN B1 100 MG PO ×2 (11:25→20:14)
[2024-03-23] MEDS: LOW STRENGTH ASPIRIN 81 MG PO (11:25)
[2024-03-23] MEDS: MAGNESIUM SULFATE 100 IV (11:26)
[2024-03-23] MEDS: MIRALAX PO (11:26)
[2024-03-23 11:38] LABS: Glucose - Point of Care 101 mg/dl (70-99)
--- NOTE | 2024-03-23 12:52 | W.PN.HOSP.TC ---
Today's Communication/Plan
-
Continue antibiotics
Stopped IV fluids
Recheck BMP and CBC tonight
Continue to monitor in IMU
Assessment / Plan
Assessment / Plan
Physical Exam
General: Not in acute distress
HEENT: Normocephalic, Moist mucous membranes
Respiratory: Clear to Auscultation Bilaterally
Cardiac: S1/S2 and Regular Rhythm. Tachycardic.
GI: Soft, Non Tender, Non Distended and Normal Bowel Sounds
Musculoskeletal: No Cyanosis and No Edema
Skin: Other (lower extremity excoriations)
Neuro: Lethargic. Nonfocal/grossly intact
Assessment/Plan
#Shock - suspected septic from acute pyelonephritis 03/22/24
#Pneumonia in Lingula and Left Lower Lobe
#MRSA positive
#Diarrhea
-Initially was doing better after being in the ICU for Insulin Drip and severe sepsis
-03/23/24: RATING SPECIALIST called after patient found hypotensive and tachycardia, CT Chest was done earlier in the day which showed no PE but did show acute pyelonephritis --> transferred patient to IMU, started antibiotics, did not need any vasopressors
-Although CT Abdomen/Pelvis from 03/22/24 showed no pyelonephritis, CT Chest PE and renal and bladder ultrasound DID show signs of pyelonephritis
-Continue broad spectrum antibiotics
-Follow cultures -- possible that antibiotics caused no growth in urine culture from 03/22/24
-Follow blood cultures
-Continue Lock catheter
-Given hydronephrosis, urinary retention, consulted urology (see below)
#High Lipase on 03/22/24
-CT Abdomen/Pelvis 03/22/24 did not show pancreatitis however the abdominal ultrasound 03/23/24 did suggest it, plus patient meets 2 out of 3 criteria (high lipase and had abdominal pain)
-Patient had also reported some epigastric abdominal pain (as below)
-Provided aggressive IV fluids with LR with significant improvement in symptoms, he is now tolerating a diet well
-Received ~24 hours of IV fluids, now stopped especially with patient's hyponatremia -- as sodium can drop if patient also has SIADH
-Low fat diet (with PO 48 ounces daily fluid restriction, given hyponatremia)
#Biliary Sludge on Abdominal Ultrasound
#3 cm echogenic lesion within the right hepatic lobe, possible hemangioma
-Check MRI abdomen with and without contrast, with MRCP
#Mild Upper Mid Abdominal Pain and Tenderness
-Started around 03/18/24 per patient (first reported by patient on 03/20/24)
-Abdominal x-ray showed progressed moderate fecal material throughout the colon
-Started bowel regimen with Miralax and Senna
#Orthostatic Hypotension
-Suspected from recent diarrhea, hypovolemia, recent poor PO intake
-No symptoms at rest
-Echo was unremarkable
#Anion gap metabolic acidosis - RESOLVED - secondary to DKA vs. acute kidney injury vs. sepsis
#History of type 2 diabetes mellitus
#Severe CR - RESOLVED - secondary to sepsis/urinary retention
#Urinary Retention - secondary to neurogenic bladder from long-standing and poorly controlled DM (diabetic cystopathy) vs. BPH
#Moderate Bilateral Hydroureteronephrosis and Severe Diffuse Urinary Bladder Wall Thickening
#Severe hyperkalemia
-Maintain Lock Catheter
-Initial creatinine of 4.9, now improved significantly --> 1.0 today
-Tamsulosin 0.4 mg qhs as SBP allows
-Voiding trial once ambulatory prior to discharge
-F/U with urologist Dr. Garcia as an outpatient - plan for UDS/VUDS to evaluate bladder function
#Hypokalemia
#Hypomagnesemia
-Suspected at least partly from Refeeding Syndrome
-Replacements ordered
-Recheck BMP and Magnesium
#Hyponatremia
-Monitor BMP
-PO Fluid Restriction
#Mild low density gastric wall thickening in the fluid-filled stomach
-Present on CT Abdomen/Pelvis imaging
#Toxic metabolic encephalopathy and acute CVA
-Continue DAPT and Lipitor
-CT Head with hypointensity L insular cortex, L external capsule, per report most likely stroke with cytotoxic edema --> but no neuro deficits on exam
-MRI Brain with subacute infarctions, MRA Head and Neck unremarkable
#History of HSV encephalitis
#Hypothyroidism
#BPH/urinary retention
#History of positive UDS for amphetamines
#Cachectic and Malnourished
#Severe protein Calorie Malnutrition
#Sacral deep dermal stage 2 pressure injury
-Continue wound care
#Bilateral L5 spondylolysis with grade 1 spondylolisthesis of L5 on S1
#Old 40% compression fracture of the superior endplate of L3
-Present on CT Imaging
Code Status: Full code
DVT Prophylaxis: Heparin
Patient is underinsured, unable to afford medications or food. Given cachexia, poor social situation, affordability issues, lack of medical insurance and multiple comorbidities his prognosis is very poor at this point.
Anticipated Discharge: > 48 hours
Subjective/Interval History
-
Date of Service: March 23, 2024
Patient was seen and examined. He reported feeling better this morning, although in the afternoon he seemed more preoccupied about his past.
Objective Data
-
Labs:
Laboratory Results
03/23/24
04:41
WBC 18.8 H
Hgb 7.6 L
Hct 23.9 L
Plt Count 287
Sodium 131 L
Potassium 3.7
Chloride 100
Carbon Dioxide 22
BUN 11
Creatinine 1.2
Glucose 107 H
Calcium 7.1 L
Total Bilirubin 0.3
AST 13 L
ALT < 10
Alkaline Phosphatase 81
Vital Signs:
Vital Signs
Temp Pulse Resp BP Pulse Ox
98.3 F 61 15 138/73 98
03/23/24 11:15 03/23/24 06:00 03/23/24 05:00 03/23/24 06:00 03/23/24 06:00
I&O
03/22/24 03/23/24 03/24/24
06:59 06:59 06:59
Intake Total 1800 / 1800 5660 / 5660 240 / 240
Output Total 2800 / 2800 3650 / 3650
Balance -1000 / -1000 2009 240 / 240
[2024-03-23] MEDS: NEUTRA-PHOS POWDER PACKET 250 MG PO ×3 (13:00→20:14)
--- NOTE | 2024-03-23 14:47 | W.PN.URO.CBU ---
Today's Communication / Plan
-
Recommend starting tamsulosin 0.4 mg qhs as SBP allows
Continue IV antibiotics pending UCx
Maintain Lock catheter (Cr normalized)
Advise voiding trial once ambulatory prior to discharge
F/U with Dr. Garcia as an outpatient - plan for UDS/VUDS to evaluate bladder function
Labs/CT imaging findings reviewed in detail w/ patient.
Assessment / Plan
-
CR
Urinary retention - BPH/MCCRACKEN vs. neurogenic/hypotonic bladder
cUTI - UA indicative of UTI
BPH
No long-standing LUTS noted by patient.
Presentation w/ urinary retention, bilateral hydronephrosis, and CR - improved w/ catheter placement.
Interval CT imaging - resolution of bilateral hydronephrosis.
Etiology for urinary retention could be neurogenic bladder from long-standing and poorly controlled DM (diabetic cystopathy) vs. BPH
Diagnosis
-
Date of Service: March 23, 2024
-
Patient Diagnosis:
CR
Urinary retention
cUTI
BPH
Subjective
-
Denies catheter bother.
Urine draining clear in tubing.
Objective
-
Vital Signs
Temp Pulse Resp BP Pulse Ox
98.3 F 61 15 138/73 96
03/23/24 11:15 03/23/24 06:00 03/23/24 05:00 03/23/24 06:00 03/23/24 13:41
Intake and Output
03/22/24 03/23/24 03/24/24
06:59 06:59 06:59
Intake Total 1800 / 1800 5660 / 5660 240 / 240
Output Total 2800 / 2800 3650 / 3650
Balance -1000 / -1000 2009 240 / 240
Intake:
Oral fluids 1800 / 1800 480 / 480 240 / 240
IV fluids (Total) 4500 / 4500
IV piggybacks 680 / 680
Output:
Urine, Lock 2800 / 2800 3650 / 3650
Other:
Number of immeasurable emeses? 1
Laboratory Results
03/23/24 04:41
03/23/24 04:41
Physical Exam
-
General - well developed, well nourished, no acute distress
Abdomen - soft, non-tender, non-distended
Genitalia - normal, Lock catheter w/ clear UOP
Skin - warm & dry with no rash
Neuro - AOx3, no motor deficits
Care Review
Data Reviewed
Discussed with: Hospitalist and Nursing
CT Scan: Report Pers Reviewed and Image Pers Reviewed
Total Time Spent with Patient (in minutes): 25
[2024-03-23] MEDS: LR IV (16:07)
[2024-03-23 16:22] LABS: Glucose - Point of Care 155 mg/dl (70-99)
[2024-03-23 16:56] LABS: % Basophils 0.5 % (0-2); % Eosinophils 1.3 % (0-6); % Immature Granulocytes 0.5 % (0-0.5); % Lymphocytes 11.3 % (20.5-51.1); % Monocytes 4.1 % (1.7-9.3); % Neutrophils 82.3 % (42.2-75.2); Absolute Basophils 0.1 10^3/uL (0-0.2); Absolute Eosinophils 0.2 10^3/uL (0-0.7); Absolute Immature Granulocytes 0.1 10^3/uL (0-0.05); Absolute Lymphocytes 1.6 10^3/uL (1.2-3.4); Absolute Monocytes 0.6 10^3/uL (0.1-0.6); Absolute Neutrophils 11.5 10^3/uL (1.4-6.5); Hematocrit 21.7 % (39.0-52.0); Hemoglobin 7.2 g/dL (13.0-18.0); Mean Corp Hgb Conc. 33.2 g/dL (33.0-37.0); Mean Corpuscular Hgb 27.6 pg (27.0-31.0); Mean Corpuscular Volume 83.1 fL (80.0-94.0); Mean Platelet Volume 9.5 fL (7.4-10.4); Nucleated Red Blood Cells % 0 % (-); Platelet Count 302 10^3/uL (130-400); Red Blood Cell Count 2.61 10^6/uL (4.70-6.10); Red Cell Dist. Width 18.7 % (11.5-14.5); White Blood Cell Count 13.9 10^3/uL (4.8-10.8)
[2024-03-23 17:08] LABS: Venous Blood Gas B.E. -2.4 mmol/L (-4 to +4); Venous Blood Gas HCO3 22.5 mmol/L (22-27); Venous Blood Gas O2 Sat % 98.2 %; Venous Blood Gas pCO2 38 mmHg (35-48); Venous Blood Gas pH 7.38 (7.32-7.43); Venous Blood Gas pO2 133 mmHg (30-50)
[2024-03-23 17:09] LABS: Venous Blood Gas O2 Therapy %Oxygen/Room Air 90
[2024-03-23 17:17] LABS: ALT (SGPT) < 10 U/L (0-50); AST (SGOT) 14 U/L (17-59); Albumin 2.1 g/dl (3.5-5.0); Alkaline Phosphatase 84 U/L (38-126); Blood Urea Nitrogen 11 mg/dl (9-20); Calcium 7.6 mg/dl (8.4-10.2); Carbon Dioxide 21 mmol/L (22-30); Chloride 97 mmol/L (98-107); Estimated Creatinine Clearance 61 ml/min; Glucose 126 mg/dl (70-99); Potassium 3.7 mmol/L (3.5-5.1); Sodium 126 mmol/L (135-145); Total Bilirubin 0.3 mg/dl (0.2-1.3); Total Protein 4.8 g/dl (6.3-8.2); eGFR > 60.00
[2024-03-23 17:20] LABS: Troponin I < 0.012 ng/ml
--- NOTE | 2024-03-23 17:36 | CM ---
Patient in Contact Precautions. Room air. Receiving IVAbx, IVF. Ashvin. PT 1/3 recommends skilled rehab. PT now on hold. OT 1/2 recommends skilled rehab.
SNF referrals reviewed - no accepting facilities.
Plan follow patient's mobility and meet with patient and discuss additional SNF options.
[2024-03-23] MEDS: LIPITOR 40 MG PO (18:12)
[2024-03-23 18:50] LABS: Glucose - Point of Care 131 mg/dl (70-99)
[2024-03-23] MEDS: SENNA SYRUP PO (20:14)
[2024-03-23 21:56] LABS: Glucose - Point of Care 129 mg/dl (70-99)
[2024-03-23 22:39] LABS: Hematocrit 21.2 % (39.0-52.0); Hemoglobin 7.2 g/dL (13.0-18.0); Mean Corpuscular Hgb 28.2 pg (27.0-31.0); Mean Corpuscular Volume 83.1 fL (80.0-94.0); Mean Platelet Volume 9.3 fL (7.4-10.4); Platelet Count 319 10^3/uL (130-400); Red Blood Cell Count 2.55 10^6/uL (4.70-6.10); Red Cell Dist. Width 18.7 % (11.5-14.5); White Blood Cell Count 14.6 10^3/uL (4.8-10.8)
[2024-03-23 22:56] LABS: Blood Urea Nitrogen 11 mg/dl (9-20); Calcium 7.5 mg/dl (8.4-10.2); Carbon Dioxide 19 mmol/L (22-30); Chloride 97 mmol/L (98-107); Estimated Creatinine Clearance 56 ml/min; Glucose 115 mg/dl (70-99); Potassium 3.8 mmol/L (3.5-5.1); Sodium 125 mmol/L (135-145); eGFR > 60.00
[2024-03-23 23:08] LABS: Troponin I < 0.012 ng/ml
[2024-03-23] MEDS: MELATONIN 5 MG PO (23:22)
[2024-03-24] VITALS (24 sets, daily range): BP systolic 95–155; BP diastolic 43–89; BMI 18.7
--- NOTE | 2024-03-24 02:43 | PTCARENOTE ---
NIHSS 0. R pupil 2mm, reactive. L pupil 3mm, reactive. AAOx3. NSR, weak ped. New crackles in R base. Otherwise dim on RA. 97% SaO2. Pt informed of new 1440ml fluid restriction order. Wound dressings CDI. Blood/urine cx neg so far. Call marrero and
belongings within reach, able to make needs known. Care ongoing.
--- NOTE | 2024-03-24 02:55 | PTCARENOTE ---
Pt requesting a 'pill to help him sleep'. Received order from NIC [facility] for one time dose 5mg melatonin.
[2024-03-24] MEDS: ZOSYN 50 IV ×4 (04:09→22:04)
--- NOTE | 2024-03-24 05:05 | PTCARENOTE ---
HI LIFT OPERATOR [place] notified that pt has temperature sensing pete in place and is scheduled to go down for MRCP today. MRCP order states that 'test may not be scheduled if patient has a pacemaker, defibrillator, aneurysm clips or a TEMPERATURE SENSING
PETE CATHETER'. Asked HI LIFT OPERATOR if she wanted the catheter removed or exchanged. Per HI LIFT OPERATOR, 'If MRCP is not being done urgently it should wait for urologist to determine'. Will pass along in report to receiving dayshift RN.
[2024-03-24 05:38] LABS: Hematocrit 20.8 % (39.0-52.0); Hemoglobin 6.9 g/dL (13.0-18.0); Mean Corp Hgb Conc. 33.2 g/dL (33.0-37.0); Mean Corpuscular Hgb 27.5 pg (27.0-31.0); Mean Corpuscular Volume 82.9 fL (80.0-94.0); Mean Platelet Volume 9.3 fL (7.4-10.4); Platelet Count 312 10^3/uL (130-400); Red Blood Cell Count 2.51 10^6/uL (4.70-6.10); Red Cell Dist. Width 18.5 % (11.5-14.5); White Blood Cell Count 11.9 10^3/uL (4.8-10.8)
[2024-03-24 05:46] LABS: Blood Urea Nitrogen 10 mg/dl (9-20); Calcium 7.2 mg/dl (8.4-10.2); Carbon Dioxide 22 mmol/L (22-30); Chloride 99 mmol/L (98-107); Estimated Creatinine Clearance 58 ml/min; Glucose 102 mg/dl (70-99); Magnesium 1.9 mg/dl (1.6-2.3); Potassium 3.7 mmol/L (3.5-5.1); Sodium 129 mmol/L (135-145); eGFR > 60.00
[2024-03-24 05:57] LABS: Troponin I < 0.012 ng/ml
--- NOTE | 2024-03-24 06:41 | W.PN.UPDATE ---
Update Note
Progress Note Update
RN notified WINDOWS ARCHITECT Lab resulted low hgb 6.9/20.8. VS BP 142/76 HR 63 SaO2 97% on RA, Afebrile. Patient seen and evaluated. Asymptomatic, no active bleeding. Abdomen soft non tender + BS 4quad. Blood consent obtained, type and screen ordered. 1 u PRBC's.
[2024-03-24] MEDS: NOVOLOG FLEXPEN-MODERATE RESISTANCE SC ×3 (07:46→17:57)
[2024-03-24 07:57] LABS: Glucose - Point of Care 127 mg/dl (70-99)
--- NOTE | 2024-03-24 08:13 | W.PN.HOSP.TC ---
Today's Communication/Plan
-
Consider general surgery consult given abdominal MRI findings and pancreatitis (on CT Chest PE) earlier this hospitalization
Continue antibiotics
Follow cultures
Assessment / Plan
Assessment / Plan
Physical Exam
General: Not in acute distress
HEENT: Normocephalic, Moist mucous membranes
Respiratory: Clear to Auscultation Bilaterally
Cardiac: S1/S2 and Regular Rhythm. Tachycardic.
GI: Soft, Non Tender, Non Distended and Normal Bowel Sounds
Musculoskeletal: No Cyanosis and No Edema
Skin: Other (lower extremity excoriations)
Neuro: Lethargic. Nonfocal/grossly intact
Assessment/Plan
#Shock - suspected septic from acute pyelonephritis 03/22/24
#Pneumonia in Lingula and Left Lower Lobe
#MRSA positive
#Diarrhea
-Initially was doing better after being in the ICU for Insulin Drip and severe sepsis
-03/23/24: MINING CAPTAIN called after patient found hypotensive and tachycardia, CT Chest was done earlier in the day which showed no PE but did show acute pyelonephritis --> transferred patient to IMU, started antibiotics, did not need any vasopressors
-Although CT Abdomen/Pelvis from 03/22/24 showed no pyelonephritis, CT Chest PE and renal and bladder ultrasound DID show signs of pyelonephritis
-Continue broad spectrum antibiotics --> consider narrowing to cover GI, (pyelo) sources and MRSA
-Follow cultures -- possible that antibiotics caused no growth in urine culture from 03/22/24
-Follow blood cultures
-Continue Lock catheter
-Given hydronephrosis, urinary retention, consulted urology (see below)
#Acute Anemia
-Hgb 6.9 on 03/24/24
-1 unit red blood cells transfused
-Recheck CBC
#High Lipase on 03/22/24
-CT Abdomen/Pelvis 03/22/24 did not show pancreatitis however the abdominal ultrasound 03/23/24 did suggest it, plus patient meets 2 out of 3 criteria (high lipase and had abdominal pain)
-Patient had also reported some epigastric abdominal pain (as below)
-Provided aggressive IV fluids with LR with significant improvement in symptoms, he is now tolerating a diet well, stopped IV fluids
-Low fat diet (with PO 48 ounces daily fluid restriction, given hyponatremia)
#Biliary Sludge on Abdominal Ultrasound
#3 cm echogenic lesion within the right hepatic lobe, possible hemangioma
-MRI abdomen with and without contrast, with MRCP completed: showed distended gallbladder with layering sludge.
-Consider general surgery consult given pancreatitis on imaging earlier in the hospitalization
#Mild Upper Mid Abdominal Pain and Tenderness
-Started around 03/18/24 per patient (first reported by patient on 03/20/24)
-Abdominal x-ray showed progressed moderate fecal material throughout the colon
-Started bowel regimen with Miralax and Senna
#Small volume abdominopelvic ascites on Abdominal MRI
#Orthostatic Hypotension
-Suspected from recent diarrhea, hypovolemia, recent poor PO intake
-No symptoms at rest
-Echo was unremarkable
#Anion gap metabolic acidosis - RESOLVED - secondary to DKA vs. acute kidney injury vs. sepsis
#History of type 2 diabetes mellitus
#Severe CR - RESOLVED - secondary to sepsis/urinary retention
#Urinary Retention - secondary to neurogenic bladder from long-standing and poorly controlled DM (diabetic cystopathy) vs. BPH
#Moderate Bilateral Hydroureteronephrosis and Severe Diffuse Urinary Bladder Wall Thickening
#Severe hyperkalemia
-Maintain Lock Catheter
-Initial creatinine of 4.9, now improved significantly --> 1.0 today
-Tamsulosin 0.4 mg qhs as SBP allows
-Voiding trial once ambulatory prior to discharge
-F/U with urologist Dr. Garcia as an outpatient - plan for UDS/VUDS to evaluate bladder function
#Hypokalemia
#Hypomagnesemia
-Suspected at least partly from Refeeding Syndrome
-Replacements ordered
-Recheck BMP and Magnesium
#Hyponatremia
-Suspected combination of hypovolemia (now addressed) and SIADH
-Stable in upper 120s/low 130s
-Monitor BMP
-PO Fluid Restriction
#Mild low density gastric wall thickening in the fluid-filled stomach
-Present on CT Abdomen/Pelvis imaging
#Toxic metabolic encephalopathy and acute CVA
-Continue DAPT and Lipitor
-CT Head with hypointensity L insular cortex, L external capsule, per report most likely stroke with cytotoxic edema --> but no neuro deficits on exam
-MRI Brain with subacute infarctions, MRA Head and Neck unremarkable
#History of HSV encephalitis
#Hypothyroidism
#BPH/urinary retention
#History of positive UDS for amphetamines
#Cachectic and Malnourished
#Severe protein Calorie Malnutrition
#Sacral deep dermal stage 2 pressure injury
-Continue wound care
#Bilateral L5 spondylolysis with grade 1 spondylolisthesis of L5 on S1
#Old 40% compression fracture of the superior endplate of L3
-Present on CT Imaging
Code Status: Full code
DVT Prophylaxis: Heparin
Patient is underinsured, unable to afford medications or food. Given cachexia, poor social situation, affordability issues, lack of medical insurance and multiple comorbidities his prognosis is very poor at this point.
Anticipated Discharge: > 48 hours
Subjective/Interval History
-
Date of Service: March 24, 2024
Patient was seen and examined. He denied any chest pain, SOB, abdominal pain or any other complaints.
Objective Data
-
Labs:
Laboratory Results
03/23/24 03/24/24
22:31 04:43
WBC 14.6 H 11.9 H
Hgb 7.2 L 6.9 L*
Hct 21.2 L 20.8 L*
Plt Count 319 312
Sodium 125 L 129 L
Potassium 3.8 3.7
Chloride 97 L 99
Carbon Dioxide 19 L 22
BUN 11 10
Creatinine 1.2 1.2
Glucose 115 H 102 H
Calcium 7.5 L 7.2 L
Vital Signs:
Vital Signs
Temp Pulse Resp BP Pulse Ox
98.1 F 70 21 136/79 95
03/24/24 04:38 03/24/24 06:00 03/24/24 06:00 03/24/24 06:00 03/24/24 06:00
I&O
03/23/24 03/24/24 03/25/24
06:59 06:59 06:59
Intake Total 5660 / 5660 840 / 840
Output Total 3650 / 3650 2500 / 2500
Balance 2009 -0 / -1659
[2024-03-24] MEDS: LOW STRENGTH ASPIRIN 81 MG PO (09:05)
[2024-03-24] MEDS: VITAMIN B1 100 MG PO ×2 (09:05→20:32)
[2024-03-24] MEDS: NEUTRA-PHOS POWDER PACKET PO ×4 (09:05→20:32)
[2024-03-24] MEDS: MIRALAX PO (09:05)
[2024-03-24] MEDS: PLAVIX 75 MG PO (09:05)
--- NOTE | 2024-03-24 09:14 | PTCARENOTE ---
Patient received from restaurant shift leader. No`events noted overnight until shift change. Currently on Room Air. No complaints of pain at this time. Lock in place. Continuing ABX. Scheduled for MRI this AM, currently NPO. Call marrero in reach.
[2024-03-24 11:22] LABS: Troponin I < 0.012 ng/ml
[2024-03-24 11:27] LABS: Vancomycin Random 10.9 ug/ml
--- NOTE | 2024-03-24 11:48 | PHA.VAN.FU ---
Vancomycin Assessment / Plan
- Assessment
Renal Function: Stable
WBC's are: Trending Down
In the past 24 hrs, patient has been: Afebrile
Concomitant Antimicrobials: piperacillin/tazobactam
- Assessment - Therapeutic Drug Monitoring
Random Level: 10.9 - drawn ~30H after previous level of 18.1
Calculated ke: 0.0171
Calculated half life (H): 40.6
- Dosing Plan
Dosing by Level: Re-dose today (Vanc 750mg)
- Monitoring Plan
Random Level: 03/25 599
- Follow Up
Pharmacy will continue to follow.
Vancomycin Follow UP
- -
Patient Age: 58
Patient Sex: Male
Vancomycin Day #: 3
Indication: Genito-Urinary Tract
Requesting Provider: Dr. Harris
Pertinent Antimicrobial Allergies:
NKDA
Height / Weight:
Height 5 ft 11 in
Actual Weight 60.8 kg
IBW in k.3
Pertinent Past Medical History: BMI ~16.8, DM 2
- Vital Signs / Lab Results
Temp Pulse Resp BP Pulse Ox
98.7 F 65 13 135/73 96
03/24/24 11:19 03/24/24 11:19 03/24/24 11:19 03/24/24 11:19 03/24/24 11:19
Lab Results - Hematology
03/22/24 03/22/24 03/23/24
06:11 14:49 04:41
WBC 11.5 H 36.4 H 18.8 H
03/23/24 03/23/24 03/24/24
16:44 22:31 04:43
WBC 13.9 H 14.6 H 11.9 H
Lab Results - Chemistry
03/21/24 03/22/24 03/22/24
04:07 06:11 14:49
BUN Cancelled 12 12
Creatinine Cancelled 1.0 1.2
Estimated Creat Clear Cancelled 65 54
Albumin 2.4 L
03/22/24 03/23/24 03/23/24
20:04 04:41 16:44
BUN 12 11 11
Creatinine 1.1 1.2 1.1
Estimated Creat Clear 59 56 61
Albumin 2.1 L
03/23/24 03/24/24
22:31 04:43
BUN 11 10
Creatinine 1.2 1.2
Estimated Creat Clear 56 58
Albumin
03/22/24
14:49
Lactic Acid 1.3
Microbiology Results
03/22/24 14:56 Blood Culture - Preliminary
Blood/Venous No Growth in 24 hours- Final report to follow
03/22/24 14:56 Blood Culture - Preliminary
Blood/Venous No Growth in 24 hours- Final report to follow
03/22/24 17:58 Urine Culture - Final
Urine NO GROWTH
Therapeutic Drug Monitoring
Random Vancomycin 10.9 ug/ml 03/24/24 10:24
[2024-03-24 12:04] LABS: Glucose - Point of Care 125 mg/dl (70-99)
[2024-03-24] MEDS: VANCOCIN 150 IV (14:37)
[2024-03-24 16:54] LABS: Glucose - Point of Care 127 mg/dl (70-99)
[2024-03-24] MEDS: LIPITOR 40 MG PO (17:56)
[2024-03-24] MEDS: SENNA SYRUP PO (20:30)
[2024-03-24 20:59] LABS: Hematocrit 24.2 % (39.0-52.0); Hemoglobin 8.2 g/dL (13.0-18.0); Mean Corp Hgb Conc. 33.9 g/dL (33.0-37.0); Mean Corpuscular Hgb 27.6 pg (27.0-31.0); Mean Corpuscular Volume 81.5 fL (80.0-94.0); Mean Platelet Volume 8.6 fL (7.4-10.4); Platelet Count 302 10^3/uL (130-400); Red Blood Cell Count 2.97 10^6/uL (4.70-6.10); Red Cell Dist. Width 17.7 % (11.5-14.5)
[2024-03-24] MEDS: MELATONIN 6 MG PO (22:04)
[2024-03-24 22:37] LABS: Glucose - Point of Care 263 mg/dl (70-99)
[2024-03-25] VITALS: BP 143/72
[2024-03-25 02:00] VITALS: BP 149/88
--- NOTE | 2024-03-25 02:28 | PTCARENOTE ---
Pt received from selena RN. Pt AAOx3, able to make needs known. Wound care done. Dressings CDI. No c/o pain at this time. Call marrero and belongings within reach.
[2024-03-25 04:02] VITALS: BP 163/99
[2024-03-25 04:29] VITALS: BP 156/91
[2024-03-25] MEDS: ZOSYN 50 IV (04:43)
[2024-03-25 05:05] LABS: Blood Urea Nitrogen 10 mg/dl (9-20); Calcium 7.7 mg/dl (8.4-10.2); Carbon Dioxide 27 mmol/L (22-30); Chloride 96 mmol/L (98-107); Estimated Creatinine Clearance 53 ml/min; Glucose 153 mg/dl (70-99); Magnesium 1.6 mg/dl (1.6-2.3); Potassium 3.8 mmol/L (3.5-5.1); Sodium 130 mmol/L (135-145); eGFR > 60.00
[2024-03-25 05:11] VITALS: BMI 18.6
[2024-03-25 05:25] LABS: Hematocrit 27.2 % (39.0-52.0); Hemoglobin 9.1 g/dL (13.0-18.0); Mean Corp Hgb Conc. 33.5 g/dL (33.0-37.0); Mean Corpuscular Hgb 27.7 pg (27.0-31.0); Mean Corpuscular Volume 82.7 fL (80.0-94.0); Mean Platelet Volume 9.4 fL (7.4-10.4); Platelet Count 368 10^3/uL (130-400); Red Blood Cell Count 3.29 10^6/uL (4.70-6.10); Red Cell Dist. Width 17.6 % (11.5-14.5); White Blood Cell Count 10.6 10^3/uL (4.8-10.8)
[2024-03-25 05:38] LABS: Vancomycin Random 15.6 ug/ml
[2024-03-25 06:00] VITALS: BP 150/88
--- NOTE | 2024-03-25 06:53 | W.PN.HOSP.TC ---
Addendum entered and electronically signed by Joy Knight MD 03/25/24 14:43:
Addendum
Pt was able to eat breakfast and lunch with no pain or nausea
Patient insisted on going home, refused SNF, case management social worker was consulted
d/w DM educator, given glucometer to monitor BS at home with instructions. He forgot his glucometer in [place]
d/w urologist, removed Lock, pt was able to void, for OP follow up
Total discharge time spent to see the patient, examine the patient, review data and lab results, discuss discharge plan with patient, nursing staff around 65 minutes
Original Note:
Today's Communication/Plan
-
dc
Assessment / Plan
Assessment / Plan
Physical Exam
General: Not in acute distress
HEENT: Normocephalic, Moist mucous membranes
Respiratory: Clear to Auscultation Bilaterally
Cardiac: S1/S2 and Regular Rhythm. Tachycardic.
GI: Soft, Non Tender, Non Distended and Normal Bowel Sounds
Musculoskeletal: No Cyanosis and No Edema
Skin: Other (lower extremity excoriations)
Neuro: Lethargic. Nonfocal/grossly intact
Assessment/Plan
#Shock - suspected septic from acute pyelonephritis 03/22/24
#Pneumonia in Lingula and Left Lower Lobe
#MRSA positive
#Diarrhea
-Initially was doing better after being in the ICU for Insulin Drip and severe sepsis
-03/23/24: GOLF COURSE PATROLLER called after patient found hypotensive and tachycardia, CT Chest was done earlier in the day which showed no PE but did show acute pyelonephritis --> transferred patient to IMU, started antibiotics, did not need any vasopressors
-Although CT Abdomen/Pelvis from 03/22/24 showed no pyelonephritis, CT Chest PE and renal and bladder ultrasound DID show signs of pyelonephritis
-Continue broad spectrum antibiotics --> consider narrowing to cover GI, (pyelo) sources and MRSA
-Follow cultures -- possible that antibiotics caused no growth in urine culture from 03/22/24
-Negative blood cultures
-Continue Lock catheter per urology
-Given hydronephrosis, urinary retention, consulted urology (see below)
#Acute Anemia
-Hgb 6.9 on 03/24/24
-1 unit red blood cells transfused
-Recheck CBC
#High Lipase on 03/22/24
-CT Abdomen/Pelvis 03/22/24 did not show pancreatitis however the abdominal ultrasound 03/23/24 did suggest it, plus patient meets 2 out of 3 criteria (high lipase and had abdominal pain)
-Patient had also reported some epigastric abdominal pain (as below)
-Provided aggressive IV fluids with LR with significant improvement in symptoms, he is now tolerating a diet well, stopped IV fluids
-Low fat diet (with PO 48 ounces daily fluid restriction, given hyponatremia)
#Biliary Sludge on Abdominal Ultrasound
#3 cm echogenic lesion within the right hepatic lobe, possible hemangioma
-MRI abdomen with and without contrast, with MRCP completed: showed distended gallbladder with layering sludge.
Pt denies abd pain, tolerating diet well
#Constipation
-Started around 03/18/24 per patient (first reported by patient on 03/20/24)
-Abdominal x-ray showed progressed moderate fecal material throughout the colon
-Started bowel regimen with Miralax and Senna
#Small volume abdominopelvic ascites on Abdominal MRI
#Orthostatic Hypotension
-Suspected from recent diarrhea, hypovolemia, recent poor PO intake
-No symptoms at rest
-Echo was unremarkable
#Anion gap metabolic acidosis - RESOLVED - secondary to DKA vs. acute kidney injury vs. sepsis
#History of type 2 diabetes mellitus
#Severe CR - RESOLVED - secondary to sepsis/urinary retention
#Urinary Retention - secondary to neurogenic bladder from long-standing and poorly controlled DM (diabetic cystopathy) vs. BPH
#Moderate Bilateral Hydroureteronephrosis and Severe Diffuse Urinary Bladder Wall Thickening
#Severe hyperkalemia
-Maintain Lock Catheter
-Initial creatinine of 4.9, now improved significantly --> 1.0 today
-Tamsulosin 0.4 mg qhs as SBP allows
-Voiding trial once ambulatory prior to discharge
-F/U with urologist Dr. Garcia as an outpatient - plan for UDS/VUDS to evaluate bladder function
#Hypokalemia
#Hypomagnesemia
treated.
#Hyponatremia
-Suspected combination of hypovolemia (now addressed) and SIADH
-Stable in upper 120s/low 130s
-Monitor BMP
-PO Fluid Restriction
#Mild low density gastric wall thickening in the fluid-filled stomach
-Present on CT Abdomen/Pelvis imaging
#Toxic metabolic encephalopathy and acute CVA
-Continue DAPT and Lipitor
-CT Head with hypointensity L insular cortex, L external capsule, per report most likely stroke with cytotoxic edema --> but no neuro deficits on exam
-MRI Brain with subacute infarctions, MRA Head and Neck unremarkable
#History of HSV encephalitis
#Hypothyroidism
#BPH/urinary retention
#History of positive UDS for amphetamines
#Cachectic and Malnourished
#Severe protein Calorie Malnutrition
#Sacral deep dermal stage 2 pressure injury
-Continue wound care
#Bilateral L5 spondylolysis with grade 1 spondylolisthesis of L5 on S1
#Old 40% compression fracture of the superior endplate of L3
-Present on CT Imaging
Code Status: Full code
DVT Prophylaxis: Heparin
Consulted brokerage office manager for dc planning
Total time spent to see the patient, examine the patient, review data and lab results, discuss treatment plan with patient, nursing staff around 55 minutes
Anticipated Discharge: Today
Subjective/Interval History
-
Date of Service: March 25, 2024
He wants to go home
Objective Data
-
Labs:
Laboratory Results
03/24/24 03/25/24
20:39 04:23
WBC 11.0 H 10.6
Hgb 8.2 L 9.1 L
Hct 24.2 L 27.2 L
Plt Count 302 368 D
Sodium 130 L
Potassium 3.8
Chloride 96 L
Carbon Dioxide 27
BUN 10
Creatinine 1.3
Glucose 153 H
Calcium 7.7 L
Vital Signs:
Vital Signs
Temp Pulse Resp BP Pulse Ox
98.0 F 68 16 150/88 99
03/25/24 05:11 03/25/24 06:00 03/25/24 06:00 03/25/24 06:00 03/25/24 06:00
I&O
03/23/24 03/24/24 03/25/24
06:59 06:59 06:59
Intake Total 5660 / 5660 840 / 840 690 / 690
Output Total 3650 / 3650 2500 / 2500 3040 / 3040
Balance 2009 -1660 / -1660 -2350 / -2350
[2024-03-25 07:51] LABS: Glucose - Point of Care 290 mg/dl (70-99)
--- NOTE | 2024-03-25 08:31 | PHA.VAN.FU ---
Vancomycin Assessment / Plan
- Assessment
Renal Function: Stable
WBC's are: WNL
In the past 24 hrs, patient has been: Afebrile
Concomitant Antimicrobials: piperacillin/tazobactam
- Assessment - Therapeutic Drug Monitoring
Random Level: 15.6 - drawn ~14H after previous dose of 750mg
- Dosing Plan
Dosing by Level: Re-dose today (Vanc 500mg)
Based on PK from yesterday, patient may barely maintain levels > 10 by tomorrow morning
Will re-dose today with low dose
- Monitoring Plan
No level(s) ordered at this time: consider levels in next few days
- Follow Up
Pharmacy will continue to follow.
Vancomycin Follow UP
- -
Patient Age: 58
Patient Sex: Male
Vancomycin Day #: 4
Indication: Genito-Urinary Tract
Requesting Provider: Dr. Harris
Pertinent Antimicrobial Allergies:
NKDA
Height / Weight:
Height 5 ft 11 in
Actual Weight 60.6 kg
IBW in k.3
Pertinent Past Medical History: BMI ~16.8, DM 2
- Vital Signs / Lab Results
Temp Pulse Resp BP Pulse Ox
96.8 F L 68 16 150/88 99
03/25/24 07:05 03/25/24 06:00 03/25/24 06:00 03/25/24 06:00 03/25/24 06:00
Lab Results - Hematology
03/22/24 03/23/24 03/23/24
14:49 04:41 16:44
WBC 36.4 H 18.8 H 13.9 H
03/23/24 03/24/24 03/24/24
22:31 04:43 20:39
WBC 14.6 H 11.9 H 11.0 H
03/25/24
04:23
WBC 10.6
Lab Results - Chemistry
03/22/24 03/22/24 03/23/24
14:49 20:04 04:41
BUN 12 12 11
Creatinine 1.2 1.1 1.2
Estimated Creat Clear 54 59 56
Albumin 2.4 L
03/23/24 03/23/24 03/24/24
16:44 22:31 04:43
BUN 11 11 10
Creatinine 1.1 1.2 1.2
Estimated Creat Clear 61 56 58
Albumin 2.1 L
03/25/24
04:23
BUN 10
Creatinine 1.3
Estimated Creat Clear 53
Albumin
03/22/24
14:49
Lactic Acid 1.3
Microbiology Results
03/22/24 14:56 Blood Culture - Preliminary
Blood/Venous No Growth in 48 hours- Final report to follow
03/22/24 14:56 Blood Culture - Preliminary
Blood/Venous No Growth in 48 hours- Final report to follow
03/22/24 17:58 Urine Culture - Final
Urine NO GROWTH
Therapeutic Drug Monitoring
Random Vancomycin 15.6 ug/ml 03/25/24 04:23
[2024-03-25] MEDS: NOVOLOG FLEXPEN-MODERATE RESISTANCE SC ×2 (08:34→12:31)
[2024-03-25] MEDS: LOW STRENGTH ASPIRIN 81 MG PO (08:35)
[2024-03-25] MEDS: PLAVIX 75 MG PO (08:35)
[2024-03-25] MEDS: VITAMIN B1 100 MG PO (08:35)
[2024-03-25] MEDS: NEUTRA-PHOS POWDER PACKET 250 MG PO (08:35)
[2024-03-25] MEDS: MIRALAX PO (08:35)
[2024-03-25 11:47] VITALS: BP 112/85; BP 118/84; PULSE 77; O2SAT 100
--- NOTE | 2024-03-25 11:56 | VNURNOTE ---
[facility] lia[facility] spoke with patient again. He stated pete was VA'ed and he has voided. He is agreeable to [facility]. He wants to go to friend Chuck page in [place]. Reviewed contact numbers: Chuck page # [phone] and Chuck cell # [phone].
Offered to set patient up with a hospital bed for home. He declines. Advised patient to take air mattress overlay home with him. He verbalized agreement. He has questions/concerns about getting a ride home. JOHN Segura updated. [facility] referral
updated.
--- NOTE | 2024-03-25 12:21 | CM ---
Addendum entered by Colton Herrera 03/25/24 13:24:
Pt stated his friend/raegan is coming to transport home around 2:00p.m. - 2:30 p.m.
Original Note:
CM following re: discharge planning.
Reviewed pt's chart, met with pt.
PT and OT have been recommending SNF level of care. From [facility] three SNFs that pt preferred to go denied a referral. Pt expressed his negative feelings and he is requested to go home with home care services. Pt reports he lives with raegan in a
hose at [address] [place] [address], has no steps to get in.
CM explained the benefits of SNF level of care and pt strongly rejected it and pt insisted to return back home with home care. Per PT/OT pt requires min assistance, incontinent. Pt stated he has no clothes. Pt stated his raegan/partner will not be
able to transport.
A referral to [facility] noted, [facility] liaison following.
Per Acute care ambulance liaison, pt does not qualify for BLS and pt will be transported by w/c van ant 3:30 p.m.
Please fax discharge instructions to [facility] at [phone]
D/C plan: home with [facility] and raegan/partner support.
[2024-03-25 12:41] LABS: Glucose - Point of Care 141 mg/dl (70-99)
[2024-03-25] MEDS: NEUTRA-PHOS POWDER PACKET PO (13:30)
--- NOTE | 2024-03-25 14:13 | PN.DE ---
Diabetes Education
- -
Diabetes Education
Met with Mr. Godinez in IMU at bedside for glucose monitor instructions. Current A1C is 8.6%., has been started on Metformin.
Pt states he has previously used a glucose meter and is comfortable using one. He is requesting for a new meter because he left his old meter in [place] where he resides.
Provided with Contour Next Ez glucometer, instructions with good return demonstration noted. Discussed testing pattern and expected results and information marked in the take home booklet.
RX for test strips and lancets for the Contour Next Ez meter added to ambulatory orders, testing twice a day at discharge.
Updates given to pt's Nurse.
--- NOTE | 2024-03-25 14:28 | PTCARENOTE ---
Rec'd pt this AM. Pt discharged to home, despite being recommended for short term rehab. He stated he did not require any assistance. His roommate picked him up and kateryna him clothes. He was given d.c. instructions and expressed understanding.
--- NOTE | 2024-03-25 14:37 | W.DCSUMMARY ---
Discharge Summary
Discharge Data
Date of Admission: 03/16/24
Date of Discharge: 03/25/24
-
Pending Results: No
Hospital Course
58 years old male who was found with altered mentation by his a friend presented to the hospital with change in mental status. Patient was found to have signs of sepsis with encephalopathy. He had acidosis which was associated with uncontrolled
diabetes and acute kidney injury. Patient was admitted to the intensive care unit. He was evaluated by solar sales estimator. Received intravenous fluid, insulin treatment, antibiotic therapy. Blood and urine culture did not show any growth. His renal
function improved to normal level. His blood sugar subsequently improved was able to come off infusions. Patient was monitored in hospital. He had imaging studies of the brain that showed subacute stroke. Patient was not taking his medications
and seem to have significant issue of noncompliance. Patient had history of diabetes but was not monitoring his blood glucose. He was seen by neurologist. He was started on dual antiplatelet therapy with a statin therapy. Echocardiogram showed
left ventricular systolic function with normal pericardium. He was noted to have urinary retention. He was followed by urologist. He had Lock catheter then removed and was able to void. Urologist recommended outpatient follow-up. He was found
to have constipation was given bowel regimen with good result. He had imaging studies of the abdomen including MRI that showed distended gallbladder with no signs of inflammation. Patient was able to tolerate diet without abdominal pain. Patient
was seen by certified diabetes educator. Patient was evaluated by physical therapy recommending penitentiary facility placement. Patient refused to go to penitentiary and wanted to go home. Patient was evaluated by nurse case manager. Patient wanted to go
home with home care services. Patient remained hemodynamically stable. He was given prescription for medications including oral antibiotics to finish empiric course for possible pneumonia/urinary tract infection. Patient was discharged home in a
stable condition.
Discharge Plan
-
Patient Disposition: Home with Home Care
Discharge Diagnosis/Procedures: -Pneumonia, you received intravenous antibiotics.
-Sepsis, finish course of oral antibiotic. Suspect underlying urinary tract infection.
-Uncontrolled diabetes, new diagnosis, started on metformin. Monitor blood glucose and follow with your primary care doctor. Monitor your blood glucose before meals and at bedtime.
-Acute urinary retention, follow-up with urology.
-anemia
-constipation
-Postural hypotension
-Stroke, continue with aspirin and Plavix for total 21 days ( you received Plavix, remaining 12 doses)) then continue with aspirin , Lipitor( statin) only. Follow with neurology in one month.
-generalized weakness/ gait dysfunction, we recommended SNF placement for rehab but you declined. Follow with home care and doctors in office.
Diet: Diabetic, Carb Controlled
Activity Restrictions/Additional Instructions:
Wound Care Instructions
LE's-clean with saline, soap and water or Vashe wound cleanser, cover with silicone border foam or adaptic, ABD pad, secure with stockinet. Change every 2 days and as needed for drainage.
Sacral/coccyx-clean with saline or soap and water, silicone border foam, change every 3 days and as needed for loosened dressing.
Moisture lotion to dry skin daily.
Air chair cushion.
Evaluate for an air mattress.
Elevate heels off bed with pillow/s.
Follow up at [facility] or at wound care center call for an appointment.
Referrals:
Curtis Garcia MD [Active] - in less than 1 week
Dylan Day MD [Active] - in two to four weeks
Efrain Calvin MD [Active] - in one month
UNKNOWN,NO INTERVIEW [Family Provider] -
Prescriptions:
New
atorvastatin 40 mg Tablet
40 mg PO QPM Qty: 30 0RF
polyethylene glycol 3350 17 gram Powder In Packet
17 g PO DAILY Qty: 30 0RF
clopidogrel 75 mg Tablet
75 mg PO DAILY Qty: 12 0RF
aspirin 81 mg Tablet,Chewable
81 mg PO DAILY Qty: 30 0RF
cefdinir 300 mg Capsule
300 mg PO Q12 Qty: 12 0RF
metformin 500 mg tablet
500 mg PO BID Qty: 60 0RF
(DME) Contour Next Test Strips Strip
Qty: 60 0RF
Rx Instructions:
Pt Testing 2 times a day
(DME) lancets [Microlet Lancet] Misc
Qty: 60 0RF
Rx Instructions:
Pt testing 2 times a day
Discharge Orders:
Discharge Patient (As Directed); Ordered 03/25/24
Ordered By: Joy Knight
Discharge Date and Time
Discharge Date/Time: 03/25/24 14:25
Print Language: COLOMBIAN
== END 2024-03-25 14:25 | disposition home health service (06) | DRG 871 ==
LOC: IMU 17:54
PROVIDERS: Hospitalist; Nurse Practitioner Family; Physician Assistant; ADMITTING PHYSICIAN Hospitalist; ATTENDING PHYSICIAN Internal Medicine; CONSULT PHYSICIAN Internal Medicine Critical Care Medicine; CONSULT PHYSICIAN Psychiatry & Neurology Clinical Neurophysiology; EMERGENCY PHYSICIAN Emergency Medicine
PROC: 30233N1 Transfusion of Nonautologous Red Blood Cells into Peripheral Vein, Percutaneous Approach (ICD-10-PCS; 2024-03-16)
DX: A41.9 Sepsis, unspecified organism (principal); E11.10 Type 2 diabetes mellitus with ketoacidosis without coma; E43 Unspecified severe protein-calorie malnutrition; J69.0 Pneumonitis due to inhalation of food and vomit; J18.9 Pneumonia, unspecified organism; I63.9 Cerebral infarction, unspecified; G92.8 Other toxic encephalopathy; G93.6 Cerebral edema; R65.21 Severe sepsis with septic shock; N17.9 Acute kidney failure, unspecified; E87.1 Hypo-osmolality and hyponatremia; N13.6 Pyonephrosis; Z68.1 Body mass index [BMI] 19.9 or less, adult; N10 Acute pyelonephritis; R64 Cachexia; E03.9 Hypothyroidism, unspecified; N40.1 Benign prostatic hyperplasia with lower urinary tract symptoms; R33.8 Other retention of urine; E87.5 Hyperkalemia; I95.1 Orthostatic hypotension; K52.9 Noninfective gastroenteritis and colitis, unspecified; D64.9 Anemia, unspecified; K59.00 Constipation, unspecified; E83.42 Hypomagnesemia; E87.6 Hypokalemia; L89.152 Pressure ulcer of sacral region, stage 2; Z22.322 Carrier or suspected carrier of Methicillin resistant Staphylococcus aureus; Z11.52 Encounter for screening for COVID-19; Z91.148 Patient's other noncompliance with medication regimen for other reason
CPT/HCPCS: 93308; 51702; 70450; 70544; 70548; 70551; 71045; 71275; 74018; 74176; 74178; 74183; 76700; 76857; 80048; 80053; 80061; 80202; 80306; 80307; 81003; 81015; 82010; 82040; 82247; 82248; 82533; 82550; 82805; 82962; 83036; 83605; 83690; 83735; 84075; 84100; 84450; 84460; 84484; 85025; 85027; 85610; 85730; 86850; 86900; 86901; 86920; 87040; 87045; 87046; 87070; 87086; 87147; 87324; 87427; 87449; 87502; 87811; 92507; 92523; 92610; 93005; 93306; 96361; 96365; 96367; 97116; 97163; 97164; 97167; 97530; 99291; 99292; 99406; A9575; A9585; P9016; Q9967

== ENCOUNTER 2024-04-01 20:10 | Inpatient (IN) | payer OTHER, SELFPAY ==
[2024-04-01] VITALS (8 sets, daily range): BP systolic 94–150; BP diastolic 69–100; BMI 16.5; BMI 17.7
--- NOTE | 2024-04-01 15:00 | ED.GENMED ---
History of Present Illness
General
Chief Complaint: Failure to Thrive
Time Seen by Provider: 04/01/24 15:00
History of Present Illness
History of Present Illness:
TIME OF INITIAL ENCOUNTER: 3 PM
HPI: Patient came in by ambulance related to failure to thrive type of presentation. He is somewhat of a limited and unreliable historian. It appears that a female, possibly a visiting nurse, checked on him when was concerned about his overall
appearance and called EMS. The patient admits and 'not doing well' but cannot describe any specific symptoms. He admits to marijuana use and had been using meth with questionable recurrence of use.
EXAM:
GENERAL: The patient is ill-appearing, hypothermic, he was covered in stool
HEENT: Moist oral mucosa
CARDIOVASCULAR: No murmurs, normal heart rate, regular rhythm, No chest wall tenderness
PULMONARY: No respiratory distress, breath sounds are clear and equal
ABDOMEN: Soft with no peritoneal signs, no tenderness
NEUROLOGIC: Good strength all extremities, no coordination deficits
PSYCHIATRIC: Limited insight and judgment with some impaired memory
EXTREMITIES: Nontender, 1+ bilateral lower extremity good edema, moves all extremities equally
SKIN: Scattered scabbed with no clear evidence of infection noted on his extremities
NUMBER AND COMPLEXITY OF PROBLEMS ADDRESSED AT THE ENCOUNTER
� Chronic conditions affecting care: BPH, diabetes
� Acute Exacerbation and/or Progression of Chronic Illness: This is likely a subacute problem
� Differential Diagnosis includes: Failure to thrive, hypothermia, bacteremia, sepsis, substance abuse
AMOUNT AND/OR COMPLEXITY OF DATA TO BE REVIEWED AND ANALYZED
� I performed an independent evaluation of and my interpretation is:
EKG: Sinus 84, left axis deviation, QTc 493
CT:
X-rays: Chest x-ray unremarkable
Laboratory Studies: White count 5.2, hemoglobin 9.0, creatinine 1, TSH 40.5 but free T4 is 0.92, alcohol undetected
Other:
� Review of other/old records: The patient was seen here just over 2 weeks ago and was admitted for DKA. Last year, A1c was over 18.
� Clinical information was obtained by an independent historian: Reviewed Mccune text from the visiting nurse
� Prescriptions/Medications Considered but not given:
� Further testing considered but not performed:
RISK OF COMPLICATIONS AND/OR MORBIDITY OR MORTALITY OF PATIENT MANAGEMENT
� Social determinants of health affecting care: The patient apparently lives with a older friend at the friend's house. Visiting nurse sent the patient here.
� Discussion with other providers: Hospitalist for admission
� Escalation of care including admission/observation vs risk of discharge considered: Visiting nurse, Kindra Denson, sent message to Lisa Brizuela, who forwarded her message: 'Sending to ER as per PCP, orthostatic, weak,
incontinent, unable to care for self'. The patient is hypothermic and overall ill-appearing doing very poorly at home. Renal function has worsened but not as bad as when he was admitted a few weeks ago. He was given IV fluids. Alcohol was not
detected.
ANY OTHER UPDATES:
Past History
Past History
ED Past Medical History: IDDM
ED Past Surgical History: Orthopedic
Social History
Tobacco: Non-smoker
Alcohol: None
Phy Exam
Physical Exam
Physical Exam:
See HPI
Course
Orders/Labs/Results
Orders:
Orders
04/01/24 15:15
Straight cath- Treatment ONCE
Urine Drug Abuse Screen Urgent
0.9% Sodium Chloride 1000 ml [Nss] 1,000 ml IV BOLUS
04/01/24 15:16
Urinalysis Reflex To Culture Urgent
04/01/24 15:17
CR Chest Portable - 1 View Urgent
Comment:
Reason For Exam: hypothermia
Reason Study Needs to be Portable: Patient Unstable
04/01/24 15:19
Alcohol Urgent
Comprehensive Metabolic Panel Urgent
Free T4 Urgent
Lactic Acid Q4H
Comment: CANCEL 2nd LACTIC ACID IF 1st LACTIC ACID IS LESS THAN 2
Magnesium Urgent
TSH Reflex To Free T4 Urgent
Blood Culture Q30M
JAVIER Source: Blood/Venous
Specimen Description:
Blood Culture Q30M
JAVIER Source: Blood/Venous
Specimen Description:
04/01/24 15:20
Norovirus by PCR Routine
JAVIER Source: ST
Specimen Description:
Comment: ADD ON
04/01/24 15:53
Complete Blood Count/With Diff Urgent
04/01/24 18:33
Levothyroxine [Synthroid] 50 mcg PO NOW STA
04/01/24 18:45
Add On - Microbiology Urgent
Tests Added?: norovirus stool
04/01/24 18:47
Admit/Transfer Patient As Directed
Co-Sign Provider:
Level of Care: Inpatient admission
Assign to:: Telemetry
Physician / Group: Keesha Herrera
Diagnosis: FTT, Hypothyroidism
Reason for Telemetry: Chest Pain syndromes
Date to Stop Telemetry: 04/03/24
Time to Stop Telemetry: 11:00
Reason for Hospitalization: FTT, Hypothyroidism
Expected length of stay greater than two midnights?: Yes
ELOS- Estimated Length of Stay in days: 3
I certify the patient meets the requirements for IP care: Yes
Code Status As Directed
Resuscitation Status: Full Code
Magnesium Sulfate 4 Gram/100Ml [Magnesium Sulfate] 4 gram in 100 ml IV NOW
PRN Pain Medication Management As Directed
May give lesser potent ordered pain med per pt: Yes
preference::
Protocol:: Medication orders for pain may be administered in a
manner that supports deferring to patient preference
when the pt is:
- Requesting an ordered lesser potent pain medication.
Least to most potent pain medications are defined
as: acetaminophen < NSAID < tramadol < opioids
(morphine, oxycodone, hydromorphone).
- Requesting a lesser dose of the same medication IF
ORDERED.
- Requesting a less intrusive route of administration
if both routes are prescribed by the provider (PO <
IV).
04/01/24 18:57
EKG [Electrocardiogram (*1)] Routine
Reason for Study: QTc Monitoring
04/01/24 18:58
CT Head W/o Iv Contrast Urgent
Comment:
Reason For Exam: AMS, recent CVA
04/03/24 11:00
DC Protocol for Telemetry ONCE
Abnormal Lab Results
04/01/24 04/01/24
15:19 15:53
RBC 3.24 L 10^6/uL
(4.70-6.10)
Hgb 9.0 L g/dL
(13.0-18.0)
Hct 27.4 L %
(39.0-52.0)
MCHC 32.8 L g/dL
(33.0-37.0)
RDW 17.8 H %
(11.5-14.5)
Absolute Lymphs (auto) 0.9 L 10^3/uL
(1.2-3.4)
Lymphocytes % 16.9 L %
(20.5-51.1)
Basophils % 2.1 H %
(0-2)
Sodium 132 L mmol/L
(135-145)
Carbon Dioxide 20 L mmol/L
(22-30)
Creatinine 1.6 H mg/dL
(0.7-1.3)
Glucose 125 H mg/dl
(70-99)
Magnesium 1.5 L mg/dl
(1.6-2.3)
Albumin 3.4 L g/dl
(3.5-5.0)
TSH (Reflex) 40.50 H uIU/ml
(0.47-4.68)
04/01/24 15:53
04/01/24 15:19
Vital Signs
Initial and Last Documented VS:
Initial Vital Signs
BP
150/75
04/01/24 15:00
Last Documented Vital Signs
Temp Pulse Resp BP Pulse Ox
36.1 C 84 13 112/69 98
04/01/24 18:21 04/01/24 19:45 04/01/24 19:45 04/01/24 19:00 04/01/24 19:30
*Critical Care Note
Total Time (30-74mins, 75-104mins- exclusive of procedures): Not Applicable
ED Attending Note
-
Portions of this chart may have been created with voice recognition software.� Occasional wrong word or��sound alike� substitutions may have occurred due to the inherent limitations of voice recognition software.
Discharge Plan
Departure
Patient Disposition: Admit
Date of Disposition: 04/01/24
Time of Disposition: 17:46
Presentation/result/management discussed w/ accepting MD/DO: Hospitalist
Discharge Problem:
Adult failure to thrive
Prescriptions:
No Action
atorvastatin 40 mg Tablet
40 mg PO QPM Qty: 30 0RF
polyethylene glycol 3350 17 gram Powder In Packet
17 g PO DAILY Qty: 30 0RF
clopidogrel 75 mg Tablet
75 mg PO DAILY Qty: 12 0RF
aspirin 81 mg Tablet,Chewable
81 mg PO DAILY Qty: 30 0RF
cefdinir 300 mg Capsule
300 mg PO Q12 Qty: 12 0RF
metformin 500 mg tablet
500 mg PO BID Qty: 60 0RF
Referrals:
UNKNOWN - PT NOT,INTERVIEWE [Family Provider] -
Interventions
Interventions:
*Risk Screen - Suicide Last Done: 04/01/24 15:01
*General Assessment Last Done: 01/16/25 15:01
*Neglect/Abuse Screening Last Done: 04/01/24 15:01
ED- Fall Risk Assessment Last Done: 04/01/24 15:16
*ED COVID-19 Vaccine History Last Done: 04/01/24 15:01
Discharge Date and Time
Print Language: IVORIAN
--- NOTE | 2024-04-01 15:43 | CM ---
CM was [facility] that patient was sent in as per PCP for evaluation of weakness. CM will follow as needed.
[2024-04-01] MEDS: NSS 1000 IV ×2 (15:47→22:43)
[2024-04-01 15:51] LABS: ALT (SGPT) 13 U/L (0-50); AST (SGOT) 32 U/L (17-59); Albumin 3.4 g/dl (3.5-5.0); Alcohol None Detected; Alkaline Phosphatase 108 U/L (38-126); Blood Urea Nitrogen 18 mg/dl (9-20); Calcium 8.9 mg/dl (8.4-10.2); Carbon Dioxide 20 mmol/L (22-30); Chloride 98 mmol/L (98-107); Estimated Creatinine Clearance 38 ml/min; Glucose 125 mg/dl (70-99); Magnesium 1.5 mg/dl (1.6-2.3); Potassium 4.8 mmol/L (3.5-5.1); Sodium 132 mmol/L (135-145); Total Bilirubin 0.6 mg/dl (0.2-1.3); Total Protein 6.5 g/dl (6.3-8.2); eGFR 49.63
[2024-04-01 16:03] LABS: % Basophils 2.1 % (0-2); % Immature Granulocytes 0.2 % (0-0.5); % Lymphocytes 16.9 % (20.5-51.1); % Monocytes 7.7 % (1.7-9.3); % Neutrophils 67.1 % (42.2-75.2); Absolute Basophils 0.1 10^3/uL (0-0.2); Absolute Eosinophils 0.3 10^3/uL (0-0.7); Absolute Lymphocytes 0.9 10^3/uL (1.2-3.4); Absolute Monocytes 0.4 10^3/uL (0.1-0.6); Absolute Neutrophils 3.5 10^3/uL (1.4-6.5); Hematocrit 27.4 % (39.0-52.0); Mean Corp Hgb Conc. 32.8 g/dL (33.0-37.0); Mean Corpuscular Hgb 27.8 pg (27.0-31.0); Mean Corpuscular Volume 84.6 fL (80.0-94.0); Mean Platelet Volume 9.4 fL (7.4-10.4); Nucleated Red Blood Cells % 0 % (-); Platelet Count 389 10^3/uL (130-400); Red Blood Cell Count 3.24 10^6/uL (4.70-6.10); Red Cell Dist. Width 17.8 % (11.5-14.5); White Blood Cell Count 5.2 10^3/uL (4.8-10.8)
[2024-04-01 16:56] LABS: Free T4 0.92 ng/dl (0.78-2.19)
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
[2024-04-01] MEDS: SYNTHROID 50 MCG PO (19:08)
[2024-04-01] MEDS: MAGNESIUM SULFATE 100 IV (19:45)
[2024-04-01] MEDS: HEPARIN 5000 UNITS SC (22:45)
--- NOTE | 2024-04-01 23:45 | PTCARENOTE ---
Pt transferred from ED to 3W via stretcher. Pt pullover from stretcher to bed. Vitals obtained and stable, TELE initiated. Pt oriented to room, call marrero within reach, resting comfortably.
[2024-04-02] VITALS (9 sets, daily range): BP systolic 90–144; BP diastolic 53–88; PULSE 80–85; O2SAT 98; BMI 17.7
[2024-04-02] MEDS: SYNTHROID 50 MCG PO (05:38)
[2024-04-02 06:32] LABS: % Basophils 1.7 % (0-2); % Eosinophils 6.5 % (0-6); % Immature Granulocytes 0.4 % (0-0.5); % Lymphocytes 21.1 % (20.5-51.1); % Monocytes 8.5 % (1.7-9.3); % Neutrophils 61.8 % (42.2-75.2); Absolute Basophils 0.1 10^3/uL (0-0.2); Absolute Eosinophils 0.3 10^3/uL (0-0.7); Absolute Monocytes 0.4 10^3/uL (0.1-0.6); Absolute Neutrophils 2.8 10^3/uL (1.4-6.5); Hematocrit 22.8 % (39.0-52.0); Hemoglobin 7.3 g/dL (13.0-18.0); Mean Corpuscular Hgb 27.3 pg (27.0-31.0); Mean Corpuscular Volume 85.4 fL (80.0-94.0); Mean Platelet Volume 9.2 fL (7.4-10.4); Nucleated Red Blood Cells % 0 % (-); Platelet Count 366 10^3/uL (130-400); Red Blood Cell Count 2.67 10^6/uL (4.70-6.10); Red Cell Dist. Width 17.8 % (11.5-14.5); White Blood Cell Count 4.6 10^3/uL (4.8-10.8)
[2024-04-02 06:51] LABS: Blood Urea Nitrogen 15 mg/dl (9-20); Calcium 8.1 mg/dl (8.4-10.2); Carbon Dioxide 20 mmol/L (22-30); Chloride 102 mmol/L (98-107); Estimated Creatinine Clearance 44 ml/min; Glucose 115 mg/dl (70-99); Magnesium 2.1 mg/dl (1.6-2.3); Sodium 132 mmol/L (135-145); eGFR 53.63
[2024-04-02 06:59] LABS: Potassium 4.2 mmol/L (3.5-5.1)
--- NOTE | 2024-04-02 08:28 | VNURNOTE ---
Chart reviewed. Patient is current with [facility] nursing, PT. Will continue to follow hospital course and DC plans.
[2024-04-02] MEDS: PLAVIX 75 MG PO (08:48)
[2024-04-02] MEDS: LOW STRENGTH ASPIRIN 81 MG PO (08:48)
[2024-04-02] MEDS: HEPARIN 5000 UNITS SC ×2 (08:48→20:58)
[2024-04-02] MEDS: NOVOLOG FLEXPEN-LOW RESISTANCE SC ×3 (08:54→17:30)
[2024-04-02 08:55] LABS: Glucose - Point of Care 105 mg/dl (70-99)
[2024-04-02 09:27] LABS: Iron 38 ug/dl (49-181)
--- NOTE | 2024-04-02 09:31 | W.PN.HOSP.TC ---
Today's Communication/Plan
-
Lock for acute retention per
Flomax.
UA and culture.
Observe off IV fluids.
Physical therapy evaluation.
Assessment / Plan
Assessment / Plan
Impression:
Presentation with generalized fatigue, inability to take care of himself, urinary incontinence
Acute kidney injury.
Normal anion gap metabolic acidosis
Hyponatremia
Acute/recurrent urinary retention.
Subclinical hypothyroidism
Other conditions:
Recent hospitalization with sepsis and UTI, urinary retention with Lock catheter discontinued upon discharge.
Subacute CVA.
History of HSV encephalitis.
Diabetes type 2
Chronic normocytic anemia
BPH
Drug use disorder with urine drug screen positive with amphetamines.
History of alcohol use disorder.
Protein calorie malnutrition with BMI of 17
Plan:
Acute kidney injury
Normal anion gap metabolic acidosis
Acute urinary retention bladder scan with PVR 1400 mL on 04/02.
Lock catheter
Flomax
Hold off further IV hydration
Follow BMP.
Replete hypomagnesemia
Acute retention
Recent UTI with obstructive uropathy
Recheck urine and cultures
Monitor closely off antibiotics
Subclinical hypothyroidism.
TSH 40.
Normal free T4.
Discussed with endocrinology upon admission.
Initiated on levothyroxine.
Recent subacute CVA.
Repeated CT scan on admission with no acute abnormality
Imaging including CT scan and MRI consistent with old encephalomalacia from HSV infection as well as subacute left frontal infarct.
Patient complains of generalized fatigue, although with no focal findings on exam.
Initiated on DAPT with Plavix and aspirin on 03/17. Continue statin.
Physical therapy assessment
Type 2 diabetes
Recent hemoglobin A1c 8.6.
Hold metformin acutely given CR.
Diabetic diet.
Insulin basal bolus protocol.
Chronic normocytic anemia.
No clinical evidence of acute blood loss.
Hemoglobin at 7.3.
Check iron and B12 level
Follow hemoglobin
Start PPI.
May need outpatient GI workup
Case management consultation for discharge planning, may require half-way facility given general deconditioning.
Full code.
Anticipated Discharge: 24 - 48 hours
Subjective/Interval History
-
Date of Service: April 02, 2024
Objective Data
-
Labs:
Laboratory Results
04/02/24
05:42
WBC 4.6 L
Hgb 7.3 L
Hct 22.8 L
Plt Count 366
Sodium 132 L
Potassium 4.2
Chloride 102
Carbon Dioxide 20 L
BUN 15
Creatinine 1.5 H
Glucose 115 H
Calcium 8.1 L
Vital Signs:
Vital Signs
Temp Pulse Resp BP Pulse Ox
98.6 F 80 17 126/88 98
04/02/24 03:12 04/02/24 03:12 04/02/24 03:12 04/02/24 03:12 04/02/24 03:12
Physical Exam
-
General: Well Developed and No Apparent Distress
HEENT: Normocephalic, Atraumatic and Moist Mucous Membranes
Respiratory: Clear to Auscultation
Cardiac: Regular Rhythm and S1/S2; Negative Murmur, Rub or Gallop
GI: Soft, Nontender, Nondistended and Normal Bowel Sounds; Negative Organomegaly
Rectal: Deferred by Provider
Musculoskeletal: No Clubbing, No Cyanosis and No Edema
Skin: Negative Rash
Neuro: Nonfocal/Grossly Intact
[2024-04-02 09:36] LABS: Percent Saturation 20 % (20-50); Total Iron Binding Capacity 186 ug/dl (261-462)
[2024-04-02] MEDS: PROTONIX 20 MG PO (09:48)
[2024-04-02] MEDS: FLOMAX 0.4 MG PO (09:48)
[2024-04-02 10:06] LABS: Urine Albumin Trace (Neg - Trace); Urine Bilirubin Negative (Negative); Urine Character Slightly Cloudy (Clear); Urine Color Yellow; Urine Glucose Negative (Negative); Urine Ketone Negative (Negative); Urine Leukocyte 2+ (Negative); Urine Nitrite Negative (Negative); Urine Occult Blood 4+ (Negative); Urine Specific Gravity 1.015 (<1.030); Urine Urobilinogen Negative (Neg - 1+)
[2024-04-02 10:18] LABS: Vitamin B12 909 pg/ml (239-931)
[2024-04-02 10:19] LABS: Amphetamines Positive (Negative)
[2024-04-02 10:20] LABS: Barbiturates Negative (Negative); Benzodiazepines Negative (Negative); Buprenorphine Negative (Negative); Cocaine Negative (Negative); Marijuana Negative (Negative); Methadone Negative (Negative); Methamphetamines Positive (Negative); Opiates Negative (Negative); Phencyclidine Negative (Negative); Tricyclic Antidepressants Negative (Negative)
[2024-04-02 10:28] LABS: Urine Red Blood Cell 16-20 /HPF (0-2)
[2024-04-02 10:29] LABS: Urine Bacteria Few (Negative); Urine White Cell 50-60 /HPF (0-5)
[2024-04-02 10:42] LABS: Fentanyl, Urine Negative (Negative)
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
[2024-04-02 11:29] LABS: Glucose - Point of Care 123 mg/dl (70-99)
--- NOTE | 2024-04-02 16:56 | PN.CDI ---
CDI
- -
CDI:
Physician Documentation Request
Admit Date: 04/01/24 23:46
Dear Doctor Eusebio,
Clinical Indicators:
Documentation includes the diagnosis of malnutrition. Other clinical indicators are:
04/02 RD note/assessment:-'CBW: 126 lbs 8 oz BMI 17.6 underweight range... reflective of a 38 lb (23%) in < 1 year
significant'
-'During visit RD able to visualize protrusion of clavicula, buccal wasting, temporal wasting and
orbital area sunken in.'
-'With weight loss of > 20% in 1 year, < 75% estimated needs > 1 month and observed
muscle and fat wasting. Pt meets AND/ASPEN criteria for severe protein calorie
malnutrition. '
Please specify the degree of the protein calorie malnutrition:
Severe Protein Calorie Malnutrition
Other (please specify)
[place] Criteria (ACP Hospitalist 2017)
2 or more criteria must be present for either
non severe or severe malnutrition
Note that the criteria differs related to the
presence of an acute or chronic illness
Acute Illness Chronic Illness
Energy Intake Non Severe: <75% for >7 days Non Severe: <75% for >1 month
Severe: <50% for >5 days Severe: <75% for >1 month
Weight Loss Non Severe: 1-2% over 1 week Non Severe: 5% over 1 month
5% over 1 month 7.5% over 3 months
7.5% over 3 months 10% over 6 months
1 year N/A 20% over 1 year
Severe: >2% over 1 week Severe: >5% over 1 month
>5% over 1 month >7.5% over 3 months
>7.5% over 3 months >10% over 6 months
1 year N/A >20% over 1 year
Body Fat Non Severe: Mild Decrease Non Severe: Mild Loss
Severe: Moderate Decrease Severe: Severe Loss
Muscle Mass Non Severe: Mild Decrease Non Severe: Mild Loss
Severe: Moderate Decrease Severe: Severe Loss
Fluid Accumulation Non Severe: Mild Accumulation Non Severe: Mild Accumulation
Severe: Moderate to severe Severe: Moderate to severe
accumulation accumulation
Reduced Furnace Cleaner Strength Non Severe: N/A Non Severe: N/A
Severe: Measurably reduced Severe: Measurably reduced
Additional criteria that can be used to Determine if Mild or Moderate Malnutrition (Merck Manual 2018)
Mild Moderate Severe
Albumin gm/dl <3.0 gm/dl <2.5 gm/dl <2.0 gm/dl
Pre Albumin mg/dl <15 gm/dl <10 mg/dl <5.0 mg/dl
BMI <18.5 <17 <16
Use of terms such as suspected, likely, concern for, or probable (associated with a specific diagnosis that is being evaluated, monitored, or treated as if it exists) are acceptable and can be coded in the inpatient setting, when documented at the
time of discharge.
Thank you,
Madai Johnson RN BSN
CDI Specialist
available via tiger text
[2024-04-02] MEDS: LIPITOR 40 MG PO (17:26)
[2024-04-02 17:31] LABS: Glucose - Point of Care 179 mg/dl (70-99)
[2024-04-02 21:52] LABS: Glucose - Point of Care 300 mg/dl (70-99)
[2024-04-03 03:18] VITALS: BP 138/70
[2024-04-03 05:46] VITALS: BMI 17.3
[2024-04-03] MEDS: SYNTHROID 50 MCG PO (06:15)
[2024-04-03 07:00] VITALS: BP 116/67
[2024-04-03 08:06] LABS: Glucose - Point of Care 161 mg/dl (70-99)
[2024-04-03 08:14] LABS: % Basophils 1.2 % (0-2); % Eosinophils 5.7 % (0-6); % Immature Granulocytes 0.5 % (0-0.5); % Lymphocytes 18.4 % (20.5-51.1); % Monocytes 10.1 % (1.7-9.3); % Neutrophils 64.1 % (42.2-75.2); Absolute Basophils 0.1 10^3/uL (0-0.2); Absolute Eosinophils 0.2 10^3/uL (0-0.7); Absolute Lymphocytes 0.8 10^3/uL (1.2-3.4); Absolute Monocytes 0.4 10^3/uL (0.1-0.6); Absolute Neutrophils 2.7 10^3/uL (1.4-6.5); Hematocrit 23.2 % (39.0-52.0); Hemoglobin 7.6 g/dL (13.0-18.0); Mean Corp Hgb Conc. 32.8 g/dL (33.0-37.0); Mean Corpuscular Hgb 27.8 pg (27.0-31.0); Mean Platelet Volume 9.2 fL (7.4-10.4); Nucleated Red Blood Cells % 0 % (-); Platelet Count 343 10^3/uL (130-400); Red Blood Cell Count 2.73 10^6/uL (4.70-6.10); White Blood Cell Count 4.2 10^3/uL (4.8-10.8)
[2024-04-03] MEDS: PLAVIX 75 MG PO (08:38)
[2024-04-03] MEDS: LOW STRENGTH ASPIRIN 81 MG PO (08:38)
[2024-04-03] MEDS: FLOMAX 0.4 MG PO (08:38)
[2024-04-03] MEDS: HEPARIN 5000 UNITS SC ×2 (08:38→22:19)
[2024-04-03] MEDS: PROTONIX 20 MG PO (08:38)
[2024-04-03 08:43] LABS: Blood Urea Nitrogen 11 mg/dl (9-20); Calcium 8.4 mg/dl (8.4-10.2); Carbon Dioxide 24 mmol/L (22-30); Chloride 103 mmol/L (98-107); Estimated Creatinine Clearance 49 ml/min; Glucose 122 mg/dl (70-99); Potassium 4.1 mmol/L (3.5-5.1); Sodium 133 mmol/L (135-145); eGFR > 60.00
[2024-04-03] MEDS: NOVOLOG FLEXPEN-LOW RESISTANCE SC (10:10)
--- NOTE | 2024-04-03 11:21 | W.PN.HOSP.TC ---
Today's Communication/Plan
-
DC ready, family preservation caseworker aware, DC planning
Assessment / Plan
Assessment / Plan
Impression:
Presentation with generalized fatigue, inability to take care of himself, urinary incontinence
Acute kidney injury.
Normal anion gap metabolic acidosis
Hyponatremia
Acute/recurrent urinary retention.
Subclinical hypothyroidism
Hypomagnesemia
Other conditions:
Recent hospitalization with sepsis and UTI, urinary retention with Lock catheter discontinued upon discharge.
Subacute CVA.
History of HSV encephalitis.
Diabetes type 2
Chronic normocytic anemia
BPH
Drug use disorder with urine drug screen positive with amphetamines.
History of alcohol use disorder.
Protein calorie malnutrition with BMI of 17
Plan:
Acute kidney injury, resolving
Normal anion gap metabolic acidosis
Acute urinary retention bladder scan with PVR 1400 mL on 04/02.
Lock catheter
Flomax
Hold off further IV hydration
Follow BMP - improving
Acute retention
Recent UTI with obstructive uropathy
Urine Cultures negative
Monitor closely off antibiotics
Subclinical hypothyroidism.
TSH 40.
Normal free T4.
Discussed with endocrinology upon admission.
Initiated on levothyroxine.
Recent subacute CVA.
Repeated CT scan on admission with no acute abnormality
Imaging including CT scan and MRI consistent with old encephalomalacia from HSV infection as well as subacute left frontal infarct.
Patient complains of generalized fatigue, although with no focal findings on exam.
Initiated on DAPT with Plavix and aspirin on 03/17. Continue statin.
Physical therapy assessment
LDL <70
Type 2 diabetes
Recent hemoglobin A1c 8.6.
Hold metformin acutely given CR.
Diabetic diet.
Insulin basal bolus protocol.
Chronic normocytic anemia.
No clinical evidence of acute blood loss.
Hemoglobin at 7.3.
Iron sat and B12 level WNL
Follow hemoglobin
Was started on Start PPI.
Should have outpatient GI workup including EGD +/- Colonoscopy depending on when last scope and EGD findings are
Polysubstance abuse
UDS positive for amphetamines, acknowledges meth use
Educated on cessation
Case management consultation for discharge planning, may require longterm facility given general deconditioning.
Full code.
Anticipated Discharge: 24 - 48 hours
Subjective/Interval History
-
Date of Service: April 03, 2024
No acute events overnight
Objective Data
-
Labs:
Laboratory Results
04/03/24
07:46
WBC 4.2 L
Hgb 7.6 L
Hct 23.2 L
Plt Count 343
Sodium 133 L
Potassium 4.1
Chloride 103
Carbon Dioxide 24
BUN 11
Creatinine 1.3
Glucose 122 H
Calcium 8.4
Vital Signs:
Vital Signs
Temp Pulse Resp BP Pulse Ox
98.6 F 77 16 116/67 98
04/03/24 07:00 04/03/24 07:00 04/03/24 07:00 04/03/24 07:00 04/03/24 07:00
I&O
04/02/24 04/03/24 04/04/24
06:59 06:59 06:59
Intake Total 1480 / 1480
Output Total 4250 / 4250
Balance -2770 / -2770
Review of Systems
-
History Source: Patient
All other systems: Not reviewed unless documented
Physical Exam
-
General: Well Developed and No Apparent Distress
HEENT: Normocephalic, Atraumatic and Moist Mucous Membranes
Respiratory: Clear to Auscultation
Cardiac: Regular Rhythm and S1/S2; Negative Murmur, Rub or Gallop
GI: Soft, Nontender, Nondistended and Normal Bowel Sounds; Negative Organomegaly
Rectal: Deferred by Provider
Musculoskeletal: No Clubbing, No Cyanosis and No Edema
Skin: Negative Rash
Neuro: Nonfocal/Grossly Intact
Data Reviewed
-
CT Scan: Report Reviewed by me
Labs: Labs Reviewed by me
Old Records: Reviewed
[2024-04-03 11:56] LABS: Glucose - Point of Care 237 mg/dl (70-99)
[2024-04-03] MEDS: NOVOLOG FLEXPEN-LOW RESISTANCE 2 UNITS SC (13:04)
[2024-04-03 15:00] VITALS: BP 113/75
[2024-04-03 16:56] LABS: Glucose - Point of Care 266 mg/dl (70-99)
[2024-04-03] MEDS: LIPITOR 40 MG PO (17:01)
[2024-04-03] MEDS: NOVOLOG FLEXPEN-LOW RESISTANCE 3 UNITS SC (17:01)
[2024-04-03 19:37] VITALS: BP 106/61
[2024-04-03 21:41] LABS: Glucose - Point of Care 141 mg/dl (70-99)
[2024-04-03 23:15] VITALS: BP 119/68
[2024-04-04 06:00] VITALS: BMI 16.9
[2024-04-04] MEDS: SYNTHROID 50 MCG PO (06:11)
[2024-04-04 06:54] LABS: Hematocrit 25.3 % (39.0-52.0); Hemoglobin 8.3 g/dL (13.0-18.0); Mean Corp Hgb Conc. 32.8 g/dL (33.0-37.0); Mean Corpuscular Hgb 27.9 pg (27.0-31.0); Mean Corpuscular Volume 84.9 fL (80.0-94.0); Mean Platelet Volume 9.1 fL (7.4-10.4); Platelet Count 344 10^3/uL (130-400); Red Blood Cell Count 2.98 10^6/uL (4.70-6.10); Red Cell Dist. Width 17.8 % (11.5-14.5); White Blood Cell Count 4.4 10^3/uL (4.8-10.8)
[2024-04-04 07:24] LABS: Blood Urea Nitrogen 10 mg/dl (9-20); Calcium 8.3 mg/dl (8.4-10.2); Carbon Dioxide 26 mmol/L (22-30); Chloride 99 mmol/L (98-107); Estimated Creatinine Clearance 52 ml/min; Glucose 98 mg/dl (70-99); Potassium 4.4 mmol/L (3.5-5.1); Sodium 132 mmol/L (135-145); eGFR > 60.00
[2024-04-04 07:36] VITALS: BP 136/79
[2024-04-04 08:10] LABS: Glucose - Point of Care 115 mg/dl (70-99)
[2024-04-04] MEDS: PLAVIX 75 MG PO (09:46)
[2024-04-04] MEDS: FLOMAX 0.4 MG PO (09:46)
[2024-04-04] MEDS: PROTONIX 20 MG PO (09:46)
[2024-04-04] MEDS: LOW STRENGTH ASPIRIN 81 MG PO (09:46)
[2024-04-04] MEDS: HEPARIN 5000 UNITS SC ×2 (09:48→21:00)
[2024-04-04] MEDS: NOVOLOG FLEXPEN-LOW RESISTANCE SC (09:50)
[2024-04-04 12:09] LABS: Glucose - Point of Care 187 mg/dl (70-99)
--- NOTE | 2024-04-04 12:11 | W.PN.HOSP.TC ---
Today's Communication/Plan
-
Awaiting bed placement
Assessment / Plan
Assessment / Plan
Impression:
Presentation with generalized fatigue, inability to take care of himself, urinary incontinence
Acute kidney injury.
Normal anion gap metabolic acidosis
Hyponatremia
Acute/recurrent urinary retention.
Subclinical hypothyroidism
Hypomagnesemia
Other conditions:
Recent hospitalization with sepsis and UTI, urinary retention with Lock catheter discontinued upon discharge.
Subacute CVA.
History of HSV encephalitis.
Diabetes type 2
Chronic normocytic anemia
BPH
Drug use disorder with urine drug screen positive with amphetamines.
History of alcohol use disorder.
Protein calorie malnutrition with BMI of 17
Plan:
Acute kidney injury, resolving
Normal anion gap metabolic acidosis
Acute urinary retention bladder scan with PVR 1400 mL on 04/02.
Lock catheter
Flomax
Hold off further IV hydration
Follow BMP - improving
Acute retention
Recent UTI with obstructive uropathy
Urine Cultures negative
Monitor closely off antibiotics
Subclinical hypothyroidism.
TSH 40.
Normal free T4.
Discussed with endocrinology upon admission.
Initiated on levothyroxine.
Recent subacute CVA.
Repeated CT scan on admission with no acute abnormality
Imaging including CT scan and MRI consistent with old encephalomalacia from HSV infection as well as subacute left frontal infarct.
Patient complains of generalized fatigue, although with no focal findings on exam.
Initiated on DAPT with Plavix and aspirin on 03/17. Continue statin.
Physical therapy assessment
LDL <70
Type 2 diabetes
Recent hemoglobin A1c 8.6.
Hold metformin acutely given CR.
Diabetic diet.
Insulin basal bolus protocol.
Chronic normocytic anemia.
No clinical evidence of acute blood loss.
Hemoglobin at 7.3.
Iron sat and B12 level WNL
Follow hemoglobin
Was started on Start PPI.
Should have outpatient GI workup including EGD +/- Colonoscopy depending on when last scope and EGD findings are
Polysubstance abuse
UDS positive for amphetamines, acknowledges meth use
Educated on cessation
Case management consultation for discharge planning, may require assisted facility given general deconditioning.
Full code.
Anticipated Discharge: Within 24 hours
Subjective/Interval History
-
Date of Service: April 04, 2024
No acute events overnight
Objective Data
-
Labs:
Laboratory Results
04/04/24
05:30
WBC 4.4 L
Hgb 8.3 L
Hct 25.3 L
Plt Count 344
Sodium 132 L
Potassium 4.4
Chloride 99
Carbon Dioxide 26
BUN 10
Creatinine 1.2
Glucose 98
Calcium 8.3 L
Vital Signs:
Vital Signs
Temp Pulse Resp BP Pulse Ox
98.9 F 74 18 136/79 98
04/04/24 07:36 04/04/24 07:36 04/04/24 07:36 04/04/24 07:36 04/04/24 07:36
I&O
04/03/24 04/04/24 04/05/24
06:59 06:59 06:59
Intake Total 1480 / 1480 1920 / 1920 250 / 250
Output Total 4250 / 4250 1750 / 1750 1000 / 1000
Balance -2770 / -2770 170 / 170 -750 / -750
Review of Systems
-
History Source: Patient
All other systems: Not reviewed unless documented
Data Reviewed
-
CT Scan: Report Reviewed by me
Labs: Labs Reviewed by me
Old Records: Reviewed
[2024-04-04] MEDS: NOVOLOG FLEXPEN-LOW RESISTANCE 1 UNITS SC ×2 (13:06→17:01)
[2024-04-04 15:15] VITALS: BP 117/71
[2024-04-04 17:01] LABS: Glucose - Point of Care 193 mg/dl (70-99)
[2024-04-04] MEDS: LIPITOR 40 MG PO (17:01)
[2024-04-04 21:11] LABS: Glucose - Point of Care 234 mg/dl (70-99)
[2024-04-04 23:37] VITALS: BP 130/78
[2024-04-05] MEDS: SYNTHROID 50 MCG PO (05:53)
[2024-04-05 06:00] VITALS: BMI 16.4
[2024-04-05 06:20] LABS: Hematocrit 26.2 % (39.0-52.0); Hemoglobin 8.7 g/dL (13.0-18.0); Mean Corp Hgb Conc. 33.2 g/dL (33.0-37.0); Mean Corpuscular Hgb 28.3 pg (27.0-31.0); Mean Corpuscular Volume 85.3 fL (80.0-94.0); Platelet Count 351 10^3/uL (130-400); Red Blood Cell Count 3.07 10^6/uL (4.70-6.10); Red Cell Dist. Width 17.6 % (11.5-14.5); White Blood Cell Count 5.5 10^3/uL (4.8-10.8)
[2024-04-05 06:45] LABS: Blood Urea Nitrogen 13 mg/dl (9-20); Calcium 8.6 mg/dl (8.4-10.2); Carbon Dioxide 27 mmol/L (22-30); Chloride 96 mmol/L (98-107); Estimated Creatinine Clearance 48 ml/min; Glucose 148 mg/dl (70-99); Potassium 4.4 mmol/L (3.5-5.1); Sodium 132 mmol/L (135-145); eGFR > 60.00
[2024-04-05 07:31] LABS: Glucose - Point of Care 285 mg/dl (70-99)
--- NOTE | 2024-04-05 07:46 | PN.CDI ---
CDI
- -
CDI:
Physician Documentation Request
Admit Date: 04/01/24 20:10
Dear Doctor Eusebio,
Clinical Indicators:
Documentation includes the diagnosis of malnutrition. Other clinical indicators are:
04/02 RD note/assessment:-'CBW: 126 lbs 8 oz BMI 17.6 underweight range... reflective of a 38 lb (23%) in < 1 year
significant'
-'During visit RD able to visualize protrusion of clavicula, buccal wasting, temporal wasting and
orbital area sunken in.'
-'With weight loss of > 20% in 1 year, < 75% estimated needs > 1 month and observed
muscle and fat wasting. Pt meets AND/ASPEN criteria for severe protein calorie
malnutrition. '
Please specify the degree of the protein calorie malnutrition:
Severe Protein Calorie Malnutrition
Other (please specify)
[place] Criteria (ACP Hospitalist 2017)
2 or more criteria must be present for either
non severe or severe malnutrition
Note that the criteria differs related to the
presence of an acute or chronic illness
Acute Illness Chronic Illness
Energy Intake Non Severe: <75% for >7 days Non Severe: <75% for >1 month
Severe: <50% for >5 days Severe: <75% for >1 month
Weight Loss Non Severe: 1-2% over 1 week Non Severe: 5% over 1 month
5% over 1 month 7.5% over 3 months
7.5% over 3 months 10% over 6 months
1 year N/A 20% over 1 year
Severe: >2% over 1 week Severe: >5% over 1 month
>5% over 1 month >7.5% over 3 months
>7.5% over 3 months >10% over 6 months
1 year N/A >20% over 1 year
Body Fat Non Severe: Mild Decrease Non Severe: Mild Loss
Severe: Moderate Decrease Severe: Severe Loss
Muscle Mass Non Severe: Mild Decrease Non Severe: Mild Loss
Severe: Moderate Decrease Severe: Severe Loss
Fluid Accumulation Non Severe: Mild Accumulation Non Severe: Mild Accumulation
Severe: Moderate to severe Severe: Moderate to severe
accumulation accumulation
Reduced Endo Tech Strength Non Severe: N/A Non Severe: N/A
Severe: Measurably reduced Severe: Measurably reduced
Additional criteria that can be used to Determine if Mild or Moderate Malnutrition (Merck Manual 2018)
Mild Moderate Severe
Albumin gm/dl <3.0 gm/dl <2.5 gm/dl <2.0 gm/dl
Pre Albumin mg/dl <15 gm/dl <10 mg/dl <5.0 mg/dl
BMI <18.5 <17 <16
Use of terms such as suspected, likely, concern for, or probable (associated with a specific diagnosis that is being evaluated, monitored, or treated as if it exists) are acceptable and can be coded in the inpatient setting, when documented at the
time of discharge.
Thank you,
Madai Johnson RN BSN
CDI Specialist
available via tiger text
Please use your independent medical judgment in providing your response.
[2024-04-05 07:48] VITALS: BP 131/80
[2024-04-05] MEDS: LOW STRENGTH ASPIRIN 81 MG PO (08:45)
[2024-04-05] MEDS: FLOMAX 0.4 MG PO (08:45)
[2024-04-05] MEDS: HEPARIN 5000 UNITS SC ×2 (08:45→19:58)
[2024-04-05] MEDS: PROTONIX 20 MG PO (08:45)
[2024-04-05] MEDS: PLAVIX 75 MG PO (08:45)
[2024-04-05] MEDS: NOVOLOG FLEXPEN-LOW RESISTANCE 3 UNITS SC ×3 (08:52→17:33)
--- NOTE | 2024-04-05 11:18 | WOUNDNOTE ---
R ANTERIOR LOWER LEG
--- NOTE | 2024-04-05 11:19 | WOUNDNOTE ---
R POSTERIOR LOWER LEG
--- NOTE | 2024-04-05 11:19 | WOUNDNOTE ---
L LATERAL LOWER LEG
--- NOTE | 2024-04-05 11:20 | WOUNDNOTE ---
L POSTERIOR LOWER LEG
--- NOTE | 2024-04-05 11:21 | WOUNDNOTE ---
L MEDIAL LOWER LEG
--- NOTE | 2024-04-05 11:21 | WOUNDNOTE ---
R MEDIAL 2ND FINGER
--- NOTE | 2024-04-05 11:22 | WOUNDNOTE ---
R DORSAL HAND AND LOWER ARM
--- NOTE | 2024-04-05 11:22 | WOUNDNOTE ---
R MEDIAL 1ST FINGER DISTAL
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
[2024-04-05 11:51] LABS: Glucose - Point of Care 253 mg/dl (70-99)
[2024-04-05 15:20] LABS: Glucose - Point of Care 217 mg/dl (70-99)
[2024-04-05 15:30] VITALS: BP 105/62; BP 115/69; PULSE 79; PULSE 85
[2024-04-05 15:34] VITALS: BP 115/69
--- NOTE | 2024-04-05 15:43 | W.PN.HOSP.TC ---
Today's Communication/Plan
-
Trial of voiding.
Placement
Assessment / Plan
Assessment / Plan
Impression:
Presentation with generalized fatigue, inability to take care of himself, urinary incontinence
Acute kidney injury.
Normal anion gap metabolic acidosis
Hyponatremia
Acute/recurrent urinary retention.
Subclinical hypothyroidism
Hypomagnesemia
Other conditions:
Recent hospitalization with sepsis and UTI, urinary retention with Lock catheter discontinued upon discharge.
Subacute CVA.
History of HSV encephalitis.
Diabetes type 2
Chronic normocytic anemia
BPH
Drug use disorder with urine drug screen positive with amphetamines.
History of alcohol use disorder.
Protein calorie malnutrition with BMI of 17
Plan:
Acute kidney injury, resolving
Normal anion gap metabolic acidosis
Acute urinary retention bladder scan with PVR 1400 mL on 04/02.
Lock catheter
Flomax
Hold off further IV hydration
Follow BMP - improving
Acute retention
Recent UTI with obstructive uropathy
Urine Cultures negative
Monitor closely off antibiotics
Subclinical hypothyroidism.
TSH 40.
Normal free T4.
Discussed with endocrinology upon admission.
Initiated on levothyroxine.
Recent subacute CVA.
Repeated CT scan on admission with no acute abnormality
Imaging including CT scan and MRI consistent with old encephalomalacia from HSV infection as well as subacute left frontal infarct.
Patient complains of generalized fatigue, although with no focal findings on exam.
Initiated on DAPT with Plavix and aspirin on 03/17. Continue statin.
Physical therapy assessment
LDL <70
Type 2 diabetes
Recent hemoglobin A1c 8.6.
Hold metformin acutely given CR.
Diabetic diet.
Insulin basal bolus protocol.
Chronic normocytic anemia.
No clinical evidence of acute blood loss.
Hemoglobin at 7.3.
Iron sat and B12 level WNL
Follow hemoglobin
Was started on Start PPI.
Should have outpatient GI workup including EGD +/- Colonoscopy depending on when last scope and EGD findings are
Polysubstance abuse
UDS positive for amphetamines, acknowledges meth use
Educated on cessation
Case management consultation for discharge planning, may require nursing home facility given general deconditioning.
Full code.
Anticipated Discharge: 24 - 48 hours
Subjective/Interval History
-
Date of Service: April 05, 2024
Objective Data
-
Labs:
Laboratory Results
04/05/24
05:45
WBC 5.5
Hgb 8.7 L
Hct 26.2 L
Plt Count 351
Sodium 132 L
Potassium 4.4
Chloride 96 L
Carbon Dioxide 27
BUN 13
Creatinine 1.3
Glucose 148 H
Calcium 8.6
Vital Signs:
Vital Signs
Temp Pulse Resp BP Pulse Ox
97.5 F 79 17 115/69 98
04/05/24 15:34 04/05/24 15:34 04/05/24 15:34 04/05/24 15:34 04/05/24 15:34
I&O
04/04/24 04/05/24 04/06/24
06:59 06:59 06:59
Intake Total 1920 / 1920 490 / 490
Output Total 1750 / 1750 2800 / 2800
Balance 170 / 170 -2310 / -2310
Physical Exam
-
General: Well Developed and No Apparent Distress
HEENT: Normocephalic, Atraumatic and Moist Mucous Membranes
Respiratory: Clear to Auscultation
Cardiac: Regular Rhythm and S1/S2; Negative Murmur, Rub or Gallop
GI: Soft, Nontender, Nondistended and Normal Bowel Sounds; Negative Organomegaly
Rectal: Deferred by Provider
Musculoskeletal: No Clubbing, No Cyanosis and No Edema
Skin: Negative Rash
Neuro: Nonfocal/Grossly Intact
[2024-04-05 16:33] LABS: Glucose - Point of Care 261 mg/dl (70-99)
--- NOTE | 2024-04-05 17:24 | CM ---
Spoke with pt he said he would accept SNF .
[facility] placed in care port.
PLAN To snf after auth
[2024-04-05] MEDS: LIPITOR 40 MG PO (17:32)
--- NOTE | 2024-04-05 21:15 | PTCARENOTE ---
Patient due to void from 10am when pete removed, patient rescanned at 1999 for nearly 700cc. Patient requesting pete again. INHALATION THERAPIST notified, order acknowledged. pete placed. Draining clear yellow urine with sediment. Will continue to monitor.
[2024-04-05] MEDS: MELATONIN 5 MG PO (21:41)
[2024-04-05 21:45] LABS: Glucose - Point of Care 253 mg/dl (70-99)
[2024-04-05 23:00] VITALS: BP 153/59
[2024-04-06] MEDS: SYNTHROID 50 MCG PO (05:00)
[2024-04-06 06:00] VITALS: BMI 16.5
[2024-04-06 07:40] VITALS: BP 100/60
[2024-04-06] MEDS: HEPARIN 5000 UNITS SC ×2 (07:48→20:07)
[2024-04-06] MEDS: PLAVIX 75 MG PO (07:48)
[2024-04-06] MEDS: PROTONIX 20 MG PO (07:48)
[2024-04-06] MEDS: LOW STRENGTH ASPIRIN 81 MG PO (07:48)
[2024-04-06] MEDS: FLOMAX 0.4 MG PO (07:48)
[2024-04-06 07:56] LABS: Glucose - Point of Care 156 mg/dl (70-99)
[2024-04-06] MEDS: NOVOLOG FLEXPEN-LOW RESISTANCE 1 UNITS SC (08:54)
[2024-04-06 11:55] LABS: Glucose - Point of Care 465 mg/dl (70-99)
[2024-04-06 12:20] LABS: Glucose 231 mg/dl (70-99)
--- NOTE | 2024-04-06 13:04 | PN.CDI ---
CDI
- -
CDI:
Physician Documentation Request
Admit Date: 04/01/24 20:10
Dear Doctor Eusebio,
Clinical Indicators:
Patient admitted with CR.
04/05 [facility] RN skin/wound assessment: Coccyx Stage 1 Pressure injury
Treatment: Pressure redistribution devices, barrier cream per protocol
Physician documentation of the type and location of wounds is required for compliant documentation. Based on the above clinical findings and your assessment, please provide the following in your progress note:
1. Location of the ulcer/wound, including laterality.
2. Type (etiology) of ulcer/wound:
- Pressure (decubitus) ulcer
- Other
3. If a pressure ulcer, please also include the stage* of the ulcer:
- Stage 1 - Skin intact, non-blanchable redness
- Stage 2 - Partial thickness loss of dermis, includes intact or open blister
- Stage 3 - Full thickness tissue not including bone, tendon or muscle
- Stage 4 - Full thickness tissue loss, including exposed bone, tendon or muscle
- Unstageable - Full thickness loss in which the base of the ulcer is covered by slough (yellow, landry, malhotra, green or brown) and/or eschar (landry, brown or black) in the wound bed.
- Unable to determine
Use of terms such as suspected, likely, concern for, or probable (associated with a specific diagnosis that is being evaluated, monitored, or treated as if it exists) are acceptable and can be coded in the inpatient setting, when documented at the
time of discharge.
Thank you,
Madai Johnson RN BSN
CDI Specialist
available via tiger text
Please use your independent medical judgment in providing your response.
*Source: National Pressure Ulcer Advisory Panel (NPUAP)
[2024-04-06] MEDS: NOVOLOG FLEXPEN-LOW RESISTANCE 2 UNITS SC (13:09)
--- NOTE | 2024-04-06 13:52 | W.PN.HOSP.TC ---
Today's Communication/Plan
-
Placement
Assessment / Plan
Assessment / Plan
Impression:
Presentation with generalized fatigue, inability to take care of himself, urinary incontinence
Acute kidney injury.
Normal anion gap metabolic acidosis
Hyponatremia
Acute/recurrent urinary retention.
Subclinical hypothyroidism
Hypomagnesemia
Other conditions:
Recent hospitalization with sepsis and UTI, urinary retention with Lock catheter discontinued upon discharge.
Subacute CVA.
History of HSV encephalitis.
Diabetes type 2
Chronic normocytic anemia
BPH
Drug use disorder with urine drug screen positive with amphetamines.
History of alcohol use disorder.
Severe protein calorie malnutrition with BMI of 17
Stage II coccyx pressure injury present on admission
Plan:
Acute kidney injury, resolving
Normal anion gap metabolic acidosis
Acute urinary retention bladder scan with PVR 1400 mL on 04/02.
Lock catheter
Flomax
Hold off further IV hydration
Follow BMP - improving
Acute retention
Recent UTI with obstructive uropathy
Urine Cultures negative
Trial of voiding with recurrent retention 04/05. Lock catheter is back.
Subclinical hypothyroidism.
TSH 40.
Normal free T4.
Discussed with endocrinology upon admission.
Initiated on levothyroxine.
Recent subacute CVA.
Repeated CT scan on admission with no acute abnormality
Imaging including CT scan and MRI consistent with old encephalomalacia from HSV infection as well as subacute left frontal infarct.
Patient complains of generalized fatigue, although with no focal findings on exam.
Initiated on DAPT with Plavix and aspirin on 03/17. Continue statin.
Physical therapy assessment
LDL <70
Type 2 diabetes
Recent hemoglobin A1c 8.6.
Hold metformin acutely given CR.
Diabetic diet.
Insulin basal bolus protocol.
Chronic normocytic anemia.
No clinical evidence of acute blood loss.
Hemoglobin at 7.3.
Iron sat and B12 level WNL
Follow hemoglobin
Was started on Start PPI.
Should have outpatient GI workup including EGD +/- Colonoscopy depending on when last scope and EGD findings are
Polysubstance abuse
UDS positive for amphetamines, acknowledges meth use
Educated on cessation
Case management consultation for discharge planning, may require intermediate facility given general deconditioning.
Full code.
Anticipated Discharge: 24 - 48 hours
Subjective/Interval History
-
Date of Service: April 06, 2024
Objective Data
-
Labs:
Laboratory Results
04/06/24
11:52
Glucose 231 H
Vital Signs:
Vital Signs
Temp Pulse Resp BP Pulse Ox
98.2 F 78 16 100/60 98
04/06/24 07:40 04/06/24 07:40 04/06/24 07:40 04/06/24 07:40 04/06/24 07:40
I&O
04/05/24 04/06/24 04/07/24
06:59 06:59 06:59
Intake Total 490 / 490 540 / 540
Output Total 2800 / 2800 1850 / 1850
Balance -2310 / -2310 -1310 / -1310
Physical Exam
-
General: Well Developed and No Apparent Distress
HEENT: Normocephalic, Atraumatic and Moist Mucous Membranes
Respiratory: Clear to Auscultation
Cardiac: Regular Rhythm and S1/S2; Negative Murmur, Rub or Gallop
GI: Soft, Nontender, Nondistended and Normal Bowel Sounds; Negative Organomegaly
Rectal: Deferred by Provider
Genito-urinary: Lock
Musculoskeletal: No Clubbing, No Cyanosis and No Edema
Skin: Negative Rash
Neuro: Nonfocal/Grossly Intact
[2024-04-06 15:50] VITALS: BP 124/72
[2024-04-06 16:43] LABS: Glucose - Point of Care 125 mg/dl (70-99)
[2024-04-06] MEDS: NOVOLOG FLEXPEN-LOW RESISTANCE SC (16:45)
[2024-04-06] MEDS: LIPITOR 40 MG PO (16:46)
[2024-04-06 21:34] LABS: Glucose - Point of Care 165 mg/dl (70-99)
[2024-04-06 23:00] VITALS: BP 120/77
--- NOTE | 2024-04-07 02:09 | DOWNTIME ---
There was a [employer] Downtime on 04/07/2024 from 0100 to 04/07/2023 at 0205 . Downtime documentation of patient's care, including medication administrations, has been reconciled in the electronic record per guidelines. Refer to the
patient's paper chart under the miscellaneous tab to see printed paper medication records and downtime forms.
[2024-04-07] MEDS: SYNTHROID 50 MCG PO (05:04)
[2024-04-07 05:24] VITALS: BMI 16.8
[2024-04-07] MEDS: LOW STRENGTH ASPIRIN 81 MG PO (07:18)
[2024-04-07] MEDS: PLAVIX 75 MG PO (07:18)
[2024-04-07] MEDS: PROTONIX 20 MG PO (07:18)
[2024-04-07] MEDS: FLOMAX 0.4 MG PO (07:19)
[2024-04-07] MEDS: HEPARIN 5000 UNITS SC ×2 (07:19→20:36)
[2024-04-07 07:21] VITALS: BP 118/64
[2024-04-07] MEDS: NOVOLOG FLEXPEN-LOW RESISTANCE 2 UNITS SC (07:23)
[2024-04-07 07:24] LABS: Glucose - Point of Care 245 mg/dl (70-99)
[2024-04-07 11:25] VITALS: BP 114/69
[2024-04-07 12:03] LABS: Glucose - Point of Care 325 mg/dl (70-99)
[2024-04-07] MEDS: NOVOLOG FLEXPEN-LOW RESISTANCE 4 UNITS SC (12:36)
--- NOTE | 2024-04-07 13:18 | CM ---
CM reviewed chart, reviewed with Hospitalist, patient medically stable for discharge pending placement. CM spoke with patient, agreeable to expand SNF search, 19 additional referrals placed. Patient will need insurance auth once accepting facility
found. CM will continue to follow for all discharge planning needs.
Plan; SNF pending accepting facility, will require insurance auth.
[2024-04-07 15:10] VITALS: BP 98/66
--- NOTE | 2024-04-07 15:20 | W.PN.HOSP.TC ---
Today's Communication/Plan
-
Placement
Assessment / Plan
Assessment / Plan
Impression:
Presentation with generalized fatigue, inability to take care of himself, urinary incontinence
Acute kidney injury.
Normal anion gap metabolic acidosis
Hyponatremia
Acute/recurrent urinary retention.
Subclinical hypothyroidism
Hypomagnesemia
Other conditions:
Recent hospitalization with sepsis and UTI, urinary retention with Lock catheter discontinued upon discharge.
Subacute CVA.
History of HSV encephalitis.
Diabetes type 2
Chronic normocytic anemia
BPH
Drug use disorder with urine drug screen positive with amphetamines.
History of alcohol use disorder.
Severe protein calorie malnutrition with BMI of 17
Stage II coccyx pressure injury present on admission
Plan:
Acute kidney injury, resolving
Normal anion gap metabolic acidosis
Acute urinary retention bladder scan with PVR 1400 mL on 04/02.
Lock catheter
Flomax
Hold off further IV hydration
Follow BMP - improving
Acute retention
Recent UTI with obstructive uropathy
Urine Cultures negative
Trial of voiding with recurrent retention 04/05. Lock catheter is back.
Subclinical hypothyroidism.
TSH 40.
Normal free T4.
Discussed with endocrinology upon admission.
Initiated on levothyroxine.
Recent subacute CVA.
Repeated CT scan on admission with no acute abnormality
Imaging including CT scan and MRI consistent with old encephalomalacia from HSV infection as well as subacute left frontal infarct.
Patient complains of generalized fatigue, although with no focal findings on exam.
Initiated on DAPT with Plavix and aspirin on 03/17. Continue statin.
Physical therapy assessment
LDL <70
Type 2 diabetes
Recent hemoglobin A1c 8.6.
Hold metformin acutely given CR.
Diabetic diet.
Insulin basal bolus protocol.
Chronic normocytic anemia.
No clinical evidence of acute blood loss.
Hemoglobin at 7.3.
Iron sat and B12 level WNL
Follow hemoglobin
Was started on Start PPI.
Should have outpatient GI workup including EGD +/- Colonoscopy depending on when last scope and EGD findings are
Polysubstance abuse
UDS positive for amphetamines, acknowledges meth use
Educated on cessation
Case management consultation for discharge planning, may require correction facility given general deconditioning.
Full code.
Anticipated Discharge: 24 - 48 hours
Subjective/Interval History
-
Date of Service: April 07, 2024
Objective Data
-
Vital Signs:
Vital Signs
Temp Pulse Resp BP Pulse Ox
98 F 82 16 98/66 100
04/07/24 15:10 04/07/24 15:10 04/07/24 15:10 04/07/24 15:10 04/07/24 15:10
I&O
04/06/24 04/07/24 04/08/24
06:59 06:59 06:59
Intake Total 540 / 540 1440 / 1440
Output Total 1850 / 1850 2150 / 2150
Balance -1310 / -1310 -710 / -710
Physical Exam
-
General: Well Developed and No Apparent Distress
HEENT: Normocephalic, Atraumatic and Moist Mucous Membranes
Respiratory: Clear to Auscultation
Cardiac: Regular Rhythm and S1/S2; Negative Murmur, Rub or Gallop
GI: Soft, Nontender, Nondistended and Normal Bowel Sounds; Negative Organomegaly
Rectal: Deferred by Provider
Genito-urinary: Lock
Musculoskeletal: No Clubbing, No Cyanosis and No Edema
Skin: Negative Rash
Neuro: Nonfocal/Grossly Intact
[2024-04-07] MEDS: LIPITOR 40 MG PO (16:51)
[2024-04-07 16:54] LABS: Glucose - Point of Care 159 mg/dl (70-99)
[2024-04-07] MEDS: NOVOLOG FLEXPEN-LOW RESISTANCE 1 UNITS SC (17:30)
[2024-04-07 21:50] LABS: Glucose - Point of Care 170 mg/dl (70-99)
[2024-04-07 23:00] VITALS: BP 115/72
[2024-04-08] MEDS: SYNTHROID 50 MCG PO (05:07)
[2024-04-08 06:00] VITALS: BMI 16.5
[2024-04-08 07:55] LABS: Glucose - Point of Care 223 mg/dl (70-99)
[2024-04-08 08:00] VITALS: BP 119/70
[2024-04-08] MEDS: FLOMAX 0.4 MG PO (08:40)
[2024-04-08] MEDS: HEPARIN 5000 UNITS SC ×2 (08:42→20:21)
[2024-04-08] MEDS: LOW STRENGTH ASPIRIN 81 MG PO (08:43)
[2024-04-08] MEDS: PLAVIX 75 MG PO (08:43)
[2024-04-08] MEDS: PROTONIX 20 MG PO (08:43)
[2024-04-08] MEDS: NOVOLOG FLEXPEN-LOW RESISTANCE 2 UNITS SC ×2 (08:44→17:34)
[2024-04-08 11:44] LABS: Glucose - Point of Care 309 mg/dl (70-99)
[2024-04-08] MEDS: NOVOLOG FLEXPEN-LOW RESISTANCE 4 UNITS SC (12:38)
[2024-04-08 13:37] VITALS: BP 104/74; PULSE 75; O2SAT 99
--- NOTE | 2024-04-08 14:15 | W.PN.HOSP.TC ---
Today's Communication/Plan
-
Placement
Assessment / Plan
Assessment / Plan
Impression:
Presentation with generalized fatigue, inability to take care of himself, urinary incontinence
Acute kidney injury.
Normal anion gap metabolic acidosis
Hyponatremia
Acute/recurrent urinary retention.
Subclinical hypothyroidism
Hypomagnesemia
Other conditions:
Recent hospitalization with sepsis and UTI, urinary retention with Lock catheter discontinued upon discharge.
Subacute CVA.
History of HSV encephalitis.
Diabetes type 2
Chronic normocytic anemia
BPH
Drug use disorder with urine drug screen positive with amphetamines.
History of alcohol use disorder.
Severe protein calorie malnutrition with BMI of 17
Stage II coccyx pressure injury present on admission
Plan:
Acute kidney injury, resolving
Normal anion gap metabolic acidosis
Acute urinary retention bladder scan with PVR 1400 mL on 04/02.
Lock catheter
Flomax
Hold off further IV hydration
Follow BMP - improving
Acute retention
Recent UTI with obstructive uropathy
Urine Cultures negative
Trial of voiding with recurrent retention 04/05. Lock catheter is back.
Subclinical hypothyroidism.
TSH 40.
Normal free T4.
Discussed with endocrinology upon admission.
Initiated on levothyroxine.
Recent subacute CVA.
Repeated CT scan on admission with no acute abnormality
Imaging including CT scan and MRI consistent with old encephalomalacia from HSV infection as well as subacute left frontal infarct.
Patient complains of generalized fatigue, although with no focal findings on exam.
Initiated on DAPT with Plavix and aspirin on 03/17. Continue statin.
Physical therapy assessment
LDL <70
Type 2 diabetes
Recent hemoglobin A1c 8.6.
Hold metformin acutely given CR.
Diabetic diet.
Insulin basal bolus protocol.
Chronic normocytic anemia.
No clinical evidence of acute blood loss.
Hemoglobin at 7.3.
Iron sat and B12 level WNL
Follow hemoglobin
Was started on Start PPI.
Should have outpatient GI workup including EGD +/- Colonoscopy depending on when last scope and EGD findings are
Polysubstance abuse
UDS positive for amphetamines, acknowledges meth use
Educated on cessation
Case management consultation for discharge planning, may require shelter facility given general deconditioning.
Full code.
Anticipated Discharge: 24 - 48 hours
Subjective/Interval History
-
Date of Service: April 08, 2024
Objective Data
-
Vital Signs:
Vital Signs
Temp Pulse Resp BP Pulse Ox
97.8 F 74 16 119/70 98
04/08/24 08:00 04/08/24 08:00 04/08/24 08:00 04/08/24 08:00 04/08/24 08:00
I&O
04/07/24 04/08/24 04/09/24
06:59 06:59 06:59
Intake Total 1440 / 1440 1200 / 1200
Output Total 2150 / 2150 3450 / 3450
Balance -710 / -710 -2250 / -2250
Physical Exam
-
General: Well Developed and No Apparent Distress
HEENT: Normocephalic, Atraumatic and Moist Mucous Membranes
Respiratory: Clear to Auscultation
Cardiac: Regular Rhythm and S1/S2; Negative Murmur, Rub or Gallop
GI: Soft, Nontender, Nondistended and Normal Bowel Sounds; Negative Organomegaly
Rectal: Deferred by Provider
Genito-urinary: Lock
Musculoskeletal: No Clubbing, No Cyanosis and No Edema
Skin: Negative Rash
Neuro: Nonfocal/Grossly Intact
--- NOTE | 2024-04-08 14:20 | CM ---
Addendum entered by Danae Hines 04/08/24 14:36:
Effie to come to assess patient, referral sent to [facility].
Original Note:
Patient seen at bedside, initially [facility] indicated that they would accept patient but when contacted they indicated that they have no beds available. CM called to Effie at [facility] [place] and left Message awaiting call
back. Patient will need auth as soon as bed confirmed CM will start auth with [facility]. CM will continue to follow for discharge planning needs.
PLan; SNF
[2024-04-08 15:24] VITALS: BP 92/58
[2024-04-08 16:34] LABS: Glucose - Point of Care 210 mg/dl (70-99)
[2024-04-08] MEDS: LIPITOR 40 MG PO (17:35)
[2024-04-08] MEDS: MELATONIN 5 MG PO (22:18)
[2024-04-08 22:34] LABS: Glucose - Point of Care 204 mg/dl (70-99)
[2024-04-09 00:01] VITALS: BP 100/62
[2024-04-09] MEDS: SYNTHROID 50 MCG PO (05:31)
[2024-04-09 06:07] VITALS: BMI 16.6
[2024-04-09 07:30] VITALS: BP 107/66
[2024-04-09 07:51] LABS: Glucose - Point of Care 190 mg/dl (70-99)
[2024-04-09] MEDS: PLAVIX 75 MG PO (08:45)
[2024-04-09] MEDS: PROTONIX 20 MG PO (08:45)
[2024-04-09] MEDS: LOW STRENGTH ASPIRIN 81 MG PO (08:45)
[2024-04-09] MEDS: NOVOLOG FLEXPEN-LOW RESISTANCE 1 UNITS SC ×2 (08:45→14:17)
[2024-04-09] MEDS: FLOMAX 0.4 MG PO (08:45)
[2024-04-09] MEDS: HEPARIN 5000 UNITS SC ×2 (08:45→22:07)
[2024-04-09 14:14] LABS: Glucose - Point of Care 181 mg/dl (70-99)
--- NOTE | 2024-04-09 14:48 | W.PN.HOSP.TC ---
Today's Communication/Plan
-
Placement
Assessment / Plan
Assessment / Plan
Impression:
Presentation with generalized fatigue, inability to take care of himself, urinary incontinence
Acute kidney injury.
Normal anion gap metabolic acidosis
Hyponatremia
Acute/recurrent urinary retention.
Subclinical hypothyroidism
Hypomagnesemia
Other conditions:
Recent hospitalization with sepsis and UTI, urinary retention with Lock catheter discontinued upon discharge.
Subacute CVA.
History of HSV encephalitis.
Diabetes type 2
Chronic normocytic anemia
BPH
Drug use disorder with urine drug screen positive with amphetamines.
History of alcohol use disorder.
Severe protein calorie malnutrition with BMI of 17
Stage II coccyx pressure injury present on admission
Plan:
Acute kidney injury, resolving
Normal anion gap metabolic acidosis
Acute urinary retention bladder scan with PVR 1400 mL on 04/02.
Lock catheter
Flomax
Hold off further IV hydration
Follow BMP - improving
Acute retention
Recent UTI with obstructive uropathy
Urine Cultures negative
Trial of voiding with recurrent retention 04/05. Lock catheter is back.
Subclinical hypothyroidism.
TSH 40.
Normal free T4.
Discussed with endocrinology upon admission.
Initiated on levothyroxine.
Recent subacute CVA.
Repeated CT scan on admission with no acute abnormality
Imaging including CT scan and MRI consistent with old encephalomalacia from HSV infection as well as subacute left frontal infarct.
Patient complains of generalized fatigue, although with no focal findings on exam.
Initiated on DAPT with Plavix and aspirin on 03/17. Continue statin.
Physical therapy assessment
LDL <70
Type 2 diabetes
Recent hemoglobin A1c 8.6.
Hold metformin acutely given CR.
Diabetic diet.
Insulin basal bolus protocol.
Chronic normocytic anemia.
No clinical evidence of acute blood loss.
Hemoglobin at 7.3.
Iron sat and B12 level WNL
Follow hemoglobin
Was started on Start PPI.
Should have outpatient GI workup including EGD +/- Colonoscopy depending on when last scope and EGD findings are
Polysubstance abuse
UDS positive for amphetamines, acknowledges meth use
Educated on cessation
Case management consultation for discharge planning, may require care home facility given general deconditioning.
Full code.
Anticipated Discharge: 24 - 48 hours
Subjective/Interval History
-
Date of Service: April 09, 2024
Objective Data
-
Vital Signs:
Vital Signs
Temp Pulse Resp BP Pulse Ox
98.2 F 75 16 107/66 96
04/09/24 07:30 04/09/24 07:30 04/09/24 07:30 04/09/24 07:30 04/09/24 07:30
I&O
04/08/24 04/09/24 04/10/24
06:59 06:59 06:59
Intake Total 1200 / 1200 960 / 960
Output Total 3450 / 3450 700 / 700
Balance -2250 / -2250 260 / 260
Physical Exam
-
General: Well Developed and No Apparent Distress
HEENT: Normocephalic, Atraumatic and Moist Mucous Membranes
Respiratory: Clear to Auscultation
Cardiac: Regular Rhythm and S1/S2; Negative Murmur, Rub or Gallop
GI: Soft, Nontender, Nondistended and Normal Bowel Sounds; Negative Organomegaly
Rectal: Deferred by Provider
Genito-urinary: Lock
Musculoskeletal: No Clubbing, No Cyanosis and No Edema
Skin: Negative Rash
Neuro: Nonfocal/Grossly Intact
[2024-04-09] MEDS: LIPITOR 40 MG PO (17:18)
[2024-04-09 18:21] LABS: Glucose - Point of Care 232 mg/dl (70-99)
[2024-04-09] MEDS: NOVOLOG FLEXPEN-LOW RESISTANCE 3 UNITS SC (18:35)
[2024-04-09 21:54] LABS: Glucose - Point of Care 219 mg/dl (70-99)
[2024-04-09] MEDS: MELATONIN 5 MG PO (22:07)
[2024-04-09 23:27] VITALS: BP 110/70
[2024-04-10 05:12] VITALS: BMI 16.4
[2024-04-10] MEDS: SYNTHROID 50 MCG PO (06:11)
[2024-04-10 07:05] VITALS: BP 152/79
[2024-04-10 07:58] LABS: Glucose - Point of Care 233 mg/dl (70-99)
[2024-04-10] MEDS: FLOMAX 0.4 MG PO (09:22)
[2024-04-10] MEDS: PLAVIX 75 MG PO (09:22)
[2024-04-10] MEDS: LOW STRENGTH ASPIRIN 81 MG PO (09:22)
[2024-04-10] MEDS: HEPARIN 5000 UNITS SC ×2 (09:22→21:31)
[2024-04-10] MEDS: PROTONIX 20 MG PO (09:22)
[2024-04-10] MEDS: NOVOLOG FLEXPEN-LOW RESISTANCE 2 UNITS SC ×2 (09:23→17:37)
--- NOTE | 2024-04-10 09:42 | W.PN.HOSP.TC ---
Today's Communication/Plan
-
Add Lantus, poorly controlled diabetes
Add Pre-meal Low dose Reglan, suspect diabetic gastroparesis
Low iron level, give IV iron due to GI discomfort, will avoid oral iron
CBC & BMP in AM
Assessment / Plan
Assessment / Plan
Physical Exam
-
General: Well Developed and No Apparent Distress
HEENT: Normocephalic, Atraumatic and Moist Mucous Membranes
Respiratory: Clear to Auscultation
Cardiac: Regular Rhythm and S1/S2; Negative Murmur, Rub or Gallop
GI: Soft, Nontender, Nondistended and Normal Bowel Sounds
Genito-urinary: Lock
Musculoskeletal: No Clubbing, No Cyanosis and No Edema
Skin: Negative Rash
Neuro: Nonfocal/Grossly Intact
Psych: calm
Impression:
Presentation with generalized fatigue, inability to take care of himself, urinary incontinence
Acute kidney injury.
Normal anion gap metabolic acidosis
Hyponatremia
Acute/recurrent urinary retention.
Subclinical hypothyroidism
Hypomagnesemia
Other conditions:
Recent hospitalization with sepsis and UTI, urinary retention with Lock catheter discontinued upon discharge.
Subacute CVA.
History of HSV encephalitis.
Diabetes type 2
Chronic normocytic anemia
BPH
Drug use disorder with urine drug screen positive with amphetamines.
History of alcohol use disorder.
Severe protein calorie malnutrition with BMI of 17
Stage II coccyx pressure injury present on admission
Plan:
Acute kidney injury, resolving
Normal anion gap metabolic acidosis
Acute urinary retention bladder scan with PVR 1400 mL on 04/02.
Lock catheter
Flomax
Hold off further IV hydration
Follow BMP - improving
Acute retention
Recent UTI with obstructive uropathy
Urine Cultures negative
Trial of voiding with recurrent retention 04/05. Lock catheter is back.
Subclinical hypothyroidism.
TSH 40.
Normal free T4.
Discussed with endocrinology upon admission.
Initiated on levothyroxine.
Recent subacute CVA.
Repeated CT scan on admission with no acute abnormality
Imaging including CT scan and MRI consistent with old encephalomalacia from HSV infection as well as subacute left frontal infarct.
Patient complains of generalized fatigue, although with no focal findings on exam.
Initiated on DAPT with Plavix and aspirin on 03/17. Continue statin.
Physical therapy assessment
LDL <70
Type 2 diabetes
Uncontrolled
Recent hemoglobin A1c 8.6.
Held metformin acutely given CR.
Diabetic diet.
Add Lantus
Insulin basal bolus protocol.
Epigastric discomfort
Possible diabetic gastroparesis, trial of AC low dose Reglan
EKG normal QT
Chronic normocytic anemia.
No clinical evidence of acute blood loss.
Hemoglobin at 7.3.
Low iron level, give IV iron due to GI discomfort, will avoid oral iron
Iron sat and B12 level WNL
Was started on Start PPI.
Should have outpatient GI workup including EGD +/- Colonoscopy depending on when last scope and EGD findings are
Polysubstance abuse
UDS positive for amphetamines, acknowledges meth use
Educated on cessation
Case management consultation for discharge planning, may require [facility] facility given general deconditioning.
Full code.
Total time spent to see the patient, examine the patient, review data and lab results, discuss treatment plan with patient, nursing staff around 55 minutes
Anticipated Discharge: 24 - 48 hours
Subjective/Interval History
-
Date of Service: April 10, 2024
He feels weak
Epigastric discomfort
Objective Data
-
Vital Signs:
Vital Signs
Temp Pulse Resp BP Pulse Ox
98.1 F 75 17 152/79 99
04/10/24 07:05 04/10/24 07:05 04/10/24 07:05 04/10/24 07:05 04/10/24 07:05
I&O
04/09/24 04/10/24 04/11/24
06:59 06:59 06:59
Intake Total 960 / 960 1620 / 1620
Output Total 700 / 700 2500 / 2500
Balance 260 / 260 -880 / -880
[2024-04-10 12:38] LABS: Glucose - Point of Care 256 mg/dl (70-99)
[2024-04-10] MEDS: NOVOLOG FLEXPEN-LOW RESISTANCE 3 UNITS SC (12:50)
[2024-04-10] MEDS: FERRLECIT 110 MG IV (14:02)
[2024-04-10 15:00] VITALS: BP 114/72
[2024-04-10 17:07] LABS: Glucose - Point of Care 239 mg/dl (70-99)
[2024-04-10] MEDS: LIPITOR 40 MG PO (17:36)
[2024-04-10] MEDS: MELATONIN 5 MG PO (21:31)
[2024-04-10] MEDS: LANTUS 0.12 UNITS SC (21:31)
[2024-04-10 21:52] LABS: Glucose - Point of Care 252 mg/dl (70-99)
[2024-04-10 23:45] VITALS: BP 115/65
--- NOTE | 2024-04-11 04:45 | PTCARENOTE ---
Patient rang call marrero, found in bed with stool covering his hands. Patient states 'I pooped, it's all over.' Patient states 'I don't know when I have to go, I just know once it's there.' Patient pulled his hands out from under the covers and stated
'Oh, look at that.' Hands completely covered in stool at this time. Patient states 'I couldn't tell if I went, so I stuck my hand down there to find out.' Patient was advised to not stick his hands in his attends to assess if he has BMs. Patient
encouraged to get in the shower to wash off, ambulated from bed to bathroom using walker, stable on feet, was able to shower himself. Dressing to right leg/mccray replaced. New linens/gown/socks provided. Patient is resting in bed comfortably, will
monitor.
[2024-04-11 06:00] VITALS: BMI 16.2
[2024-04-11] MEDS: SYNTHROID 50 MCG PO (06:33)
[2024-04-11 06:42] LABS: Hematocrit 27.4 % (39.0-52.0); Mean Corp Hgb Conc. 32.8 g/dL (33.0-37.0); Mean Corpuscular Hgb 27.6 pg (27.0-31.0); Mean Platelet Volume 9.1 fL (7.4-10.4); Platelet Count 413 10^3/uL (130-400); Red Blood Cell Count 3.26 10^6/uL (4.70-6.10); White Blood Cell Count 9.9 10^3/uL (4.8-10.8)
[2024-04-11 07:07] LABS: ALT (SGPT) 10 U/L (0-50); AST (SGOT) 17 U/L (17-59); Albumin 3.5 g/dl (3.5-5.0); Alkaline Phosphatase 96 U/L (38-126); Blood Urea Nitrogen 29 mg/dl (9-20); Calcium 9.1 mg/dl (8.4-10.2); Carbon Dioxide 25 mmol/L (22-30); Chloride 93 mmol/L (98-107); Estimated Creatinine Clearance 40 ml/min; Glucose 179 mg/dl (70-99); Magnesium 1.7 mg/dl (1.6-2.3); Sodium 130 mmol/L (135-145); Total Bilirubin 0.3 mg/dl (0.2-1.3); Total Protein 6.4 g/dl (6.3-8.2); eGFR 53.63
[2024-04-11 07:51] LABS: Glucose - Point of Care 201 mg/dl (70-99)
[2024-04-11] MEDS: NOVOLOG FLEXPEN-LOW RESISTANCE 2 UNITS SC (09:26)
[2024-04-11] MEDS: FLOMAX 0.4 MG PO (09:31)
[2024-04-11] MEDS: LOW STRENGTH ASPIRIN 81 MG PO (09:31)
[2024-04-11] MEDS: THERAGRAN 1 TABLET PO (09:31)
[2024-04-11] MEDS: PLAVIX 75 MG PO (09:31)
[2024-04-11] MEDS: PROTONIX 20 MG PO (09:31)
[2024-04-11] MEDS: VITAMIN D3 (cholecalciferol) 25 MCG PO (09:31)
[2024-04-11] MEDS: LANTUS 0.15 UNITS SC ×2 (09:32→21:45)
[2024-04-11] MEDS: HEPARIN 5000 UNITS SC ×2 (10:07→21:44)
--- NOTE | 2024-04-11 11:12 | W.PN.HOSP.TC ---
Today's Communication/Plan
-
Start MVI, Vitamin D
Increase Lantus dose
assistant manager trainee for placement.
Assessment / Plan
Assessment / Plan
Physical Exam
-
General: Well Developed and No Apparent Distress
HEENT: Normocephalic, Atraumatic and Moist Mucous Membranes
Respiratory: Clear to Auscultation
Cardiac: Regular Rhythm and S1/S2; Negative Murmur, Rub or Gallop
GI: Soft, Nontender, Nondistended and Normal Bowel Sounds
Genito-urinary: Lock
Musculoskeletal: No Clubbing, No Cyanosis and No Edema
Skin: Negative Rash
Neuro: Nonfocal/Grossly Intact
Psych: calm
Impression:
Presentation with generalized fatigue, inability to take care of himself, urinary incontinence
Acute kidney injury.
Normal anion gap metabolic acidosis
Hyponatremia
Acute/recurrent urinary retention.
Subclinical hypothyroidism
Hypomagnesemia
Other conditions:
Recent hospitalization with sepsis and UTI, urinary retention with Lock catheter discontinued upon discharge.
Subacute CVA.
History of HSV encephalitis.
Diabetes type 2
Chronic normocytic anemia
BPH
Drug use disorder with urine drug screen positive with amphetamines.
History of alcohol use disorder.
Severe protein calorie malnutrition with BMI of 17
Stage II coccyx pressure injury present on admission
Plan:
Acute kidney injury, resolving
Normal anion gap metabolic acidosis
Acute urinary retention bladder scan with PVR 1400 mL on 04/02.
Lock catheter
Flomax
Hold off further IV hydration
Follow BMP - improving
Acute retention
Recent UTI with obstructive uropathy, was seen by urologist, recommended to c/w Lock
Urine Cultures negative
Trial of voiding with recurrent retention 04/05. Lock catheter is back.
Subclinical hypothyroidism.
TSH 40.
Normal free T4.
Discussed with endocrinology upon admission.
Initiated on levothyroxine.
Recent subacute CVA.
Repeated CT scan on admission with no acute abnormality
Imaging including CT scan and MRI consistent with old encephalomalacia from HSV infection as well as subacute left frontal infarct.
Patient complains of generalized fatigue, although with no focal findings on exam.
Initiated on DAPT with Plavix and aspirin on 03/17. Continue statin.
Physical therapy assessment
LDL <70
Type 2 diabetes
Uncontrolled
Recent hemoglobin A1c 8.6.
Held metformin acutely given CR.
Diabetic diet.
Added Lantus , will increase the dose
Insulin basal bolus protocol.
Epigastric discomfort
Possible diabetic gastroparesis, trial of AC low dose Reglan
EKG normal QT
Chronic normocytic anemia.
No clinical evidence of acute blood loss.
Hemoglobin at 7.3.
Low iron level, give IV iron due to GI discomfort, will avoid oral iron
Iron sat and B12 level WNL
Added MVI & Vitamin D supplement.
Was started on Start PPI.
Should have outpatient GI workup including EGD +/- Colonoscopy depending on when last scope and EGD findings are
Polysubstance abuse
UDS positive for amphetamines, acknowledges meth use
Educated on cessation
Case management consultation for discharge planning, may require longterm facility given general deconditioning.
Full code.
Total time spent to see the patient, examine the patient, review data and lab results, discuss treatment plan with patient, nursing staff around 57 minutes
Anticipated Discharge: 24 - 48 hours
Subjective/Interval History
-
Date of Service: April 11, 2024
Objective Data
-
Labs:
Laboratory Results
04/11/24
06:02
WBC 9.9
Hgb 9.0 L
Hct 27.4 L
Plt Count 413 H
Sodium 130 L
Potassium 5.0
Chloride 93 L
Carbon Dioxide 25
BUN 29 H
Creatinine 1.5 H
Glucose 179 H
Calcium 9.1
Total Bilirubin 0.3
AST 17
ALT 10
Alkaline Phosphatase 96
Vital Signs:
Vital Signs
Temp Pulse Resp BP Pulse Ox
97.9 F 70 17 115/65 98
04/10/24 23:45 04/10/24 23:45 04/10/24 23:45 04/10/24 23:45 04/10/24 23:45
I&O
04/10/24 04/11/24 04/12/24
06:59 06:59 06:59
Intake Total 1620 / 1620 1560 / 1560
Output Total 2500 / 2500 1000 / 1000
Balance -880 / -880 560 / 560
[2024-04-11 12:20] LABS: Glucose - Point of Care 299 mg/dl (70-99)
[2024-04-11] MEDS: NOVOLOG FLEXPEN-LOW RESISTANCE 3 UNITS SC (13:52)
[2024-04-11 14:15] VITALS: BP 87/50; PULSE 95
[2024-04-11 14:30] VITALS: BP 87/50; PULSE 95
[2024-04-11] MEDS: FERRLECIT 110 MG IV (14:53)
[2024-04-11 15:05] VITALS: BP 100/64
[2024-04-11 16:41] LABS: Glucose - Point of Care 188 mg/dl (70-99)
[2024-04-11] MEDS: NOVOLOG FLEXPEN-LOW RESISTANCE 1 UNITS SC (17:53)
[2024-04-11] MEDS: LIPITOR 40 MG PO (17:54)
[2024-04-11 21:31] LABS: Glucose - Point of Care 338 mg/dl (70-99)
[2024-04-11] MEDS: MELATONIN 5 MG PO (21:45)
[2024-04-11 23:00] VITALS: BP 110/66
[2024-04-12] VITALS: BP 110/66
[2024-04-12] MEDS: SYNTHROID 50 MCG PO (05:31)
[2024-04-12 06:00] VITALS: BMI 16.8
[2024-04-12 06:25] LABS: Hematocrit 26.6 % (39.0-52.0); Hemoglobin 8.9 g/dL (13.0-18.0); Mean Corp Hgb Conc. 33.5 g/dL (33.0-37.0); Mean Corpuscular Hgb 28.2 pg (27.0-31.0); Mean Corpuscular Volume 84.2 fL (80.0-94.0); Mean Platelet Volume 9.3 fL (7.4-10.4); Platelet Count 394 10^3/uL (130-400); Red Blood Cell Count 3.16 10^6/uL (4.70-6.10); Red Cell Dist. Width 17.9 % (11.5-14.5); White Blood Cell Count 9.9 10^3/uL (4.8-10.8)
[2024-04-12 06:53] LABS: Blood Urea Nitrogen 29 mg/dl (9-20); Calcium 8.9 mg/dl (8.4-10.2); Carbon Dioxide 22 mmol/L (22-30); Chloride 96 mmol/L (98-107); Estimated Creatinine Clearance 43 ml/min; Glucose 115 mg/dl (70-99); Potassium 4.7 mmol/L (3.5-5.1); Sodium 128 mmol/L (135-145); eGFR 58.26
[2024-04-12 07:30] VITALS: BP 111/69
[2024-04-12] MEDS: NOVOLOG FLEXPEN-LOW RESISTANCE SC (08:13)
[2024-04-12 08:14] LABS: Glucose - Point of Care 117 mg/dl (70-99)
[2024-04-12] MEDS: HEPARIN 5000 UNITS SC ×2 (08:14→21:38)
[2024-04-12] MEDS: PLAVIX 75 MG PO (08:14)
[2024-04-12] MEDS: VITAMIN D3 (cholecalciferol) 25 MCG PO (08:14)
[2024-04-12] MEDS: PROTONIX 20 MG PO (08:14)
[2024-04-12] MEDS: FLOMAX 0.4 MG PO (08:14)
[2024-04-12] MEDS: LOW STRENGTH ASPIRIN 81 MG PO (08:14)
[2024-04-12] MEDS: THERAGRAN 1 TABLET PO (08:14)
[2024-04-12] MEDS: LANTUS 0.15 UNITS SC ×2 (08:14→21:37)
[2024-04-12 11:54] LABS: Glucose - Point of Care 209 mg/dl (70-99)
--- NOTE | 2024-04-12 12:28 | CM ---
CM following re: discharge planning.
Reviewed pt's chart, met with pt and had a long conversation regarding his living situation. Pt stated he stayed with his raegan, all his belongings at his place but he will not be able to return back there. Pt reports he has 4 sons and he will call
them to see whether or not he can stay with one of his sons. Pt made it very clear he will not stay in a fci for a alf care, he just need to get stronger and will move to stay with one of his sons. Pt reports he has no preference in a
SNF.
CM spoke to school admissions representative Balwinder from [facility] and he stated they received many patients/residents from one of SNF in the neighborhood and they will not be able to offer a bed at [facility]. complaints coordinator Balwinder stated he
will work with sister's facilities in the area to search for a bed. Per Balwinder [facility] might offer a bed. Awaiting for confirmation.
Also, pt asked to help with obtain SSD and pt is advised to work with his PCP because [facility] accepts SSD applications from PCP. Pt stated he stopped receiving food stamps and guerrero and pt advised to reach out to [facility] office for the answer.
Pt is aware, expressed his agreement. Also, pt stated if no SNF available to accept him he will ask his sons to take him home.
D/C plan: [place] [facility]. Awaiting for confirmation. If confirmed will initiate an auth from [facility].
CM will follow to assist pt with a safe discharge plan.
[2024-04-12] MEDS: NOVOLOG FLEXPEN-LOW RESISTANCE 2 UNITS SC ×2 (13:06→17:08)
--- NOTE | 2024-04-12 14:08 | W.PN.HOSP.TC ---
Today's Communication/Plan
-
Placement
Assessment / Plan
Assessment / Plan
Physical Exam
-
General: Well Developed and No Apparent Distress
HEENT: Normocephalic, Atraumatic and Moist Mucous Membranes
Respiratory: Clear to Auscultation
Cardiac: Regular Rhythm and S1/S2; Negative Murmur, Rub or Gallop
GI: Soft, Nontender, Nondistended and Normal Bowel Sounds
Genito-urinary: Lock
Musculoskeletal: No Clubbing, No Cyanosis and No Edema
Skin: Negative Rash
Neuro: Nonfocal/Grossly Intact
Psych: calm
Impression:
Presentation with generalized fatigue, inability to take care of himself, urinary incontinence
Acute kidney injury.
Normal anion gap metabolic acidosis
Hyponatremia
Acute/recurrent urinary retention.
Subclinical hypothyroidism
Hypomagnesemia
Other conditions:
Recent hospitalization with sepsis and UTI, urinary retention with Lock catheter discontinued upon discharge.
Subacute CVA.
History of HSV encephalitis.
Diabetes type 2
Chronic normocytic anemia
BPH
Drug use disorder with urine drug screen positive with amphetamines.
History of alcohol use disorder.
Severe protein calorie malnutrition with BMI of 17
Stage II coccyx pressure injury present on admission
Plan:
Acute kidney injury, resolving
Normal anion gap metabolic acidosis
Acute urinary retention bladder scan with PVR 1400 mL on 04/02.
Lock catheter
Flomax
Hold off further IV hydration
Follow BMP - improving
Acute retention
Recent UTI with obstructive uropathy, was seen by urologist, recommended to c/w Lock
Urine Cultures negative
Trial of voiding with recurrent retention 04/05. Lock catheter is back.
Subclinical hypothyroidism.
TSH 40.
Normal free T4.
Discussed with endocrinology upon admission.
Initiated on levothyroxine.
Recent subacute CVA.
Repeated CT scan on admission with no acute abnormality
Imaging including CT scan and MRI consistent with old encephalomalacia from HSV infection as well as subacute left frontal infarct.
Patient complains of generalized fatigue, although with no focal findings on exam.
Initiated on DAPT with Plavix and aspirin on 03/17. Continue statin.
Physical therapy assessment
LDL <70
Type 2 diabetes
Uncontrolled
Recent hemoglobin A1c 8.6.
Held metformin acutely given CR.
Diabetic diet.
Added Lantus , will increase the dose
Insulin basal bolus protocol.
Epigastric discomfort
Possible diabetic gastroparesis, trial of AC low dose Reglan
EKG normal QT
Chronic normocytic anemia.
No clinical evidence of acute blood loss.
Hemoglobin at 7.3.
Low iron level, give IV iron due to GI discomfort, will avoid oral iron
Iron sat and B12 level WNL
Added MVI & Vitamin D supplement.
Was started on Start PPI.
Should have outpatient GI workup including EGD +/- Colonoscopy depending on when last scope and EGD findings are
Polysubstance abuse
UDS positive for amphetamines, acknowledges meth use
Educated on cessation
Case management consultation for discharge planning, may require senior care facility given general deconditioning.
Full code.
Total time spent to see the patient, examine the patient, review data and lab results, discuss treatment plan with patient, nursing staff around 57 minutes
Anticipated Discharge: 24 - 48 hours
Subjective/Interval History
-
Date of Service: April 12, 2024
Objective Data
-
Labs:
Laboratory Results
04/12/24
05:30
WBC 9.9
Hgb 8.9 L
Hct 26.6 L
Plt Count 394
Sodium 128 L
Potassium 4.7
Chloride 96 L
Carbon Dioxide 22
BUN 29 H
Creatinine 1.4 H
Glucose 115 H
Calcium 8.9
Vital Signs:
Vital Signs
Temp Pulse Resp BP Pulse Ox
98.0 F 79 16 111/69 100
04/12/24 07:30 04/12/24 07:30 04/12/24 07:30 04/12/24 07:30 04/12/24 07:30
I&O
04/11/24 04/12/24 04/13/24
06:59 06:59 06:59
Intake Total 1560 / 1560 2029 / 2029
Output Total 1000 / 1000 2250 / 2250
Balance 560 / 560 -220 / -220
Physical Exam
-
General: Well Developed and No Apparent Distress
HEENT: Normocephalic, Atraumatic and Moist Mucous Membranes
Respiratory: Clear to Auscultation
Cardiac: Regular Rhythm and S1/S2; Negative Murmur, Rub or Gallop
GI: Soft, Nontender, Nondistended and Normal Bowel Sounds; Negative Organomegaly
Rectal: Deferred by Provider
Genito-urinary: Lock
Musculoskeletal: No Clubbing, No Cyanosis and No Edema
Skin: Negative Rash
Neuro: Nonfocal/Grossly Intact
[2024-04-12] MEDS: FERRLECIT 110 MG IV (14:10)
[2024-04-12 15:30] VITALS: BP 130/79
[2024-04-12 17:05] LABS: Glucose - Point of Care 206 mg/dl (70-99)
[2024-04-12] MEDS: LIPITOR 40 MG PO (17:07)
[2024-04-12 21:33] LABS: Glucose - Point of Care 321 mg/dl (70-99)
[2024-04-12] MEDS: MELATONIN 5 MG PO (21:38)
[2024-04-12 23:45] VITALS: BP 99/58
[2024-04-13] MEDS: SYNTHROID 50 MCG PO (05:46)
[2024-04-13 06:00] VITALS: BMI 17.1
[2024-04-13 07:30] VITALS: BP 117/68
[2024-04-13 07:45] LABS: Glucose - Point of Care 162 mg/dl (70-99)
[2024-04-13] MEDS: PROTONIX 20 MG PO (09:09)
[2024-04-13] MEDS: THERAGRAN 1 TABLET PO (09:09)
[2024-04-13] MEDS: LOW STRENGTH ASPIRIN 81 MG PO (09:10)
[2024-04-13] MEDS: NOVOLOG FLEXPEN-LOW RESISTANCE 1 UNITS SC (09:10)
[2024-04-13] MEDS: HEPARIN 5000 UNITS SC ×2 (09:10→22:00)
[2024-04-13] MEDS: FLOMAX 0.4 MG PO (09:10)
[2024-04-13] MEDS: PLAVIX 75 MG PO (09:11)
[2024-04-13] MEDS: VITAMIN D3 (cholecalciferol) 25 MCG PO (09:11)
[2024-04-13] MEDS: LANTUS 0.15 UNITS SC ×2 (09:12→22:02)
[2024-04-13 11:50] LABS: Glucose - Point of Care 245 mg/dl (70-99)
[2024-04-13] MEDS: NOVOLOG FLEXPEN-LOW RESISTANCE 2 UNITS SC (12:29)
[2024-04-13 12:34] VITALS: BP 118/61; PULSE 79; O2SAT 99
[2024-04-13 12:40] VITALS: BP 118/61
--- NOTE | 2024-04-13 15:39 | W.PN.HOSP.TC ---
Today's Communication/Plan
-
Pending placement
Assessment / Plan
Assessment / Plan
Physical Exam
-
General: Well Developed and No Apparent Distress
HEENT: Normocephalic, Atraumatic and Moist Mucous Membranes
Respiratory: Clear to Auscultation
Cardiac: Regular Rhythm and S1/S2; Negative Murmur, Rub or Gallop
GI: Soft, Nontender, Nondistended and Normal Bowel Sounds
Genito-urinary: Lock
Musculoskeletal: No Clubbing, No Cyanosis and No Edema
Skin: Negative Rash
Neuro: Nonfocal/Grossly Intact
Psych: calm
Impression:
Presentation with generalized fatigue, inability to take care of himself, urinary incontinence
Acute kidney injury.
Normal anion gap metabolic acidosis
Hyponatremia
Acute/recurrent urinary retention.
Subclinical hypothyroidism
Hypomagnesemia
Other conditions:
Recent hospitalization with sepsis and UTI, urinary retention with Lock catheter discontinued upon discharge.
Subacute CVA.
History of HSV encephalitis.
Diabetes type 2
Chronic normocytic anemia
BPH
Drug use disorder with urine drug screen positive with amphetamines.
History of alcohol use disorder.
Severe protein calorie malnutrition with BMI of 17
Stage II coccyx pressure injury present on admission
Plan:
Acute kidney injury, resolving
Normal anion gap metabolic acidosis
Acute urinary retention bladder scan with PVR 1400 mL on 04/02.
Lock catheter
Flomax
Hold off further IV hydration
Follow BMP - improving
Acute retention
Recent UTI with obstructive uropathy, was seen by urologist, recommended to c/w Lock
Urine Cultures negative
Trial of voiding with recurrent retention 04/05. Lock catheter is back.
Subclinical hypothyroidism.
TSH 40.
Normal free T4.
Discussed with endocrinology upon admission.
Initiated on levothyroxine.
Recent subacute CVA.
Repeated CT scan on admission with no acute abnormality
Imaging including CT scan and MRI consistent with old encephalomalacia from HSV infection as well as subacute left frontal infarct.
Patient complains of generalized fatigue, although with no focal findings on exam.
Initiated on DAPT with Plavix and aspirin on 03/17. Continue statin.
Physical therapy assessment
LDL <70
Type 2 diabetes
Uncontrolled
Recent hemoglobin A1c 8.6.
Held metformin acutely given CR.
Diabetic diet.
Added Lantus , will increase the dose
Insulin basal bolus protocol.
Epigastric discomfort
Possible diabetic gastroparesis, trial of AC low dose Reglan
EKG normal QT
Chronic normocytic anemia.
No clinical evidence of acute blood loss.
Hemoglobin at 7.3.
Low iron level, give IV iron due to GI discomfort, will avoid oral iron
Iron sat and B12 level WNL
Added MVI & Vitamin D supplement.
Was started on Start PPI.
Should have outpatient GI workup including EGD +/- Colonoscopy depending on when last scope and EGD findings are
Polysubstance abuse
UDS positive for amphetamines, acknowledges meth use
Educated on cessation
Case management consultation for discharge planning, may require [facility] facility given general deconditioning.
Full code.
Anticipated Discharge: Within 24 hours
Subjective/Interval History
-
Date of Service: April 13, 2024
Objective Data
-
Vital Signs:
Vital Signs
Temp Pulse Resp BP Pulse Ox
98.2 F 79 12 118/61 99
04/13/24 12:40 04/13/24 12:40 04/13/24 12:40 04/13/24 12:40 04/13/24 12:40
I&O
04/12/24 04/13/24 04/14/24
06:59 06:59 06:59
Intake Total 2029
Output Total 2249 4150 / 4150
Balance - / - -2069
Physical Exam
-
General: Well Developed and No Apparent Distress
HEENT: Normocephalic, Atraumatic and Moist Mucous Membranes
Respiratory: Clear to Auscultation
Cardiac: Regular Rhythm and S1/S2; Negative Murmur, Rub or Gallop
GI: Soft, Nontender, Nondistended and Normal Bowel Sounds; Negative Organomegaly
Rectal: Deferred by Provider
Genito-urinary: Lock
Musculoskeletal: No Clubbing, No Cyanosis and No Edema
Skin: Negative Rash
Neuro: Nonfocal/Grossly Intact
[2024-04-13 16:11] VITALS: BP 116/72
[2024-04-13 16:48] LABS: Glucose - Point of Care 170 mg/dl (70-99)
[2024-04-13] MEDS: LIPITOR 40 MG PO (17:22)
[2024-04-13] MEDS: NOVOLOG FLEXPEN-LOW RESISTANCE 170 UNITS SC (17:23)
--- NOTE | 2024-04-13 17:26 | CM ---
Spoke with Angeli at [place] [phone] she said they have no beds.
Additional SNF placed in care port.
Will need [facility] auth .
PLAN To SNf after SNF locate and auth obtained
[2024-04-13 20:26] LABS: Glucose - Point of Care 139 mg/dl (70-99)
[2024-04-13] MEDS: MELATONIN 5 MG PO (22:02)
[2024-04-13 23:50] VITALS: BP 151/91
[2024-04-14 04:54] VITALS: BMI 17.7
[2024-04-14] MEDS: SYNTHROID 50 MCG PO (05:39)
[2024-04-14 07:33] VITALS: BP 124/69
[2024-04-14 08:09] LABS: Glucose - Point of Care 146 mg/dl (70-99)
[2024-04-14] MEDS: NOVOLOG FLEXPEN-LOW RESISTANCE SC (08:22)
[2024-04-14] MEDS: PLAVIX 75 MG PO (09:03)
[2024-04-14] MEDS: FLOMAX 0.4 MG PO (09:03)
[2024-04-14] MEDS: PROTONIX 20 MG PO (09:03)
[2024-04-14] MEDS: VITAMIN D3 (cholecalciferol) 25 MCG PO (09:03)
[2024-04-14] MEDS: LOW STRENGTH ASPIRIN 81 MG PO (09:04)
[2024-04-14] MEDS: LANTUS 0.15 UNITS SC ×2 (09:04→21:28)
[2024-04-14] MEDS: THERAGRAN 1 TABLET PO (09:04)
[2024-04-14] MEDS: HEPARIN 5000 UNITS SC ×2 (09:04→21:27)
[2024-04-14 11:39] LABS: Glucose - Point of Care 223 mg/dl (70-99)
--- NOTE | 2024-04-14 11:54 | CM ---
property disposal manager reached out to patient this am, and reviewed referrals patient has been referred to [facility] in [place], [facility], [facility], [facility], [place], [facility], [facility] in [place],
[facility], [place], [facility], [facility], [facility], [facility], [place], [facility], [place], [facility], [facility], [facility], [facility], [facility], [facility],
and [facility] in [place]. Most facilities have denied patient. property disposal manager will review [facility] in [facility] and [facility].
Plan; Skilled placement will discuss [facility] in [place], [facility], and [facility].
[2024-04-14] MEDS: NOVOLOG FLEXPEN-LOW RESISTANCE 2 UNITS SC ×2 (12:31→17:36)
[2024-04-14 15:19] VITALS: BP 120/69
--- NOTE | 2024-04-14 16:31 | W.PN.HOSP.TC ---
Today's Communication/Plan
-
Placement
Assessment / Plan
Assessment / Plan
Physical Exam
-
General: Well Developed and No Apparent Distress
HEENT: Normocephalic, Atraumatic and Moist Mucous Membranes
Respiratory: Clear to Auscultation
Cardiac: Regular Rhythm and S1/S2; Negative Murmur, Rub or Gallop
GI: Soft, Nontender, Nondistended and Normal Bowel Sounds
Genito-urinary: Lock
Musculoskeletal: No Clubbing, No Cyanosis and No Edema
Skin: Negative Rash
Neuro: Nonfocal/Grossly Intact
Psych: calm
Impression:
Presentation with generalized fatigue, inability to take care of himself, urinary incontinence
Acute kidney injury.
Normal anion gap metabolic acidosis
Hyponatremia
Acute/recurrent urinary retention.
Subclinical hypothyroidism
Hypomagnesemia
Other conditions:
Recent hospitalization with sepsis and UTI, urinary retention with Lock catheter discontinued upon discharge.
Subacute CVA.
History of HSV encephalitis.
Diabetes type 2
Chronic normocytic anemia
BPH
Drug use disorder with urine drug screen positive with amphetamines.
History of alcohol use disorder.
Severe protein calorie malnutrition with BMI of 17
Stage II coccyx pressure injury present on admission
Plan:
Acute kidney injury, resolving
Normal anion gap metabolic acidosis
Acute urinary retention bladder scan with PVR 1400 mL on 04/02.
Lock catheter
Flomax
Hold off further IV hydration
Follow BMP - improving
Acute retention
Recent UTI with obstructive uropathy, was seen by urologist, recommended to c/w Lock
Urine Cultures negative
Trial of voiding with recurrent retention 04/05. Lock catheter is back.
Subclinical hypothyroidism.
TSH 40.
Normal free T4.
Discussed with endocrinology upon admission.
Initiated on levothyroxine.
Recent subacute CVA.
Repeated CT scan on admission with no acute abnormality
Imaging including CT scan and MRI consistent with old encephalomalacia from HSV infection as well as subacute left frontal infarct.
Patient complains of generalized fatigue, although with no focal findings on exam.
Initiated on DAPT with Plavix and aspirin on 03/17. Continue statin.
Physical therapy assessment
LDL <70
Type 2 diabetes
Uncontrolled
Recent hemoglobin A1c 8.6.
Held metformin acutely given CR.
Diabetic diet.
Added Lantus , will increase the dose
Insulin basal bolus protocol.
Epigastric discomfort
Possible diabetic gastroparesis, trial of AC low dose Reglan
EKG normal QT
Chronic normocytic anemia.
No clinical evidence of acute blood loss.
Hemoglobin at 7.3.
Low iron level, give IV iron due to GI discomfort, will avoid oral iron
Iron sat and B12 level WNL
Added MVI & Vitamin D supplement.
Was started on Start PPI.
Should have outpatient GI workup including EGD +/- Colonoscopy depending on when last scope and EGD findings are
Polysubstance abuse
UDS positive for amphetamines, acknowledges meth use
Educated on cessation
Case management consultation for discharge planning, may require residential facility given general deconditioning.
Full code.
Anticipated Discharge: Within 24 hours
Subjective/Interval History
-
Date of Service: April 14, 2024
Objective Data
-
Vital Signs:
Vital Signs
Temp Pulse Resp BP Pulse Ox
98.1 F 78 16 120/69 98
04/14/24 15:19 04/14/24 15:19 04/14/24 15:19 04/14/24 15:19 04/14/24 15:19
I&O
04/13/24 04/14/24 04/15/24
06:59 06:59 06:59
Intake Total 2079 480 / 480
Output Total 4150 / 4150 220 / 2199
Balance -2069 -1719
Physical Exam
-
General: Well Developed and No Apparent Distress
HEENT: Normocephalic, Atraumatic and Moist Mucous Membranes
Respiratory: Clear to Auscultation
Cardiac: Regular Rhythm and S1/S2; Negative Murmur, Rub or Gallop
GI: Soft, Nontender, Nondistended and Normal Bowel Sounds; Negative Organomegaly
Rectal: Deferred by Provider
Genito-urinary: Lock
Musculoskeletal: No Clubbing, No Cyanosis and No Edema
Skin: Negative Rash
Neuro: Nonfocal/Grossly Intact
[2024-04-14 16:44] LABS: Glucose - Point of Care 340 mg/dl (70-99)
[2024-04-14] MEDS: LIPITOR 40 MG PO (17:34)
[2024-04-14 21:04] LABS: Glucose - Point of Care 139 mg/dl (70-99)
[2024-04-14] MEDS: MELATONIN 5 MG PO (21:29)
[2024-04-14 22:54] VITALS: BP 108/64
[2024-04-15] MEDS: SYNTHROID 50 MCG PO (05:17)
[2024-04-15 06:00] VITALS: BMI 16.9
[2024-04-15 07:20] VITALS: BP 118/66
[2024-04-15 07:36] LABS: Glucose - Point of Care 182 mg/dl (70-99)
[2024-04-15] MEDS: PLAVIX 75 MG PO (07:49)
[2024-04-15] MEDS: THERAGRAN 1 TABLET PO (07:49)
[2024-04-15] MEDS: LOW STRENGTH ASPIRIN 81 MG PO (07:49)
[2024-04-15] MEDS: FLOMAX 0.4 MG PO (07:49)
[2024-04-15] MEDS: PROTONIX 20 MG PO (07:49)
[2024-04-15] MEDS: HEPARIN 5000 UNITS SC ×2 (07:49→21:33)
[2024-04-15] MEDS: VITAMIN D3 (cholecalciferol) 25 MCG PO (07:49)
[2024-04-15] MEDS: NOVOLOG FLEXPEN-LOW RESISTANCE 1 UNITS SC ×3 (07:51→16:52)
[2024-04-15] MEDS: LANTUS 0.15 UNITS SC ×2 (09:26→21:39)
[2024-04-15 10:35] VITALS: BP 113/69; PULSE 82; PULSE 85; O2SAT 97
[2024-04-15 11:49] LABS: Glucose - Point of Care 191 mg/dl (70-99)
--- NOTE | 2024-04-15 15:12 | CM ---
CM reviewed chart, left message for admissions at [facility] in regards to accepting patient. Spoke with Admissions at [facility], resent referral in [facility], will review. Effie at [facility] reviewing if able to accept. CM
spoke with patient to review options, patient agreeable to facilities, will require insurance auth.
Plan; awaiting from [facility], [facility], and [facility].
--- NOTE | 2024-04-15 15:17 | W.PN.HOSP.TC ---
Today's Communication/Plan
-
Placement
Assessment / Plan
Assessment / Plan
Physical Exam
-
General: Well Developed and No Apparent Distress
HEENT: Normocephalic, Atraumatic and Moist Mucous Membranes
Respiratory: Clear to Auscultation
Cardiac: Regular Rhythm and S1/S2; Negative Murmur, Rub or Gallop
GI: Soft, Nontender, Nondistended and Normal Bowel Sounds
Genito-urinary: Lock
Musculoskeletal: No Clubbing, No Cyanosis and No Edema
Skin: Negative Rash
Neuro: Nonfocal/Grossly Intact
Psych: calm
Impression:
Presentation with generalized fatigue, inability to take care of himself, urinary incontinence
Acute kidney injury.
Normal anion gap metabolic acidosis
Hyponatremia
Acute/recurrent urinary retention.
Subclinical hypothyroidism
Hypomagnesemia
Other conditions:
Recent hospitalization with sepsis and UTI, urinary retention with Lock catheter discontinued upon discharge.
Subacute CVA.
History of HSV encephalitis.
Diabetes type 2
Chronic normocytic anemia
BPH
Drug use disorder with urine drug screen positive with amphetamines.
History of alcohol use disorder.
Severe protein calorie malnutrition with BMI of 17
Stage II coccyx pressure injury present on admission
Plan:
Acute kidney injury, resolving
Normal anion gap metabolic acidosis
Acute urinary retention bladder scan with PVR 1400 mL on 04/02.
Lock catheter
Flomax
Hold off further IV hydration
Follow BMP - improving
Acute retention
Recent UTI with obstructive uropathy, was seen by urologist, recommended to c/w Lock
Urine Cultures negative
Trial of voiding with recurrent retention 04/05. Lock catheter is back.
Subclinical hypothyroidism.
TSH 40.
Normal free T4.
Discussed with endocrinology upon admission.
Initiated on levothyroxine.
Recent subacute CVA.
Repeated CT scan on admission with no acute abnormality
Imaging including CT scan and MRI consistent with old encephalomalacia from HSV infection as well as subacute left frontal infarct.
Patient complains of generalized fatigue, although with no focal findings on exam.
Initiated on DAPT with Plavix and aspirin on 03/17. Continue statin.
Physical therapy assessment
LDL <70
Type 2 diabetes
Uncontrolled
Recent hemoglobin A1c 8.6.
Held metformin acutely given CR.
Diabetic diet.
Added Lantus , will increase the dose
Insulin basal bolus protocol.
Epigastric discomfort
Possible diabetic gastroparesis, trial of AC low dose Reglan
EKG normal QT
Chronic normocytic anemia.
No clinical evidence of acute blood loss.
Hemoglobin at 7.3.
Low iron level, give IV iron due to GI discomfort, will avoid oral iron
Iron sat and B12 level WNL
Added MVI & Vitamin D supplement.
Was started on Start PPI.
Should have outpatient GI workup including EGD +/- Colonoscopy depending on when last scope and EGD findings are
Polysubstance abuse
UDS positive for amphetamines, acknowledges meth use
Educated on cessation
Case management consultation for discharge planning, may require senior living facility given general deconditioning.
Full code.
Anticipated Discharge: Within 24 hours
Subjective/Interval History
-
Date of Service: April 15, 2024
Objective Data
-
Vital Signs:
Vital Signs
Temp Pulse Resp BP Pulse Ox
97.9 F 68 16 118/66 99
04/15/24 07:20 04/15/24 07:20 04/15/24 07:20 04/15/24 07:20 04/15/24 07:20
I&O
04/14/24 04/15/24 04/16/24
06:59 06:59 06:59
Intake Total 480 / 480 2400 / 2400
Output Total 2200 / 2200 3200 / 3200
Balance -1720 / -1720 -800 / -800
Physical Exam
-
General: Well Developed and No Apparent Distress
HEENT: Normocephalic, Atraumatic and Moist Mucous Membranes
Respiratory: Clear to Auscultation
Cardiac: Regular Rhythm and S1/S2; Negative Murmur, Rub or Gallop
GI: Soft, Nontender, Nondistended and Normal Bowel Sounds; Negative Organomegaly
Rectal: Deferred by Provider
Genito-urinary: Lock
Musculoskeletal: No Clubbing, No Cyanosis and No Edema
Skin: Negative Rash
Neuro: Nonfocal/Grossly Intact
[2024-04-15 15:26] VITALS: BP 132/76
[2024-04-15 16:44] LABS: Glucose - Point of Care 177 mg/dl (70-99)
[2024-04-15] MEDS: LIPITOR 40 MG PO (16:51)
[2024-04-15] MEDS: MELATONIN 5 MG PO (21:33)
[2024-04-15 21:38] LABS: Glucose - Point of Care 266 mg/dl (70-99)
[2024-04-15 23:50] VITALS: BP 96/67
[2024-04-16] MEDS: SYNTHROID 50 MCG PO (05:58)
[2024-04-16 06:00] VITALS: BMI 17.1
[2024-04-16 07:30] VITALS: BP 105/64
[2024-04-16] MEDS: VITAMIN D3 (cholecalciferol) 25 MCG PO (07:35)
[2024-04-16] MEDS: THERAGRAN 1 TABLET PO (07:35)
[2024-04-16] MEDS: PLAVIX 75 MG PO (07:35)
[2024-04-16] MEDS: HEPARIN 5000 UNITS SC (07:35)
[2024-04-16] MEDS: FLOMAX 0.4 MG PO (07:35)
[2024-04-16] MEDS: LOW STRENGTH ASPIRIN 81 MG PO (07:35)
[2024-04-16] MEDS: PROTONIX 20 MG PO (07:35)
[2024-04-16] MEDS: NOVOLOG FLEXPEN-LOW RESISTANCE SC (07:37)
[2024-04-16] MEDS: LANTUS 0.15 UNITS SC (07:38)
[2024-04-16 07:48] LABS: Glucose - Point of Care 141 mg/dl (70-99)
[2024-04-16 11:47] LABS: Glucose - Point of Care 203 mg/dl (70-99)
[2024-04-16] MEDS: NOVOLOG FLEXPEN-LOW RESISTANCE 2 UNITS SC ×2 (13:23→16:16)
--- NOTE | 2024-04-16 13:31 | CM ---
[facility] unable to accept pt due to substance use.
CM spoke w/ [facility], facility can accept pt.
Will initiate [facility] auth
Plan: [facility]; pending auth
--- NOTE | 2024-04-16 14:09 | CM ---
Addendum entered by Ling Adams 04/16/24 15:53:
Insurance Auth # [id number]
Original Note:
Patient accepted at [facility] npi# [id number]
Accepting MD Dr Shoemaker NPI# [id number]
TC to [facility] for insurance authorization [phone], spoke with Lien
Approved skilled rehab
Start date 04/16/24 NRD 04/22/24
Call updates to [phone]
[2024-04-16 15:23] VITALS: BP 102/60
--- NOTE | 2024-04-16 15:54 | W.DS.TRANS ---
DC Summary - Bearing [employer]
-
Discharge Instructions:
Discharge Diagnosis/Procedures Impression:
Presentation with generalized fatigue, inability
to take care of himself, urinary incontinence
Acute kidney injury.
Normal anion gap metabolic acidosis
Hyponatremia
Acute/recurrent urinary retention.
Subclinical hypothyroidism
Hypomagnesemia
Other conditions:
Recent hospitalization with sepsis and UTI,
urinary retention with Lock catheter
discontinued upon discharge.
Subacute CVA.
History of HSV encephalitis.
Diabetes type 2
Chronic normocytic anemia
BPH
Drug use disorder with urine drug screen
positive with amphetamines.
History of alcohol use disorder.
Severe protein calorie malnutrition with BMI of
17
Stage II coccyx pressure injury present on
admission
Diet Regular
Instructions:
Stand-Alone Forms:
Changes to Home Medications: Yes
Discharge Medications:
DC Medications w/original date entered in [employer]
aspirin 81 mg chewable tablet 81 mg PO DAILY #30 tabs 03/25/24
atorvastatin 40 mg tablet 40 mg PO QPM #30 tabs 03/25/24
clopidogrel 75 mg tablet 75 mg PO DAILY #12 tabs 03/25/24
Insulin Glargine Lantus [Lantus] 15 units As Directed mls/hr SC BID 04/16/24
levothyroxine 50 mcg tablet 50 mcg PO DAILY @ 0600 #30 tabs 04/16/24
melatonin 5 mg tablet 5 mg PO HS #20 tabs 04/16/24
pantoprazole 20 mg tablet,delayed release 20 mg PO DAILY #30 tabs 04/16/24
tamsulosin 0.4 mg capsule 0.4 mg PO DAILY #30 caps 04/16/24
Home Medication Changes
Metformin discontinued
Insulin initiated
Pending Results: No
--- NOTE | 2024-04-16 16:12 | CM ---
Patient accepted at [facility]. Pt agreeable to facility given multiple referrals have been placed and unable to accept pt
Auth obtained and approved. CM updated [facility] admissions and provided auth information
Updated hospitalist, agreeable to d/c today
Pt will need ambulance transport, forms faxed to [facility] specialist[facility]ena ace
[facility]
Report: [phone] (ASK FOR 1ST FLR NURSE STATION)

Plan: [facility] SNF via ambulance
[2024-04-16 16:15] LABS: Glucose - Point of Care 208 mg/dl (70-99)
[2024-04-16] MEDS: LIPITOR 40 MG PO (17:51)
--- NOTE | 2024-04-16 20:00 | PTCARENOTE ---
Assumed care of pt from selena RN. Pt being discharged to SNF. Selena RN called report to [facility]. Pt being transported via ambulance. Pt transported with all belongings and discharge packet sent with.
== END 2024-04-16 20:07 | DRG 682 ==
LOC: 3 WEST ACU 20:10
PROVIDERS: Internal Medicine; ADMITTING PHYSICIAN Student in an Organized Health Care Education/Training Program; ATTENDING PHYSICIAN Internal Medicine; EMERGENCY PHYSICIAN Emergency Medicine
PROC: 0T9B70Z Drainage of Bladder with Drainage Device, Via Natural or Artificial Opening (ICD-10-PCS; 2024-04-02)
DX: N17.9 Acute kidney failure, unspecified (principal); E43 Unspecified severe protein-calorie malnutrition; E87.1 Hypo-osmolality and hyponatremia; E87.20 Acidosis, unspecified; Z68.1 Body mass index [BMI] 19.9 or less, adult; R62.7 Adult failure to thrive; F12.90 Cannabis use, unspecified, uncomplicated; F15.90 Other stimulant use, unspecified, uncomplicated; E86.0 Dehydration; K52.9 Noninfective gastroenteritis and colitis, unspecified; E83.42 Hypomagnesemia; D64.9 Anemia, unspecified; R32 Unspecified urinary incontinence; F10.10 Alcohol abuse, uncomplicated; E03.8 Other specified hypothyroidism; R33.8 Other retention of urine; R33.9 Retention of urine, unspecified; E11.43 Type 2 diabetes mellitus with diabetic autonomic (poly)neuropathy; K31.84 Gastroparesis; L89.152 Pressure ulcer of sacral region, stage 2; N40.1 Benign prostatic hyperplasia with lower urinary tract symptoms; E11.65 Type 2 diabetes mellitus with hyperglycemia; Z79.890 Hormone replacement therapy; Z86.73 Personal history of transient ischemic attack (TIA), and cerebral infarction without residual deficits; Z79.02 Long term (current) use of antithrombotics/antiplatelets; Z79.82 Long term (current) use of aspirin; Z79.84 Long term (current) use of oral hypoglycemic drugs; Z91.148 Patient's other noncompliance with medication regimen for other reason; Z87.440 Personal history of urinary (tract) infections; Z86.19 Personal history of other infectious and parasitic diseases; Z75.1 Person awaiting admission to adequate facility elsewhere
CPT/HCPCS: 70450; 71045; 80048; 80053; 80306; 80307; 81003; 81015; 82077; 82607; 82728; 82947; 82962; 83540; 83550; 83605; 83735; 84439; 84443; 85025; 85027; 87040; 87070; 87086; 87798; 93005; 96360; 97116; 97163; 97167; 97530; 97535; 99285; J2916

== ENCOUNTER 2024-07-22 20:14 | Inpatient (IN) | payer OTHER, SELFPAY ==
[2024-07-22] VITALS (9 sets, daily range): BP systolic 116–163; BP diastolic 73–91; BMI 22.2
[2024-07-22 14:52] LABS: Glucose - Point of Care 296 mg/dl (70-99)
[2024-07-22 15:16] LABS: % Eosinophils 3.7 % (0-6); % Immature Granulocytes 0.5 % (0-0.5); % Lymphocytes 13.1 % (20.5-51.1); % Monocytes 10.5 % (1.7-9.3); % Neutrophils 71.2 % (42.2-75.2); Absolute Basophils 0.1 10^3/uL (0-0.2); Absolute Eosinophils 0.3 10^3/uL (0-0.7); Absolute Lymphocytes 1.1 10^3/uL (1.2-3.4); Absolute Monocytes 0.9 10^3/uL (0.1-0.6); Absolute Neutrophils 5.8 10^3/uL (1.4-6.5); Hematocrit 28.7 % (39.0-52.0); Mean Corp Hgb Conc. 34.8 g/dL (33.0-37.0); Mean Corpuscular Hgb 28.9 pg (27.0-31.0); Mean Corpuscular Volume 82.9 fL (80.0-94.0); Mean Platelet Volume 10.2 fL (7.4-10.4); Nucleated Red Blood Cells % 0 % (-); Platelet Count 238 10^3/uL (130-400); Red Blood Cell Count 3.46 10^6/uL (4.70-6.10); Red Cell Dist. Width 14.2 % (11.5-14.5); White Blood Cell Count 8.2 10^3/uL (4.8-10.8)
--- NOTE | 2024-07-22 15:22 | ED.GENMED ---
History of Present Illness
General
Chief Complaint: Abdominal Symptoms
Source: patient
Exam Limitations: none
Time Seen by Provider: 07/22/24 15:17
History of Present Illness
History of Present Illness:
See MDM
Past History
Past History
ED Past Medical History: CVA and IDDM
ED Past Surgical History: Orthopedic
Social History
Tobacco: Non-smoker
Alcohol: None
Phy Exam
Physical Exam
Physical Exam:
See MDM
Course
Orders/Labs/Results
Orders:
Orders
07/22/24 14:54
Electrocardiogram (*1) Urgent
Reason for Study: Abdominal Pain
07/22/24 15:01
Complete Blood Count/With Diff Urgent
Comprehensive Metabolic Panel Urgent
07/22/24 15:17
Urinalysis Reflex To Culture Urgent
Date Specimen was Collected: 07/22/24
Time Specimen was Collected: 14:55
Urine Microscopic Reflex Cult Urgent
Urine Culture Urgent
JAVIER Source: U
Specimen Description:
Date Specimen was Collected: 07/22/24
Time Specimen was Collected: 14:55
07/22/24 15:21
CT Abd/pelvis W Iv Cont Urgent
Comment:
Reason For Exam: Left abd pain, fevers, vomiting
0.9% Sodium Chloride 1000 ml [Nss] 1,000 ml IV BOLUS
Ketorolac [Toradol] 30 mg IV NOW STA
07/22/24 16:39
LevoFLOXacin 500 MG/100 ML [Levaquin] 500 mg in 100 ml IV NOW
07/22/24 16:57
CefTRIAXone [Rocephin] 2,000 mg IV NOW STA
07/22/24 17:05
Sterile Water [Sterile Water For Injection] 20 ml .ROUTE .STK-MED
Abnormal Lab Results
07/22/24 07/22/24 07/22/24
14:50 15:01 15:17
RBC 3.46 L 10^6/uL
(4.70-6.10)
Hgb 10.0 L g/dL
(13.0-18.0)
Hct 28.7 L %
(39.0-52.0)
Absolute Lymphs (auto) 1.1 L 10^3/uL
(1.2-3.4)
Absolute Monos (auto) 0.9 H 10^3/uL
(0.1-0.6)
Lymphocytes % 13.1 L %
(20.5-51.1)
Monocytes % 10.5 H %
(1.7-9.3)
Sodium 130 L mmol/L
(135-145)
BUN 37 H mg/dl
(9-20)
Creatinine 1.4 H mg/dL
(0.7-1.3)
Glucose 322 H mg/dl
(70-99)
Total Protein 6.0 L g/dl
(6.3-8.2)
Ur Occult Blood Reflex 4+ A
(Negative)
Leukocyte Esterase Rfl 3+ A
(Negative)
Urine RBC 11-15 A /HPF
(0-2)
Urine WBC (Reflex) >100 A /HPF
(0-5)
Urine Bacteria (Reflex) Few A
(Negative)
Urine Yeast Few A
(Negative)
Urine Glucose 3+ A
(Negative)
Urine Albumin (Reflex) 3+ A
(Neg - Trace)
POC Glucose 296 H mg/dl
(70-99)
07/22/24 15:01
07/22/24 15:01
Vital Signs
Initial and Last Documented VS:
Initial Vital Signs
BP
129/77
07/22/24 14:33
Last Documented Vital Signs
Temp Pulse Resp BP Pulse Ox
98.1 F 71 18 163/91 97
07/22/24 17:26 07/22/24 18:15 07/22/24 18:15 07/22/24 18:00 07/22/24 18:15
MDM/Problems Addressed
Differential Diagnosis Includes:
HPI and MDM Narrative:
58-year-old male presenting for left abdominal pain. Patient states he has been having nausea and vomiting and abdominal pain over the past day or so. He stopped taking his metformin a few days ago due to his nausea and vomiting. Patient planes
of intermittent fevers. Patient afebrile on arrival but does have left abdominal pain. Given his discomfort, will obtain CT to rule out any evidence of diverticulitis versus colitis
Physical exam
General: Mildly uncomfortable
HEENT: protecting airway. Dry mucous membranes
Neck: appears supple
CV: No evidence of cyanosis
Resp: No accessory muscle use
Abd: Non-distended. Left abdominal tenderness. No rebound
Extremities: No deformities
Neuro: alert
Psych: Normal affect
Skin: Intact
Problems Addressed including Acute and Chronic Conditions affecting care:
1. Abdominal pain
Acuity: acute
Prognosis: stable
Details: Will obtain CT abdomen/pelvis. Will give dose of Toradol
2. Dehydration
Acuity: acute
Prognosis: stable
Details: Likely in setting of vomiting and hyperglycemia. Will provide IV fluids
3. UTI
Acuity: acute
Prognosis: stable
Details: Given the fevers and abdominal pain, will treat as pyelonephritis. Will start IV ceftriaxone
Updates
CT consistent with cystitis and likely left-sided pyelonephritis which correlates to his abdominal pain. Given the uncontrolled diabetes and the pyelonephritis, patient started on Unasyn and will admit
Differential Diagnosis (but not limited to): Constipation, colitis, diverticulitis
Testing considered: Abdominal ultrasound
Drug therapy (if applicable): OTC meds, please see d/c instruction regarding Rx drugs
Amount and/or Complexity of Data Reviewed
Clinical info obtained from: Patient
External data reviewed: N/A
Labs I independently reviewed (but not limited to): Urinalysis, white blood cell count normal
Radiology: The CT scan was personally and independently reviewed. In addition, official CT report reviewed.
Pulse Ox: not hypoxic
EKG independently reviewed: N/A
Airport Operations Specialist: N/A
Critical Care: N/A
Risk of Complication:
Social Determinants of health: Good social support
Discussed with other providers: Hospitalist
Escalation of Care includes Admit/Obs: Given uncontrolled diabetes and the active pyelonephritis, will start IV antibiotics and admit
Occasional wrong word or 'sound a like' substitutions may have occurred due to the inherent limitations of voice recognition software. Read the chart carefully and recognize, using context, where substitutions have occurred.
*Critical Care Note
Total Time (30-74mins, 75-104mins- exclusive of procedures): Not Applicable
ED Attending Note
-
Portions of this chart may have been created with voice recognition software.� Occasional wrong word or��sound alike� substitutions may have occurred due to the inherent limitations of voice recognition software.
Discharge Plan
Departure
Patient Disposition: Admit
Date of Disposition: 07/22/24
Time of Disposition: 19:34
Admit to: Med/Surg
Presentation/result/management discussed w/ accepting MD/DO: Hospitalist
Discharge Problem:
Acute pyelonephritis, Acute hyperglycemia
Prescriptions:
No Action
atorvastatin 40 mg Tablet
40 mg PO QPM Qty: 30 0RF
clopidogrel 75 mg Tablet
75 mg PO DAILY Qty: 12 0RF
aspirin 81 mg Tablet,Chewable
81 mg PO DAILY Qty: 30 0RF
tamsulosin 0.4 mg Capsule
0.4 mg PO DAILY Qty: 30 0RF
pantoprazole 20 mg Tablet,Delayed Release (Dr/Ec)
20 mg PO DAILY Qty: 30 0RF
metformin 500 mg Tablet
500 mg PO HS
acetaminophen [Tylenol] 325 mg Tablet
650 mg PO Q6HPRN PRN (Reason: MILD PAIN)
trazodone 50 mg Tablet
50 mg PO HS
melatonin 3 mg Tablet
6 mg PO HS
levothyroxine [Synthroid] 88 mcg Tablet
88 mcg PO DAILY
magnesium hydroxide [Milk of Magnesia] 400 mg/5 mL Suspension
2,400 mg PO DAILYPRN PRN (Reason: IF NO BM ON 3RD DAY)
bisacodyl [Dulcolax (bisacodyl)] 10 mg Suppository
10 mg MN DAILYPRN PRN (Reason: IF NO BM AFTR MOM)
Fleet Enema 19-7 gram/118 mL Enema
118 ml MN DAILYPRN PRN (Reason: IF NO BM AFTR DULOLCAX)
insulin glargine [Lantus Solostar U-100 Insulin] 100 unit/mL (3 mL) Insulin Pen
18 unit SC HS
Referrals:
Rashel Shoemaker, [Family Provider] -
Interventions
Interventions:
*Risk Screen - Suicide Last Done: 07/22/24 14:37
*General Assessment Last Done: 07/22/24 14:37
*Neglect/Abuse Screening Last Done: 07/22/24 14:37
*ED COVID-19 Vaccine History Last Done: 07/22/24 14:55
OO-Exxrgy-Vrdqvebbkr Assessment Last Done: 07/22/24 14:57
Discharge Date and Time
Print Language: BRAZILIAN
[2024-07-22 15:32] LABS: ALT (SGPT) 21 U/L (0-50); AST (SGOT) 18 U/L (17-59); Albumin 3.5 g/dl (3.5-5.0); Alkaline Phosphatase 77 U/L (38-126); Blood Urea Nitrogen 37 mg/dl (9-20); Calcium 9.2 mg/dl (8.4-10.2); Carbon Dioxide 25 mmol/L (22-30); Chloride 98 mmol/L (98-107); Estimated Creatinine Clearance 59 ml/min; Glucose 322 mg/dl (70-99); Potassium 4.6 mmol/L (3.5-5.1); Sodium 130 mmol/L (135-145); Total Bilirubin 0.5 mg/dl (0.2-1.3); eGFR 58.26
[2024-07-22 15:33] LABS: Urine Albumin 3+ (Neg - Trace); Urine Bilirubin Negative (Negative); Urine Character Clear (Clear); Urine Color Yellow; Urine Glucose 3+ (Negative); Urine Ketone Negative (Negative); Urine Leukocyte 3+ (Negative); Urine Nitrite Negative (Negative); Urine Occult Blood 4+ (Negative); Urine Urobilinogen Negative (Neg - 1+)
[2024-07-22 15:54] LABS: Urine Bacteria Few (Negative); Urine Squamous Cell 0-2 /LPF (Few); Urine White Cell >100 /HPF (0-5); Urine Yeast Few (Negative)
[2024-07-22] MEDS: TORADOL 30 MG IV (16:00)
[2024-07-22] MEDS: NSS 1000 IV ×2 (16:01→23:14)
[2024-07-22] MEDS: ROCEPHIN 2000 MG IV (17:08)
--- NOTE | 2024-07-22 19:40 | HPS.HSE ---
Family Physician
-
Family Physician: Rashel Shoemaker, DO
Chief Complaint
-
Fever
History of Present Illness
This is a 58-year-old with past medical history significant for insulin-dependent diabetes, CVA, hypothyroid, BPH, currently resides in a detention presents to the emergency department with fever at the detention to 101 prior to arrival and
hyperglycemia to 425 given 10 units of female insulin.
Patient himself reports that he has been having constipation for about 2 a week. He says his last last bowel movement was 2 days ago and it was constipated. He reports abdominal pain that is localized to the left lower quadrant but radiates across
the abdomen. He denies having flank pain. He himself denies any urinary symptoms including dysuria, urgency frequency or nocturia. His main complaints are constipation with episodes of nausea vomiting prior to 2 days ago. Reports poor appetite
due to lack of cold food at the detention.
He has not had to have any urinary catheters recently and denies any recent episodes of urinary retention since his prior to discharge from the hospital.
In the emergency department, temperature was 98.1, blood pressure 160/90 with a pulse of 71 satting 91% on room air.
He has a white count of 8.2, hemoglobin 10 and platelet count of 238. Sodium was 130, potassium 4.6, chloride and bicarb were normal. BUN 37. Creatinine was 1.4. Glucose 322.
CT of the abdomen pelvis showing severe acute cystitis with severe urinary bladder distention and diffuse wall thickening. There was severe acute left ascending urinary tract infection with moderate to severe left hydroureteronephrosis. There is a
mild acute right ascending urinary tract infection. Constipation with large amount of fecal material throughout the colon and rectum.
Medical History
Past Medical History
Past Medical History: Reports Other ( type 2 diabetes, hypothyroidism, BPH, urinary retention, HSV encephalitis)
Past Surgical History: Reports None
Social History
Tobacco: Non-smoker
Alcohol: None
Drug: None
Family History
Family History: Not pertinent
Allergies / Home Medications
Allergies reflects when Allergies were last updated in [employer].
Home Medications with original date entered in [employer]
Allergy/Medication List:
Allergies
Allergy/AdvReac Type Severity Reaction Status Date / Time
No Known Allergies Allergy Verified 07/22/24 14:37
Home Medications
aspirin 81 mg chewable tablet 81 mg PO DAILY #30 tabs 03/25/24
atorvastatin 40 mg tablet 40 mg PO QPM #30 tabs 03/25/24
clopidogrel 75 mg tablet 75 mg PO DAILY #12 tabs 03/25/24
pantoprazole 20 mg tablet,delayed release 20 mg PO DAILY #30 tabs 04/16/24
tamsulosin 0.4 mg capsule 0.4 mg PO DAILY #30 caps 04/16/24
acetaminophen 325 mg tablet (Tylenol) 650 mg PO Q6HPRN PRN MILD PAIN 07/22/24
bisacodyl 10 mg rectal suppository (Dulcolax (bisacodyl)) 10 mg KS DAILYPRN PRN IF NO BM AFTR MOM 07/22/24
insulin glargine 100 unit/mL (3 mL) subcutaneous pen (Lantus Solostar U-100 Insulin) 18 unit SC HS 07/22/24
levothyroxine 88 mcg tablet (Synthroid) 88 mcg PO DAILY 07/22/24
magnesium hydroxide 400 mg/5 mL oral suspension (Milk of Magnesia) 2,400 mg PO DAILYPRN PRN IF NO BM ON 3RD DAY 07/22/24
melatonin 3 mg tablet 6 mg PO HS 07/22/24
metformin 500 mg tablet 500 mg PO HS 07/22/24
sodium phosphates 19 gram-7 gram/118 mL enema (Fleet Enema) 118 ml KS DAILYPRN PRN IF NO BM AFTR DULOLCAX 07/22/24
trazodone 50 mg tablet 50 mg PO HS 07/22/24
Review of Systems
-
History Source: Patient
Constitutional: Reports No Symptoms
EENT: Reports No Symptoms
Respiratory: Reports No Symptoms
Cardiac: Reports No Symptoms
Abdomen/GI: Reports Abdominal Pain, Nausea and Vomiting
: Reports No Symptoms
Musculoskeletal: Reports No Symptoms
Skin: Reports No Symptoms
Neurological: Reports No Symptoms
Endocrine: Reports No Symptoms
Hematologic/Lymphatic: Reports No Symptoms
Psych: Reports No Symptoms
Physical Exam
Vital Signs
Vital Signs
Temp Pulse Resp BP Pulse Ox
98.1 F 71 18 163/91 97
07/22/24 17:26 07/22/24 18:15 07/22/24 18:15 07/22/24 18:00 07/22/24 18:15
Physical Exam
General: Well Developed, No Apparent Distress and Conversant
HEENT: NormoCephalic, Anicteric, Moist mucous membranes and Atraumatic
Respiratory: Clear
Cardiac: S1/S2 and Regular Rhythm
Breast: Deferred by me
GI: Soft, Non Tender, Non Distended and Normal Bowel Sounds
Rectal: Deferred by Provider
Genito-urinary: Deferred by me
Musculoskeletal: No Clubbing, No Cyanosis and No Edema
Skin: Warm
Neuro: AO x 3 and Nonfocal/grossly intact
Hematologic/Lymphatic: No Lymphadenopathy
Psych: Calm
Laboratory Results
-
07/22/24 15:01
07/22/24 15:01
Laboratory Results
Lactic Acid Cancelled 07/22/24 14:55
Total Bilirubin 0.5 mg/dl (0.2-1.3) 07/22/24 15:01
AST 18 U/L (17-59) 07/22/24 15:01
ALT 21 U/L (0-50) 07/22/24 15:01
Alkaline Phosphatase 77 U/L (38-126) 07/22/24 15:01
Data Reviewed
-
CT Scan: Report Reviewed by me
Lab Data: Labs Reviewed by me
Old Records: Reviewed
Impression/Plan
-
IMPRESSION:
Fever, abdominal pain, recent history of nausea vomiting in the setting of constipation, found to have markedly positive UA as well as CT scan of the abdomen pelvis showing severe acute cystitis with severe urinary bladder distention and diffuse
wall thickening. Severe acute left ascending urinary tract infection with moderate left hydroureteronephrosis.
PLAN:
1. Complicated pyelonephritis - Prior hx of cystitis in setting of urinary retention. Negative urine cultures. Febrile prior to arrival. No other systemic signs.
- admit to med/surg
- urine cultures sent
- bld cx if febrile
- start IV ceftriaxone pending cultures
- decompressive measures
- continue tamsulosin
2. Urinary retention - severe acute cystitis with severe urinary bladder distention and mod to severe left hydroureteronephrosis concerning for acute/subacute retention. Patient denies urinary symptoms.
- place urinary catheter for now
- re-eval hydro
3. DM II - patient currently on insulin and had just received 10 units prior to arrival.
- lantus 18 hs
- sliding scale insulin
- hold meftormin
4. Constipation -
- start oral laxatives with prn suppository
5. CVA - no current active deficits
- continue asa/plavix/statin
DVT PPX - lovenox sq
Code status - DNR
[2024-07-22] MEDS: MORPHINE SULFATE 4 MG IV (19:48)
[2024-07-22 22:54] LABS: Glucose - Point of Care 258 mg/dl (70-99)
[2024-07-22] MEDS: DESYREL 50 MG PO (23:13)
[2024-07-22] MEDS: MELATONIN 6 MG PO (23:13)
[2024-07-22] MEDS: LANTUS 0.15 UNITS SC (23:13)
[2024-07-23 06:06] LABS: Hematocrit 28.7 % (39.0-52.0); Hemoglobin 10.1 g/dL (13.0-18.0); Mean Corp Hgb Conc. 35.2 g/dL (33.0-37.0); Mean Corpuscular Hgb 28.8 pg (27.0-31.0); Mean Corpuscular Volume 81.8 fL (80.0-94.0); Mean Platelet Volume 9.8 fL (7.4-10.4); Platelet Count 224 10^3/uL (130-400); Red Blood Cell Count 3.51 10^6/uL (4.70-6.10); Red Cell Dist. Width 14.2 % (11.5-14.5); White Blood Cell Count 6.4 10^3/uL (4.8-10.8)
[2024-07-23 06:33] LABS: Blood Urea Nitrogen 39 mg/dl (9-20); Calcium 8.7 mg/dl (8.4-10.2); Carbon Dioxide 22 mmol/L (22-30); Chloride 103 mmol/L (98-107); Estimated Creatinine Clearance 51 ml/min; Glucose 218 mg/dl (70-99); Magnesium 1.6 mg/dl (1.6-2.3); Potassium 4.7 mmol/L (3.5-5.1); Sodium 133 mmol/L (135-145); eGFR 49.63
[2024-07-23] MEDS: SYNTHROID 88 MCG PO (07:17)
[2024-07-23 07:30] VITALS: BP 166/86
--- NOTE | 2024-07-23 07:45 | CONS.URO ---
Consultation
-
Date/Time Consultation Requested: 07/23/24
Date/Time Consultation Performed: 07/23/24
Requesting Provider: Hospital Medicine
Performing Provider: Jose
Reason for Consultation: left hydroureteronephrosis, cUTI, acute urinary retention
Medical History
History of Present Illness
58M presents h/o IDDM and CVA from NH w/ fevers to 101F and hyperglycemia.
Constipated x2 weeks.
+N/V.
Notes LLQ abdominal pain w/ radiation across abdomen.
Denies flank pain.
Initially seen inpatient in 03/2024 w/ similar clinical picture - acute urinary retention, cUTI, CR.
Diagnostic testing as outpatient for cystoscopy and urodynamic testing advised - no F/U by patient noted.
Past Medical History
Past Medical History: Hypothyroidism, IDDM and Other (BPH, urinary retention, HSV encephalitis)
Social History
Tobacco: Non-smoker
Alcohol: None
Drug: None
Personal: Single
Living: Senior Living
Employment: Not Employed
Family History
Family History: Reviewed & Not Pertinent
Allergies/Home Medications
Allergies
Allergy/AdvReac Type Severity Reaction Status Date / Time
No Known Allergies Allergy Verified 07/22/24 14:37
Home Medications
�Medication �Instructions �Recorded �Confirmed �Type
aspirin 81 mg chewable tablet 81 mg PO DAILY #30 tabs 03/25/24 07/22/24 Rx
atorvastatin 40 mg tablet 40 mg PO QPM #30 tabs 03/25/24 07/22/24 Rx
clopidogrel 75 mg tablet 75 mg PO DAILY #12 tabs 03/25/24 07/22/24 Rx
pantoprazole 20 mg tablet,delayed 20 mg PO DAILY #30 tabs 04/16/24 07/22/24 Rx
release
tamsulosin 0.4 mg capsule 0.4 mg PO DAILY #30 caps 04/16/24 07/22/24 Rx
acetaminophen 325 mg tablet 650 mg PO Q6HPRN PRN MILD PAIN 07/22/24 07/22/24 History
(Tylenol)
bisacodyl 10 mg rectal suppository 10 mg MD DAILYPRN PRN IF NO BM 07/22/24 07/22/24 History
(Dulcolax (bisacodyl)) AFTR MOM
insulin glargine 100 unit/mL (3 18 unit SC HS 07/22/24 07/22/24 History
mL) subcutaneous pen (Lantus
Solostar U-100 Insulin)
levothyroxine 88 mcg tablet 88 mcg PO DAILY 07/22/24 07/22/24 History
(Synthroid)
magnesium hydroxide 400 mg/5 mL 2,400 mg PO DAILYPRN PRN IF NO BM 07/22/24 07/22/24 History
oral suspension (Milk of Magnesia) ON 3RD DAY
melatonin 3 mg tablet 6 mg PO HS 07/22/24 07/22/24 History
metformin 500 mg tablet 500 mg PO HS 07/22/24 07/22/24 History
sodium phosphates 19 gram-7 118 ml MD DAILYPRN PRN IF NO BM 07/22/24 07/22/24 History
gram/118 mL enema (Fleet Enema) AFTR DULOLCAX
trazodone 50 mg tablet 50 mg PO HS 07/22/24 07/22/24 History
Physical Exam
Vital Signs
Vital Signs
Temp Pulse Resp BP Pulse Ox
97.9 F 70 16 166/86 96
07/23/24 07:33 07/23/24 07:33 07/23/24 07:33 07/23/24 07:30 07/23/24 07:31
Lab / Testing Results
Laboratory Results
07/23/24 05:31
07/23/24 05:31
Physical Exam
General: No Apparent Distress
HEENT: Normocephalic and Anicteric
Respiratory: Non Labored Respirations
Cardiac: Regular Rhythm
Breast: N/A
GI: Soft and Non Distended
Rectal: Deferred by Provider
Genito-urinary: Clear Urine and Lock Catheter
Musculoskeletal: No Edema
Skin: Warm and Dry
Neuro: AO x 3, No Motor Deficits and Nonfocal/Grossly Intact
Hematologic/Lymphatic: No Lymphadenopathy
Psych: Calm and Intact Judgement
Assessment / Plan
-
Acute urinary retention - BPH/MCCRACKEN vs. neurogenic/hypotonic bladder
Left hydroureteronephrosis likely from reflux
cUTI
H/o poorly controlled DM
H/o CVA
UA grossly positive for UTI
UCx pending
CT imaging findings reviewed in detail w/ patient.
- Continue tamsulosin 0.4 mg qhs
- IV antibiotics pending UCx S/S
- Maintain Lock catheter on discharge - plan for [facility] teaching as outpatient
- F/U as outpatient for cystoscopy + urodynamic testing (neurogenic/hypotonic bladder suspected)
D/w patient.
D/w Hospitalist.
Data Reviewed
-
Total Time Spent with Patient (in minutes): 30
CT Scan: Image personally visualized and interpreted, Report Reviewed by Me, Discussed with Physician and Discussed with Patient
Lab Data: Labs Reviewed, Discussed with Physician and Discussed with Patient
Old Records: Reviewed
[2024-07-23] MEDS: PROTONIX 20 MG PO (07:58)
[2024-07-23] MEDS: LOW STRENGTH ASPIRIN 81 MG PO (07:59)
[2024-07-23] MEDS: FLOMAX 0.4 MG PO (07:59)
[2024-07-23] MEDS: PLAVIX 75 MG PO (07:59)
[2024-07-23 09:19] LABS: Glucose - Point of Care 216 mg/dl (70-99)
[2024-07-23] MEDS: MIRALAX 17 GRAMS PO (09:28)
[2024-07-23] MEDS: NOVOLOG FLEXPEN-MODERATE RESISTANCE 300 UNITS SC (09:53)
[2024-07-23 12:03] LABS: Glycohemoglobin (HgbA1c) 8.1 % (4.0-5.6)
[2024-07-23 12:50] LABS: Glucose - Point of Care 262 mg/dl (70-99)
[2024-07-23 13:00] VITALS: BP 172/86
[2024-07-23 13:05] VITALS: BP 172/86
[2024-07-23] MEDS: NOVOLOG FLEXPEN-MODERATE RESISTANCE 5 UNITS SC ×2 (13:18→16:01)
[2024-07-23] MEDS: TYLENOL 650 MG PO (13:31)
--- NOTE | 2024-07-23 13:52 | W.PN.HOSP.TC ---
Today's Communication/Plan
-
f/u cultures
maintain pete
Assessment / Plan
Assessment / Plan
Physical Exam
General: Well Developed, No Apparent Distress and Conversant
HEENT: NormoCephalic, Anicteric, Moist mucous membranes and Atraumatic
Respiratory: Clear
Cardiac: S1/S2 and Regular Rhythm
Breast: Deferred by me
GI: Soft, Non Tender, Non Distended and Normal Bowel Sounds
Rectal: Deferred by Provider
Genito-urinary: Deferred by me
Musculoskeletal: No Clubbing, No Cyanosis and No Edema
Skin: Warm
Neuro: AO x 3 and Nonfocal/grossly intact
Hematologic/Lymphatic: No Lymphadenopathy
Psych: Calm
Fever, abdominal pain, recent history of nausea vomiting in the setting of constipation, found to have markedly positive UA as well as CT scan of the abdomen pelvis showing severe acute cystitis with severe urinary bladder distention and diffuse
wall thickening. Severe acute left ascending urinary tract infection with moderate left hydroureteronephrosis.
PLAN:
#Complicated pyelonephritis -
#Severe Acute Cystitis
�Continue antibiotics
� Follow-up cultures
# Moderate to severe left hydroureteronephrosis
� Urology consulted
� Pete in place
� Tamsulosin
� Continue antibiotics
� Maintain Pete catheter and discharge, plan for [facility] teaching as outpatient
� Follow-up outpatient for cystoscopy plus urodynamic testing
#Constipation
-bm regimen
#DM II - patient currently on insulin and had just received 10 units prior to arrival.
- lantus 18 hs
- sliding scale insulin
- hold meftormin
# CVA - no current active deficits
- continue asa/plavix/statin
DVT PPX - lovenox sq
Code status - DNR
Anticipated Discharge: 24 - 48 hours
Subjective/Interval History
-
Date of Service: July 23, 2024
no acute events
Objective Data
-
Labs:
Laboratory Results
07/23/24
05:31
WBC 6.4
Hgb 10.1 L
Hct 28.7 L
Plt Count 224
Sodium 133 L
Potassium 4.7
Chloride 103
Carbon Dioxide 22
BUN 39 H
Creatinine 1.6 H
Glucose 218 H
Calcium 8.7
Vital Signs:
Vital Signs
Temp Pulse Resp BP Pulse Ox
97.9 F 75 16 172/86 98
07/23/24 07:33 07/23/24 13:00 07/23/24 13:00 07/23/24 13:05 07/23/24 13:15
I&O
07/22/24 07/23/24 07/24/24
06:59 06:59 06:59
Output Total 800 / 800 750 / 750
Balance -800 / -800 -750 / -750
Review of Systems
-
History Source: Patient
All other systems: Not reviewed unless documented
Data Reviewed
-
CT Scan: Report Reviewed by me
Labs: Labs Reviewed by me
Old Records: Reviewed
--- NOTE | 2024-07-23 14:28 | PN.CDI ---
CDI
- -
CDI:
Physician Documentation Request
Admit Date: 07/22/24 20:14
Dear Doctor Ruchi,
Patient admitted with complicated pyelonephritis, severe cystitis.
Sodium values:
Laboratory Tests
07/22/24 07/23/24
15:01 05:31
Sodium 130 L 133 L
Could you please provide a diagnosis that supports the above lab abnormalities and additional evaluation/ monitoring:
Hyponatremia
Abnormal lab value clinically insignificant
Other
Use of terms such as suspected, likely, concern for, or probable (associated with a specific diagnosis that is being evaluated, monitored, or treated as if it exists) are acceptable and can be coded in the inpatient setting, when documented at the
time of discharge.
Thank you,
Gifty Cronin RN, BSN
CDI Specialist
tiger text
Please use your independent medical judgment in providing your response.
[2024-07-23 15:16] VITALS: BP 153/93
[2024-07-23] MEDS: ROCEPHIN 1000 MG IV (15:54)
[2024-07-23] MEDS: STERILE WATER FOR INJECTION 10 ML IV (15:54)
[2024-07-23 16:01] LABS: Glucose - Point of Care 299 mg/dl (70-99)
[2024-07-23] MEDS: LIPITOR 40 MG PO (17:59)
[2024-07-23] MEDS: LOVENOX 40 MG SC (17:59)
[2024-07-23 21:37] LABS: Glucose - Point of Care 260 mg/dl (70-99)
[2024-07-23] MEDS: DESYREL 50 MG PO (21:47)
[2024-07-23] MEDS: LANTUS 0.15 UNITS SC (21:47)
[2024-07-23] MEDS: MELATONIN 6 MG PO (21:47)
[2024-07-23 23:10] VITALS: BP 134/83
[2024-07-24] MEDS: SYNTHROID 88 MCG PO (06:06)
[2024-07-24 06:43] LABS: Hematocrit 28.1 % (39.0-52.0); Hemoglobin 9.9 g/dL (13.0-18.0); Mean Corp Hgb Conc. 35.2 g/dL (33.0-37.0); Mean Corpuscular Hgb 29.1 pg (27.0-31.0); Mean Corpuscular Volume 82.6 fL (80.0-94.0); Mean Platelet Volume 9.7 fL (7.4-10.4); Platelet Count 227 10^3/uL (130-400); Red Cell Dist. Width 13.9 % (11.5-14.5); White Blood Cell Count 6.7 10^3/uL (4.8-10.8)
[2024-07-24 07:05] VITALS: BP 156/80
[2024-07-24 07:10] LABS: Glucose - Point of Care 260 mg/dl (70-99)
[2024-07-24 07:29] LABS: ALT (SGPT) 20 U/L (0-50); AST (SGOT) 17 U/L (17-59); Albumin 3.1 g/dl (3.5-5.0); Alkaline Phosphatase 64 U/L (38-126); Blood Urea Nitrogen 34 mg/dl (9-20); Calcium 9.3 mg/dl (8.4-10.2); Carbon Dioxide 25 mmol/L (22-30); Chloride 102 mmol/L (98-107); Estimated Creatinine Clearance 55 ml/min; Glucose 211 mg/dl (70-99); Potassium 4.6 mmol/L (3.5-5.1); Sodium 133 mmol/L (135-145); Total Bilirubin 0.3 mg/dl (0.2-1.3); Total Protein 5.5 g/dl (6.3-8.2); eGFR 53.63
[2024-07-24] MEDS: OMNIPAQUE 50 ML PO (09:15)
[2024-07-24] MEDS: FLOMAX 0.4 MG PO (09:15)
[2024-07-24] MEDS: MIRALAX 17 GRAMS PO (09:16)
[2024-07-24] MEDS: PLAVIX 75 MG PO (09:16)
[2024-07-24] MEDS: LOW STRENGTH ASPIRIN 81 MG PO (09:16)
[2024-07-24] MEDS: PROTONIX 20 MG PO (09:16)
[2024-07-24] MEDS: NOVOLOG FLEXPEN-MODERATE RESISTANCE 5 UNITS SC (09:25)
[2024-07-24] MEDS: ZOFRAN 4 MG IV (09:36)
[2024-07-24 10:45] LABS: COVID-19 Antigen Negative (Negative)
--- NOTE | 2024-07-24 10:54 | W.PN.URO.CBU ---
Today's Communication / Plan
-
[facility] WHEN STABLE W/ SOSA
Assessment / Plan
-
URINARY RETENTION SEPSIS NO HEMNATURIA KEEP FOILEY HOME WITH SOSA
Diagnosis
-
Date of Service: July 24, 2024
-
Patient Diagnosis:URINARY RETENTION HEMATURIA RESOLVED
Post Op Day:
Subjective
-
STILL WEAK SICK BUT IMPROVED
Objective
-
Vital Signs
Temp Pulse Resp BP Pulse Ox
98.7 F 72 18 156/80 96
07/24/24 07:05 07/24/24 07:05 07/24/24 07:05 07/24/24 07:05 07/24/24 07:05
Intake and Output
07/23/24 07/24/24 07/25/24
06:59 06:59 06:59
Output Total 800 / 800 2625 / 2625
Balance -800 / -800 -2625 / -2625
Output:
Urine, Sosa 800 / 800 1600 / 1600
Urine, Voided 1025 / 1025
Laboratory Results
07/24/24 06:17
07/24/24 06:17
Review of Systems
-
Constitutional: Fever and Fatigue
: Difficulty Voiding
Physical Exam
-
General - well developed, well nourished, no acute distress
Chest - clear bilaterally
Abdomen - soft, non-tender, positive bowel sounds, no CVAT, no incisional pain or distention
Genitalia - normal
Rectal - normal
Skin - warm & dry with no rash
Neuro - AOx3, no motor deficits
Extremities - no clubbing, no cyanosis, no edema
Incision - clean, dry
Dressing - clean, dry, intact
Care Review
Data Reviewed
Discussed with: Nursing
CT Scan: Image Pers Reviewed
--- NOTE | 2024-07-24 12:25 | W.PN.HOSP.TC ---
Today's Communication/Plan
-
ct imaging
can cont abx for today
flu, covid neg
pete
Assessment / Plan
Assessment / Plan
Physical Exam
General: Well Developed, No Apparent Distress and Conversant
HEENT: NormoCephalic, Anicteric, Moist mucous membranes and Atraumatic
Respiratory: Clear
Cardiac: S1/S2 and Regular Rhythm
Breast: Deferred by me
GI: Soft, Non Tender, Non Distended and Normal Bowel Sounds
Rectal: Deferred by Provider
Genito-urinary: Deferred by me
Musculoskeletal: No Clubbing, No Cyanosis and No Edema
Skin: Warm
Neuro: AO x 3 and Nonfocal/grossly intact
Hematologic/Lymphatic: No Lymphadenopathy
Psych: Calm
Fever, abdominal pain, recent history of nausea vomiting in the setting of constipation, found to have markedly positive UA as well as CT scan of the abdomen pelvis showing severe acute cystitis with severe urinary bladder distention and diffuse
wall thickening. Severe acute left ascending urinary tract infection with moderate left hydroureteronephrosis.
PLAN:
#Complicated pyelonephritis -
#Severe Acute Cystitis
�Continue antibiotics
� Follow-up cultures, negative although with imaging findings - repeat CT A/P with oral contrast to ensure no fistula
# Moderate to severe left hydroureteronephrosis
� Urology consulted
� Pete in place
� Tamsulosin
� Continue antibiotics
� Maintain Pete catheter and discharge, plan for [facility] teaching as outpatient
� Follow-up outpatient for cystoscopy plus urodynamic testing
#Constipation
-bm regimen
-CT Imaging today
#DM II - patient currently on insulin and had just received 10 units prior to arrival.
- lantus 18 hs
- sliding scale insulin
- hold meftormin
# CVA - no current active deficits
- continue asa/plavix/statin
DVT PPX - lovenox sq
Code status - DNR
Anticipated Discharge: 24 - 48 hours
Subjective/Interval History
-
Date of Service: July 24, 2024
feels v sick today, not able to move much
Objective Data
-
Labs:
Laboratory Results
07/24/24
06:17
WBC 6.7
Hgb 9.9 L
Hct 28.1 L
Plt Count 227
Sodium 133 L
Potassium 4.6
Chloride 102
Carbon Dioxide 25
BUN 34 H
Creatinine 1.5 H
Glucose 211 H
Calcium 9.3
Total Bilirubin 0.3
AST 17
ALT 20
Alkaline Phosphatase 64
Vital Signs:
Vital Signs
Temp Pulse Resp BP Pulse Ox
98.7 F 72 18 156/80 96
07/24/24 07:05 07/24/24 07:05 07/24/24 07:05 07/24/24 07:05 07/24/24 07:05
I&O
07/23/24 07/24/24 07/25/24
06:59 06:59 06:59
Output Total 800 / 800 2625 / 2625
Balance -800 / -800 -2625 / -2625
Review of Systems
-
History Source: Patient
All other systems: Not reviewed unless documented
Physical Exam
-
General: Well Developed and No Apparent Distress
HEENT: Normocephalic, Atraumatic and Moist Mucous Membranes
Respiratory: Clear to Auscultation
Cardiac: Regular Rhythm and S1/S2; Negative Murmur, Rub or Gallop
GI: Soft, Nontender, Nondistended and Normal Bowel Sounds; Negative Organomegaly
Rectal: Deferred by Provider
Genito-urinary: Pete
Musculoskeletal: No Clubbing, No Cyanosis and No Edema
Skin: Negative Rash
Neuro: Nonfocal/Grossly Intact
Data Reviewed
-
CT Scan: Report Reviewed by me
Labs: Labs Reviewed by me
Old Records: Reviewed
[2024-07-24 13:27] LABS: Glucose - Point of Care 192 mg/dl (70-99)
--- NOTE | 2024-07-24 13:39 | CM ---
Initial assessment completed. Patient is a LTC resident at [facility]. Spoke w/ nurse for PLOF. Patient is independent w/ ambulating short distances w/o a device. Patient uses w/c for longer distances, can self propel and transfer independently.
Independent w/ ADLs. Received skilled rehab at [facility] when first admitted.
PCP: Rashel Shoemaker
Pharmacy: [facility]
Report: [phone]

Plan: Return to [facility] when stable
[2024-07-24] MEDS: NOVOLOG FLEXPEN-MODERATE RESISTANCE 1 UNITS SC (14:10)
[2024-07-24 15:45] VITALS: BP 161/87
[2024-07-24 17:11] LABS: Glucose - Point of Care 211 mg/dl (70-99)
[2024-07-24] MEDS: ROCEPHIN 1000 MG IV (17:16)
[2024-07-24] MEDS: STERILE WATER FOR INJECTION 10 ML IV (17:17)
[2024-07-24] MEDS: LOVENOX 40 MG SC (17:17)
[2024-07-24] MEDS: LIPITOR 40 MG PO (17:17)
[2024-07-24] MEDS: NOVOLOG FLEXPEN-MODERATE RESISTANCE 3 UNITS SC (17:17)
[2024-07-24 21:37] LABS: Glucose - Point of Care 216 mg/dl (70-99)
[2024-07-24] MEDS: LANTUS 0.15 UNITS SC (21:41)
[2024-07-24] MEDS: DESYREL 50 MG PO (21:47)
[2024-07-24] MEDS: MELATONIN 6 MG PO (21:47)
[2024-07-24 23:05] VITALS: BP 134/81
[2024-07-25] MEDS: SYNTHROID 88 MCG PO (04:57)
[2024-07-25] MEDS: ZOFRAN 4 MG IV (04:57)
[2024-07-25] MEDS: FLUSH (NSS) 2 FLUSH IV (04:58)
[2024-07-25 06:06] LABS: Hematocrit 29.4 % (39.0-52.0); Hemoglobin 10.4 g/dL (13.0-18.0); Mean Corp Hgb Conc. 35.4 g/dL (33.0-37.0); Mean Corpuscular Hgb 29.1 pg (27.0-31.0); Mean Corpuscular Volume 82.1 fL (80.0-94.0); Mean Platelet Volume 9.3 fL (7.4-10.4); Platelet Count 235 10^3/uL (130-400); Red Blood Cell Count 3.58 10^6/uL (4.70-6.10); White Blood Cell Count 8.2 10^3/uL (4.8-10.8)
[2024-07-25 06:42] LABS: ALT (SGPT) 26 U/L (0-50); AST (SGOT) 20 U/L (17-59); Albumin 3.7 g/dl (3.5-5.0); Alkaline Phosphatase 67 U/L (38-126); Blood Urea Nitrogen 41 mg/dl (9-20); Calcium 9.6 mg/dl (8.4-10.2); Carbon Dioxide 21 mmol/L (22-30); Chloride 101 mmol/L (98-107); Estimated Creatinine Clearance 51 ml/min; Glucose 191 mg/dl (70-99); Sodium 133 mmol/L (135-145); Total Bilirubin 0.4 mg/dl (0.2-1.3); Total Protein 6.2 g/dl (6.3-8.2); eGFR 49.63
[2024-07-25 07:01] LABS: Glucose - Point of Care 197 mg/dl (70-99)
[2024-07-25 07:05] VITALS: BP 146/86
[2024-07-25] MEDS: PLAVIX 75 MG PO (09:11)
[2024-07-25] MEDS: PROTONIX 20 MG PO (09:11)
[2024-07-25] MEDS: LOW STRENGTH ASPIRIN 81 MG PO (09:12)
[2024-07-25] MEDS: FLOMAX 0.4 MG PO (09:12)
[2024-07-25] MEDS: MIRALAX PO (09:12)
[2024-07-25] MEDS: NOVOLOG FLEXPEN-MODERATE RESISTANCE SC (10:55)
--- NOTE | 2024-07-25 11:00 | W.PN.URO.CBU ---
Today's Communication / Plan
-
home when stable alana
Assessment / Plan
-
URINARY RETENTION SEPSIS NO HEMNATURIA KEEP FOILEY HOME WITH SOSA aroldo by hoepitalist for diarrhea r/out c diff but home once stabilized for outpatient evaluation of bladder
Diagnosis
-
Date of Service: July 25, 2024
-
Patient Diagnosis:
Post Op Day:
Patient Diagnosis:URINARY RETENTION HEMATURIA RESOLVED poszsiblke uti with ascending uti mixed organisms on ur cx
Post Op Day:
Subjective
-
diarrhea but somewhat overall improved
Objective
-
Vital Signs
Temp Pulse Resp BP Pulse Ox
98.2 F 75 16 146/86 95
07/25/24 07:05 07/25/24 07:05 07/25/24 07:05 07/25/24 07:05 07/25/24 07:05
Intake and Output
07/24/24 07/25/24 07/26/24
06:59 06:59 06:59
Intake Total 1080 / 1080
Output Total 2625 / 2625 3450 / 3450
Balance -2625 / -2625 -2370 / -2370
Intake:
Oral fluids 1080 / 1080
Output:
Urine, Sosa 1600 / 1600 3450 / 3450
Urine, Voided 1025 / 1025
Other:
Number of unmeasured liquid
stools
Rectum 1
Laboratory Results
07/25/24 05:55
07/25/24 05:55
Review of Systems
-
Abdomen/GI: Diarrhea
: Difficulty Voiding
Physical Exam
-
General - well developed, well nourished, no acute distress
Chest - clear bilaterally
Abdomen - soft, non-tender, positive bowel sounds, no CVAT, no incisional pain or distention
Genitalia - normal
Rectal - normal
Skin - warm & dry with no rash
Neuro - AOx3, no motor deficits
Extremities - no clubbing, no cyanosis, no edema
Incision - clean, dry
Dressing - clean, dry, intact
Care Review
Data Reviewed
Discussed with: Hospitalist and Nursing
--- NOTE | 2024-07-25 12:40 | W.PN.HOSP.TC ---
Addendum entered and electronically signed by Afshin Hopper MD 07/25/24 14:54:
Hyponatremia, mild
Original Note:
Today's Communication/Plan
-
psych consulted
monitor stool, c diff if needed
abx, may switch to levofloxacin
Assessment / Plan
Assessment / Plan
Physical Exam
General: Well Developed, No Apparent Distress and Conversant
HEENT: NormoCephalic, Anicteric, Moist mucous membranes and Atraumatic
Respiratory: Clear
Cardiac: S1/S2 and Regular Rhythm
Breast: Deferred by me
GI: Soft, Non Tender, Non Distended and Normal Bowel Sounds
Rectal: Deferred by Provider
Genito-urinary: Deferred by me
Musculoskeletal: No Clubbing, No Cyanosis and No Edema
Skin: Warm
Neuro: AO x 3 and Nonfocal/grossly intact
Hematologic/Lymphatic: No Lymphadenopathy
Psych: Calm
Fever, abdominal pain, recent history of nausea vomiting in the setting of constipation, found to have markedly positive UA as well as CT scan of the abdomen pelvis showing severe acute cystitis with severe urinary bladder distention and diffuse
wall thickening. Severe acute left ascending urinary tract infection with moderate left hydroureteronephrosis.
PLAN:
#Complicated pyelonephritis -
#Severe Acute Cystitis
�Continue antibiotics
� Follow-up cultures, negative although with imaging findings -
repeat CT A/P with oral contrast to ensure no fistula - negative
-Spoke to urology, high suspicion for high-pressure bladder causing findings although with mixed riaz in the urine, high risk for acute infection
-Would dc on Levaquin. Switch to Levaquin and patient is on QTc okay
# Moderate to severe left hydroureteronephrosis
� Urology consulted
� Lock in place
� Tamsulosin
� Continue antibiotics
� Maintain Lock catheter and discharge, plan for [facility] teaching as outpatient
� Follow-up outpatient for cystoscopy plus urodynamic testing
-See plan above
#Constipation
-now diarrhea
-monitor BMs
-stool cultures if needed including cdiff if continued
--Cdiff if watery stool
#Suicidal Risk
-states would rather at this point
-Psych consulted
-1-1
#DM II - patient currently on insulin and had just received 10 units prior to arrival.
- lantus 18 hs
- sliding scale insulin
- hold meftormin
# CVA - no current active deficits
- continue asa/plavix/statin
DVT PPX - lovenox sq
Code status - DNR
Anticipated Discharge: 24 - 48 hours
Subjective/Interval History
-
Date of Service: July 25, 2024
having frequent Bms after miralax today; States rather than go back to his facility
Objective Data
-
Labs:
Laboratory Results
07/25/24
05:55
WBC 8.2
Hgb 10.4 L
Hct 29.4 L
Plt Count 235
Sodium 133 L
Potassium 5.0
Chloride 101
Carbon Dioxide 21 L
BUN 41 H
Creatinine 1.6 H
Glucose 191 H
Calcium 9.6
Total Bilirubin 0.4
AST 20
ALT 26
Alkaline Phosphatase 67
Vital Signs:
Vital Signs
Temp Pulse Resp BP Pulse Ox
98.2 F 75 16 146/86 95
07/25/24 07:05 07/25/24 07:05 07/25/24 07:05 07/25/24 07:05 07/25/24 07:05
I&O
07/24/24 07/25/24 07/26/24
06:59 06:59 06:59
Intake Total 1080 / 1080
Output Total 2625 / 2625 3450 / 3450
Balance -2625 / -2625 -2370 / -2370
Review of Systems
-
History Source: Patient
All other systems: Not reviewed unless documented
Physical Exam
-
General: Well Developed and No Apparent Distress
HEENT: Normocephalic, Atraumatic and Moist Mucous Membranes
Respiratory: Clear to Auscultation
Cardiac: Regular Rhythm and S1/S2; Negative Murmur, Rub or Gallop
GI: Soft, Nontender, Nondistended and Normal Bowel Sounds; Negative Organomegaly
Rectal: Deferred by Provider
Genito-urinary: Lock
Musculoskeletal: No Clubbing, No Cyanosis and No Edema
Skin: Negative Rash
Neuro: Nonfocal/Grossly Intact
Data Reviewed
-
CT Scan: Report Reviewed by me
Labs: Labs Reviewed by me
Old Records: Reviewed
--- NOTE | 2024-07-25 13:32 | CON.MD ---
Consultation - Medical
-
This 58 year old male presented to the hospital with 2 week history of constipation. He has a medical hx significant for insulin-dependent diabetes, CVA, hypothyroid, BPH.
Psychiatry was consulted because pt told his doctor today that if he was discharged back to [facility] he would kill himself. He does not have a gun or access to one, and does not want to end his life. He c/o that the conditions at [facility] are
dirty, the food is cold, the staff are indifferent. Says that they are locked in, and that if did leave overnight he would be kicked out of the facility.
Pt says that he feels depressed and has no real support from any of his 4 sons (one is incarcerated.) His ex- in April, and he felt 'some kind of way' about her . He has not been able to work since his stroke. 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 Admits that most of his distress is related to the uncertainty of his living situation, and his lack of finances. Has not applied for SSD bec 'I don't know how.'
Denies prolonged period of depressed mood, denies psychosis, denies suicidal plan or intent. O x 3. Alert and cognition intact.
No psychiatric history.
Developmental history deferred.
A/P- Adjustment disorder
I doubt that pt has Depressive Disorder.
Needs housing referral and help with social security disability application. I suggested he call one of his sons.
I do not recommend antidepressants. No need for 1:1 at this time.
[2024-07-25 13:51] LABS: Glucose - Point of Care 334 mg/dl (70-99)
[2024-07-25] MEDS: NOVOLOG FLEXPEN-MODERATE RESISTANCE 5 UNITS SC (14:01)
[2024-07-25 15:05] VITALS: BP 138/82
[2024-07-25] MEDS: STERILE WATER FOR INJECTION 10 ML IV (15:33)
[2024-07-25] MEDS: ROCEPHIN 1000 MG IV (15:33)
[2024-07-25 17:02] LABS: Glucose - Point of Care 198 mg/dl (70-99)
[2024-07-25] MEDS: NOVOLOG FLEXPEN-MODERATE RESISTANCE 1 UNITS SC (17:28)
[2024-07-25] MEDS: LOVENOX 40 MG SC (17:28)
[2024-07-25] MEDS: LIPITOR 40 MG PO (17:28)
[2024-07-25 21:37] LABS: Glucose - Point of Care 303 mg/dl (70-99)
[2024-07-25] MEDS: MELATONIN 6 MG PO (21:39)
[2024-07-25] MEDS: DESYREL 50 MG PO (21:41)
[2024-07-25] MEDS: LANTUS 0.15 UNITS SC (21:41)
[2024-07-25] MEDS: NOVOLOG FLEXPEN 5 UNITS SC (21:59)
[2024-07-25 22:05] VITALS: BP 129/79
[2024-07-26] MEDS: SYNTHROID 88 MCG PO (06:13)
[2024-07-26 07:00] VITALS: BP 130/76
[2024-07-26 07:18] LABS: Hematocrit 31.1 % (39.0-52.0); Hemoglobin 10.8 g/dL (13.0-18.0); Mean Corp Hgb Conc. 34.7 g/dL (33.0-37.0); Mean Corpuscular Hgb 28.6 pg (27.0-31.0); Mean Corpuscular Volume 82.5 fL (80.0-94.0); Mean Platelet Volume 9.5 fL (7.4-10.4); Platelet Count 262 10^3/uL (130-400); Red Blood Cell Count 3.77 10^6/uL (4.70-6.10); Red Cell Dist. Width 14.3 % (11.5-14.5); White Blood Cell Count 7.6 10^3/uL (4.8-10.8)
--- NOTE | 2024-07-26 07:48 | W.PN.HOSP.TC ---
Today's Communication/Plan
-
see plan
Assessment / Plan
Assessment / Plan
Gen: NAD, Awake and alert
Eyes: EOMI, PERRLA, no scleral icterus.
Neck: supple.
CV: RRR, +S1/S2, no m/r/g.
Resp: CTAB, no rales, wheezes, or rhonchi.
Abd: +BS, soft, NT, ND
Skin: No rashes.
: pete with clear urine
Neuro: CN 2-12 intact, non-focal.
Psych: flat affect, depressed mood
07/24/24 09:52 Nasal Swab Influenza Types A & B (FREDY) - Final
Negative for Influenza A & B, NAAT
Negative results must be combined with clinical observations
and patient history.
Nucleic Acid Amplification test (NAAT)performed on the
[employer] NOW platform.
07/22/24 20:50 Nose MRSA Screen - Final
No Methicillin Resistant Staphylococcus aureus isolated.
07/22/24 15:17 Urine Urine Culture - Final
CT A/P 07/24/24: Severe acute cystitis and bilateral ascending urinary tract infection redemonstrated, left greater than right.
Complicated pyelonephritis, severe acute cystitis, and mod-severe L hydroureteronephrosis:
-UCx contaminated
-currently on Rocephin. Afebrile, no leukocytosis, contaminated UCx. Will as ID to assess if abx are needed and, if so, best empiric option.
-Urology saw in c/s
-pete in place
-cont Flomax
-outpt cystoscopy with urodynamic testing
Other problems:
Constipation, followed by diarrhea
Suicidal Risk: seen by psych, 1:1 lifted. Pt states again today he is ready to and I have asked psych to see in follow up.
DM2:
h/o CVA: cont ASA/plavix/statin
DNR/Lovenox
Anticipated Discharge: Within 24 hours
Subjective/Interval History
-
Date of Service: July 26, 2024
No new somatic complaints. States he does not want to go back to [facility] and 'I told them I was ready to .'
Objective Data
-
Labs:
Laboratory Results
07/26/24
06:37
WBC 7.6
Hgb 10.8 L
Hct 31.1 L
Plt Count 262
Sodium Pending
Potassium Pending
Chloride Pending
Carbon Dioxide Pending
BUN Pending
Creatinine Pending
Glucose Pending
Calcium Pending
Total Bilirubin Pending
AST Pending
ALT Pending
Alkaline Phosphatase Pending
Vital Signs:
Vital Signs
Temp Pulse Resp BP Pulse Ox
98.1 F 77 16 129/79 94
07/25/24 22:05 07/25/24 22:05 07/25/24 22:05 07/25/24 22:05 07/25/24 22:05
I&O
07/25/24 07/26/24 07/27/24
06:59 06:59 06:59
Intake Total 1080 / 1080 780 / 780
Output Total 3450 / 3450 1725 / 1725
Balance -2370 / -2370 -945 / -945
[2024-07-26] MEDS: FLOMAX 0.4 MG PO (07:57)
[2024-07-26] MEDS: PROTONIX 20 MG PO (07:57)
[2024-07-26] MEDS: LOW STRENGTH ASPIRIN 81 MG PO (07:57)
[2024-07-26] MEDS: PLAVIX 75 MG PO (07:57)
[2024-07-26] MEDS: MIRALAX PO (07:58)
[2024-07-26 08:01] LABS: ALT (SGPT) 26 U/L (0-50); AST (SGOT) 20 U/L (17-59); Albumin 3.4 g/dl (3.5-5.0); Alkaline Phosphatase 69 U/L (38-126); Blood Urea Nitrogen 40 mg/dl (9-20); Calcium 9.6 mg/dl (8.4-10.2); Carbon Dioxide 24 mmol/L (22-30); Chloride 101 mmol/L (98-107); Estimated Creatinine Clearance 48 ml/min; Glucose 166 mg/dl (70-99); Sodium 135 mmol/L (135-145); Total Bilirubin 0.4 mg/dl (0.2-1.3); eGFR 46.15
[2024-07-26] MEDS: NOVOLOG FLEXPEN-MODERATE RESISTANCE 1 UNITS SC (08:02)
[2024-07-26 08:03] LABS: Glucose - Point of Care 188 mg/dl (70-99)
--- NOTE | 2024-07-26 09:11 | CON.ID ---
Consultation
-
Date/Time Consultation Requested: July 26, 2024 0758
Date/Time Consultation Performed: July 26, 2024 0915
Requesting Provider: Dr. Catracho López
Performing Provider: Dr. Mandi Em
Reason for Consultation: Acute cystitis/pyelonephritis
Chief Complaint / Past History
Chief Complaint
Fever
History of Present Illness
58-year-old male with history of diabetes mellitus, CVA, BPH who presented from [facility] on July 22 due to fever 101 and hyperglycemia. He was afebrile in the ER. Normal white count. CT of the abdomen pelvis shows severe cystitis with severe acute left
ascending urinary tract infection with moderate to severe hydro ureteronephrosis. He was noted to be in urinary retention, Pete placed. He was started on ceftriaxone. He was seen by urology who recommended continuing the Pete at discharge.
Urine culture grew mixed riaz. Patient cannot recall the exact events prior to admission. Per medical records patient was constipated for 2 weeks then developed left-sided abdominal pain with nausea and vomiting. Patient could not recall the
constipation ,abdominal pain or nausea and vomiting part. He remembered feeling very weak. He did have left flank pain. No dysuria or urinary frequency.
Past History
Additional Past Medical History:
DM2
CVA
h/o substance abuse
Hypothyroidism
BPH
CKD2
Allergy History:
No Known Allergies Allergy (Verified 07/22/24 14:37)
Medications Reviewed: Yes
Current Antibiotics:
Ceftriaxone d5
Social History
Tobacco: Non-Smoker
Alcohol: None
Drug: Former User (substance abuse)
Living: [facility]
Family History
Family History: Not Pertinent
Review of Systems
Review of Systems
General: Change in Appetite
HEENT: Negative Headache or Pharyngitis
Cardiovascular: Negative Chest Pain or Dyspnea
Respiratory: Negative Dyspnea or Cough
Gasteroenterology: Negative Nausea, Vomiting or Diarrhea
Genital / Urological: Flank Pain; Negative Dysuria
Endocrine: Weakness and Fatigue
Neurological: Negative Dizziness
All systems: All other systems were reviewed and were negative
Vital Signs
Temp Pulse Resp BP Pulse Ox
98.3 F 75 16 130/76 94
07/26/24 07:00 07/26/24 07:00 07/26/24 07:00 07/26/24 07:00 07/26/24 08:11
Physical Exam
Physical Exam
Constitutional: No Acute Distress and Chronically Ill
Head: Other (No frontal or max or sinus tenderness)
Eyes: No Conjunctival Hemorrhage and Sclera Anicteric
Cardiovascular: Regular Rate and S1/S2
Pulmonary: Clear
Gastrointestinal: Soft, Non Tender and Non Distended
Genito-Urinary: Pete and Clear Urine; Negative Suprapubic Tenderness or CVA Tenderness
Extremities: Negative Edema
Neurological: Awake and Alert
Lab / Diagnostic Study Results
07/26/24 06:37
07/26/24 06:37
Abs Immat Gran (auto) 0.0 10^3/uL (0-0.05) 07/22/24 15:01
Absolute Neuts (auto) 5.8 10^3/uL (1.4-6.5) 07/22/24 15:01
Absolute Lymphs (auto) 1.1 10^3/uL (1.2-3.4) L 07/22/24 15:01
Absolute Monos (auto) 0.9 10^3/uL (0.1-0.6) H 07/22/24 15:01
Absolute Basos (auto) 0.1 10^3/uL (0-0.2) 07/22/24 15:01
Immature Gran % 0.5 % (0-0.5) 07/22/24 15:01
Neutrophils % 71.2 % (42.2-75.2) 07/22/24 15:01
Lymphocytes % 13.1 % (20.5-51.1) L 07/22/24 15:01
Monocytes % 10.5 % (1.7-9.3) H 07/22/24 15:01
Eosinophils % 3.7 % (0-6) 07/22/24 15:01
Basophils % 1.0 % (0-2) 07/22/24 15:01
Lactic Acid Cancelled 07/22/24 14:55
Ur Squamous Epith Cells 0-2 /LPF (Few) 07/22/24 15:17
Microbiology Results
Micro:
07/24/24 09:52 Influenza Types A & B (FREDY) - Final
Nasal Swab Negative for Influenza A & B, NAAT
Negative results must be combined with clinical observations
and patient history.
Nucleic Acid Amplification test (NAAT)performed on the
[employer] platform.
07/22/24 20:50 MRSA Screen - Final
Nose No Methicillin Resistant Staphylococcus aureus isolated.
07/22/24 15:17 Urine Culture - Final
Urine
07/24/24 CT a/p: Severe acute cystitis and bilateral ascending urinary tract infection redemonstrated, left greater than right.
07/22/24 CT a/p: SEVERE ACUTE CYSTITIS with severe urinary bladder distention and diffuse wall thickening. SEVERE ACUTE LEFT ASCENDING URINARY TRACT INFECTION with MODERATE to SEVERE LEFT HYDROURETERONEPHROSIS. Mild acute right ascending urinary tract
infection.
Assessment / Plan
# Left pyelonephritis
# Bladder outlet obstruction, pete placed in ED
# Uncontrolled Dm
- Ucx: contaminated specimen with mixed riaz
- Recheck Ucx.
- Continue ceftriaxone (d5) pending repeat Ucx data.
- Recommend tight glucose control.
--- NOTE | 2024-07-26 10:26 | W.PN.URO.CBU ---
Today's Communication / Plan
-
per hospitalist and id
Assessment / Plan
-
URINARY RETENTION SEPSIS NO HEMNATURIA KEEP FOILEY HOME WITH SOSA paramjital by hoepitalist for diarrhea r/out c diff but home once stabilized for outpatient evaluation of bladder
Diagnosis
-
Date of Service: July 26, 2024
-
Patient Diagnosis:
Post Op Day:
Patient Diagnosis:
Post Op Day:
Patient Diagnosis:URINARY RETENTION HEMATURIA RESOLVED poszsiblke uti with ascending uti mixed organisms on ur cx
Post Op Day:
Subjective
-
feels stable
Objective
-
Vital Signs
Temp Pulse Resp BP Pulse Ox
98.3 F 75 16 130/76 98
07/26/24 07:00 07/26/24 07:00 07/26/24 07:00 07/26/24 07:00 07/26/24 09:56
Intake and Output
07/25/24 07/26/24 07/27/24
06:59 06:59 06:59
Intake Total 1080 / 1080 780 / 780
Output Total 3450 / 3450 1725 / 1725
Balance -2370 / -2370 -945 / -945
Intake:
Oral fluids 1080 / 1080 780 / 780
Output:
Urine, Sosa 3450 / 3450 1725 / 1725
Other:
Number of unmeasured liquid
stools
Rectum 1
Laboratory Results
07/26/24 06:37
07/26/24 06:37
Review of Systems
-
: Difficulty Voiding
Physical Exam
-
General - well developed, well nourished, no acute distress
Chest - clear bilaterally
Abdomen - soft, non-tender, positive bowel sounds, no CVAT, no incisional pain or distention
Genitalia - normal
Rectal - normal
Skin - warm & dry with no rash
Neuro - AOx3, no motor deficits
Extremities - no clubbing, no cyanosis, no edema
Incision - clean, dry
Dressing - clean, dry, intact
Care Review
Data Reviewed
Discussed with: Hospitalist
[2024-07-26 11:24] VITALS: BP 120/73; BP 126/88; PULSE 78; O2SAT 97
--- NOTE | 2024-07-26 11:33 | PN.CDI ---
CDI
- -
CDI:
Physician Documentation Request
Admit Date: 07/22/24 20:14
Dear Doctor Rene,
Patient admitted for complicated pyelonephritis, severe acute cystitis, and mod-severe L hydroureteronephrosis
The diagnosis of Sepsis was documented on in urology progress notes but is not consistently noted in subsequent documentation.
Patient has been afebrile
documented HR 70s-99, respiratory rates 13-24
07/22/24 07/23/24 07/24/24
15:01 05:31 06:17
WBC 8.2 6.4 6.7
07/25/24 07/26/24
05:55 06:37
WBC 8.2 7.6
Please clarify the following:
____ - Sepsis was present on admission
____ - Sepsis was ruled out
____ - Other
Use of terms such as suspected, likely, concern for, or probable (associated with a specific diagnosis that is being evaluated, monitored, or treated as if it exists) are acceptable and can be coded in the inpatient setting, when documented at the
time of discharge.
Thank you,
Gifty Cronin RN, BSN
CDI Specialist
tiger text
Please use your independent medical judgment in providing your response.
[2024-07-26 11:49] LABS: Glucose - Point of Care 237 mg/dl (70-99)
[2024-07-26 13:06] VITALS: BMI 22.0
[2024-07-26] MEDS: NOVOLOG FLEXPEN-MODERATE RESISTANCE 3 UNITS SC (13:22)
--- NOTE | 2024-07-26 13:54 | W.PN.UPDATE ---
Update Note
Progress Note Update
Pt seen, chart reviewed. Pt alert, sitting up in chair, oriented, calm, answering questions. Pt c/o conditions at [facility]. Pt states it is dirty, the food is cold, the nurses are not attentive. Pt makes statements about shooting
himself if he has to return, although no reported access to a gun, and does not have congruent affect- appears to be a protest/ effort to manipulate the situation. Pt mildly irritable, talking about his lack of support; has one son who visits. No
agitation, no signs of psychosis. Pt states he wants a different placement, states he will leave if he has to return to [facility]; states he is more comfortable here. Pt declines any need for acute psychiatric care.
Imp: Adjustment disorder; agree with Dr Beckwith's assessment- pt does not appear to have sincere suicidal plan/intent, appears to be attempting to resist return to [facility]
Rec: Continue current mgt; pursue alternative placement if possible
will follow peripherally
[2024-07-26 15:00] VITALS: BP 137/83
--- NOTE | 2024-07-26 15:27 | CM ---
CM following re: discharge planning.
Reviewed pt's chart, met with pt.
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, expressed his unhappy feelings regarding care at [facility] and at the same time did not request a new SNF.
[facility]-LTC nursing report: [phone]
Discharge instructions
D/C plan: return back to [facility] for a skilled nursing care.
CM will follow to assist pt with discharge to [facility] for a LTC.
[2024-07-26] MEDS: ROCEPHIN 1000 MG IV (16:59)
[2024-07-26] MEDS: STERILE WATER FOR INJECTION 10 ML IV (17:00)
[2024-07-26] MEDS: LIPITOR 40 MG PO (17:00)
[2024-07-26] MEDS: LOVENOX 40 MG SC (17:00)
[2024-07-26] MEDS: NOVOLOG FLEXPEN-MODERATE RESISTANCE 7 UNITS SC (17:05)
[2024-07-26 17:06] LABS: Glucose - Point of Care 306 mg/dl (70-99)
[2024-07-26] MEDS: MELATONIN 6 MG PO (21:53)
[2024-07-26] MEDS: DESYREL 50 MG PO (21:53)
[2024-07-26] MEDS: LANTUS 0.15 UNITS SC (21:53)
[2024-07-26 21:54] LABS: Glucose - Point of Care 250 mg/dl (70-99)
[2024-07-26 23:05] VITALS: BP 156/86
[2024-07-27] MEDS: SYNTHROID 88 MCG PO (05:56)
[2024-07-27 07:00] VITALS: BP 139/85
[2024-07-27 07:35] LABS: ALT (SGPT) 25 U/L (0-50); AST (SGOT) 20 U/L (17-59); Albumin 3.4 g/dl (3.5-5.0); Alkaline Phosphatase 67 U/L (38-126); Blood Urea Nitrogen 42 mg/dl (9-20); Calcium 9.4 mg/dl (8.4-10.2); Carbon Dioxide 23 mmol/L (22-30); Chloride 104 mmol/L (98-107); Estimated Creatinine Clearance 54 ml/min; Glucose 188 mg/dl (70-99); Sodium 133 mmol/L (135-145); Total Bilirubin 0.5 mg/dl (0.2-1.3); eGFR 53.63
[2024-07-27 07:40] LABS: Hematocrit 30.8 % (39.0-52.0); Hemoglobin 10.6 g/dL (13.0-18.0); Mean Corp Hgb Conc. 34.4 g/dL (33.0-37.0); Mean Corpuscular Hgb 28.5 pg (27.0-31.0); Mean Corpuscular Volume 82.8 fL (80.0-94.0); Mean Platelet Volume 9.7 fL (7.4-10.4); Platelet Count 266 10^3/uL (130-400); Red Blood Cell Count 3.72 10^6/uL (4.70-6.10); Red Cell Dist. Width 14.2 % (11.5-14.5)
[2024-07-27 08:25] LABS: Glucose - Point of Care 193 mg/dl (70-99)
[2024-07-27] MEDS: NOVOLOG FLEXPEN-MODERATE RESISTANCE 1 UNITS SC (08:33)
[2024-07-27] MEDS: MIRALAX PO (08:33)
[2024-07-27] MEDS: LOW STRENGTH ASPIRIN 81 MG PO (08:33)
[2024-07-27] MEDS: PROTONIX 20 MG PO (08:33)
[2024-07-27] MEDS: PLAVIX 75 MG PO (08:33)
[2024-07-27] MEDS: FLOMAX 0.4 MG PO (08:33)
--- NOTE | 2024-07-27 08:47 | W.PN.HOSP.TC ---
Addendum entered and electronically signed by Catracho López MD 07/27/24 11:39:
Total time spent on d/c = 34 min. This included today's physical exam, progress note, review of laboratory and diagnostic data, preparation of discharge documents and prescriptions, and discussions about the pt's hospital course and discharge plan
with the patient and other expert medical writer involved in the patient's care.
Original Note:
Today's Communication/Plan
-
d/c
Assessment / Plan
Assessment / Plan
Gen: NAD, Awake and alert
Eyes: EOMI, PERRLA, no scleral icterus.
Neck: supple.
CV: remains RRR, +S1/S2, no m/r/g.
Resp: remains CTAB, no rales, wheezes, or rhonchi.
Abd: remains +BS, soft, NT, ND
Skin: No rashes.
: pete with clear urine
Neuro: CN 2-12 intact, non-focal.
Psych: flat affect, depressed mood
07/26/24 10:09 Urine Urine Culture - Preliminary
NO GROWTH
07/24/24 09:52 Nasal Swab Influenza Types A & B (FREDY) - Final
Negative for Influenza A & B, NAAT
Negative results must be combined with clinical observations
and patient history.
Nucleic Acid Amplification test (NAAT)performed on the
[employer] platform.
07/22/24 20:50 Nose MRSA Screen - Final
No Methicillin Resistant Staphylococcus aureus isolated.
07/22/24 15:17 Urine Urine Culture - Final
CT A/P 07/24/24: Severe acute cystitis and bilateral ascending urinary tract infection redemonstrated, left greater than right.
Complicated pyelonephritis, severe acute cystitis, and mod-severe L hydroureteronephrosis:
-UCx contaminated
-currently on Rocephin. Afebrile, no leukocytosis, initial UCx contaminated, repeat UCx NG, ID following.
-case discussed with Dr. Em and she recommends d/c on Cefdinir to complete 14 days abx in total.
-Urology saw in c/s
-pete in place
-cont Flomax
-outpt cystoscopy with urodynamic testing
Other problems:
Constipation, followed by diarrhea
Suicidal Risk: seen by psych multiple times, 1:1 lifted. Ultimately this is adjustment disorder. Patient does not actually have sincere suicidal intent or a plan. He simply does not want to go back to [facility].
DM2: cont Lantus/SSI/accuchecks
h/o CVA: cont ASA/plavix/statin
DNR/Lovenox
Medically cleared for d/c, case management aware.
Anticipated Discharge: Today
Subjective/Interval History
-
Date of Service: July 27, 2024
No new complaints.
Objective Data
-
Labs:
Laboratory Results
07/27/24
06:39
WBC 8.0
Hgb 10.6 L
Hct 30.8 L
Plt Count 266
Sodium 133 L
Potassium 5.0
Chloride 104
Carbon Dioxide 23
BUN 42 H
Creatinine 1.5 H
Glucose 188 H
Calcium 9.4
Total Bilirubin 0.5
AST 20
ALT 25
Alkaline Phosphatase 67
Vital Signs:
Vital Signs
Temp Pulse Resp BP Pulse Ox
98.2 F 71 12 139/85 97
07/27/24 07:00 07/27/24 07:00 07/27/24 07:00 07/27/24 07:00 07/27/24 07:00
I&O
07/26/24 07/27/24 07/28/24
06:59 06:59 06:59
Intake Total 780 / 780 1200 / 1200
Output Total 1725 / 1725 1645 / 1645
Balance -945 / -945 -445 / -445
--- NOTE | 2024-07-27 10:25 | W.PN.UPDATE ---
Update Note
Progress Note Update
Patient seen at bedside, chart reviewed, discussed with nursing. Mr. Godinez is awake, alert, oriented. He was just about to eat breakfast when seen. He was just seen by CM and was told he had no choice but to return to [facility] which has him
upset. Met with CM to get a better understanding...Mr. Godinez would be eligible for Patient Transition program once at the [facility] for 6 months. He first went there in late March. This program is apparently through [facility] and they can help him
with obtaining social security benefits and housing. While other facilities could be explored now, related to his current insurance, they would not be much different than his current facility. He explains the place is dirty, no one cares for him
there, the showers have bugs, he is in a room with 3 other residents and he has no control over the temperature. Mr. Godinez tells us he would rather live in his car than live there. He states 'if I have to go back there, I will shoot myself'. I
ask if [facility] was not a part of the equation, would he have these thoughts and he tells me he would not, they are directly related to being at [facility]. He admits he has had passive thoughts in the past of 'what's the point' but has never been
suicidal by his report. Denies any depressive symptoms. He does not seem to have much if any outside support despite having 4 sons none of which are in a situation to help. Spent some additional time discussing the [facility] program and he is somewhat
willing to return to and look into this as an option but again states 'if I go, I guess I will find a way to kill myself'.
Impression/Recommendations: Adjustment disorder; denies a sincere suicidal plan/intent but is resisting return to [facility] - patient prescribed Trazodone for sleep as outpatient, would continue.
--- NOTE | 2024-07-27 11:11 | W.PN.ID1 ---
Date of Service
Date of Service: July 27, 2024
Today's Communication
Transition ceftriaxone (d6) to cefdinir 300mg po bid through 08/04/24
Assessment / Plan
# Left pyelonephritis
# Bladder outlet obstruction, pete placed in ED
# Uncontrolled DM
- Ucx: contaminated specimen with mixed riaz
- Repeat Ucx negative (on ceftriaxone)
- Transition ceftriaxone (d6) to cefdinir 300mg po bid through 08/04/24
- Recommend tight glucose control.
# Additional Past Medical History:
DM2
CVA
h/o substance abuse
Hypothyroidism
BPH
CKD2
Chief Complaint
-: UTI
Vital Signs / Physical Exam
Vital Signs
Vital Signs
Temp Pulse Resp BP Pulse Ox
98.2 F 71 12 139/85 97
07/27/24 07:00 07/27/24 07:00 07/27/24 07:00 07/27/24 07:00 07/27/24 10:31
Physical Exam
Constitutional: Chronically Ill
Cardiovascular: Regular Rate and S1/S2
Gastrointestinal: Soft, Non Tender and Non Distended
Genito-Urinary: Pete and Clear Urine
Neurological: Awake and Alert
Objective Data
Lab Data
Lab Results
07/27/24 06:39
07/27/24 06:39
Estimated Creat Clear 54 ml/min 07/27/24 06:39
Lactic Acid Cancelled 07/22/24 14:55
Total Bilirubin 0.5 mg/dl (0.2-1.3) 07/27/24 06:39
AST 20 U/L (17-59) 07/27/24 06:39
ALT 25 U/L (0-50) 07/27/24 06:39
Alkaline Phosphatase 67 U/L (38-126) 07/27/24 06:39
Most recent labs reviewed.
Micro Results:
07/26/24 10:09 Urine Culture - Preliminary
Urine NO GROWTH
07/24/24 09:52 Influenza Types A & B (FREDY) - Final
Nasal Swab Negative for Influenza A & B, NAAT
Negative results must be combined with clinical observations
and patient history.
Nucleic Acid Amplification test (NAAT)performed on the
[employer] platform.
07/22/24 20:50 MRSA Screen - Final
Nose No Methicillin Resistant Staphylococcus aureus isolated.
07/22/24 15:17 Urine Culture - Final
Urine
07/24/24 CT a/p: Severe acute cystitis and bilateral ascending urinary tract infection redemonstrated, left greater than right.
07/22/24 CT a/p: SEVERE ACUTE CYSTITIS with severe urinary bladder distention and diffuse wall thickening. SEVERE ACUTE LEFT ASCENDING URINARY TRACT INFECTION with MODERATE to SEVERE LEFT HYDROURETERONEPHROSIS. Mild acute right ascending urinary tract
infection.
Care Review
Plan reviewed with: Physician (Dr López)
--- NOTE | 2024-07-27 11:56 | CM ---
CM following re: discharge planning.
Reviewed pt's chart, met with pt.
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 CM had a long conversation with the pt regrading living in a shelter, emotional
support offered and provided. CM provided pt with a hope that pt can be enrolled in a shelter transition program after 6 months being a shelter resident to get back to a community. Pt expressed his understanding. Pt stated his one son
lives in [facility] and cannot help, another son lives in [place].
Pt reluctantly expressed his agreement to return back to [facility] for a detention care.
to arrange ambulance transport. [facility] completed and left with .
[facility] nursing report: [phone]
Discharge instructions
D/C plan: return back to [facility] for a terminal worker care.
[2024-07-27 12:03] LABS: Glucose - Point of Care 240 mg/dl (70-99)
[2024-07-27] MEDS: NOVOLOG FLEXPEN-MODERATE RESISTANCE 3 UNITS SC (12:46)
--- NOTE | 2024-07-27 14:12 | W.DCSUMMARY ---
Discharge Summary
Discharge Data
Date of Admission: 07/22/24
Date of Discharge: 07/27/24
-
Pending Results: No
Hospital Course
Primary diagnoses:
Complicated pyelonephritis and severe acute cystitis with moderate to severe left hydroureteronephrosis
Adjustment disorder
Secondary diagnoses:
h/o cerebrovascular accident
Type 2 diabetes
Consultants:
Urology
Infectious disease
Psychiatry
Imaging:
CT A/P 07/24/24: Severe acute cystitis and bilateral ascending urinary tract infection redemonstrated, left greater than right.
58-year-old male who presented with a chief complaint of fever as outlined in the H&P done on admission. Hospital course by problem was:
Complicated pyelonephritis, severe acute cystitis, and mod-severe L hydroureteronephrosis: Patient presented from his long term with fever of 101�F prior to arrival to ER. The patient was afebrile in the ER. Urinalysis was consistent with
urinary tract infection. He had no leukocytosis. Imaging above. Patient was started on Rocephin. He was seen by urology. A Pete catheter was placed. His initial urine culture was contaminated. While hospitalized he remained afebrile and did
not have a leukocytosis. Repeat urine culture was no growth. He was seen in consultation by infectious disease and Dr. Em recommends discharge on Cefdinir to complete 14 days abx in total. Patient was treated with Flomax. He will need an
outpatient cystoscopy with urodynamic testing.
Adjustment disorder: The patient stated multiple times while hospitalized that he was ready to . He was seen by psychiatry. It was deemed that he was saying these things because he did not want to go back to [facility].
Discharge Plan
-
Patient Disposition: Long Term/SNF
Discharge Diagnosis/Procedures: Complicated pyelonephritis, severe acute cystitis, and mod-severe L hydroureteronephrosis
Condition: Good
Diet: Diabetic, Carb Controlled
Activity: With assistance
Driving Restrictions: Not until seen by your Dr
Blood Work: BMP and CBC in 1 week, prescription for PCP
Activity Restrictions/Additional Instructions:
Last day of Cefdinir is 08/04/24
Referrals:
Taj Qureshi MD [Active] - (call Dr Hal Garcia [phone] urologist to evaluate bladder and pete)
Rashel Shoemaker, DO [Family Provider] - in less than 1 week
Prescriptions:
New
cefdinir 300 mg capsule
300 mg PO BID Qty: 16 0RF
Continued
atorvastatin 40 mg Tablet
40 mg PO QPM Qty: 30 0RF
clopidogrel 75 mg Tablet
75 mg PO DAILY Qty: 12 0RF
aspirin 81 mg Tablet,Chewable
81 mg PO DAILY Qty: 30 0RF
tamsulosin 0.4 mg Capsule
0.4 mg PO DAILY Qty: 30 0RF
pantoprazole 20 mg Tablet,Delayed Release (Dr/Ec)
20 mg PO DAILY Qty: 30 0RF
acetaminophen [Tylenol] 325 mg Tablet
650 mg PO Q6HPRN PRN (Reason: MILD PAIN)
trazodone 50 mg Tablet
50 mg PO HS
melatonin 3 mg Tablet
6 mg PO HS
levothyroxine [Synthroid] 88 mcg Tablet
88 mcg PO DAILY
magnesium hydroxide [Milk of Magnesia] 400 mg/5 mL Suspension
2,400 mg PO DAILYPRN PRN (Reason: IF NO BM ON 3RD DAY)
bisacodyl [Dulcolax (bisacodyl)] 10 mg Suppository
10 mg TN DAILYPRN PRN (Reason: IF NO BM AFTR MOM)
Fleet Enema 19-7 gram/118 mL Enema
118 ml TN DAILYPRN PRN (Reason: IF NO BM AFTR DULOLCAX)
insulin glargine [Lantus Solostar U-100 Insulin] 100 unit/mL (3 mL) Insulin Pen
18 unit SC HS
Discontinued
metformin 500 mg Tablet
500 mg PO HS
Discharge Orders:
Discharge Patient (As Directed); Ordered 07/27/24
Ordered By: Catracho López
Discharge Date and Time
Print Language: UKRAINIAN
--- NOTE | 2024-07-27 14:56 | PTCARENOTE ---
RN attempted to call report on this patient to phone number supplied by case management. two voicemails left over the last three hours. patient going back to [place] [facility] with pete catheter and new abx order.
[2024-07-27 15:00] VITALS: BP 114/77
--- NOTE | 2024-07-27 16:58 | PTCARENOTE ---
Ambulance unable to transport patient due to patient being able to walk and patient not being a 302. Per [employer], wheelchair van to be set up and hospital will cover cost of wheelchair van.
--- NOTE | 2024-07-28 16:49 | CM ---
TC from facility requesting clinicals, case sent via [employer].
== END 2024-07-27 16:50 | DRG 690 ==
LOC: 2 NORTH 20:14
PROVIDERS: Emergency Medicine; Internal Medicine; ADMITTING PHYSICIAN Internal Medicine; ATTENDING PHYSICIAN Internal Medicine; CONSULT PHYSICIAN Psychiatry & Neurology Psychiatry; CONSULT PHYSICIAN Surgery; EMERGENCY PHYSICIAN Student in an Organized Health Care Education/Training Program; FAMILY PHYSICIAN Internal Medicine; OTHER PHYSICIAN Internal Medicine Infectious Disease
DX: N13.6 Pyonephrosis (principal); E87.1 Hypo-osmolality and hyponatremia; E11.65 Type 2 diabetes mellitus with hyperglycemia; E11.22 Type 2 diabetes mellitus with diabetic chronic kidney disease; K59.00 Constipation, unspecified; Z66 Do not resuscitate; F43.20 Adjustment disorder, unspecified; Z86.73 Personal history of transient ischemic attack (TIA), and cerebral infarction without residual deficits; Z79.4 Long term (current) use of insulin
CPT/HCPCS: 74177; 80048; 80053; 81003; 81015; 82962; 83036; 83735; 85025; 85027; 87070; 87086; 87502; 87811; 93005; 96361; 96374; 96375; 97163; 99285; 99406; Q9967

== ENCOUNTER 2025-01-05 21:22 | Inpatient (IN) | payer OTHER, SELFPAY ==
[2025-01-05] VITALS (7 sets, daily range): BP systolic 110–129; BP diastolic 67–78; PULSE 78–81; BMI 23.3; BMI 22.5
[2025-01-05 17:16] LABS: Hematocrit 35.0 % (39.0-52.0); Hemoglobin 11.3 g/dL (13.0-18.0); Mean Corp Hgb Conc. 32.3 g/dL (33.0-37.0); Mean Corpuscular Volume 90.7 fL (80.0-94.0); Nucleated Red Blood Cells % 0 % (-); Platelet Count 269 10^3/uL (130-400); Red Cell Dist. Width 14.5 % (11.5-14.5)
[2025-01-05 17:46] LABS: Blood Urea Nitrogen 69 mg/dl (9-20); Calcium 9.7 mg/dl (8.4-10.2); Carbon Dioxide 21 mmol/L (22-30); Chloride 100 mmol/L (98-107); Estimated Creatinine Clearance 40 ml/min; Glucose 174 mg/dl (70-99); Sodium 131 mmol/L (135-145); eGFR 35.59
--- NOTE | 2025-01-05 17:51 | ED.GENMED ---
History of Present Illness
General
Chief Complaint: Dizziness
Source: patient
Exam Limitations: none
Time Seen by Provider: 01/05/25 17:20
Nursing documentation reviewed up to this point in time: agreed with
History of Present Illness
History of Present Illness:
Patient presents to ED from care home after feeling lightheaded and passing out, while walking back to his bed from bathroom, hitting back of his head on the floor. Patient is also complaining of lower back pain from the fall. Patient does have
chronic lower back pain, but feels worse. Denies loss of sensation or weakness. Denies nausea or vomiting. Denies urinary or bowel incontinence. Denies dizziness. Denies chest pain or palpitations. Denies shortness of breath. Denies recent
illness. No recent change in medications or diet. Patient states that he has not been eating well at care home, as he does not like the food that is being offered. Patient has had multiple syncopal episodes recently while at care home,
where he has been since May 2024.
Past History
Past History
ED Past Medical History: CVA and IDDM
ED Past Surgical History: Orthopedic
Social History
Tobacco: Non-smoker
Alcohol: None
Review of Systems
Review of Systems
Allergies reviewed?: Yes
All Other Systems: ROS reviewed and negative except as documented in HPI and ROS
Constitutional: Reports no symptoms
Cardiac: Reports syncope
ABD/GI: Reports no symptoms; Denies nausea or vomiting
Musculoskeletal: Reports back pain
Skin: Reports no symptoms
Neurological: Reports dizzy; Denies headache or weakness
Phy Exam
Physical Exam
Physical Exam:
Physical Exam
General: no apparent distress, not acutely ill
Neck: supple. no meningeal signs.
Heart: s1/s2 regular rate and rhythm
Lungs: no acute respiratory distress. clear bilaterally
Abdomen: normal bowel sounds. not tender.
Back: no midline tenderness. mild diffuse right lower back tenderness to palpation
Neuro: alert and oriented x 3. no focal neurological deficits
Skin: no rash
Psychiatric: well kept. interactive and cooperative
Extremities: no edema. no calf tenderness.
Course
Orders/Labs/Results
Orders:
Orders
01/05/25 16:57
Electrocardiogram (*1) Urgent
Reason for Study: Vertigo / Dizzy
EKG- Treatment ONCE
Orthostatic VS- Treatment ONCE
01/05/25 17:06
Basic Metabolic Panel Urgent
Complete Blood Count/With Diff Urgent
01/05/25 18:08
Comprehensive Metabolic Panel Urgent
Serum Osmolality Urgent
Comment: Add on
Troponin I Urgent
01/05/25 18:21
CT Head W/o Iv Contrast Urgent
Comment:
Reason For Exam: syncope w trauma to back of head
Acetaminophen [Tylenol] 650 mg PO NOW STA
CR Lumbar Spine Comp Min 4 Vw* Urgent
Comment:
Reason For Exam: trauma
01/05/25 19:11
Add On- LAB Urgent
Tests Added?: serum osm
01/05/25 19:29
Urinalysis Reflex To Culture Urgent
Date Specimen was Collected: 01/05/25
Time Specimen was Collected: 19:28
Urine Microscopic Reflex Cult Urgent
Urine Sodium Urgent
Date Specimen was Collected: 01/05/25
Time Specimen was Collected: 19:28
Urine Culture Urgent
JAVIER Source: U
Specimen Description:
Date Specimen was Collected: 01/05/25
Time Specimen was Collected: 19:28
01/05/25 20:07
0.9% Sodium Chloride 500 ml [Nss] 500 ml IV BOLUS
CefTRIAXone [Rocephin] 1,000 mg IV NOW STA
01/05/25 20:47
Admit/Transfer Patient As Directed
Co-Sign Provider:
Level of Care: Inpatient admission
Assign to:: Telemetry
Physician / Group: eriberto
Diagnosis: syncope, uti
Reason for Telemetry: Arrhythmia
Date to Stop Telemetry: 01/08/25
Time to Stop Telemetry: 11:00
Reason for Hospitalization: syncope, uti
Expected length of stay greater than two midnights?: Yes
ELOS- Estimated Length of Stay in days: 2
I certify the patient meets the requirements for IP care: Yes
Code Status As Directed
Resuscitation Status: Do not resuscitate
Reached after discussion with pt or family/Healthcare POA: Yes
PRN Pain Medication Management As Directed
May give lesser potent ordered pain med per pt: Yes
preference::
Protocol:: Medication orders for pain may be administered in a
manner that supports deferring to patient preference
when the pt is:
- Requesting an ordered lesser potent pain medication.
Least to most potent pain medications are defined
as: acetaminophen < NSAID < tramadol < opioids
(morphine, oxycodone, hydromorphone).
- Requesting a lesser dose of the same medication IF
ORDERED.
- Requesting a less intrusive route of administration
if both routes are prescribed by the provider (PO <
IV).
01/05/25 20:48
DNR Bracelet Application ONCE
01/08/25 11:00
DC Protocol for Telemetry ONCE
Abnormal Lab Results
01/05/25 01/05/25 01/05/25
17:06 18:08 19:29
WBC 12.6 H 10^3/uL
(4.8-10.8)
RBC 3.86 L 10^6/uL
(4.70-6.10)
Hgb 11.3 L g/dL
(13.0-18.0)
Hct 35.0 L %
(39.0-52.0)
MCHC 32.3 L g/dL
(33.0-37.0)
Abs Immat Gran (auto) 0.2 H 10^3/uL
(0-0.05)
Absolute Neuts (auto) 9.5 H 10^3/uL
(1.4-6.5)
Absolute Monos (auto) 1.1 H 10^3/uL
(0.1-0.6)
Immature Gran % 1.2 H %
(0-0.5)
Neutrophils % 75.4 H %
(42.2-75.2)
Lymphocytes % 11.0 L %
(20.5-51.1)
Sodium 131 L mmol/L 130 L mmol/L
(135-145) (135-145)
Carbon Dioxide 21 L mmol/L 21 L mmol/L
(22-30) (22-30)
BUN 69 H mg/dl 69 H mg/dl
(9-20) (9-20)
Creatinine 2.1 H mg/dL 2.1 H mg/dL
(0.7-1.3) (0.7-1.3)
Glucose 174 H mg/dl 174 H mg/dl
(70-99) (70-99)
Serum Osmolality 305 H mOsm/kg
(275-300)
Ur Occult Blood Reflex 4+ A
(Negative)
Leukocyte Esterase Rfl 3+ A
(Negative)
Urine RBC 7-10 A /HPF
(0-2)
Urine WBC (Reflex) >100 A /HPF
(0-5)
Urine Bacteria (Reflex) Many A
(Negative)
Urine Glucose 4+ A
(Negative)
Urine Albumin (Reflex) 3+ A
(Neg - Trace)
01/05/25 17:06
01/05/25 18:08
Vital Signs
Initial and Last Documented VS:
Initial Vital Signs
BP
114/78
01/05/25 16:53
Last Documented Vital Signs
Temp Pulse Resp BP Pulse Ox
98.1 F 80 11 111/72 95
01/05/25 17:00 01/05/25 18:00 01/05/25 18:00 01/05/25 18:00 01/05/25 18:00
MDM/Problems Addressed
MDM/Problems Addressed:
Syncope likely vasovagal episode secondary to dehydration, with acute renal failure on chronic renal insufficiency is noted. Hyponatremia likely prerenal. UA noted, will administer Rocephin IV. Patient will be admitted for further eval and
treatment.
*Pulse Oximetry
SaO2: 100
Oxygen Mode of Delivery: Room air
Patient hypoxic: no
*Critical Care Note
Total Time (30-74mins, 75-104mins- exclusive of procedures): Not Applicable
ED Attending Note
-
Portions of this chart may have been created with voice recognition software.� Occasional wrong word or��sound alike� substitutions may have occurred due to the inherent limitations of voice recognition software.
Discharge Plan
Departure
Patient Disposition: Admit
Date of Disposition: 01/05/25
Time of Disposition: 20:10
Admit to: Telemetry
Presentation/result/management discussed w/ accepting MD/DO: Hospitalist
Discharge Problem:
Acute UTI, Syncope, Hyponatremia
Interventions
Interventions:
*Risk Screen - Suicide Last Done: 01/05/25 17:00
*General Assessment Last Done: 01/05/25 17:00
*Neglect/Abuse Screening Last Done: 01/05/25 17:00
*ED- Fall Risk Assessment Last Done: 01/05/25 17:00
*ED COVID-19 Vaccine History Last Done: 01/05/25 17:00
*ED Influenza Vaccine History Last Done: 01/05/25 17:00
ED- Neurological Assessment Last Done: 01/05/25 17:30
ED- Cardiac Assessment Last Done: 01/05/25 17:30
ED Swallowing Screen Last Done: 01/05/25 18:15
[2025-01-05 18:36] LABS: ALT (SGPT) 29 U/L (0-50); AST (SGOT) 23 U/L (17-59); Albumin 3.8 g/dl (3.5-5.0); Alkaline Phosphatase 73 U/L (38-126); Blood Urea Nitrogen 69 mg/dl (9-20); Calcium 9.0 mg/dl (8.4-10.2); Carbon Dioxide 21 mmol/L (22-30); Chloride 103 mmol/L (98-107); Estimated Creatinine Clearance 40 ml/min; Glucose 174 mg/dl (70-99); Potassium 4.9 mmol/L (3.5-5.1); Sodium 130 mmol/L (135-145); Total Protein 6.6 g/dl (6.3-8.2); eGFR 35.59
[2025-01-05 18:38] LABS: Troponin I < 0.012 ng/ml
[2025-01-05] MEDS: TYLENOL 650 MG PO (19:26)
[2025-01-05 19:52] LABS: Urine Character Cloudy (Clear)
[2025-01-05 20:02] LABS: Urine Squamous Cell 0-2 /LPF (Few)
[2025-01-05 20:04] LABS: Urine White Cell >100 /HPF (0-5)
[2025-01-05] MEDS: NSS 500 IV (20:24)
[2025-01-05] MEDS: ROCEPHIN 1000 MG IV (20:24)
--- NOTE | 2025-01-05 20:53 | HPS.HSE ---
Addendum entered and electronically signed by Maria R Reyes MD 01/05/25 20:59:
Patient with prior history of alcohol use disorder. History of drug use disorder and amphetamine use. History of herpes simplex virus encephalitis. Patient also with CR on labs versus CKD which has been present there since March. Continue IV
fluids. Bladder scan protocol.
Original Note:
Family Physician
-
Family Physician: Tamanna Harrell
Chief Complaint
-
syncope
History of Present Illness
59-year-old male past medical history of complicated pyelonephritis, moderate to severe left hydroureteronephrosis, diabetes, CVA, hypothyroidism, BPH, constipation, chronic lower back pain, presenting for feeling lightheaded and passing out while
walking back to his bed from the bathroom, hitting the back of his head on the floor. He also complains of lower back pain from the fall. He has chronic lower back pain but feels worse. Denies loss of sensation or weakness. Denies nausea or
vomiting.
He has been having burning with urination and blood in the urine for a week and was started on oral antibiotic with resolution of bleeding. He does have some residual burning. Denies urinary or bowel incontinence. Denies chest pain or shortness
of breath but has chronic cough. Denies recent illness. He has not been eating well at the shelter because he does not like the food. He has had multiple syncopal episodes recently since May 2024.
He smokes 2 cigarettes a day. Denies alcohol.
Medical History
Past Medical History
Past Medical History: Reports Other (complicated pyelonephritis, moderate to severe left hydroureteronephrosis, diabetes, CVA, hypothyroidism, BPH, constipation, chronic lower back pain,)
Past Surgical History: Reports None
Social History
Tobacco: Non-smoker
Alcohol: None
Drug: None
Family History
Family History: Not pertinent
Allergies / Home Medications
Allergies reflects when Allergies were last updated in [employer].
Home Medications with original date entered in [employer]
Allergy/Medication List:
Allergies
Allergy/AdvReac Type Severity Reaction Status Date / Time
No Known Allergies Allergy Verified 01/05/25 16:57
Home Medications
aspirin 81 mg chewable tablet 81 mg PO DAILY #30 tabs 03/25/24
clopidogrel 75 mg tablet 75 mg PO DAILY #12 tabs 03/25/24
pantoprazole 20 mg tablet,delayed release 20 mg PO DAILY #30 tabs 04/16/24
tamsulosin 0.4 mg capsule 0.4 mg PO DAILY #30 caps 04/16/24
acetaminophen 325 mg tablet (Tylenol) 650 mg PO Q6HPRN PRN MILD PAIN 07/22/24
bisacodyl 10 mg rectal suppository (Dulcolax (bisacodyl)) 10 mg MT DAILYPRN PRN IF NO BM AFTR MOM 07/22/24
insulin glargine 100 unit/mL (3 mL) subcutaneous pen (Lantus Solostar U-100 Insulin) 18 unit SC HS 07/22/24
levothyroxine 88 mcg tablet (Synthroid) 112 mcg PO DAILY 07/22/24
magnesium hydroxide 400 mg/5 mL oral suspension (Milk of Magnesia) 2,400 mg PO DAILYPRN PRN IF NO BM ON 3RD DAY 07/22/24
melatonin 3 mg tablet 5 mg PO HS 07/22/24
sodium phosphates 19 gram-7 gram/118 mL enema (Fleet Enema) 118 ml MT DAILYPRN PRN IF NO BM AFTR DULOLCAX 07/22/24
trazodone 50 mg tablet 150 mg PO HS 07/22/24
cefdinir 300 mg capsule 300 mg PO BID #16 caps 07/27/24
atorvastatin 40 mg tablet 10 mg PO QPM 01/05/25
diclofenac sodium 1.5 % topical drops-menthol 10 % roll-on combo pack 1 pkg topical BID 01/05/25
empagliflozin 10 mg tablet (Jardiance) 10 mg PO DAILY 01/05/25
escitalopram oxalate 10 mg tablet (Lexapro) 10 mg PO DAILY 01/05/25
ferrous sulfate 325 mg (65 mg iron) tablet 325 mg PO DAILY 01/05/25
insulin lispro 100 unit/mL subcutaneous solution (Humalog U-100 Insulin) 1 sliding scale dose SC DIRECTED 01/05/25
midodrine 10 mg tablet 10 mg PO TID 01/05/25
ondansetron HCl 4 mg tablet 4 mg PO Q8H PRN nausea 01/05/25
sennosides 8.6 mg tablet (senna) 17.2 mg PO BID 01/05/25
thiamine HCl (vitamin B1) 100 mg tablet 100 mg PO DAILY 01/05/25
Review of Systems
-
History Source: Patient
A 12 point ROS was completed and negative except as noted: Yes
Constitutional: Reports No Symptoms
EENT: Reports No Symptoms
Respiratory: Reports See HPI
Cardiac: Reports No Symptoms
Abdomen/GI: Reports No Symptoms
: Reports See HPI
Musculoskeletal: Reports No Symptoms
Skin: Reports No Symptoms
Neurological: Reports No Symptoms
Endocrine: Reports No Symptoms
Hematologic/Lymphatic: Reports No Symptoms
Psych: Reports No Symptoms
Physical Exam
Vital Signs
Vital Signs
Temp Pulse Resp BP Pulse Ox
98.1 F 80 11 111/72 95
01/05/25 17:00 01/05/25 18:00 01/05/25 18:00 01/05/25 18:00 01/05/25 18:00
Physical Exam
General: Well Developed, Well Nourished and No Apparent Distress
HEENT: NormoCephalic, Moist mucous membranes and Atraumatic
Respiratory: Clear
Cardiac: S1/S2 and Regular Rhythm; No Murmur or Rub
GI: Soft, Non Tender, Non Distended and Normal Bowel Sounds; No Organomegaly
Rectal: Deferred by Provider
Musculoskeletal: No Clubbing, No Cyanosis and No Edema
Skin: No Rash
Neuro: Nonfocal/grossly intact
Laboratory Results
-
01/05/25 17:06
01/05/25 18:08
Laboratory Results
Total Bilirubin 0.7 mg/dl (0.2-1.3) 01/05/25 18:08
AST 23 U/L (17-59) 01/05/25 18:08
ALT 29 U/L (0-50) 01/05/25 18:08
Alkaline Phosphatase 73 U/L (38-126) 01/05/25 18:08
Troponin I < 0.012 ng/ml 01/05/25 18:08
Data Reviewed
-
Lab Data: Labs Reviewed by me
Old Records: Reviewed
Impression/Plan
-
IMPRESSION:
PLAN:
# Syncopal episode secondary to hypotension/UTI
# History of hypotension
# History of syncopal episodes
- IV fluids given
- Continue midodrine
- Check orthostatic
# Acute on chronic back pain secondary to fall
- Lumbar spine x-ray shows moderate to severe degenerative disc disease, 1.1 cm grade 1 anterolisthesis of L5 on S1, chronic superior endplate fracture of L3
# Persistent urinary tract infection despite oral antibiotic
- Urinalysis greater than 100 WBC
-Ceftriaxone
History of complicated pyelonephritis with moderate to left hydroureteronephrosis
- Outpatient cystoscopy was recommended
Chronic hyponatremia
- Sodium stable 130
Type 2 diabetes
- Hold Jardiance
- Continue Lantus 18 units
- Insulin sliding scale
History of CVA
- Continue aspirin, Plavix, statin
Hypothyroidism
- Continue levothyroxine
BPH
- Continue tamsulosin
Constipation
Chronic anemia
-stable
Anxiety/depression
- Continue Lexapro
Insomnia
- Continue trazodone
DNR/DNI
DVT prophylaxis heparin
Diabetic diet
[2025-01-05 22:51] LABS: Glucose - Point of Care 145 mg/dl (70-99)
[2025-01-05] MEDS: LANTUS 0.18 UNITS SC (22:57)
[2025-01-05] MEDS: DESYREL 150 MG PO (23:02)
[2025-01-05] MEDS: MELATONIN 5 MG PO (23:02)
[2025-01-05] MEDS: NSS 1000 IV (23:03)
[2025-01-06] VITALS (7 sets, daily range): BP systolic 103–155; BP diastolic 59–81; PULSE 71–85; O2SAT 99
[2025-01-06] MEDS: SYNTHROID 112 MCG PO (05:31)
[2025-01-06 07:44] LABS: Glucose - Point of Care 217 mg/dl (70-99)
[2025-01-06 08:27] LABS: ALT (SGPT) 25 U/L (0-50); AST (SGOT) 16 U/L (17-59); Albumin 3.4 g/dl (3.5-5.0); Alkaline Phosphatase 76 U/L (38-126); Blood Urea Nitrogen 59 mg/dl (9-20); Calcium 8.8 mg/dl (8.4-10.2); Carbon Dioxide 22 mmol/L (22-30); Chloride 107 mmol/L (98-107); Estimated Creatinine Clearance 43 ml/min; Glucose 191 mg/dl (70-99); Potassium 4.5 mmol/L (3.5-5.1); Sodium 133 mmol/L (135-145); Total Protein 6.0 g/dl (6.3-8.2); eGFR 40.13
[2025-01-06] MEDS: LEXAPRO 10 MG PO (08:47)
[2025-01-06] MEDS: SENOKOT PO ×3 (08:47→19:43)
[2025-01-06] MEDS: VITAMIN B1 100 MG PO (08:47)
[2025-01-06] MEDS: PROTONIX 20 MG PO (08:47)
[2025-01-06 08:48] LABS: Glycohemoglobin (HgbA1c) 7.2 % (4.0-5.9)
[2025-01-06] MEDS: LOW STRENGTH ASPIRIN 81 MG PO (08:48)
[2025-01-06] MEDS: FEOSOL 325 MG PO (08:48)
[2025-01-06] MEDS: FLOMAX 0.4 MG PO (08:48)
[2025-01-06] MEDS: HEPARIN 5000 UNITS SC (08:49)
[2025-01-06] MEDS: PLAVIX 75 MG PO (08:49)
[2025-01-06] MEDS: NOVOLOG FLEXPEN-LOW RESISTANCE 2 UNITS SC (08:50)
[2025-01-06] MEDS: TYLENOL 650 MG PO (08:57)
[2025-01-06 09:00] LABS: Hematocrit 30.4 % (39.0-52.0); Hemoglobin 9.6 g/dL (13.0-18.0); Mean Corp Hgb Conc. 31.6 g/dL (33.0-37.0); Mean Corpuscular Volume 93.3 fL (80.0-94.0); Nucleated Red Blood Cells % 0 % (-); Platelet Count 208 10^3/uL (130-400); Red Cell Dist. Width 14.5 % (11.5-14.5)
[2025-01-06] MEDS: NSS 1000 IV ×2 (09:12→21:23)
--- NOTE | 2025-01-06 10:02 | W.PN.HOSP.TC ---
Today's Communication/Plan
-
see outlined plan below
Assessment / Plan
Assessment / Plan
Assessment:
Syncope in setting of hypotension from UTI
- noted prior history of hypotension with syncope
- monitor on tele
- check orthostatic VS
- on Midodrine at home, continue
- IVF
UTI
- noted history of prior complicated pyelonephritis with moderate to left hydroureteronephrosis. Was previously recommended outpatient cystoscopy
- repeat CT today
- no improvement with Cefdinir - burning urine persists
- continue Rocephin day 1 pending new culture
Acute on chronic low back pain secondary to fall
- L Xray: moderate to severe degenerative disc disease, 1.1 cm grade 1 anterolisthesis of L5 on S1, chronic superior endplate fracture of L3
- PT/OT
- pain control; add low dose Tramadol
CR on suspected CKD stage 3
- Cr baseline appears to be 1.5 to 1.7; currently down from 2.1 to 1.9
Chronic hyponatremia
- Sodium 130 -> 133 today
Type 2 diabetes
- Hold Jardiance
- Continue Lantus 18 units
- Insulin sliding scale
- A1c is 7.2%
History of CVA
- continue aspirin, Plavix, statin
Hypothyroidism
- continue levothyroxine
BPH
- continue tamsulosin
Constipation
Chronic anemia
- stable
- continue oral iron
Anxiety/depression
- continue Lexapro
Insomnia
- continue trazodone
DVT ppx: Heparin
Code: DNR/DNI
Anticipated Discharge: > 48 hours
Subjective/Interval History
-
Date of Service: January 06, 2025
reports low back pain from fall at [facility]
requesting compression therapy ; stating it helped his legs feel better from neuropathy
Objective Data
-
Labs:
Laboratory Results
01/06/25
06:56
WBC 7.3
Hgb 9.6 L
Hct 30.4 L
Plt Count 208 D
Sodium 133 L
Potassium 4.5
Chloride 107
Carbon Dioxide 22
BUN 59 H
Creatinine 1.9 H
Glucose 191 H
Calcium 8.8
Total Bilirubin 0.3
AST 16 L
ALT 25
Alkaline Phosphatase 76
Vital Signs:
Vital Signs
Temp Pulse Resp BP Pulse Ox
97.8 F 75 18 136/75 95
01/06/25 08:22 01/06/25 08:46 01/06/25 08:22 01/06/25 08:46 01/06/25 08:22
I&O
01/05/25 01/06/25 01/07/25
06:59 06:59 06:59
Intake Total 2520 / 2520 480 / 480
Output Total 700 / 700 600 / 600
Balance 1820 / 1820 -120 / -120
Physical Exam
-
General: No Apparent Distress
HEENT: Normocephalic and Atraumatic
Respiratory: Negative Wheezes
Cardiac: Regular Rhythm and S1/S2
GI: Soft and Nontender
Genito-urinary: No Costovertebral Tender
Musculoskeletal: No Edema
Neuro: AO x 3
Hematologic / Lymphatic: No Lymphadenopathy
Psych: Calm
Data Reviewed
-
Total Time Spent with Patient (in minutes): 42
Labs: Labs Reviewed by me
[2025-01-06 11:35] LABS: Glucose - Point of Care 340 mg/dl (70-99)
[2025-01-06] MEDS: DICLOFENAC 1% TOPICAL GEL 4 GRAM TOPICAL ×2 (11:52→19:42)
[2025-01-06] MEDS: BenGay-Like 1 APPLIC TOPICAL ×2 (11:52→19:42)
[2025-01-06] MEDS: NOVOLOG FLEXPEN-LOW RESISTANCE 4 UNITS SC (11:52)
[2025-01-06] MEDS: ULTRAM 50 MG PO ×2 (11:55→18:22)
--- NOTE | 2025-01-06 12:00 | CM ---
Met with pt beside. IA completed. Pt lives in LTC at [facility]. Requires a wheelchair for mobility secondary to neuropathy and falls. PT reports that pt can walk short distances without assistive device;,is otherwise independent. DME: Wheelchair.
No hx of home O2, HH. Has been in [facility] in the past for SNF. NO insecurities identified. Confirmed PCP and Rx. States he does not know if he has drug coverage; states he gets his medication through [facility].
Continues on IV ABX.
[facility]
Report: [phone]

Plan: Return to [facility] when stable, Snf vs LTC.
--- NOTE | 2025-01-06 14:30 | CON.MD ---
Consultation - Medical
-
see dictated
one of many admit for this gentleman with multiple med problems
urologically has retention/likely NGB from retention and diabetes and hydro of varying degress
it has been rec that he have cysto and UDS- has seen dr wilkins
pete has been our
readmitted with fall/UTI/hydro
on ct bladder was sig distended with bilateral hydro
cr elevated above baseline
ucx +
plan
reviewed all old records and films
hydro secondary to high pressure reflux likely secondary to ngb
pt is voiding and last pvr was around 200cc
however- he is likely best amanged because of his hydro with pete- UTi treatment and then outpt eval (keeping pete in) with cysto and urodynamics
currently he refuses pete understanding risks
spoke with med team
i will check in again tomorrow
in interim- check pvr's
Consultation
-
Date/Time Consultation Requested: 01/06/25 at noon
Date/Time Consultation Performed: 01/06/25 at 2:30pm
Requesting Provider: Dr Nogueira
Performing Provider: Dr Siu
Reason for Consultation: UTI/hydro
[2025-01-06 17:15] LABS: Glucose - Point of Care 162 mg/dl (70-99)
[2025-01-06] MEDS: LIPITOR 10 MG PO (17:23)
[2025-01-06] MEDS: NOVOLOG FLEXPEN-LOW RESISTANCE 1 UNITS SC (17:24)
[2025-01-06] MEDS: STERILE WATER FOR INJECTION 10 ML IV (19:42)
[2025-01-06] MEDS: ROCEPHIN 1000 MG IV (19:42)
[2025-01-06] MEDS: DESYREL 150 MG PO (21:24)
[2025-01-06] MEDS: MELATONIN 5 MG PO (21:24)
[2025-01-06] MEDS: LANTUS 0.18 UNITS SC (21:25)
[2025-01-06 21:30] LABS: Glucose - Point of Care 250 mg/dl (70-99)
[2025-01-07] VITALS (7 sets, daily range): BP systolic 106–149; BP diastolic 64–83; PULSE 79–88; O2SAT 97
[2025-01-07] MEDS: SYNTHROID 112 MCG PO (05:30)
[2025-01-07] MEDS: NSS IV (06:50)
[2025-01-07 06:56] LABS: Hematocrit 27.5 % (39.0-52.0); Hemoglobin 8.5 g/dL (13.0-18.0); Mean Corp Hgb Conc. 30.9 g/dL (33.0-37.0); Mean Corpuscular Volume 92.9 fL (80.0-94.0); Platelet Count 196 10^3/uL (130-400); Red Cell Dist. Width 14.3 % (11.5-14.5)
--- NOTE | 2025-01-07 07:10 | W.PN.URO.CBU ---
Today's Communication / Plan
-
observe
treat UTI
Assessment / Plan
-
NGB with retention/reflux and recurrent UTI
reviewed again with patient
I feel that given his clinical course over the last 121 months- he needs a pete and then outpt eval
he declines understanding risks
treat UTI- consider daily methenamine 1 gram when finishing antibx course
continue flomax
should make outpt f/u with dr mckeon or ban for re-consideration of cysto and urodynamics
call with any further questions
Diagnosis
-
Date of Service: January 07, 2025
-
Patient Diagnosis:
recurrent UTI
retention and hydro likely secondary to NGB
Subjective
-
pt feels ok
no fevers/wbc normalized
ucx gram neg rods
cr pending
pvr's have ranged from 200-450cc
Objective
-
Vital Signs
Temp Pulse Resp BP Pulse Ox
97.8 F 69 16 127/68 96
01/07/25 03:31 01/07/25 03:31 01/07/25 03:31 01/07/25 03:31 01/07/25 03:31
Intake and Output
01/06/25 01/07/25 01/08/25
06:59 06:59 06:59
Intake Total 2520 / 2520 2640 / 2640
Output Total 700 / 700 3900 / 3900
Balance 1820 / 1820 -1260 / -1260
Intake:
Oral fluids 720 / 720 1440 / 1440
IV fluids (Total) 1800 / 1800 1200 / 1200
nss 1000 / 1000
Output:
Urine, Voided 700 / 700 3900 / 3900
Other:
How many times incontinent 1
MODERATE amount urine
Laboratory Results
01/07/25 06:39
Physical Exam
-
General - no acute distress
[2025-01-07 07:16] LABS: Blood Urea Nitrogen 40 mg/dl (9-20); Calcium 8.6 mg/dl (8.4-10.2); Carbon Dioxide 24 mmol/L (22-30); Chloride 108 mmol/L (98-107); Estimated Creatinine Clearance 52 ml/min; Glucose 176 mg/dl (70-99); Potassium 5.0 mmol/L (3.5-5.1); Sodium 136 mmol/L (135-145); eGFR 49.33
[2025-01-07 07:27] LABS: Glucose - Point of Care 168 mg/dl (70-99)
[2025-01-07] MEDS: NOVOLOG FLEXPEN-LOW RESISTANCE 1 UNITS SC (08:32)
[2025-01-07] MEDS: BenGay-Like 1 APPLIC TOPICAL ×2 (08:33→19:53)
[2025-01-07] MEDS: DICLOFENAC 1% TOPICAL GEL 4 GRAM TOPICAL ×2 (08:33→19:53)
[2025-01-07] MEDS: LOW STRENGTH ASPIRIN 81 MG PO (08:34)
[2025-01-07] MEDS: PROTONIX 20 MG PO (08:35)
[2025-01-07] MEDS: FLOMAX 0.4 MG PO (08:35)
[2025-01-07] MEDS: VITAMIN B1 100 MG PO (08:35)
[2025-01-07] MEDS: FEOSOL 325 MG PO (08:35)
[2025-01-07] MEDS: LEXAPRO 10 MG PO (08:36)
[2025-01-07] MEDS: SENOKOT 17.2 MG PO ×2 (08:36→20:15)
[2025-01-07] MEDS: ULTRAM 50 MG PO (08:38)
--- NOTE | 2025-01-07 10:35 | W.PN.HOSP.TC ---
Today's Communication/Plan
-
[place] prn
continue IV abx pending cultures
now agreeable to Ashvin
Assessment / Plan
Assessment / Plan
Assessment:
Syncope in setting of hypotension from UTI
- noted prior history of hypotension with syncope
- monitor on tele
- monitor orthostatic VS
- on Midodrine at home, continue
- compression therapy
UTI
- noted history of prior complicated pyelonephritis with moderate to left hydroureteronephrosis. Was previously recommended outpatient cystoscopy
- CT: acute cystitis. Cannot rule out ascending urinary tract infection, Moderate bilateral hydroureteronephrosis diffusely, possibly reflecting a component of outlet obstruction
- no improvement with Cefdinir - burning urine persists
- continue Rocephin day 2 pending new culture
- Urology consulted; Lock recommended, patient initially not agreeable, now is agreeable
Acute on chronic low back pain secondary to fall
- L Xray: moderate to severe degenerative disc disease, 1.1 cm grade 1 anterolisthesis of L5 on S1, chronic superior endplate fracture of L3
- PT/OT
- pain control; prn [place]
CR on suspected CKD stage 3
- Cr baseline appears to be 1.5 to 1.7; currently down from 2.1 to 1.6
Chronic hyponatremia
- Sodium 130 -> 136 today
Type 2 diabetes
- Hold Jardiance
- Continue Lantus 18 units
- Insulin sliding scale
- A1c is 7.2%
History of CVA
- continue aspirin, Plavix, statin
Hypothyroidism
- continue levothyroxine
BPH with MCCRACKEN
- continue tamsulosin
Constipation
Chronic anemia
- stable
- continue oral iron
Anxiety/depression
- continue Lexapro
Insomnia
- continue trazodone
DVT ppx: Heparin
Code: DNR/DNI
Anticipated Discharge: > 48 hours
Subjective/Interval History
-
Date of Service: January 07, 2025
reports insufficient relief from Tramadol requesting stronger pain relief
now agreeable to Lock - previously declined from Urology
Objective Data
-
Labs:
Laboratory Results
01/07/25
06:39
WBC 6.3
Hgb 8.5 L
Hct 27.5 L
Plt Count 196
Sodium 136
Potassium 5.0
Chloride 108 H
Carbon Dioxide 24
BUN 40 H
Creatinine 1.6 H
Glucose 176 H
Calcium 8.6
Vital Signs:
Vital Signs
Temp Pulse Resp BP Pulse Ox
98.1 F 89 18 127/74 97
01/07/25 07:25 01/07/25 07:25 01/07/25 07:25 01/07/25 07:25 01/07/25 07:25
I&O
01/06/25 01/07/25 01/08/25
06:59 06:59 06:59
Intake Total 2520 / 2520 2640 / 2640
Output Total 700 / 700 3900 / 3900
Balance 1820 / 1820 -1260 / -1260
Physical Exam
-
General: No Apparent Distress
HEENT: Normocephalic and Atraumatic
Respiratory: Negative Wheezes
Cardiac: Regular Rhythm
GI: Soft and Nontender
Musculoskeletal: No Edema
Neuro: AO x 3
Psych: Calm
Data Reviewed
-
Total Time Spent with Patient (in minutes): 42
Labs: Labs Reviewed by me
--- NOTE | 2025-01-07 11:03 | CM ---
BC pending. Lock placed. Probable DC on Fri or Friday, Referral sent to [facility]. Was previously in LTC. PT/OT rec Snf
Plan: return to [facility]
--- NOTE | 2025-01-07 12:23 | W.PN.UPDATE ---
Update Note
Progress Note Update
pt has decided he would like to proceed with pete placement
20fr coude tip cath placed- 750cc of cloudy urine drained quickly- then pete clamped
will slowly drain bladder over the next 90 minutes
continue antibx
discharge with pete and outpt follow up
[2025-01-07 12:24] LABS: Glucose - Point of Care 292 mg/dl (70-99)
[2025-01-07] MEDS: NOVOLOG FLEXPEN-LOW RESISTANCE 3 UNITS SC (12:29)
[2025-01-07] MEDS: NORCO 5/325 1 TABLET PO ×2 (12:32→20:10)
[2025-01-07 16:51] LABS: Glucose - Point of Care 246 mg/dl (70-99)
[2025-01-07] MEDS: LIPITOR 10 MG PO (17:12)
[2025-01-07] MEDS: TYLENOL 650 MG PO (17:12)
[2025-01-07] MEDS: NOVOLOG FLEXPEN-LOW RESISTANCE 2 UNITS SC (17:13)
[2025-01-07] MEDS: STERILE WATER FOR INJECTION 10 ML IV (19:57)
[2025-01-07] MEDS: ROCEPHIN 1000 MG IV (19:58)
[2025-01-07 21:59] LABS: Glucose - Point of Care 263 mg/dl (70-99)
[2025-01-07] MEDS: DESYREL 150 MG PO (22:14)
[2025-01-07] MEDS: LANTUS 0.18 UNITS SC (22:14)
[2025-01-07] MEDS: MELATONIN 5 MG PO (22:15)
[2025-01-08] VITALS (7 sets, daily range): BP systolic 98–161; BP diastolic 62–96; PULSE 74–84
[2025-01-08 05:38] LABS: Hematocrit 30.4 % (39.0-52.0); Hemoglobin 9.7 g/dL (13.0-18.0); Mean Corp Hgb Conc. 31.9 g/dL (33.0-37.0); Mean Corpuscular Volume 90.5 fL (80.0-94.0); Platelet Count 227 10^3/uL (130-400); Red Cell Dist. Width 14.1 % (11.5-14.5)
[2025-01-08] MEDS: SYNTHROID 112 MCG PO (05:38)
[2025-01-08] MEDS: NORCO 5/325 1 TABLET PO ×3 (05:44→20:20)
[2025-01-08 06:08] LABS: Blood Urea Nitrogen 30 mg/dl (9-20); Calcium 9.0 mg/dl (8.4-10.2); Carbon Dioxide 25 mmol/L (22-30); Chloride 105 mmol/L (98-107); Estimated Creatinine Clearance 52 ml/min; Glucose 181 mg/dl (70-99); Potassium 5.0 mmol/L (3.5-5.1); Sodium 136 mmol/L (135-145); eGFR 49.33
[2025-01-08 07:56] LABS: Glucose - Point of Care 177 mg/dl (70-99)
[2025-01-08] MEDS: NOVOLOG FLEXPEN-LOW RESISTANCE 1 UNITS SC (08:48)
[2025-01-08] MEDS: FEOSOL 325 MG PO (08:49)
[2025-01-08] MEDS: PROTONIX 20 MG PO (08:49)
[2025-01-08] MEDS: VITAMIN B1 100 MG PO (08:49)
[2025-01-08] MEDS: SENOKOT 17.2 MG PO ×2 (08:49→20:19)
[2025-01-08] MEDS: LOW STRENGTH ASPIRIN 81 MG PO (08:49)
[2025-01-08] MEDS: LEXAPRO 10 MG PO (08:49)
[2025-01-08] MEDS: FLOMAX 0.4 MG PO (08:49)
[2025-01-08] MEDS: DICLOFENAC 1% TOPICAL GEL 4 GRAM TOPICAL ×2 (08:50→20:23)
[2025-01-08] MEDS: BenGay-Like 1 APPLIC TOPICAL ×2 (08:50→20:23)
[2025-01-08] MEDS: TYLENOL 650 MG PO (08:55)
[2025-01-08 11:45] LABS: Glucose - Point of Care 244 mg/dl (70-99)
--- NOTE | 2025-01-08 12:24 | W.PN.HOSP.TC ---
Today's Communication/Plan
-
titrate insulin
Ertapenem for ESBL
Assessment / Plan
Assessment / Plan
Assessment:
Syncope in setting of hypotension from UTI
- noted prior history of hypotension with syncope
- monitor on tele
- monitor orthostatic VS
- on Midodrine TID with parameters
- compression therapy
UTI
- noted history of prior complicated pyelonephritis with moderate to left hydroureteronephrosis. Was previously recommended outpatient cystoscopy
- CT: acute cystitis. Cannot rule out ascending urinary tract infection, Moderate bilateral hydroureteronephrosis diffusely, possibly reflecting a component of outlet obstruction
- no improvement with Cefdinir - burning urine persists
- ESBL UTI - continue IV Ertapenem x 14 days. Will need Midline at discharge
- Urology consulted; s/p Lock. will need OP Cysto/urodynamics
Acute on chronic low back pain secondary to fall
- L Xray: moderate to severe degenerative disc disease, 1.1 cm grade 1 anterolisthesis of L5 on S1, chronic superior endplate fracture of L3
- PT/OT
- pain control; prn [place]
CR on suspected CKD stage 3
- Cr baseline appears to be 1.5 to 1.7; currently down from 2.1 to 1.6
Chronic hyponatremia
- Sodium 130 -> 136 today
Type 2 diabetes
- Hold Jardiance
- continue Lantus; increase to 20 units
- add Aspart 5 units
- Insulin sliding scale
- A1c is 7.2%
History of CVA
- continue aspirin, Plavix, statin
Hypothyroidism
- continue levothyroxine
BPH with MCCRACKEN
- continue tamsulosin
Constipation
Chronic anemia
- stable
- continue oral iron
Anxiety/depression
- continue Lexapro
Insomnia
- continue trazodone
DVT ppx: Heparin
Code: DNR/DNI
Anticipated Discharge: > 48 hours
Subjective/Interval History
-
Date of Service: January 08, 2025
resting comfortably
Urine clear/yellow
Objective Data
-
Labs:
Laboratory Results
01/08/25
05:19
WBC 6.1
Hgb 9.7 L
Hct 30.4 L
Plt Count 227
Sodium 136
Potassium 5.0
Chloride 105
Carbon Dioxide 25
BUN 30 H
Creatinine 1.6 H
Glucose 181 H
Calcium 9.0
Vital Signs:
Vital Signs
Temp Pulse Resp BP Pulse Ox
97.9 F 75 18 137/83 95
01/08/25 11:14 01/08/25 11:14 01/08/25 11:14 01/08/25 11:14 01/08/25 11:14
I&O
01/07/25 01/08/25 01/09/25
06:59 06:59 06:59
Intake Total 2640 / 2640 1140 / 1140
Output Total 3900 / 3900 3325 / 3325
Balance -1260 / -1260 -2185 / -2185
Physical Exam
-
General: No Apparent Distress
HEENT: Normocephalic and Atraumatic
Respiratory: Negative Wheezes
Cardiac: Regular Rhythm and S1/S2
GI: Soft and Nontender
Genito-urinary: No Costovertebral Tender
Neuro: AO x 3
Psych: Calm
Data Reviewed
-
Total Time Spent with Patient (in minutes): 41
Labs: Labs Reviewed by me
[2025-01-08] MEDS: NOVOLOG FLEXPEN-LOW RESISTANCE 2 UNITS SC (12:31)
[2025-01-08] MEDS: INVANZ 60 MG IV (12:31)
--- NOTE | 2025-01-08 15:02 | PTCARENOTE ---
Report given to Heath VERMA on . Pt. transferred to [facility] via bed with all belongings.
[2025-01-08 16:49] LABS: Glucose - Point of Care 238 mg/dl (70-99)
[2025-01-08] MEDS: NOVOLOG FLEXPEN-LOW RESISTANCE 3 UNITS SC (17:16)
[2025-01-08] MEDS: NOVOLOG FLEXPEN 5 UNITS SC (17:17)
[2025-01-08] MEDS: LIPITOR 10 MG PO (17:18)
[2025-01-08 21:23] LABS: Glucose - Point of Care 218 mg/dl (70-99)
[2025-01-08] MEDS: MELATONIN 5 MG PO (21:57)
[2025-01-08] MEDS: DESYREL 150 MG PO (21:58)
[2025-01-08] MEDS: LANTUS 0.2 UNITS SC (22:10)
[2025-01-09 03:38] VITALS: BP 115/76
[2025-01-09] MEDS: SYNTHROID 112 MCG PO (05:56)
[2025-01-09] MEDS: NORCO 5/325 1 TABLET PO ×3 (05:59→22:22)
[2025-01-09 07:56] LABS: Hematocrit 29.5 % (39.0-52.0); Hemoglobin 9.8 g/dL (13.0-18.0); Mean Corp Hgb Conc. 33.2 g/dL (33.0-37.0); Mean Corpuscular Volume 89.7 fL (80.0-94.0); Platelet Count 260 10^3/uL (130-400); Red Cell Dist. Width 13.9 % (11.5-14.5)
[2025-01-09 08:00] VITALS: BP 124/81
[2025-01-09] MEDS: FEOSOL 325 MG PO (08:07)
[2025-01-09] MEDS: FLOMAX 0.4 MG PO (08:07)
[2025-01-09] MEDS: SENOKOT 17.2 MG PO (08:07)
[2025-01-09] MEDS: LOW STRENGTH ASPIRIN 81 MG PO (08:07)
[2025-01-09] MEDS: VITAMIN B1 100 MG PO (08:07)
[2025-01-09] MEDS: LEXAPRO 10 MG PO (08:07)
[2025-01-09] MEDS: PROTONIX 20 MG PO (08:07)
[2025-01-09] MEDS: DICLOFENAC 1% TOPICAL GEL 4 GRAM TOPICAL (08:08)
[2025-01-09 08:12] LABS: Glucose - Point of Care 134 mg/dl (70-99)
[2025-01-09] MEDS: BenGay-Like 1 APPLIC TOPICAL (08:12)
[2025-01-09] MEDS: NOVOLOG FLEXPEN 5 UNITS SC ×3 (08:13→16:47)
[2025-01-09] MEDS: NOVOLOG FLEXPEN-LOW RESISTANCE SC (08:14)
[2025-01-09 08:16] LABS: Blood Urea Nitrogen 32 mg/dl (9-20); Calcium 9.1 mg/dl (8.4-10.2); Carbon Dioxide 25 mmol/L (22-30); Chloride 104 mmol/L (98-107); Estimated Creatinine Clearance 55 ml/min; Glucose 145 mg/dl (70-99); Potassium 5.1 mmol/L (3.5-5.1); Sodium 135 mmol/L (135-145); eGFR 53.30
[2025-01-09 11:00] VITALS: BP 126/71
[2025-01-09] MEDS: INVANZ 60 MG IV (11:31)
[2025-01-09] MEDS: NOVOLOG FLEXPEN-LOW RESISTANCE 3 UNITS SC (11:39)
[2025-01-09 11:50] LABS: Glucose - Point of Care 280 mg/dl (70-99)
--- NOTE | 2025-01-09 12:21 | W.PN.HOSP.TC ---
Today's Communication/Plan
-
continue IV abx
resume Plavix
Dc planning
place Midline
Assessment / Plan
Assessment / Plan
Assessment:
Syncope in setting of hypotension from UTI
- noted prior history of hypotension with syncope
- monitor on tele
- monitor orthostatic VS
- on Midodrine TID with parameters
- compression therapy
UTI
- noted history of prior complicated pyelonephritis with moderate to left hydroureteronephrosis. Was previously recommended outpatient cystoscopy
- CT: acute cystitis. Cannot rule out ascending urinary tract infection, Moderate bilateral hydroureteronephrosis diffusely, possibly reflecting a component of outlet obstruction
- no improvement with Cefdinir - burning urine persists
- ESBL UTI - continue IV Ertapenem, day 2. Will need Midline at discharge
- Urology consulted; s/p Lock. will need OP Cysto/urodynamics
Acute on chronic low back pain secondary to fall
- L Xray: moderate to severe degenerative disc disease, 1.1 cm grade 1 anterolisthesis of L5 on S1, chronic superior endplate fracture of L3
- PT/OT - SNF
- pain control; prn [place]
CR on suspected CKD stage 3
- Cr baseline appears to be 1.5 to 1.7; currently down from 2.1 to 1.5
Chronic hyponatremia
- Sodium 130 -> 136
Type 2 diabetes
- Hold Jardiance
- continue Lantus; increase to 20 units
- continue Aspart 5 units
- Insulin sliding scale
- A1c is 7.2%
History of CVA
- continue aspirin, Plavix, statin
Hypothyroidism
- continue levothyroxine
BPH with MCCRACKEN
- continue tamsulosin
Constipation
Chronic anemia
- stable
- continue oral iron
Anxiety/depression
- continue Lexapro
Insomnia
- continue trazodone
DVT ppx: Heparin
Code: DNR/DNI
Anticipated Discharge: Within 24 hours
Subjective/Interval History
-
Date of Service: January 09, 2025
resting comfortably
no hematuria - urine less cloudy
agreeable to PT evals
Objective Data
-
Labs:
Laboratory Results
01/09/25
07:02
WBC 6.9
Hgb 9.8 L
Hct 29.5 L
Plt Count 260
Sodium 135
Potassium 5.1
Chloride 104
Carbon Dioxide 25
BUN 32 H
Creatinine 1.5 H
Glucose 145 H
Calcium 9.1
Vital Signs:
Vital Signs
Temp Pulse Resp BP Pulse Ox
98.0 F 73 18 124/81 100
01/09/25 08:00 01/09/25 08:00 01/09/25 08:00 01/09/25 08:00 01/09/25 08:00
I&O
01/08/25 01/09/25 01/10/25
06:59 06:59 06:59
Intake Total 1140 / 1140 1020 / 1020 480 / 480
Output Total 3325 / 3325 1250 / 1250 1400 / 1400
Balance -2185 / -2185 -230 / -230 -920 / -920
Physical Exam
-
General: No Apparent Distress and Appears Chronically Ill
HEENT: Normocephalic and Atraumatic
Respiratory: Negative Wheezes
Cardiac: Regular Rhythm and S1/S2
GI: Soft and Nontender
Genito-urinary: Lock
Neuro: AO x 3
Psych: Calm
Data Reviewed
-
Total Time Spent with Patient (in minutes): 41
Labs: Labs Reviewed by me
[2025-01-09] MEDS: PLAVIX 75 MG PO (12:30)
[2025-01-09 15:00] VITALS: BP 141/84; BP 88/57; BP 95/64; PULSE 71; PULSE 76; PULSE 80
[2025-01-09 16:47] LABS: Glucose - Point of Care 230 mg/dl (70-99)
[2025-01-09 16:47] LABS: Glucose - Point of Care 428 mg/dl (70-99)
[2025-01-09] MEDS: NOVOLOG FLEXPEN-LOW RESISTANCE 2 UNITS SC (16:47)
[2025-01-09] MEDS: LIPITOR 10 MG PO (16:49)
[2025-01-09 17:06] LABS: Glucose - Point of Care 176 mg/dl (70-99)
--- NOTE | 2025-01-09 17:08 | GLUCOSE ---
SITUATION:
Pt's Blood sugar came up high at > 400. I took it a second time to make sure it was accurate and it was at 230. The tech then re-calibrated the glucometer and took it for a third time and it was 178. Reached out to the MD making them aware of the
situation, to which they said that there was no need for a stat IV glucose now that the glucometer is now re-calibrated.
BACKGROUND:
ASSESSMENT:
RECOMMENDATION:
[2025-01-09] MEDS: BenGay-Like TOPICAL ×2 (20:48→21:07)
[2025-01-09] MEDS: DICLOFENAC 1% TOPICAL GEL TOPICAL ×2 (20:48→21:08)
[2025-01-09] MEDS: SENOKOT PO (20:49)
[2025-01-09] MEDS: DESYREL 150 MG PO (20:50)
[2025-01-09] MEDS: MELATONIN 5 MG PO (21:03)
[2025-01-09 21:26] LABS: Glucose - Point of Care 187 mg/dl (70-99)
[2025-01-09] MEDS: LANTUS 0.2 UNITS SC (22:22)
[2025-01-09 23:26] VITALS: BP 128/76
[2025-01-10 04:57] LABS: Hematocrit 30.0 % (39.0-52.0); Hemoglobin 10.2 g/dL (13.0-18.0); Mean Corp Hgb Conc. 34.0 g/dL (33.0-37.0); Mean Corpuscular Volume 87.0 fL (80.0-94.0); Platelet Count 262 10^3/uL (130-400); Red Cell Dist. Width 14.0 % (11.5-14.5)
[2025-01-10 05:20] LABS: Blood Urea Nitrogen 39 mg/dl (9-20); Calcium 9.3 mg/dl (8.4-10.2); Carbon Dioxide 24 mmol/L (22-30); Chloride 104 mmol/L (98-107); Estimated Creatinine Clearance 55 ml/min; Glucose 162 mg/dl (70-99); Potassium 5.0 mmol/L (3.5-5.1); Sodium 131 mmol/L (135-145); eGFR 53.30
[2025-01-10] MEDS: SYNTHROID 112 MCG PO (05:21)
[2025-01-10 08:30] VITALS: BP 115/68; BP 135/72; BP 86/53; PULSE 80; PULSE 85; PULSE 88
[2025-01-10 08:47] LABS: Glucose - Point of Care 174 mg/dl (70-99)
[2025-01-10] MEDS: FEOSOL 325 MG PO (09:12)
[2025-01-10] MEDS: LOW STRENGTH ASPIRIN 81 MG PO (09:12)
[2025-01-10] MEDS: LEXAPRO 10 MG PO (09:12)
[2025-01-10] MEDS: FLOMAX 0.4 MG PO (09:12)
[2025-01-10] MEDS: SENOKOT 17.2 MG PO (09:13)
[2025-01-10] MEDS: VITAMIN B1 100 MG PO (09:13)
[2025-01-10] MEDS: PLAVIX 75 MG PO (09:13)
[2025-01-10] MEDS: NORCO 5/325 1 TABLET PO ×2 (09:13→17:26)
[2025-01-10] MEDS: PROTONIX 20 MG PO (09:13)
[2025-01-10] MEDS: DICLOFENAC 1% TOPICAL GEL TOPICAL ×2 (09:14→21:11)
[2025-01-10] MEDS: BenGay-Like TOPICAL ×2 (09:14→21:11)
[2025-01-10] MEDS: NOVOLOG FLEXPEN-LOW RESISTANCE 1 UNITS SC ×2 (09:37→12:45)
[2025-01-10] MEDS: NOVOLOG FLEXPEN 5 UNITS SC ×3 (09:37→18:05)
--- NOTE | 2025-01-10 10:10 | W.PN.HOSP.TC ---
Addendum entered and electronically signed by Jian Nogueira MD 01/10/25 10:15:
Hyponatremia - IVF
Original Note:
Today's Communication/Plan
-
monitor orthostasis, consider midodrine adjustments
dc planning in 24 hours
Assessment / Plan
Assessment / Plan
Assessment:
Syncope in setting of hypotension from UTI
- noted prior history of hypotension with syncope
- monitor on tele
- monitor orthostatic VS
- on Midodrine TID with parameters
- compression therapy
UTI
- noted history of prior complicated pyelonephritis with moderate to left hydroureteronephrosis. Was previously recommended outpatient cystoscopy
- CT: acute cystitis. Cannot rule out ascending urinary tract infection, Moderate bilateral hydroureteronephrosis diffusely, possibly reflecting a component of outlet obstruction
- no improvement with Cefdinir - burning urine persists
- ESBL UTI - continue IV Ertapenem, day 05/28. Midline placed.
- Urology consulted; s/p Lock. will need OP Cysto/urodynamics
Acute on chronic low back pain secondary to fall
- L Xray: moderate to severe degenerative disc disease, 1.1 cm grade 1 anterolisthesis of L5 on S1, chronic superior endplate fracture of L3
- PT/OT - SNF
- pain control; prn [place]
CR on suspected CKD stage 3
- Cr baseline appears to be 1.5 to 1.7; currently down from 2.1 to 1.5
Chronic hyponatremia
- Sodium 130 -> 136
Type 2 diabetes
- Hold Jardiance
- continue Lantus; increase to 20 units
- continue Aspart 5 units
- Insulin sliding scale
- A1c is 7.2%
History of CVA
- continue aspirin, Plavix, statin
Hypothyroidism
- continue levothyroxine
BPH with MCCRACKEN
- continue tamsulosin
Constipation
Chronic anemia
- stable
- continue oral iron
Anxiety/depression
- continue Lexapro
Insomnia
- continue trazodone
DVT ppx: Heparin
Code: DNR/DNI
Anticipated Discharge: Within 24 hours
Subjective/Interval History
-
Date of Service: January 10, 2025
low BP with standing 15 minutes after midodrine
Objective Data
-
Labs:
Laboratory Results
01/10/25
04:33
WBC 9.3
Hgb 10.2 L
Hct 30.0 L
Plt Count 262
Sodium 131 L
Potassium 5.0
Chloride 104
Carbon Dioxide 24
BUN 39 H
Creatinine 1.5 H
Glucose 162 H
Calcium 9.3
Vital Signs:
Vital Signs
Temp Pulse Resp BP Pulse Ox
98.0 F 80 16 135/72 97
01/10/25 08:30 01/10/25 08:30 01/10/25 08:30 01/10/25 08:30 01/10/25 08:30
I&O
01/09/25 01/10/25 01/11/25
06:59 06:59 06:59
Intake Total 1020 / 1020 960 / 960
Output Total 1250 / 1250 3300 / 3300
Balance -230 / -230 -2340 / -2340
Physical Exam
-
General: No Apparent Distress
HEENT: Normocephalic and Atraumatic
Respiratory: Negative Wheezes
Cardiac: Regular Rhythm and S1/S2
GI: Soft
Musculoskeletal: Other (RUE midline)
Neuro: AO x 3
Psych: Calm
Data Reviewed
-
Total Time Spent with Patient (in minutes): 41
Labs: Labs Reviewed by me
[2025-01-10] MEDS: NSS 500 IV (10:51)
[2025-01-10 11:00] VITALS: BP 101/63; BP 119/71; BP 95/60; PULSE 77; PULSE 78; PULSE 83
[2025-01-10] MEDS: INVANZ 60 MG IV (11:27)
--- NOTE | 2025-01-10 11:35 | CM ---
Chart reviewed. Patient is a LTC resident at [facility].
Patient will need continuous IV abx for UTI. Script provided to [facility] liaison
Per hospitalist, patient can likely d/c tomorrow
[facility]
Report: [phone]

Plan: Return to [facility], anticipating tomorrow
[2025-01-10 12:09] LABS: Glucose - Point of Care 184 mg/dl (70-99)
[2025-01-10 12:29] VITALS: BP 106/63; BP 119/61; BP 95/60
--- NOTE | 2025-01-10 13:31 | W.DCSUMMARY ---
Discharge Summary
Discharge Data
Date of Admission: 01/05/25
Date of Discharge: 01/11/25
-
Pending Results: No
Hospital Course
59 y/o M, hx of CVA, chronic anemia, depression/anxiety, type 2 DM, chronic hyponatremia neurogenic bladder presented to ER with hypotension in setting of chronic orthostasis and acute UTI/Urinary retention in setting of neurogenic bladder. He was
started on empiric Rocephin and IVF. Cultures grew ESBL and he was switched to Ertapenem (midline was placed for 2 total weeks of antibiotics ending 01/21/25). A CT showed significant distended bladder and bilateral hydronephrosis; a pete was placed
by Urology. He was recommended to follow up with outpatient Urology for cystoscopy and urodynamic studies.
For his hypotension/chronic orthostasis, patient received IVF And compression therapy. Midodrine was increased from 10mg TID to 15mg TID due to orthostasis.
He was discharged to SNF on 01/11/25.
Discharge Plan
-
Patient Disposition: Prison/SNF
Discharge Diagnosis/Procedures: hypotension/orthostasis. ESBL UTI. Neurogenic bladder with distended bladder and hydro-nephrosis
Condition: Fair
Diet: Diabetic, Carb Controlled
Activity: As tolerated
Bathing Restrictions: None
Others Tests: cytoscopy and urodynamic testing outpatient Urology
Referrals:
Tamanna Harrell MD [Family Provider]
Taj Qureshi MD [Active, Urology]
Referral Note: call dr qureshi [phone] to set up evalution for removal pete
Mert Siu Jr., MD [Active, Urology] - in two to four weeks
Referral Note: call dr qureshi [phone] for next treatment steps
Prescriptions:
New
ertapenem 1 gram recon soln
1 g IV DAILY 10 Days
insulin aspart U-100 100 unit/mL (3 mL) Insulin Pen
5 unit SC AC Qty: 15 0RF
Continued
clopidogrel 75 mg Tablet
75 mg PO DAILY Qty: 12 0RF
aspirin 81 mg Tablet,Chewable
81 mg PO DAILY Qty: 30 0RF
tamsulosin 0.4 mg Capsule
0.4 mg PO DAILY Qty: 30 0RF
pantoprazole 20 mg Tablet,Delayed Release (Dr/Ec)
20 mg PO DAILY Qty: 30 0RF
acetaminophen [Tylenol] 325 mg Tablet
650 mg PO Q6HPRN PRN (Reason: MILD PAIN)
trazodone 50 mg Tablet
150 mg PO HS
melatonin 3 mg Tablet
5 mg PO HS
levothyroxine [Synthroid] 88 mcg Tablet
112 mcg PO DAILY
magnesium hydroxide [Milk of Magnesia] 400 mg/5 mL Suspension
2,400 mg PO DAILYPRN PRN (Reason: IF NO BM ON 3RD DAY)
bisacodyl [Dulcolax (bisacodyl)] 10 mg Suppository
10 mg WA DAILYPRN PRN (Reason: IF NO BM AFTR MOM)
Fleet Enema 19-7 gram/118 mL Enema
118 ml WA DAILYPRN PRN (Reason: IF NO BM AFTR DULOLCAX)
sennosides [senna] 8.6 mg Tablet
17.2 mg PO BID
ondansetron HCl 4 mg Tablet
4 mg PO Q8H PRN (Reason: nausea)
thiamine HCl (vitamin B1) 100 mg Tablet
100 mg PO DAILY
ferrous sulfate 325 mg (65 mg iron) Tablet
325 mg PO DAILY
escitalopram oxalate [Lexapro] 10 mg Tablet
10 mg PO DAILY
Jardiance 10 mg Tablet
10 mg PO DAILY
atorvastatin 40 mg tablet
10 mg PO QPM
insulin lispro [Humalog U-100 Insulin] 100 unit/mL Solution
1 sliding scale dose SC DIRECTED
diclofenac sodium-menthol 1.5-10 % Combo Pack
1 pkg TOPICAL BID
Rx Instructions:
lower back
Changed
insulin glargine [Lantus Solostar U-100 Insulin] 100 unit/mL (3 mL) Insulin Pen
20 unit SC HS Qty: 0 0RF
midodrine 10 mg Tablet
15 mg PO TID Qty: 0 0RF
Discontinued
cefdinir 300 mg capsule
300 mg PO BID Qty: 16 0RF
Discharge Orders:
Discharge Patient (As Directed); Ordered 01/11/25
Ordered By: Jian Nogueira
Discharge Date and Time
Print Language: TUVALUAN
[2025-01-10] MEDS: ZOFRAN 4 MG PO (14:00)
[2025-01-10 16:00] VITALS: BP 151/84
[2025-01-10 17:23] LABS: Glucose - Point of Care 137 mg/dl (70-99)
[2025-01-10] MEDS: NOVOLOG FLEXPEN-LOW RESISTANCE SC (17:24)
[2025-01-10] MEDS: LIPITOR 10 MG PO (17:24)
[2025-01-10] MEDS: SENOKOT PO (18:57)
[2025-01-10 21:38] LABS: Glucose - Point of Care 138 mg/dl (70-99)
[2025-01-10] MEDS: LANTUS 0.2 UNITS SC (22:11)
[2025-01-10] MEDS: MELATONIN 5 MG PO (22:11)
[2025-01-10] MEDS: DESYREL 150 MG PO (22:11)
[2025-01-10] MEDS: FLUSH (NSS) 1 FLUSH IV (22:18)
[2025-01-10 23:21] VITALS: BP 125/80
[2025-01-11 06:14] LABS: Blood Urea Nitrogen 38 mg/dl (9-20); Calcium 9.6 mg/dl (8.4-10.2); Carbon Dioxide 25 mmol/L (22-30); Chloride 106 mmol/L (98-107); Estimated Creatinine Clearance 55 ml/min; Glucose 143 mg/dl (70-99); Potassium 5.3 mmol/L (3.5-5.1); Sodium 132 mmol/L (135-145); eGFR 53.30
[2025-01-11] MEDS: SYNTHROID 112 MCG PO (06:23)
[2025-01-11 07:52] VITALS: BP 120/80
[2025-01-11 07:53] LABS: Glucose - Point of Care 132 mg/dl (70-99)
[2025-01-11] MEDS: NOVOLOG FLEXPEN-LOW RESISTANCE SC ×2 (07:58→16:53)
[2025-01-11] MEDS: NORCO 5/325 1 TABLET PO ×2 (07:59→16:53)
[2025-01-11] MEDS: FEOSOL 325 MG PO (08:00)
[2025-01-11] MEDS: VITAMIN B1 100 MG PO (08:00)
[2025-01-11] MEDS: LEXAPRO 10 MG PO (08:00)
[2025-01-11] MEDS: FLOMAX 0.4 MG PO (08:00)
[2025-01-11] MEDS: PROTONIX 20 MG PO (08:00)
[2025-01-11] MEDS: LOW STRENGTH ASPIRIN 81 MG PO (08:00)
[2025-01-11] MEDS: PLAVIX 75 MG PO (08:00)
[2025-01-11] MEDS: SENOKOT 17.2 MG PO (08:00)
[2025-01-11] MEDS: DICLOFENAC 1% TOPICAL GEL 4 GRAM TOPICAL (08:01)
[2025-01-11] MEDS: BenGay-Like 1 APPLIC TOPICAL (08:02)
[2025-01-11] MEDS: NOVOLOG FLEXPEN 5 UNITS SC ×3 (08:02→16:54)
[2025-01-11] MEDS: LOKELMA 10 GRAM PO (08:47)
[2025-01-11] MEDS: CALCIUM GLUCONATE 1000 MG IV (08:47)
[2025-01-11] MEDS: DEXTROSE 50% SYRINGE 25 GRAMS IV (08:48)
[2025-01-11] MEDS: NOVOLIN R 0.05 UNITS IV (08:51)
[2025-01-11] MEDS: INVANZ 60 MG IV (12:04)
[2025-01-11] MEDS: NOVOLOG FLEXPEN-LOW RESISTANCE 1 UNITS SC (12:08)
[2025-01-11 12:09] LABS: Glucose - Point of Care 172 mg/dl (70-99)
[2025-01-11 12:21] VITALS: BP 136/84; BP 86/57; PULSE 71; PULSE 77
[2025-01-11 12:59] VITALS: BP 102/66; BP 111/71; PULSE 71; PULSE 84
[2025-01-11 13:23] LABS: Potassium 4.7 mmol/L (3.5-5.1)
--- NOTE | 2025-01-11 13:36 | CM ---
Addendum entered by Ayad Duran 01/11/25 15:41:
Spoke w/ Brenda/[facility] liaison, can accept patient today w/ his pending auth. Pending info provided and contact for facility to follow up.
Transport forms provided to to arrange ambulance
Updated hospitalist, will work on d/c order
Original Note:
Chart reviewed. Plan is for patient to return to [facility] into skilled rehab
[facility] auth initiated in [facility], clinicals uploaded for review
Pending cert # [id number]
Patient will require ambulance transport at d/c
[facility]
Report: [phone]

Plan: D/c to [facility]
--- NOTE | 2025-01-11 13:47 | W.PN.HOSP.TC ---
Today's Communication/Plan
-
dc to SNF pending auth
Assessment / Plan
Assessment / Plan
Assessment:
Syncope in setting of hypotension from UTI
- noted prior history of hypotension with syncope
- monitor on tele
- monitor orthostatic VS
- on Midodrine TID with parameters; increase to 15mg TID
- compression therapy
UTI
- noted history of prior complicated pyelonephritis with moderate to left hydroureteronephrosis. Was previously recommended outpatient cystoscopy
- CT: acute cystitis. Cannot rule out ascending urinary tract infection, Moderate bilateral hydroureteronephrosis diffusely, possibly reflecting a component of outlet obstruction
- no improvement with Cefdinir - burning urine persists
- ESBL UTI - continue IV Ertapenem, day 06/28. Midline placed.
- Urology consulted; s/p Lock. will need OP Cysto/urodynamics
Acute on chronic low back pain secondary to fall
- L Xray: moderate to severe degenerative disc disease, 1.1 cm grade 1 anterolisthesis of L5 on S1, chronic superior endplate fracture of L3
- PT/OT - SNF
- pain control; prn [place]
CR on suspected CKD stage 3
- Cr baseline appears to be 1.5 to 1.7; currently down from 2.1 to 1.5
Chronic hyponatremia
- Sodium 130 -> 136
Hyperkalemia
- s/p IV calcium, temporization along with Lokelma. repeat 4.7
Type 2 diabetes
- Hold Jardiance; resume at discharge
- continue Lantus; increase to 20 units
- continue Aspart 5 units
- Insulin sliding scale
- A1c is 7.2%
History of CVA
- continue aspirin, Plavix, statin
Hypothyroidism
- continue levothyroxine
BPH with MCCRACKEN
- continue tamsulosin
Constipation
Chronic anemia
- stable
- continue oral iron
Anxiety/depression
- continue Lexapro
Insomnia
- continue trazodone
DVT ppx: Heparin
Code: DNR/DNI
More than 30 minutes spent in discharge including
Final examination of the patient
Summarizing hospital stay
Instructions for continuing care to all relevant caregivers
Preparation of discharge records, prescriptions, and referral forms
Total time spent (in minutes): 41
Anticipated Discharge: Within 24 hours
Subjective/Interval History
-
Date of Service: January 11, 2025
resting comfortably, no complaints at present
Midodrine increased to 15mg TID due to orthostasis on 10mg dosing
Objective Data
-
Labs:
Laboratory Results
01/11/25 01/11/25
05:40 12:55
Sodium 132 L
Potassium 5.3 H 4.7
Chloride 106
Carbon Dioxide 25
BUN 38 H
Creatinine 1.5 H
Glucose 143 H
Calcium 9.6
Vital Signs:
Vital Signs
Temp Pulse Resp BP Pulse Ox
98.8 F 71 16 133/75 94
01/11/25 07:52 01/11/25 07:52 01/11/25 07:52 01/11/25 12:05 01/11/25 07:52
I&O
01/10/25 01/11/25 01/12/25
06:59 06:59 06:59
Intake Total 960 / 960 1760 / 1760
Output Total 3300 / 3300 1600 / 1600
Balance -2340 / -2340 160 / 160
Physical Exam
-
General: No Apparent Distress
HEENT: Normocephalic and Atraumatic
Respiratory: Negative Wheezes
Cardiac: Regular Rhythm and S1/S2
GI: Soft
Neuro: AO x 3
Psych: Calm
Data Reviewed
-
Total Time Spent with Patient (in minutes): 42
Labs: Labs Reviewed by me
[2025-01-11 15:59] VITALS: BP 160/79
[2025-01-11 16:54] LABS: Glucose - Point of Care 146 mg/dl (70-99)
--- NOTE | 2025-01-11 17:04 | W.DCSUMMARY ---
Discharge Summary
Discharge Data
Date of Admission: 01/05/25
Date of Discharge: 01/11/25
-
Pending Results: No
Hospital Course
59 y/o M, hx of CVA, chronic anemia, depression/anxiety, type 2 DM, chronic hyponatremia neurogenic bladder presented to ER with hypotension in setting of chronic orthostasis and acute UTI/Urinary retention in setting of neurogenic bladder. He was
started on empiric Rocephin and IVF. Cultures grew ESBL and he was switched to Ertapenem (midline was placed for 2 total weeks of antibiotics ending 01/21/25). A CT showed significant distended bladder and bilateral hydronephrosis; a pete was placed
by Urology. He was recommended to follow up with outpatient Urology for cystoscopy and urodynamic studies.
For his hypotension/chronic orthostasis, patient received IVF And compression therapy. Midodrine was increased from 10mg TID to 15mg TID due to orthostasis.
He was discharged to SNF on 01/11/25.
Discharge Plan
-
Patient Disposition: [facility]pc/SNF
Discharge Diagnosis/Procedures: hypotension/orthostasis. ESBL UTI. Neurogenic bladder with distended bladder and hydro-nephrosis
Condition: Fair
Diet: Diabetic, Carb Controlled
Activity: As tolerated
Bathing Restrictions: None
Others Tests: cytoscopy and urodynamic testing outpatient Urology
Referrals:
Tamanna Harrell MD [Family Provider]
Taj Qureshi MD [Active, Urology]
Referral Note: call dr qureshi [phone] to set up evalution for removal pete
Mert Siu Jr., MD [Active, Urology] - in two to four weeks
Referral Note: call dr qureshi [phone] for next treatment steps
Prescriptions:
New
ertapenem 1 gram recon soln
1 g IV DAILY 10 Days
insulin aspart U-100 100 unit/mL (3 mL) Insulin Pen
5 unit SC AC Qty: 15 0RF
Continued
clopidogrel 75 mg Tablet
75 mg PO DAILY Qty: 12 0RF
aspirin 81 mg Tablet,Chewable
81 mg PO DAILY Qty: 30 0RF
tamsulosin 0.4 mg Capsule
0.4 mg PO DAILY Qty: 30 0RF
pantoprazole 20 mg Tablet,Delayed Release (Dr/Ec)
20 mg PO DAILY Qty: 30 0RF
acetaminophen [Tylenol] 325 mg Tablet
650 mg PO Q6HPRN PRN (Reason: MILD PAIN)
trazodone 50 mg Tablet
150 mg PO HS
melatonin 3 mg Tablet
5 mg PO HS
levothyroxine [Synthroid] 88 mcg Tablet
112 mcg PO DAILY
magnesium hydroxide [Milk of Magnesia] 400 mg/5 mL Suspension
2,400 mg PO DAILYPRN PRN (Reason: IF NO BM ON 3RD DAY)
bisacodyl [Dulcolax (bisacodyl)] 10 mg Suppository
10 mg MD DAILYPRN PRN (Reason: IF NO BM AFTR MOM)
Fleet Enema 19-7 gram/118 mL Enema
118 ml MD DAILYPRN PRN (Reason: IF NO BM AFTR DULOLCAX)
sennosides [senna] 8.6 mg Tablet
17.2 mg PO BID
ondansetron HCl 4 mg Tablet
4 mg PO Q8H PRN (Reason: nausea)
thiamine HCl (vitamin B1) 100 mg Tablet
100 mg PO DAILY
ferrous sulfate 325 mg (65 mg iron) Tablet
325 mg PO DAILY
escitalopram oxalate [Lexapro] 10 mg Tablet
10 mg PO DAILY
Jardiance 10 mg Tablet
10 mg PO DAILY
atorvastatin 40 mg tablet
10 mg PO QPM
insulin lispro [Humalog U-100 Insulin] 100 unit/mL Solution
1 sliding scale dose SC DIRECTED
diclofenac sodium-menthol 1.5-10 % Combo Pack
1 pkg TOPICAL BID
Rx Instructions:
lower back
Changed
insulin glargine [Lantus Solostar U-100 Insulin] 100 unit/mL (3 mL) Insulin Pen
20 unit SC HS Qty: 0 0RF
midodrine 10 mg Tablet
15 mg PO TID Qty: 0 0RF
Discontinued
cefdinir 300 mg capsule
300 mg PO BID Qty: 16 0RF
Discharge Orders:
Discharge Patient (As Directed); Ordered 01/11/25
Ordered By: Jian Nogueira
Discharge Date and Time
Print Language: SLOVAK
[2025-01-11] MEDS: LIPITOR 10 MG PO (17:45)
[2025-01-11] MEDS: FLUZONE (6 mos+) 2025-2026 FORMULA 0.5 ML IM (17:49)
[2025-01-11 19:13] VITALS: BP 129/77
--- NOTE | 2025-01-11 19:28 | PTCARENOTE ---
[facility] dc'd [facility]. [facility] Belongings with patient.
== END 2025-01-11 19:31 | DRG 690 ==
LOC: 4 WEST ACU 21:22
PROVIDERS: ADMITTING PHYSICIAN Hospitalist; ATTENDING PHYSICIAN Internal Medicine; CONSULT PHYSICIAN Specialist; EMERGENCY PHYSICIAN Emergency Medicine; FAMILY PHYSICIAN Internal Medicine
DX: N13.6 Pyonephrosis (principal); Z16.12 Extended spectrum beta lactamase (ESBL) resistance; E87.1 Hypo-osmolality and hyponatremia; I95.1 Orthostatic hypotension; N31.9 Neuromuscular dysfunction of bladder, unspecified; E11.9 Type 2 diabetes mellitus without complications; Z86.73 Personal history of transient ischemic attack (TIA), and cerebral infarction without residual deficits; F32.A Depression, unspecified; F41.9 Anxiety disorder, unspecified; Z79.890 Hormone replacement therapy; Z79.84 Long term (current) use of oral hypoglycemic drugs; Z79.4 Long term (current) use of insulin; E03.9 Hypothyroidism, unspecified; N40.0 Benign prostatic hyperplasia without lower urinary tract symptoms; W19.XXXA Unspecified fall, initial encounter; G89.29 Other chronic pain; F17.210 Nicotine dependence, cigarettes, uncomplicated; Z87.440 Personal history of urinary (tract) infections; Z79.82 Long term (current) use of aspirin; Z79.02 Long term (current) use of antithrombotics/antiplatelets; N17.9 Acute kidney failure, unspecified; E11.22 Type 2 diabetes mellitus with diabetic chronic kidney disease; N18.30 Chronic kidney disease, stage 3 unspecified; E87.5 Hyperkalemia; D64.9 Anemia, unspecified; Z66 Do not resuscitate; G47.00 Insomnia, unspecified; I10 Essential (primary) hypertension; K21.9 Gastro-esophageal reflux disease without esophagitis; F10.11 Alcohol abuse, in remission; F15.91 Other stimulant use, unspecified, in remission
CPT/HCPCS: 70450; 72110; 74176; 80048; 80053; 81003; 81015; 82962; 83036; 83930; 84132; 84300; 84484; 85025; 85027; 87070; 87077; 87086; 87186; 93005; 96361; 96374; 97110; 97116; 97163; 97166; 97530; 99285; 99406; J1335

== ENCOUNTER 2025-01-25 07:11 | Inpatient (IN) | payer OTHER, SELFPAY ==
[2025-01-25] VITALS (10 sets, daily range): BP systolic 99–124; BP diastolic 50–74; BMI 22.3
--- NOTE | 2025-01-25 04:41 | ED.GENMED ---
History of Present Illness
General
Chief Complaint: Weakness
Time Seen by Provider: 01/25/25 04:29
History of Present Illness
History of Present Illness:
59-year-old male with history of CVA, chronic anemia, depression/anxiety, type 2 DM, chronic hyponatremia, neurogenic bladder with chronic indwelling Lock presenting to the emergency department for generally feeling unwell and low blood pressure.
[facility] He notes that he is now feeling well for the past day with some generalized weakness and fatigue. Patient with recent hospital admission from 01/05 to 01/11, at which time patient had chronic
orthostatic hypotension and ESBL urinary tract infection. Patient received ertapenem until 01/21 via PICC line. His midodrine was also increased during his hospital stay. Patient denies chest pain, difficulty breathing. Note some generalized
abdominal discomfort, as well as some dysuria. Denies fever or cough. Denies focal weakness. Notes that he felt like he was going to fall prior to arrival, however was able to catch himself. Denies additional acute medical complaints
Past History
Past History
ED Past Medical History: CVA and IDDM
ED Past Surgical History: Orthopedic
Social History
Tobacco: Non-smoker
Alcohol: None
Phy Exam
Physical Exam
Physical Exam:
General: Well-appearing, no clinical signs of dehydration, nontoxic and in no acute distress
HEENT: protecting airway
Neck: appears supple
CV: Normal heart rate, regular rhythm
Resp: No accessory muscle use, no increased work of breathing, lungs clear to auscultation bilaterally
Abd: Soft and non-distended, no tenderness to palpation
Extremities: No deformities, no swelling. Small abrasion to the right knee
Neuro: alert, no focal neurologic deficit
: deferred
Rectal: deferred
Psych: Normal affect
Skin: Intact
Course
Orders/Labs/Results
Orders:
Orders
01/25/25 04:31
Electrocardiogram (*1) Urgent
Reason for Study: Fatigue / Weakness
EKG- Treatment ONCE
0.9% Sodium Chloride 1000 ml [Nss] 1,000 ml IV BOLUS
01/25/25 04:39
Complete Blood Count/With Diff Urgent
Comprehensive Metabolic Panel Urgent
Urinalysis Reflex To Culture Urgent
Date Specimen was Collected: 01/25/25
Time Specimen was Collected: 04:35
Urine Microscopic Reflex Cult Urgent
Urine Culture Urgent
JAVIER Source: U
Specimen Description:
Date Specimen was Collected: 01/25/25
Time Specimen was Collected: 04:35
01/25/25 05:50
0.9% Sodium Chloride 1000 ml [Nss] 1,000 ml IV BOLUS
01/25/25 06:00
Lactic Acid Q4H
Comment: CANCEL 2nd LACTIC ACID IF 1st LACTIC ACID IS LESS THAN 2
01/25/25 10:00
Lactic Acid Q4H
Comment: CANCEL 2nd LACTIC ACID IF 1st LACTIC ACID IS LESS THAN 2
Abnormal Lab Results
01/25/25
04:39
WBC 15.0 H 10^3/uL
(4.8-10.8)
RBC 3.67 L 10^6/uL
(4.70-6.10)
Hgb 10.6 L g/dL
(13.0-18.0)
Hct 32.8 L %
(39.0-52.0)
MCHC 32.3 L g/dL
(33.0-37.0)
Abs Immat Gran (auto) 0.1 H 10^3/uL
(0-0.05)
Absolute Neuts (auto) 11.6 H 10^3/uL
(1.4-6.5)
Absolute Monos (auto) 1.8 H 10^3/uL
(0.1-0.6)
Immature Gran % 0.6 H %
(0-0.5)
Neutrophils % 77.2 H %
(42.2-75.2)
Lymphocytes % 8.4 L %
(20.5-51.1)
Monocytes % 11.8 H %
(1.7-9.3)
Sodium 133 L mmol/L
(135-145)
BUN 46 H mg/dl
(9-20)
Creatinine 2.0 H mg/dL
(0.7-1.3)
Glucose 144 H mg/dl
(70-99)
Ur Occult Blood Reflex 4+ A
(Negative)
Leukocyte Esterase Rfl 2+ A
(Negative)
Urine Glucose 4+ A
(Negative)
Urine Albumin (Reflex) 3+ A
(Neg - Trace)
01/25/25 04:39
01/25/25 04:39
Vital Signs
Initial and Last Documented VS:
Initial Vital Signs
Pulse Ox
96
01/25/25 04:26
Last Documented Vital Signs
Temp Pulse Resp BP Pulse Ox
98.1 F 88 14 115/67 97
01/25/25 04:35 01/25/25 04:30 01/25/25 04:30 01/25/25 04:27 01/25/25 04:45
MDM/Problems Addressed
MDM/Problems Addressed:
59-year-old male with history of CVA, chronic anemia, depression/anxiety, type 2 DM, chronic hyponatremia, neurogenic bladder with chronic indwelling Lock presenting to the emergency department for generalized fatigue and weakness. Vital signs on
arrival are normal.
On exam, patient is in no acute distress. He is awake, alert. Unremarkable cardiac and pulmonary exam. Noted to have low blood pressure at his [facility] facility, however known history of orthostatic hypotension on midodrine 3 times a day
per day. Patient has generalized weakness. Intact strength and sensation bilaterally, no lateralizing symptoms. No present concern for acute central neurologic process. No tenderness to abdomen without concern for serious process. Known history
of complicated UTIs with last Lock catheter exchange about 2 weeks ago. Also notes some dysuria. Will plan for laboratory analysis and urinalysis. Will change patient's Lock catheter. EKG obtained on arrival, nonischemic, no arrhythmia
06:00 -patient's labs show leukocytosis, as well as mild CR. Urinalysis shows elements of infection, with very similar laboratory analysis findings as presentation on 01/05. Patient notes that he has been having dysuria. For this reason concern
again for complicated UTI as etiology of patient's symptoms. On review of urine culture from 01/05, sensitive only to IV antibiotics. Patient sensitive to Zosyn. Will start patient on Zosyn and IV fluids and plan for admission
*Pulse Oximetry
SaO2: 97
Patient hypoxic: no
*EKG
Interpreted by ED Provider?: Yes
EKG Intrepretation Date: 01/25/25
EKG Intrepretation Time: 05:36
Interpretation: normal
Heart Rate: 86
Rate: normal
Rhythm: sinus
[place]: normal axis
Interval: normal interval
QRS Pattern: normal QRS
Ischemia: no ischemia
*Critical Care Note
Total Time (30-74mins, 75-104mins- exclusive of procedures): Not Applicable
ED Attending Note
-
Portions of this chart may have been created with voice recognition software.� Occasional wrong word or��sound alike� substitutions may have occurred due to the inherent limitations of voice recognition software.
Discharge Plan
Departure
Prescriptions:
No Action
clopidogrel 75 mg Tablet
75 mg PO DAILY Qty: 12 0RF
aspirin 81 mg Tablet,Chewable
81 mg PO DAILY Qty: 30 0RF
tamsulosin 0.4 mg Capsule
0.4 mg PO DAILY Qty: 30 0RF
pantoprazole 20 mg Tablet,Delayed Release (Dr/Ec)
20 mg PO DAILY Qty: 30 0RF
acetaminophen [Tylenol] 325 mg Tablet
650 mg PO Q6HPRN PRN (Reason: MILD PAIN)
trazodone 50 mg Tablet
150 mg PO HS
melatonin 3 mg Tablet
5 mg PO HS
levothyroxine [Synthroid] 88 mcg Tablet
112 mcg PO DAILY
magnesium hydroxide [Milk of Magnesia] 400 mg/5 mL Suspension
2,400 mg PO DAILYPRN PRN (Reason: IF NO BM ON 3RD DAY)
bisacodyl [Dulcolax (bisacodyl)] 10 mg Suppository
10 mg ME DAILYPRN PRN (Reason: IF NO BM AFTR MOM)
Fleet Enema 19-7 gram/118 mL Enema
118 ml ME DAILYPRN PRN (Reason: IF NO BM AFTR DULOLCAX)
sennosides [senna] 8.6 mg Tablet
17.2 mg PO BID
ondansetron HCl 4 mg Tablet
4 mg PO Q8H PRN (Reason: nausea)
thiamine HCl (vitamin B1) 100 mg Tablet
100 mg PO DAILY
ferrous sulfate 325 mg (65 mg iron) Tablet
325 mg PO DAILY
escitalopram oxalate [Lexapro] 10 mg Tablet
10 mg PO DAILY
Jardiance 10 mg Tablet
10 mg PO DAILY
atorvastatin 40 mg tablet
10 mg PO QPM
insulin lispro [Humalog U-100 Insulin] 100 unit/mL Solution
1 sliding scale dose SC DIRECTED
diclofenac sodium-menthol 1.5-10 % Combo Pack
1 pkg TOPICAL BID
Rx Instructions:
lower back
ertapenem 1 gram recon soln
1 g IV DAILY 10 Days
insulin aspart U-100 100 unit/mL (3 mL) Insulin Pen
5 unit SC AC Qty: 15 0RF
insulin glargine [Lantus Solostar U-100 Insulin] 100 unit/mL (3 mL) Insulin Pen
20 unit SC HS Qty: 0 0RF
midodrine 10 mg Tablet
15 mg PO TID Qty: 0 0RF
Referrals:
Tamanna Harrell MD [Family Provider]
Interventions
Interventions:
*Risk Screen - Suicide Last Done: 01/25/25 04:24
*General Assessment Last Done: 01/25/25 04:24
*Neglect/Abuse Screening Last Done: 01/25/25 04:24
*ED- Fall Risk Assessment Last Done: 01/25/25 04:24
*ED COVID-19 Vaccine History Last Done: 01/25/25 04:24
*ED Influenza Vaccine History Last Done: 01/25/25 04:24
ED- Cardiac Assessment Last Done: 01/25/25 04:24
ED- Neurological Assessment Last Done: 01/25/25 04:24
ED- Pulmonary Assessment Last Done: 01/25/25 04:24
Discharge Date and Time
Print Language: LAO
[2025-01-25] MEDS: NSS 1000 IV ×3 (04:43→12:51)
[2025-01-25 04:49] LABS: Hematocrit 32.8 % (39.0-52.0); Hemoglobin 10.6 g/dL (13.0-18.0); Mean Corp Hgb Conc. 32.3 g/dL (33.0-37.0); Mean Corpuscular Volume 89.4 fL (80.0-94.0); Nucleated Red Blood Cells % 0 % (-); Platelet Count 294 10^3/uL (130-400); Red Cell Dist. Width 13.8 % (11.5-14.5)
[2025-01-25 05:12] LABS: ALT (SGPT) 21 U/L (0-50); AST (SGOT) 17 U/L (17-59); Albumin 3.9 g/dl (3.5-5.0); Alkaline Phosphatase 121 U/L (38-126); Blood Urea Nitrogen 46 mg/dl (9-20); Calcium 9.5 mg/dl (8.4-10.2); Carbon Dioxide 23 mmol/L (22-30); Chloride 102 mmol/L (98-107); Glucose 144 mg/dl (70-99); Potassium 4.5 mmol/L (3.5-5.1); Sodium 133 mmol/L (135-145); Total Protein 6.7 g/dl (6.3-8.2); eGFR 37.74
[2025-01-25 05:45] LABS: Urine Character Slightly Cloudy (Clear)
[2025-01-25] MEDS: ZOSYN 100 IV (06:06)
[2025-01-25 06:19] LABS: Urine White Cell >100 /HPF (0-5)
[2025-01-25 06:20] LABS: Urine Red Blood Cell 0-2 /HPF (0-2)
--- NOTE | 2025-01-25 06:30 | HPS.HSE ---
Family Physician
-
Family Physician: Tamanna Harrell
Chief Complaint
-
weakness
History of Present Illness
This is a 59-year-old with past medical history significant for CVA, neurogenic bladder with chronic indwelling urinary catheter, chronic hyponatremia, insulin-dependent diabetes, anemia, anxiety, presenting to the emergency department with low
blood pressure and weakness.
Patient reported that he had just completed ertapenem on January 21 for Klebsiella ESBL UTI. He states he has been feeling unwell for 1 day and has had orthostatic symptoms feeling like he is going to fall prior to arrival in the emergency
department. He did note fall due to catching himself. He reports that he is having dysuria again. Denied fevers or chills which he did not have the last time. He denies any nausea or vomiting. He denies any diarrhea.
In the emergency department he was afebrile, blood pressure was 110/60 with a pulse of 81 and oxygen saturation of 95% on room air.
White count was 15, hemoglobin was stable at 10.6 with platelet of 294. Sodium was 133 with the rest of the electrolytes unremarkable. His creatinine is now 2.0 slightly increased from a baseline of around 1.5. Glucose was normal.
UA remains similarly positive as prior with at this time 2+ leukocyte esterase, WBCs bacteria and yeast and also dysuria polymicrobial process.
Medical History
Past Medical History
Past Medical History: Reports Other (complicated pyelonephritis, moderate to severe left hydroureteronephrosis, diabetes, CVA, hypothyroidism, BPH, constipation, chronic lower back pain,)
Past Surgical History: Reports None
Social History
Tobacco: Non-smoker
Alcohol: None
Drug: None
Family History
Family History: Not pertinent
Allergies / Home Medications
Allergies reflects when Allergies were last updated in [facility].
Home Medications with original date entered in [facility]
Allergy/Medication List:
Allergies
Allergy/AdvReac Type Severity Reaction Status Date / Time
No Known Allergies Allergy Verified 01/05/25 16:57
Home Medications
aspirin 81 mg chewable tablet 81 mg PO DAILY #30 tabs 03/25/24
clopidogrel 75 mg tablet 75 mg PO DAILY #12 tabs 03/25/24
pantoprazole 20 mg tablet,delayed release 20 mg PO DAILY #30 tabs 04/16/24
tamsulosin 0.4 mg capsule 0.4 mg PO DAILY #30 caps 04/16/24
acetaminophen 325 mg tablet (Tylenol) 650 mg PO Q6HPRN PRN MILD PAIN 07/22/24
bisacodyl 10 mg rectal suppository (Dulcolax (bisacodyl)) 10 mg NE DAILYPRN PRN IF NO BM AFTR MOM 07/22/24
insulin glargine 100 unit/mL (3 mL) subcutaneous pen (Lantus Solostar U-100 Insulin) 18 unit SC HS 07/22/24
levothyroxine 88 mcg tablet (Synthroid) 112 mcg PO DAILY 07/22/24
magnesium hydroxide 400 mg/5 mL oral suspension (Milk of Magnesia) 2,400 mg PO DAILYPRN PRN IF NO BM ON 3RD DAY 07/22/24
melatonin 3 mg tablet 5 mg PO HS 07/22/24
sodium phosphates 19 gram-7 gram/118 mL enema (Fleet Enema) 118 ml NE DAILYPRN PRN IF NO BM AFTR DULOLCAX 07/22/24
trazodone 50 mg tablet 150 mg PO HS 07/22/24
cefdinir 300 mg capsule 300 mg PO BID #16 caps 07/27/24
atorvastatin 40 mg tablet 10 mg PO QPM 01/05/25
diclofenac sodium 1.5 % topical drops-menthol 10 % roll-on combo pack 1 pkg topical BID 01/05/25
empagliflozin 10 mg tablet (Jardiance) 10 mg PO DAILY 01/05/25
escitalopram oxalate 10 mg tablet (Lexapro) 10 mg PO DAILY 01/05/25
ferrous sulfate 325 mg (65 mg iron) tablet 325 mg PO DAILY 01/05/25
insulin lispro 100 unit/mL subcutaneous solution (Humalog U-100 Insulin) 1 sliding scale dose SC DIRECTED 01/05/25
midodrine 10 mg tablet 10 mg PO TID 01/05/25
ondansetron HCl 4 mg tablet 4 mg PO Q8H PRN nausea 01/05/25
sennosides 8.6 mg tablet (senna) 17.2 mg PO BID 01/05/25
thiamine HCl (vitamin B1) 100 mg tablet 100 mg PO DAILY 01/05/25
Review of Systems
-
History Source: Patient
A 12 point ROS was completed and negative except as noted: Yes
Constitutional: Reports No Symptoms
EENT: Reports No Symptoms
Respiratory: Reports No Symptoms
Cardiac: Reports No Symptoms
Abdomen/GI: Reports No Symptoms
: Reports See HPI
Musculoskeletal: Reports No Symptoms
Skin: Reports No Symptoms
Neurological: Reports No Symptoms
Endocrine: Reports No Symptoms
Hematologic/Lymphatic: Reports No Symptoms
Psych: Reports No Symptoms
Physical Exam
Vital Signs
Vital Signs
Temp Pulse Resp BP Pulse Ox
98.1 F 81 16 110/67 93
01/25/25 04:35 01/25/25 05:45 01/25/25 05:45 01/25/25 06:00 01/25/25 05:45
Physical Exam
General: Well Developed, Well Nourished and No Apparent Distress
HEENT: NormoCephalic, Moist mucous membranes and Atraumatic
Respiratory: Clear
Cardiac: S1/S2 and Regular Rhythm; No Murmur or Rub
GI: Soft, Non Tender, Non Distended and Normal Bowel Sounds; No Organomegaly
Rectal: Deferred by Provider
Genito-urinary: Lock
Musculoskeletal: No Clubbing, No Cyanosis and No Edema
Skin: No Rash
Neuro: Nonfocal/grossly intact
Laboratory Results
-
01/25/25 04:39
01/25/25 04:39
Laboratory Results
Total Bilirubin 0.6 mg/dl (0.2-1.3) 01/25/25 04:39
AST 17 U/L (17-59) 01/25/25 04:39
ALT 21 U/L (0-50) 01/25/25 04:39
Alkaline Phosphatase 121 U/L (38-126) 01/25/25 04:39
Data Reviewed
-
Medical Tests (Nuc Med, Echo, EKG etc): Image Personally Visualized and interpreted
Lab Data: Labs Reviewed by me
Old Records: Reviewed
Impression/Plan
-
IMPRESSION:
59-year-old male with past medical history significant for diabetes, orthostatic hypotension, CVA with neurogenic bladder status post chronic indwelling urinary catheter, hypothyroid, recurrent UTIs who presents with weakness and low blood pressure
similar to his prior presentation where he was diagnosed with Klebsiella ESBL UTI. UA remains markedly positive again but this time does have yeast as well. He does have leukocytosis to 15, there is mild CR with creatinine of 2.0. Rest of
patient's labs are remarkable
PLAN:
UTI -possibly recurrent ESBL infection, complicated but no signs of sepsis at this time
- Admit to [facility]
- Urine cultures pending
- Blood cultures afebrile
- Started Zosyn in the ED, will continue for now
- Given history of ESBL, chronic indwelling cath and polymicrobial finding on UA, will consult ID
- Continue with IV fluids for now
- Continue tamsulosin
DM 2
- Basal bolus insulin with Lantus 20 units, aspart 5 3 times daily and low-dose sliding scale
- Continue Jardiance
Orthostatic hypotension
- Continue midodrine 15 mg 3 times daily
CVA
- Continue aspirin, Plavix and atorvastatin
Anemia�hemoglobin stable
-Continue iron supplementation
Hypothyroid
- On levothyroxine will continue
DVT PPX - heparin sq
Code status - Full Code ([facility] and records from halfway)
--- NOTE | 2025-01-25 08:15 | W.PN.HOSP.TC ---
Today's Communication/Plan
-
Continue IV Zosyn for now pending ID eval
May need to escalate back to meropenem
Follow urine culture
Monitor for retention
IVF
Assessment / Plan
Assessment / Plan
#CAUTI
#H/O ESBL UTI
- Presented with weakness, grossly positive UA, dysuria, WBC 15K
- UCx from 12/2024 with ESBL Klebsiella; was treated with 14 days of carbapenem
- Upon arrival urine cultures were obtained; was started on IV Zosyn empirically
- Question if reoccurrence of ESBL; has same urinary catheter from that hospital stay
- Continue with IV Zosyn empirically and follow urine culture
- Trend CBC and temperature curve, monitor UOP
- ID consult pending
#CR on CKD stage III
- Likely prerenal with associated UTI as above; no signs of urinary retention at this time
- Baseline creatinine near 1.5; unknown cause, possibly obstructive; no known systemic complication
- Presented with creatinine of 2.0; was started on maintenance IV fluids upon arrival
- Trend BMP on IVF, avoid nephrotoxins
#Neurogenic bladder
#BPH with MCCRACKEN
#H/O CVA
- Likely small vessel etiology to CVA with previous A1c near 18%, history of substance abuse
- Home regimen currently includes moderate intensity statin, DAPT with aspirin and Plavix
- Previously had chronic Lock catheter though has since been removed
- No signs of acute urine retention at this time
- Continue with home tamsulosin
#IDDM
- Most recent A1c 7.2%; no known microvascular complications, does have CVA history
- Home regimen includes glargine insulin 20 units nightly, aspart insulin 5 units AC, Jardiance
- Jardiance held, transition to ISS with Accu-Cheks, BG goal 140-180
#Orthostatic hypotension
- Possibly neurogenic associated with previous stroke
- Home regimen includes midodrine 15 mg 3 times daily
- Blood pressure currently stable
#Iron deficiency anemia
- Home regimen includes ferrous sulfate supplement
- Hemoglobin baseline near 10, where it currently is on admission labs
- No signs of active bleeding
#Hypothyroidism
- Unclear etiology, Home regimen includes levothyroxine 112 mcg daily
- No obvious signs or symptoms of thyroid dysfunction at this time
#H/O HSV encephalitis
#H/O polysubstance abuse
#H/O Alcoholism
Diet: Diabetic
DVT: SQ heparin
Code: DNR
Dispo: Previous rehab once medically stable
Anticipated Discharge: > 48 hours
Subjective/Interval History
-
Date of Service: January 25, 2025
Seen and examined at the bedside. No acute events reported since arrival. AFVSS this morning
Patient denies any acute complaints this morning.
No repeat labs since admission (630 this morning)
Objective Data
-
Labs:
Laboratory Results
01/25/25
04:39
WBC 15.0 H
Hgb 10.6 L
Hct 32.8 L
Plt Count 294
Sodium 133 L
Potassium 4.5
Chloride 102
Carbon Dioxide 23
BUN 46 H
Creatinine 2.0 H
Glucose 144 H
Calcium 9.5
Total Bilirubin 0.6
AST 17
ALT 21
Alkaline Phosphatase 121
Vital Signs:
Vital Signs
Temp Pulse Resp BP Pulse Ox
98.1 F 73 14 121/68 94
01/25/25 04:35 01/25/25 08:00 01/25/25 08:00 01/25/25 08:00 01/25/25 08:00
Review of Systems
-
History Source: Patient
All other systems: Reviewed and negative
Physical Exam
-
General: Well Developed, Well Nourished and Appears Chronically Ill
HEENT: Normocephalic, Atraumatic, Moist Mucous Membranes and Anicteric
Respiratory: Clear to Auscultation and Non Labored Respirations; Negative Accessory Resp Muscle Use
Cardiac: Regular Rhythm and S1/S2; Negative Murmur, Rub or Gallop
GI: Soft, Nontender, Nondistended and Normal Bowel Sounds
Genito-urinary: No Costovertebral Tender, Clear Urine and Lock
Musculoskeletal: No Clubbing, No Cyanosis and No Edema
Skin: Warm and Dry; Negative Rash
Neuro: AO x 3, Central Nerve's Intact and Other (Chronic deficits; no new FND)
Psych: Calm
Data Reviewed
-
Labs: Labs Reviewed by me, Discussed with Nurse and Discussed with Patient
--- NOTE | 2025-01-25 08:51 | CM ---
Chart reviewed. Patient is sleeping in ED bed unable to talk with him at this time
Spoke with Bubba VERMA at [facility]
He is a LTC resident and just completed IV abx recently
Still has RUE PICC in place
He is oriented and mostly w/c bound but able to walk with walker
Plan is for him to return to [facility] when medically cleared
Give report to [facility] rehab

CM will continue to follow up for dcp needs
[2025-01-25] MEDS: ZOSYN 50 IV (09:05)
[2025-01-25 12:41] LABS: Glucose - Point of Care 148 mg/dl (70-99)
[2025-01-25] MEDS: VITAMIN B1 100 MG PO (12:49)
[2025-01-25] MEDS: PROTONIX 20 MG PO (12:49)
[2025-01-25] MEDS: FARXIGA 10 MG PO (12:49)
[2025-01-25] MEDS: PLAVIX 75 MG PO (12:50)
[2025-01-25] MEDS: HEPARIN 5000 UNITS SC ×3 (12:50→23:17)
[2025-01-25] MEDS: FLOMAX 0.4 MG PO (12:50)
[2025-01-25] MEDS: SYNTHROID 112 MCG PO (12:50)
[2025-01-25] MEDS: SENOKOT 17.2 MG PO (12:50)
[2025-01-25] MEDS: LOW STRENGTH ASPIRIN 81 MG PO (12:50)
[2025-01-25] MEDS: FEOSOL 325 MG PO (12:50)
[2025-01-25] MEDS: LEXAPRO 10 MG PO (12:50)
[2025-01-25] MEDS: NOVOLOG FLEXPEN-LOW RESISTANCE SC ×2 (12:51→12:52)
[2025-01-25] MEDS: NOVOLOG FLEXPEN 5 UNITS SC ×2 (13:38→17:29)
--- NOTE | 2025-01-25 15:11 | CON.ID ---
Consultation
-
Date/Time Consultation Requested: January 25, 2025 11:00
Date/Time Consultation Performed: January 25, 2025 1515
Requesting Provider: Dr. Manning
Performing Provider: Dr. Mandi Em
Reason for Consultation: ESBL UTI
Chief Complaint / Past History
Chief Complaint
Weakness
History of Present Illness
59-year-old male with history of diabetes mellitus, CVA, bladder outlet obstruction who presented from [facility] on 01/25 with weakness and low blood pressure. Patient was recently hospitalized January 05 - January 11 with fever and hypotension. CAT
scan showed moderate bilateral hydroureteronephrosis. Lock placed. Urine culture positive for ESBL Klebsiella. [facility] with Lock and continue ertapenem to complete total 14-day course which he completed January
7. He still has the midline in place. In the prison he developed low blood pressure, felt dizzy, felt unwell. No fever or chills this time. No flank pain. No diarrhea. He reports he drinks fluids. White count 15. Urinalysis from Lock
2+ leukocyte esterase more than 100 white blood cells.
Past History
Additional Past Medical History:
DM2
CVA
h/o substance abuse
Hypothyroidism
BPH
Bladder outlet obstruction
CKD2
Chronic back pain
Allergy History:
No Known Allergies Allergy (Verified 01/25/25 04:24)
Medications Reviewed: Yes
Current Antibiotics:
Zosyn
Social History
Tobacco: Non-Smoker
Alcohol: None
Drug: Former User (substance abuse)
Living: Residential
Family History
Family History: Not Pertinent
Review of Systems
Review of Systems
General: Change in Appetite; Negative Fever or Chills
HEENT: Negative Sinus Problems, Headache or Pharyngitis
Cardiovascular: Negative Chest Pain or Dyspnea
Respiratory: Negative Dyspnea or Cough
Gasteroenterology: Negative Nausea, Vomiting or Diarrhea
Genital / Urological: Negative Dysuria or Flank Pain
Endocrine: Weakness
Neurological: Dizziness
All systems: All other systems were reviewed and were negative
Vital Signs
Temp Pulse Resp BP Pulse Ox
98.4 F 78 16 119/74 98
01/25/25 11:18 01/25/25 11:18 01/25/25 11:18 01/25/25 11:18 01/25/25 11:18
Physical Exam
Physical Exam
Constitutional: No Acute Distress and Comfortable
Head: Other (No sinus tenderness)
Eyes: No Conjunctival Hemorrhage and Sclera Anicteric
Cardiovascular: Regular Rate and S1/S2
Pulmonary: Clear
Gastrointestinal: Soft, Non Tender, Non Distended and Normal Bowel Sounds
Genito-Urinary: Lock and Clear Urine; Negative CVA Tenderness
Extremities: Negative Edema
Neurological: AO x 3
Lines: Other (Left upper extremity midline without erythema)
Lab / Diagnostic Study Results
01/25/25 04:39
01/25/25 04:39
Abs Immat Gran (auto) 0.1 10^3/uL (0-0.05) H 01/25/25 04:39
Absolute Neuts (auto) 11.6 10^3/uL (1.4-6.5) H 01/25/25 04:39
Absolute Lymphs (auto) 1.3 10^3/uL (1.2-3.4) 01/25/25 04:39
Absolute Monos (auto) 1.8 10^3/uL (0.1-0.6) H 01/25/25 04:39
Absolute Basos (auto) 0.1 10^3/uL (0-0.2) 01/25/25 04:39
Immature Gran % 0.6 % (0-0.5) H 01/25/25 04:39
Neutrophils % 77.2 % (42.2-75.2) H 01/25/25 04:39
Lymphocytes % 8.4 % (20.5-51.1) L 01/25/25 04:39
Monocytes % 11.8 % (1.7-9.3) H 01/25/25 04:39
Eosinophils % 1.3 % (0-6) 01/25/25 04:39
Basophils % 0.7 % (0-2) 01/25/25 04:39
Lactic Acid Cancelled 01/25/25 10:00
Ur Squamous Epith Cells 6-10 /LPF (Few) 01/25/25 04:39
Microbiology Results
Micro:
01/25/25 04:39 Urine Culture - Pending
Urine
Assessment / Plan
#Leukocytosis
#Orthostatic hypotension
# CR
#Possible CAUTI
#Recent ESBL-Klebsiella UTI completed 2 weeks of ertapenem through January 21, 2025
# Bladder outlet obstruction with Lock since January 07, 2025
- Replace Zosyn with meropenem pending urine culture result.
- Trend white count.
- Contact isolation.
[2025-01-25 17:09] LABS: Glucose - Point of Care 166 mg/dl (70-99)
[2025-01-25] MEDS: MERREM 500 MG IV ×2 (17:26→23:17)
[2025-01-25] MEDS: LIPITOR 10 MG PO (17:27)
[2025-01-25] MEDS: STERILE WATER FOR INJECTION 10 ML IV ×2 (17:27→23:17)
[2025-01-25] MEDS: NOVOLOG FLEXPEN-LOW RESISTANCE 1 UNITS SC (17:30)
[2025-01-25] MEDS: SENOKOT PO (20:45)
[2025-01-25 21:33] LABS: Glucose - Point of Care 100 mg/dl (70-99)
[2025-01-25] MEDS: MELATONIN 5 MG PO (21:34)
[2025-01-25] MEDS: TYLENOL 650 MG PO (21:34)
[2025-01-25] MEDS: DESYREL 150 MG PO (21:34)
[2025-01-25] MEDS: LANTUS 0.05 UNITS SC (22:17)
[2025-01-26] MEDS: SYNTHROID 112 MCG PO (04:56)
[2025-01-26 05:31] LABS: Hematocrit 29.5 % (39.0-52.0); Hemoglobin 9.8 g/dL (13.0-18.0); Mean Corp Hgb Conc. 33.2 g/dL (33.0-37.0); Mean Corpuscular Volume 88.1 fL (80.0-94.0); Nucleated Red Blood Cells % 0 % (-); Platelet Count 253 10^3/uL (130-400); Red Cell Dist. Width 13.6 % (11.5-14.5)
[2025-01-26 05:49] LABS: Blood Urea Nitrogen 32 mg/dl (9-20); Calcium 8.9 mg/dl (8.4-10.2); Carbon Dioxide 23 mmol/L (22-30); Chloride 107 mmol/L (98-107); Estimated Creatinine Clearance 48 ml/min; Glucose 118 mg/dl (70-99); Potassium 4.1 mmol/L (3.5-5.1); Sodium 136 mmol/L (135-145); eGFR 45.86
[2025-01-26 08:13] VITALS: BP 87/45
[2025-01-26 08:25] LABS: Glucose - Point of Care 112 mg/dl (70-99)
[2025-01-26] MEDS: DESENEX/MITRAZOL/ZEASORB 1 APPLIC TOPICAL ×2 (08:31→19:59)
[2025-01-26] MEDS: VITAMIN B1 100 MG PO (08:32)
[2025-01-26] MEDS: LEXAPRO 10 MG PO (08:32)
[2025-01-26] MEDS: PROTONIX 20 MG PO (08:32)
[2025-01-26] MEDS: PLAVIX 75 MG PO (08:32)
[2025-01-26] MEDS: FLOMAX 0.4 MG PO (08:32)
[2025-01-26] MEDS: LOW STRENGTH ASPIRIN 81 MG PO (08:32)
[2025-01-26] MEDS: FEOSOL 325 MG PO (08:32)
[2025-01-26] MEDS: SENOKOT PO ×2 (08:33→19:59)
[2025-01-26] MEDS: STERILE WATER FOR INJECTION 10 ML IV (08:33)
[2025-01-26] MEDS: HEPARIN 5000 UNITS SC ×3 (08:33→23:01)
[2025-01-26] MEDS: MERREM 500 MG IV (08:34)
--- NOTE | 2025-01-26 09:04 | W.PN.HOSP.TC ---
Today's Communication/Plan
-
Discontinue antibiotic
Trend CBC and temperature curve
PT/OT eval
Assessment / Plan
Assessment / Plan
#Concern for CAUTI
#H/O ESBL UTI
- Presented with weakness, grossly positive UA, dysuria, WBC 15K
- UCx from 12/2024 with ESBL Klebsiella; was treated with 14 days of carbapenem
- Upon arrival urine cultures were obtained; was started on IV Zosyn empirically
- Question if reoccurrence of ESBL; has same urinary catheter from that hospital stay
- ID transition to IV meropenem; urine culture returned positive for yeast though no bacteria
- Discussed with infectious disease, will discontinue antibiotics
- Trend CBC and temperature curve, monitor UOP
#CR on CKD stage III
- Likely prerenal with associated UTI as above; no signs of urinary retention at this time
- Baseline creatinine near 1.5; unknown cause, possibly obstructive; no known systemic complication
- Presented with creatinine of 2.0; was started on maintenance IV fluids upon arrival
- Trend BMP on IVF, avoid nephrotoxins
#Neurogenic bladder
#BPH with MCCRACKEN
#H/O CVA
- Likely small vessel etiology to CVA with previous A1c near 18%, history of substance abuse
- Home regimen currently includes moderate intensity statin, DAPT with aspirin and Plavix
- Previously had chronic Lock catheter though has since been removed
- No signs of acute urine retention at this time
- Continue with home tamsulosin
#IDDM
- Most recent A1c 7.2%; no known microvascular complications, does have CVA history
- Home regimen includes glargine insulin 20 units nightly, aspart insulin 5 units AC, Jardiance
- Jardiance held, transition to ISS with Accu-Cheks, BG goal 140-180
#Orthostatic hypotension
- Possibly neurogenic associated with previous stroke
- Home regimen includes midodrine 15 mg 3 times daily
- Blood pressure currently stable
#Iron deficiency anemia
- Home regimen includes ferrous sulfate supplement
- Hemoglobin baseline near 10, where it currently is on admission labs
- No signs of active bleeding
#Hypothyroidism
- Unclear etiology, Home regimen includes levothyroxine 112 mcg daily
- No obvious signs or symptoms of thyroid dysfunction at this time
#H/O HSV encephalitis
#H/O polysubstance abuse
#H/O Alcoholism
Diet: Diabetic
DVT: SQ heparin
Code: DNR
Dispo: Previous rehab once medically stable
Anticipated Discharge: Within 24 hours
Subjective/Interval History
-
Date of Service: January 26, 2025
Seen and examined at the bedside. No acute events reported overnight. AFVSS this morning
Urine culture returned positive with yeast on final read, no bacteria reported
White count downtrending. Denies any other complaints this morning
Objective Data
-
Labs:
Laboratory Results
01/26/25
05:00
WBC 11.4 H
Hgb 9.8 L
Hct 29.5 L
Plt Count 253
Sodium 136
Potassium 4.1
Chloride 107
Carbon Dioxide 23
BUN 32 H
Creatinine 1.7 H
Glucose 118 H
Calcium 8.9
Vital Signs:
Vital Signs
Temp Pulse Resp BP Pulse Ox
98.7 F 86 16 87/45 94
01/26/25 08:13 01/26/25 08:13 01/26/25 08:13 01/26/25 08:13 01/26/25 08:13
I&O
01/25/25 01/26/25 01/27/25
06:59 06:59 06:59
Intake Total 2180 / 2180
Output Total 1700 / 1700
Balance 480 / 480
Review of Systems
-
History Source: Patient
All other systems: Reviewed and negative
Physical Exam
-
General: Well Developed, No Apparent Distress and Appears Chronically Ill
HEENT: Normocephalic, Atraumatic, Moist Mucous Membranes and Anicteric
Respiratory: Clear to Auscultation and Non Labored Respirations; Negative Accessory Resp Muscle Use
Cardiac: Regular Rhythm and S1/S2; Negative Murmur, Rub or Gallop
GI: Soft, Nontender, Nondistended and Normal Bowel Sounds
Musculoskeletal: No Clubbing, No Cyanosis and No Edema
Skin: Warm and Dry; Negative Rash
Neuro: AO x 3, Central Nerve's Intact and Other (Chronic weakness)
Psych: Calm
[2025-01-26] MEDS: NOVOLOG FLEXPEN 5 UNITS SC ×3 (09:27→18:03)
[2025-01-26] MEDS: NOVOLOG FLEXPEN-LOW RESISTANCE SC (09:27)
[2025-01-26] MEDS: FARXIGA 10 MG PO (09:28)
[2025-01-26 09:52] VITALS: BP 101/72
[2025-01-26 12:08] LABS: Glucose - Point of Care 166 mg/dl (70-99)
[2025-01-26 12:46] VITALS: BP 125/76
[2025-01-26] MEDS: LR 1000 IV ×2 (12:49→21:24)
--- NOTE | 2025-01-26 13:35 | W.PN.ID1 ---
Date of Service
Date of Service: January 26, 2025
Today's Communication
DC abx.
ID will sign off.
Assessment / Plan
#Leukocytosis improving
#Orthostatic hypotension
# CR, improving
#Recent ESBL-Klebsiella UTI completed 2 weeks of ertapenem through January 21, 2025
# Bladder outlet obstruction with Lock since January 07, 2025
- Final Ucx yeast , colonized.
- DC meropenem.
- Can dc contact precaution.
ID will sign off.
Chief Complaint
-: Other (hypotension)
Subjective / Review of Systems
Feels same
Vital Signs / Physical Exam
Vital Signs
Vital Signs
Temp Pulse Resp BP Pulse Ox
98.7 F 77 16 125/76 96
01/26/25 08:13 01/26/25 12:50 01/26/25 08:13 01/26/25 12:50 01/26/25 09:52
Physical Exam
Constitutional: Chronically Ill
Cardiovascular: Regular Rate and S1/S2
Pulmonary: Clear
Gastrointestinal: Soft, Non Tender, Non Distended and Normal Bowel Sounds
Genito-Urinary: Lock and Clear Urine
Neurological: Awake and Alert
Objective Data
Lab Data
Lab Results
01/26/25 05:00
01/26/25 05:00
Estimated Creat Clear 48 ml/min 01/26/25 05:00
Lactic Acid Cancelled 01/25/25 10:00
Total Bilirubin 0.6 mg/dl (0.2-1.3) 01/25/25 04:39
AST 17 U/L (17-59) 01/25/25 04:39
ALT 21 U/L (0-50) 01/25/25 04:39
Alkaline Phosphatase 121 U/L (38-126) 01/25/25 04:39
Most recent labs reviewed.
Micro Results:
01/25/25 04:39 Urine Culture - Final
Urine Yeast
Care Review
Plan reviewed with: Physician (Dr. Hammer)
--- NOTE | 2025-01-26 13:41 | CM ---
CM reviewed chart, care ongoing.
Referral placed to [facility] via [facility].
JOHN spoke with Halina, liaison at [facility], requesting PT/OT notes uploaded to [facility], Halina would like to submit to patients previous SNF authorization to extend auth. Discussed patient refused PT.
Per chart, anticipated d/c within 24 hrs, Halina aware.
CM will continue to follow for all d/c planning.
Plan; return to [facility], will require ambulance transport
[facility] SN[facility]
Report: [phone]
[2025-01-26] MEDS: NOVOLOG FLEXPEN-LOW RESISTANCE 1 UNITS SC ×2 (13:50→18:02)
[2025-01-26 16:10] VITALS: BP 144/81
[2025-01-26 16:55] LABS: Glucose - Point of Care 164 mg/dl (70-99)
[2025-01-26 18:01] VITALS: BP 137/69
[2025-01-26] MEDS: LIPITOR 10 MG PO (18:03)
[2025-01-26] MEDS: TYLENOL 650 MG PO (21:23)
[2025-01-26] MEDS: MELATONIN 5 MG PO (21:24)
[2025-01-26] MEDS: DESYREL 150 MG PO (21:24)
[2025-01-26 21:33] LABS: Glucose - Point of Care 142 mg/dl (70-99)
[2025-01-26] MEDS: LANTUS 0.08 UNITS SC (21:59)
[2025-01-26 23:18] VITALS: BP 132/66
[2025-01-27] MEDS: SYNTHROID 112 MCG PO (05:06)
[2025-01-27 07:35] VITALS: BP 138/72
[2025-01-27 07:41] LABS: Glucose - Point of Care 163 mg/dl (70-99)
[2025-01-27 08:26] LABS: Hematocrit 30.5 % (39.0-52.0); Hemoglobin 9.8 g/dL (13.0-18.0); Mean Corp Hgb Conc. 32.1 g/dL (33.0-37.0); Mean Corpuscular Volume 91.0 fL (80.0-94.0); Nucleated Red Blood Cells % 0 % (-); Platelet Count 270 10^3/uL (130-400); Red Cell Dist. Width 13.5 % (11.5-14.5)
[2025-01-27] MEDS: LR 1000 IV (08:28)
[2025-01-27 08:32] LABS: Blood Urea Nitrogen 25 mg/dl (9-20); Calcium 8.9 mg/dl (8.4-10.2); Carbon Dioxide 23 mmol/L (22-30); Chloride 107 mmol/L (98-107); Estimated Creatinine Clearance 54 ml/min; Glucose 160 mg/dl (70-99); Potassium 4.1 mmol/L (3.5-5.1); Sodium 136 mmol/L (135-145); eGFR 53.30
--- NOTE | 2025-01-27 08:42 | W.PN.HOSP.TC ---
Today's Communication/Plan
-
Obtain x-ray of right shoulder
Monitor off antibiotics
Likely discharge later today
Assessment / Plan
Assessment / Plan
#Concern for CAUTI
#H/O ESBL UTI
- Presented with weakness, grossly positive UA, dysuria, WBC 15K
- UCx from 12/2024 with ESBL Klebsiella; was treated with 14 days of carbapenem
- Question if reoccurrence of ESBL; has same urinary catheter from that hospital stay
- ID transition to IV meropenem; urine culture returned positive for yeast though no bacteria
- Discussed with infectious disease, discontinued antibiotics
- Trend CBC and temperature curve, monitor UOP
#Right shoulder pain
- Follow-up x-ray
- tylenol PRN for now
#CR on CKD stage III
- Likely prerenal with associated UTI as above; no signs of urinary retention at this time
- Baseline creatinine near 1.5; unknown cause, possibly obstructive; no known systemic complication
- Presented with creatinine of 2.0; was started on maintenance IV fluids upon arrival
- Trend BMP on IVF, avoid nephrotoxins
- Resolved
#Neurogenic bladder
#BPH with MCCRACKEN
#H/O CVA
- Likely small vessel etiology to CVA with previous A1c near 18%, history of substance abuse
- Home regimen currently includes moderate intensity statin, DAPT with aspirin and Plavix
- Previously had chronic Lock catheter though has since been removed
- No signs of acute urine retention at this time
- Continue with home tamsulosin
#IDDM
- Most recent A1c 7.2%; no known microvascular complications, does have CVA history
- Home regimen includes glargine insulin 20 units nightly, aspart insulin 5 units AC, Jardiance
- Jardiance held, transition to ISS with Accu-Cheks, BG goal 140-180
#Orthostatic hypotension
- Possibly neurogenic associated with previous stroke
- Home regimen includes midodrine 15 mg 3 times daily
- Blood pressure currently stable
#Iron deficiency anemia
- Home regimen includes ferrous sulfate supplement
- Hemoglobin baseline near 10, where it currently is on admission labs
- No signs of active bleeding
#Hypothyroidism
- Unclear etiology, Home regimen includes levothyroxine 112 mcg daily
- No obvious signs or symptoms of thyroid dysfunction at this time
#H/O HSV encephalitis
#H/O polysubstance abuse
#H/O Alcoholism
Diet: Diabetic
DVT: SQ heparin
Code: DNR
Dispo: Back to [facility] if xray unremarkable
Anticipated Discharge: Today
Subjective/Interval History
-
Date of Service: January 27, 2025
Seen and examined at the bedside. No acute events reported overnight. AFVSS this morning
Complains of some chronic discomfort in his lower back. Also mentions some right shoulder pain associated with recent fall
Denies any other new complaints as of this morning. Hgb stable, WBC remains normal, creatinine back to baseline
Objective Data
-
Labs:
Laboratory Results
01/27/25
07:42
WBC 6.6
Hgb 9.8 L
Hct 30.5 L
Plt Count 270
Sodium 136
Potassium 4.1
Chloride 107
Carbon Dioxide 23
BUN 25 H
Creatinine 1.5 H
Glucose 160 H
Calcium 8.9
Vital Signs:
Vital Signs
Temp Pulse Resp BP Pulse Ox
98.4 F 69 16 138/72 96
01/27/25 07:35 01/27/25 07:35 01/27/25 07:35 01/27/25 07:35 01/27/25 07:35
I&O
01/26/25 01/27/25 01/28/25
06:59 06:59 06:59
Intake Total 2180 / 2180 1680 / 1680
Output Total 1700 / 1700 2875 / 2875
Balance 480 / 480 -1195 / -1195
Review of Systems
-
History Source: Patient
All other systems: Reviewed and negative
Physical Exam
-
General: Well Developed, No Apparent Distress and Appears Chronically Ill
HEENT: Normocephalic, Atraumatic, Moist Mucous Membranes and Anicteric
Respiratory: Clear to Auscultation and Non Labored Respirations; Negative Accessory Resp Muscle Use
Cardiac: Regular Rhythm and S1/S2; Negative Murmur, Rub or Gallop
GI: Soft, Nontender, Nondistended and Normal Bowel Sounds
Musculoskeletal: No Clubbing, No Cyanosis, No Edema and Other (Right shoulder discomfort without gross deformity)
Skin: Warm and Dry; Negative Rash
Neuro: AO x 3, Nonfocal/Grossly Intact, Central Nerve's Intact and Other (Generalized weakness though no FND)
Psych: Calm
Data Reviewed
-
Labs: Labs Reviewed by me and Discussed with Patient
[2025-01-27] MEDS: FLOMAX 0.4 MG PO (09:18)
[2025-01-27] MEDS: FARXIGA 10 MG PO (09:18)
[2025-01-27] MEDS: SENOKOT 17.2 MG PO (09:18)
[2025-01-27] MEDS: PLAVIX 75 MG PO (09:18)
[2025-01-27] MEDS: LEXAPRO 10 MG PO (09:18)
[2025-01-27] MEDS: PROTONIX 20 MG PO (09:18)
[2025-01-27] MEDS: VITAMIN B1 100 MG PO (09:18)
[2025-01-27] MEDS: LOW STRENGTH ASPIRIN 81 MG PO (09:19)
[2025-01-27] MEDS: HEPARIN 5000 UNITS SC (09:19)
[2025-01-27] MEDS: DESENEX/MITRAZOL/ZEASORB 1 APPLIC TOPICAL (09:19)
[2025-01-27] MEDS: FEOSOL 325 MG PO (09:19)
[2025-01-27 09:20] VITALS: BP 112/69; BP 161/80; PULSE 67; PULSE 75; O2SAT 96
[2025-01-27] MEDS: NOVOLOG FLEXPEN-LOW RESISTANCE 1 UNITS SC (09:20)
[2025-01-27] MEDS: NOVOLOG FLEXPEN 5 UNITS SC ×2 (09:20→12:21)
--- NOTE | 2025-01-27 11:01 | CM ---
Addendum entered by Daniela Castle 01/27/25 12:46:
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
Addendum entered by Daniela Castle 01/27/25 12:29:
[facility] can accept patient any time today; ambulance requested
Report # [phone]

Original Note:
PT/OT evaluated patient; SNF bed recommend
[facility]
Plan: Discharge to [facility]
[2025-01-27 11:37] LABS: Glucose - Point of Care 215 mg/dl (70-99)
[2025-01-27] MEDS: NOVOLOG FLEXPEN-LOW RESISTANCE 2 UNITS SC (12:21)
--- NOTE | 2025-01-27 13:50 | W.DCSUMMARY ---
Discharge Summary
Discharge Data
Date of Admission: 01/25/25
Date of Discharge: 01/27/25
Total time spent discharging patient (in min): 32
-
Pending Results: No
Hospital Course
Discharging provider: Luis Hammer DO
Discharge disposition: [facility]
Primary discharge diagnoses:
Generalized weakness
Orthostatic hypotension
Ruled out catheter associated UTI
Chronic Lock catheter
CR on CKD
(R) shoulder discomfort with negative Xray
Chronic discharge diagnoses:
History of CVA
Orthostasis/chronic hypotension on midodrine
Neurogenic bladder
IDDM
Hypothyroidism
ARY
CKD 3
History of ESBL CAUTI
History of polysubstance abuse
Hospital course:
59-year-old male that presented to the hospital with weakness and low blood pressure. Initial concern for catheter associated UTI with his chronic Lock and history of ESBL infection. Had quick improvement to blood pressure with IV fluid
resuscitation and resumption of his home midodrine. 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 CR quickly resolved with IV fluids. Was started on broad-spectrum antibiotics including meropenem
pending urine culture which was ultimately negative. Was evaluated by infectious disease who recommended discontinuation of antibiotics and monitoring. Patient remained clinically stable off of antibiotics. Renal function remained at baseline, no
leukocytosis or recurrence of fevers. Recommend patient has continuation of PT/OT. Continue with midodrine 3 times daily at 15 mg for hypotension. Use graduated compression stockings to the lower extremities and consider abdomen binder for
orthostasis.
Consultants:
Infectious disease�Mandi Em MD
Pertinent imaging findings: N/A
Procedures: N/A
Follow-up:
Family provider within 1 week of discharge
Repeat BMP and CBC with differential in 1 week
Discharge Plan
-
Patient Disposition: Shelter/SNF
Discharge Diagnosis/Procedures: Weakness
Concern for UTI (negative UCx)
H/O stroke
Orthostasis with h/o syncope
Condition: Fair
Diet: As tolerated and Diabetic, Carb Controlled
Activity: As tolerated
Driving Restrictions: As prior to admission
Bathing Restrictions: None
Blood Work: BMP and CBC w/ diff in 1 week
Other Services: PT and OT
Activity Restrictions/Additional Instructions:
Supportive care for orthostasis: Graduated compression stockings worn daily. Consider abdominal binder if available. Caution with positional changes, go slow and sit back down if symptoms present
Instructions: Weakness
Referrals:
Tamanna Harrell MD [Family Provider, Family Practice] - in less than 1 week
Additional Discharge Medication Instructions: Received 2 days of antibiotics in the hospital however discontinued as urine culture negative. No further antibiotics needed. If patient develops urinary symptoms, fevers, change in urine quality
please follow-up with family doctor
Prescriptions:
New
miconazole nitrate [Miconazorb AF] 2 % Powder
1 applic topical BID Qty: 85 0RF
Continued
clopidogrel 75 mg Tablet
75 mg PO DAILY Qty: 12 0RF
aspirin 81 mg Tablet,Chewable
81 mg PO DAILY Qty: 30 0RF
tamsulosin 0.4 mg Capsule
0.4 mg PO DAILY Qty: 30 0RF
pantoprazole 20 mg Tablet,Delayed Release (Dr/Ec)
20 mg PO DAILY Qty: 30 0RF
acetaminophen [Tylenol] 325 mg Tablet
650 mg PO Q6HPRN PRN (Reason: MILD PAIN)
levothyroxine [Synthroid] 88 mcg Tablet
112 mcg PO DAILY
magnesium hydroxide [Milk of Magnesia] 400 mg/5 mL Suspension
2,400 mg PO DAILYPRN PRN (Reason: IF NO BM ON 3RD DAY)
bisacodyl [Dulcolax (bisacodyl)] 10 mg Suppository
10 mg MD DAILYPRN PRN (Reason: IF NO BM AFTR MOM)
Fleet Enema 19-7 gram/118 mL Enema
118 ml MD DAILYPRN PRN (Reason: IF NO BM AFTR DULOLCAX)
sennosides [senna] 8.6 mg Tablet
17.2 mg PO BID
ondansetron HCl 4 mg Tablet
8 mg PO Q6H
thiamine HCl (vitamin B1) 100 mg Tablet
100 mg PO DAILY
ferrous sulfate 325 mg (65 mg iron) Tablet
325 mg PO DAILY
escitalopram oxalate [Lexapro] 10 mg Tablet
10 mg PO DAILY
Jardiance 10 mg Tablet
10 mg PO DAILY
diclofenac sodium-menthol 1.5-10 % Combo Pack
1 pkg TOPICAL BID
Rx Instructions:
lower back
insulin aspart U-100 100 unit/mL (3 mL) Insulin Pen
5 unit SC AC Qty: 15 0RF
insulin glargine [Lantus Solostar U-100 Insulin] 100 unit/mL (3 mL) Insulin Pen
20 unit SC HS Qty: 0 0RF
midodrine 10 mg Tablet
15 mg PO TID Qty: 0 0RF
Rx Instructions:
01/25/25: Hold for SBP>130
atorvastatin 10 mg tablet
10 mg PO QPM
trazodone 150 mg tablet
150 mg PO HS
melatonin 5 mg Tablet
5 mg PO HS
Discharge Orders:
Discharge Patient (As Directed); Ordered 01/27/25
Ordered By: Luis Hammer
Discharge Date and Time
Print Language: AZERI
[2025-01-27 15:25] VITALS: BP 127/73
== END 2025-01-27 15:35 | DRG 57 ==
LOC: 2 NORTH 07:11
PROVIDERS: ADMITTING PHYSICIAN Internal Medicine; ATTENDING PHYSICIAN Internal Medicine; CONSULT PHYSICIAN Internal Medicine Infectious Disease; EMERGENCY PHYSICIAN Student in an Organized Health Care Education/Training Program; FAMILY PHYSICIAN Internal Medicine
DX: G90.3 Multi-system degeneration of the autonomic nervous system (principal); N13.6 Pyonephrosis; N17.9 Acute kidney failure, unspecified; E87.1 Hypo-osmolality and hyponatremia; N18.30 Chronic kidney disease, stage 3 unspecified; E11.22 Type 2 diabetes mellitus with diabetic chronic kidney disease; E03.9 Hypothyroidism, unspecified; N31.9 Neuromuscular dysfunction of bladder, unspecified; D50.9 Iron deficiency anemia, unspecified; Z86.73 Personal history of transient ischemic attack (TIA), and cerebral infarction without residual deficits; Z79.4 Long term (current) use of insulin; Z79.899 Other long term (current) drug therapy
CPT/HCPCS: 51702; 73030; 80048; 80053; 81003; 81015; 82962; 83605; 85025; 87086; 93005; 96361; 96365; 97162; 97166; 99285; 99406